=== PATIENT | female | born 1955 | race Caucasian/White ===

== ENCOUNTER 2022-12-23 07:53 | Outpatient (OUT) | payer MEDICARE, SELFPAY ==
[2022-12-23 08:41] LABS: Basophils Absolute Auto 0.1 10^3/uL (0.0-0.1); Basophils Percent Auto 0.9 % (0.2-2.0); Eosinophils Absolute Auto 0.4 10^3/uL (0.0-0.7); Eosinophils Percent Auto 4.4 % (0.9-7.0); Hematocrit 40.4 % (36.0-48.0); Hemoglobin 12.2 g/dL (12.0-16.0); Immature Granulocytes Abs Auto 0.04 10^3/uL (0.00-0.03); Immature Granulocytes Pct Auto 0.5 % (0.0-0.5); Lymphocytes Absolute Auto 2.9 10^3/uL (1.2-3.8); Lymphocytes Percent Auto 36.5 % (20.5-60.0); Mean Corpuscular HGB Conc 30.2 g/dL (29.9-35.2); Mean Corpuscular Hemoglobin 27.8 pg (26.7-34.0); Mean Platelet Volume 10.1 fL (9.5-13.5); Monocytes Absolute Auto 0.7 10^3/uL (0.3-0.8); Monocytes Percent Auto 8.6 % (1.7-12.0); Neutrophils Absolute Auto 3.9 10^3/uL (1.4-6.5); Neutrophils Percent Auto 49.1 % (43.0-75.0); Platelet Count 328 10^3/uL (150-450); Red Blood Count 4.39 10^6/uL (4.20-5.40)
[2022-12-23 08:57] LABS: Estimated Average Glucose 137 mg/dL; Glycohemoglobin A1C 6.4 % (4.5-6.2)
[2022-12-23 09:06] LABS: Alanine Aminotransferase 26 U/L (14-59); Albumin Level 3.7 g/dL (3.4-5.0); Alkaline Phosphatase 85 U/L (46-116); Anion Gap 14.8; Aspartate Amino Transferase 18 U/L (15-37); BUN Creatinine Ratio 15.4; Bilirubin Total 0.3 mg/dL (0.2-1.0); Calcium 9.5 mg/dL (8.5-10.1); Chloride 103 mmol/L (98-107); Chol HDL Ratio 4.4; Cholesterol 229 mg/dL (<=200); Estimated GFR (African America >60 (>=60); Estimated GFR (Non-African Ame >60 (>=60); Globulin 3.7 g/dL; Glucose 107 mg/dL (74-106); HDL Cholesterol 52 mg/dL (40-60); Potassium 3.8 mmol/L (3.5-5.1); Sodium 141 mmol/L (136-145); Thyroid Stimulating Hormone 4.131 uIU/mL (0.358-3.740); Total Protein 7.4 g/dL (6.4-8.2); Triglycerides 267 mg/dL (<=150); VLDL CHOLESTEROL 53.4 mg/dL
[2022-12-24 12:09] LABS: Insulin 8.2 uIU/mL (2.6-24.9)
== END 2022-12-23 07:54 | disposition home or self-care (01) ==
LOC: LAB 07:56
PROVIDERS: PCP Family Medicine; Visit Provider Family Medicine
DX: M54.9 Dorsalgia, unspecified (principal); E11.9 Type 2 diabetes mellitus without complications; E78.5 Hyperlipidemia, unspecified; K58.9 Irritable bowel syndrome, unspecified; R73.09 Other abnormal glucose; D64.9 Anemia, unspecified; E55.9 Vitamin D deficiency, unspecified
CPT/HCPCS: 36415; 80053; 80061; 82306; 83036; 83525; 83540; 84436; 84443; 84481; 85025

== ENCOUNTER 2023-02-09 09:44 | Outpatient (OUT) | payer MEDICARE, SELFPAY ==
--- NOTE | 2023-02-09 09:46 | MM_ITS ---
Patient Name: KIM SANTAMARIA MR#: [id number] : 1955 Exam Date: 02/09/2023 Ordering Doctor: DR MARCO WHITE . RADIOLOGY REPORT PROCEDURE: MM TOMOSYNTHESIS SCREENING BI COMPARISON: MG MAMM SCREEN 3D KARINE CAD, 01/30/2022. MG MAMM SCREEN KARINE W CAD, 02/16/2019. MG MAMM SCREEN KARINE W CAD, 11/24/2017. MG MAMM KARINE SCRN W CAD DIG, 06/15/2013. INDICATIONS: Screening Calculator Name NCI Breast Cancer Risk Assessment Tool 5 Year Breast Cancer Risk 1.20% Lifetime Breast Cancer Risk 4.20% Personal Breast Cancer No Personal Ovarian Cancer No Treatments None Family Cancers Aunt-maternal with breast cancer at age ~58. LOCATION: [facility] BREAST COMPOSITION: Heterogeneously dense,which may obscure small masses. FINDINGS: DIAGNOSTIC CATEGORY 2--BENIGN FINDING: RIGHT BREAST: No significant suspicious finding. Scattered benign-appearing calcifications are present. No significant change has occurred. LEFT BREAST: No significant suspicious finding. Scattered benign-appearing calcifications are present. No significant change has occurred. RECOMMENDATIONS: ROUTINE MAMMOGRAM AND CLINICAL EVALUATION IN 12 MONTHS. PLEASE NOTE: A NORMAL MAMMOGRAM DOES NOT EXCLUDE THE POSSIBILITY OF BREAST CANCER. A CLINICALLY SUSPICIOUS PALPABLE LUMP SHOULD BE BIOPSIED. Dictated by: Chirag Velázquez M.D. on 02/10/2023 at 15:23 Approved by: Chirag Velázquez M.D. on 02/10/2023 at 15:25
== END 2023-02-09 09:45 | disposition home or self-care (01) ==
LOC: MAMMO 09:44
PROVIDERS: PCP Family Medicine; Visit Provider Family Medicine
DX: Z12.31 Encounter for screening mammogram for malignant neoplasm of breast (principal); Z80.3 Family history of malignant neoplasm of breast
CPT/HCPCS: 77063; 77067

== ENCOUNTER 2023-10-07 09:12 | Outpatient (OUT) | payer MEDICARE, SELFPAY ==
[2023-10-07 09:39] LABS: Basophils Percent Auto 0.6 % (0.2-2.0); Eosinophils Absolute Auto 0.2 10^3/uL (0.0-0.7); Eosinophils Percent Auto 3.1 % (0.9-7.0); Hematocrit 37.8 % (36.0-48.0); Hemoglobin 12.1 g/dL (12.0-16.0); Immature Granulocytes Abs Auto 0.02 10^3/uL (0.00-0.03); Immature Granulocytes Pct Auto 0.3 % (0.0-0.5); Lymphocytes Absolute Auto 2.1 10^3/uL (1.2-3.8); Lymphocytes Percent Auto 31.9 % (20.5-60.0); Mean Corpuscular Hemoglobin 27.8 pg (26.7-34.0); Mean Corpuscular Volume 86.7 fL (81.0-99.0); Mean Platelet Volume 10.1 fL (9.5-13.5); Monocytes Absolute Auto 0.7 10^3/uL (0.3-0.8); Monocytes Percent Auto 10.5 % (1.7-12.0); Neutrophils Absolute Auto 3.5 10^3/uL (1.4-6.5); Neutrophils Percent Auto 53.6 % (43.0-75.0); Platelet Count 280 10^3/uL (150-450); Red Blood Count 4.36 10^6/uL (4.20-5.40); Red Cell Distribution Width 13.7 % (11.0-15.0); White Blood Count 6.5 10^3/uL (4.0-11.0)
[2023-10-07 10:44] LABS: Albumin Level 3.7 g/dL (3.4-5.0); Alkaline Phosphatase 87 U/L (46-116); Aspartate Amino Transferase 18 U/L (15-37); BUN Creatinine Ratio 11.7; Bilirubin Total 0.4 mg/dL (0.2-1.0); Calcium 9.4 mg/dL (8.5-10.1); Carbon Dioxide 26.6 mmol/L (21.0-32.0); Chloride 103 mmol/L (98-107); Estimated GFR (African America >60 (>=60); Estimated GFR (Non-African Ame >60 (>=60); Globulin 3.6 g/dL; Glucose 130 mg/dL (74-106); Potassium 3.6 mmol/L (3.5-5.1); Sodium 140 mmol/L (136-145); Thyroid Stimulating Hormone 1.139 uIU/mL (0.358-3.740); Total Protein 7.3 g/dL (6.4-8.2)
[2023-10-07 11:06] LABS: Alanine Aminotransferase 23 U/L (14-59)
[2023-10-07 11:11] LABS: Free T4 0.78 ng/dL (0.76-1.46)
== END 2023-10-07 09:13 | disposition home or self-care (01) ==
LOC: LAB 09:14
PROVIDERS: PCP Family Medicine; Visit Provider Family Medicine
DX: E03.9 Hypothyroidism, unspecified (principal); F41.9 Anxiety disorder, unspecified
CPT/HCPCS: 36415; 80053; 84439; 84443; 85025

== ENCOUNTER 2023-10-14 06:05 | Outpatient (OUT) | payer MEDICARE, SELFPAY ==
--- NOTE | 2023-10-14 | NM_ITS ---
Patient Name: KIM SANTAMARIA MR#: [id number] : 1955 Exam Date: 10/14/2023 Ordering Doctor: DR Jem Otero . RADIOLOGY REPORT PROCEDURE: NM RICHARD PERF SPECT REST STR COMPARISON: None. INDICATIONS: EXCESSIVE SWEATING TECHNIQUE: Exam Description: Stress/Rest one day protocol gated SPECT Rest Imagin.7 mCi Tc-99m Cardiolite IV on 10/14/2023 Stress Imaging 32.0 mCi Tc-99m Cardiolite IV on 10/14/2023 Exercise Protocol: Lui Heart Rate (bpm): Rest: 71 Max: 133 PMHR: 87 Blood Pressure: Rest: 134/72 Max: 168/76 Exercise Time: Minutes: 4 Seconds: 13 Stage Reached: Stage: 2 Mets 7.0 Symptoms: Rest and peak stress ECG findings were normal and the exercise portion of the study was normal per attending physician Dr. Goel . For more details please see separate cardiac stress test report. FINDINGS: QUALITY OF STUDY: Excellent. PERFUSION DEFECT: None. LOCATION: N/A SIZE: N/A. SEVERITY: N/A. TYPE: N/A. WALL MOTION: Normal. LV SIZE: Normal. 64 mL. TID / TCD: None; 0.8 LVEF: Normal. Calculated EF 70%. SUMMARY: Myocardial perfusion imaging study is NORMAL. CONCLUSION: 1. Normal nuclear medicine myocardial perfusion scan. Dictated by: Chirag Velázquez M.D. on 10/15/2023 at 14:36 Approved by: Chirag Velázquez M.D. on 10/15/2023 at 14:38
--- OUTSIDE RECORDS SUMMARY | 2023-10-14 06:09 | XMS_ITS | CCD ---
Author Organization [facility] Inform ion [facility] Care Team Providers Care Set Up Worker Name Role Phone QUINTIN WHATLEY Unavailable Unavailable Rehl, Brown Unavailable Unavailable Marco Otero Primary Care Physician BRANDEN, DR LARA Consulting Unavailable HOY, DR LARA Primary Care Unavailable HOY, DR LARA Attending Unavailable HOY, DR LARA Admitting Unavailable WEST, DR JOYCE Laurent Consulting Unavailable BRENDAY, DR LARA Consulting Unavailable BRENDAY, DR LARA Primary Care Unavailable HOY, DR LARA Attending Unavailable HOY, DR LARA Admitting Unavailable BROWN, JOYCE Consulting Unavailable HOY, DR LARA Consulting Unavailable BRENDAY, DR LARA Primary Care Unavailable HOY, DR LARA Attending Unavailable HOY, DR LARA Admitting Unavailable HOY, DR LARA Consulting Unavailable BRENDAY, DR LARA Primary Care Unavailable HOY, DR LARA Attending Unavailable HOY, DR LARA Admitting Unavailable WEST, DR JOYCE Laurent Consulting Unavailable BRANDEN, DR LARA Consulting Unavailable BRANDEN, DR LARA Primary Care Unavailable BRANDEN, DR LARA Attending Unavailable BRANDEN, DR LARA Admitting Unavailable WEST, DR JOYCE Laurent Consulting Unavailable HOY, DR LARA Consulting Unavailable BRENDAY, DR LARA Primary Care Unavailable HOY, DR LARA Attending Unavailable HOY, DR LARA Admitting Unavailable BROWNJOYCE Consulting Unavailable BRANDEN, DR LARA Consulting Unavailable BRANDEN, DR LARA Primary Care Unavailable BRANDEN, DR LARA Attending Unavailable HOY, DR LARA Admitting Unavailable ZIEBER, DR YOHANNES Ya Consulting Unavailable NILL, DR GAMING Consulting Unavailable BRENDAY, DR LARA Primary Care Unavailable NILL, DR GAMING Attending Unavailable NILL, DR GAMING Admitting Unavailable RODRIGUEZYUMIKO MAYFIELD Consulting Unavailable JESSIE HENRIQUEZ Consulting Unavailable NILL, DR GAMING Consulting Unavailable HOY, DR LARA Primary Care Unavailable NILL, DR GAMING Attending Unavailable NILL, DR GAMING Admitting Unavailable HOY, DR LARA Consulting Unavailable HOY, DR LARA Primary Care Unavailable HOY, DR LARA Attending Unavailable HOY, DR LARA Admitting Unavailable WEST, DR JOYCE Laurent Consulting Unavailable HOY, DR LARA Consulting Unavailable HOY, DR LARA Primary Care Unavailable HOY, DR LARA Attending Unavailable HOY, DR LARA Admitting Unavailable WEST, DR JOYCE Laurent Consulting Unavailable BRENDAY, DR LARA Primary Care Unavailable NILL, DR GAMING Attending Unavailable NILL, DR GAMING Admitting Unavailable NILL, DR GAMING Consulting Unavailable NILL, Amberly Ya Attending Unavailable NILL, Amberly Ya Attending Unavailable Hoy, Marco Referring Unavailable NILL, Amberly Ya Attending Unavailable Hoy, Marco Referring Unavailable NILL, Amberly R Attending Unavailable NILL, Amberly R Attending Unavailable NILL, Amberly Ya Attending Unavailable Allergies Allergy Classification Reported Allergen(s) Allergy Type Date of Onset Reaction(s) Facility (1 source) No Known Medication Allergies; Translations: [No Known Medication Allergies] Propensity to adverse reactions (disorder) [facility] Repository Medications Current Medications Medication Drug Class(es) Dates Sig (Normalized) Sig (Original) diclofenac sodium 75 mg delayed release oral tablet (2 sources) Nonsteroidal Anti-inflammatory Drug Start: 12-04-2021 take 1 tablet by mouth twice daily diclofenac sodium 75 mg Oral EC Tab 75 mg = 1 tab(s), Oral, BID, Refills(s) 0 Start Date: 12/04/21 Status: Ordered levothyroxine sodium 0.05 mg oral tablet (2 sources) l-Thyroxine Start: 11-29-2021 take 1 tablet by mouth once daily Synthroid 50 mcg Tab 50 mcg = 1 tab(s), Oral, Daily, Refills(s) 0 Start Date: 11/29/21 Status: Ordered metFORMIN hydrochloride 500 mg oral tablet (4 sources) Biguanide Start: 11-29-2021 take 2 tablets by mouth twice daily metformin 500 mg oral tablet 1,000 mg = 2 tab(s), Oral, BID, Refills(s) 0 Start Date: 11/29/21 Status: Ordered pantoprazole 40 mg delayed release oral tablet (6 sources) Proton Pump Inhibitor Start: 05-28-2022 take 1 tablet by mouth twice daily Protonix 40 mg Tab-DR 40 mg = 1 tab(s), Oral, BID, # 90 tab(s), Refills(s) 3, Pharmacy: [id number], 167.6, cm, 05/28/22 13:15:00 EST, Height/Length Dosing, 86.5, kg, 05/28/22 13:15:00 EST, Weight Dosing Start Date: 05/28/22 Status: Ordered Start: 11-29-2021 take 1 tablet by roosevelt th once daily Protonix 40 mg Tab-DR 40 mg = 1 tab(s), Oral, Daily, Refills(s) 0 Start Date: 11/29/21 Status: Ordered QUEtiapine 50 mg oral tablet (4 sources) Atypical Antipsychotic Start: 12-04-2021 take 1 tablet by mouth at bedtime quetiapine 50 mg oral tablet 50 mg = 1 tab(s), Oral, Bedtime, Refills(s) 0 Start Date: 12/04/21 Status: Ordered Start: 12-04-2021 quetiapine 50 mg oral tablet 25 mg = 0.5 tab(s), Oral, Bedtime, Refills(s) 0 Start Date: 12/04/21 Status: Ordered simvastatin 20 mg oral tablet (4 sources) HMG-CoA Reductase Inhibitor Start: 11-29-2021 take 1 tablet by mouth once daily at bedtime simvastatin 20 mg Tab 20 mg = 1 tab(s), Oral, Once a day (at bedtime), Refills(s) 0 Start Date: 11/29/21 Status: Ordered Problems Active Problems Problem Classification Problem Date Documented Da te Episodic/Chronic Abdominal hernia (5 sources) Diaphragmatic hernia without obstruction or gangrene; Translations: [Diaphragmatic hernia] Onset: 2 Episodic Abdominal pain (18 sources) Epigastric pain; Translations: [Epigastric pain] Onset: 2 Episodic Anxiety disorders (4 sources) Anxiety 11-29-2021 Chronic Biliary tract disease (6 sources) Disorder of biliary tract; Translations: [Other specified diseases of biliary tract] Onset: 2 Chronic Biliary tract disease (11 sources) Cholelithiasis without obstruction; Translations: [Calculus of gallbladder without cholecystitis without obstruction] Onset: 2 Episodic Diabetes mellitus without complication (5 sources) Diabetes mellitus; Translations: [Type 2 diabetes mellitus without complications] Onset: 2 11-29-2021 Chronic Diabetes mellitus without complication (1 source) Other abnormal glucose; Translations: [OTHER ABNORMAL GLUCOSE] Onset: 3 Episodic Digestive congenital anomalies (1 source) Other specified congenital malformations of intestine; Translations: [OTH SPEC CONGEN MALFORM INTESTINE] Onset: 2 Chronic Disorders of lipid metabolism (6 sources) Pure hypercholesterolemia; Translations: [Pure hypercholesterolemia, unspecified] Onset: 2 11-29-2021 Chronic Esophageal disorders (9 sources) Gastroesophageal reflux disease; Translations: [Gastro-esophageal reflux disease with esophagitis] Onset: 3 11-29-2021 Chronic Gastritis and duodenitis (2 sources) Bile-induced gastritis 02-10-2022 Episodic Nonmalignant breast conditions (4 sources) Fibrocystic disease of breast 11-29-2021 Chronic Nutritional deficiencies (1 source) Vitamin D deficiency, unspecified; Translations: [VITAMIN D DEFICIENCY UNSPECIFIED] Onset: 2 Chronic Other disorders of stomach and duodenum (1 source) Nonulcer dyspepsia; Translations: [Functional dyspepsia] Onset: 2 Episodic Other disorders of stomach and duodenum (4 sources) Indigestion 12-04-2021 Episodic Other gastrointestinal disorders (1 source) Irritable bowel syndrome without diarrhea; Translations: [IRRITABLE BOWEL SYND W/O DIARRHEA] Onset: 2 Chronic Other gastrointestinal disorders (2 sources) Irritable bowel syndrome 02-10-2022 Chronic Other gastrointestinal disorders (5 sources) Diarrhea; Translations: [Diarrhea, unspecified] Onset: 2 Episodic Other gastrointestinal disorders (1 source) Swollen abdomen; Translations: [Abdominal distension (gaseous)] Onset: 2 Episodic Other gastrointestinal disorders (1 source) Altered bowel function; Translations: [Change in bowel habit] Onset: 2 Episodic Other gastrointestinal disorders (4 sources) Abdominal bloating 12-04-2021 Episodic Other gastrointestinal disorders (4 sources) Alteration in bowel elimination 12-04-2021 Episodic Other injuries and conditions due to external causes (2 sources) Unspecified injury of head, initial encounter; Translations: [S09.90XA - Unspecified injury of head, initial encounter] Onset: 7 Other liver diseases (1 source) Fatty (change of) liver, not elsewhere classified; Translations: [FATTY CHANGE LIVER NEC] Onset: 2 Chronic Other nutritional; endocrine; and metabolic disorders (1 source) Body mass index 30+ - obesity 05-28-2022 Chronic Other nutritional; endocrine; and metabolic disorders (3 sources) Overweight in adulthood with body mass index of 25 or more but less than 30 12-04-2021 Episodic Residual codes; unclassified (5 sources) Early satiety; Translations: [Early satiety] Onset: 2 Episodic Residual codes; unclassified (4 sources) Insomnia 11-29-2021 Episodic Spondylosis; intervertebral disc disorders; other back problems (4 sources) Chronic low back pain 11-29-2021 Episodic Thyroid disorders (9 sources) Hypothyroidism; Translations: [Hypothyroidism, unspecified] Onset: 2 11-29-2021 Chronic Unclassified (1 source) GASTR-ESOPH RFLX DS ESPHGTS W/O BLD; Translations: [GASTR-ESOPH RFLX DS ESPHGTS W/O BLD] Onset: 2 Unclassified (1 source) CONTACT W/AND (SUSP) EXPOS COVID-19; Translations: [CONTACT W/AND (SUSP) EXPOS COVID-19] Onset: 2 Unclassified (3 sources) LOW BACK PAIN, UNSPECIFIED; Translations: [LOW BACK PAIN, UNSPECIFIED] Onset: 2 Past or Other Problems Problem Classification Problem Date Documented Da te Episodic/Chronic Deficiency and other anemia (1 source) Anemia, unspecified; Translations: [ANEMIA UNSPECIFIED] Onset: 01-26-2022 Episodic Other aftercare (1 source) Other fdc (current) drug therapy; Translations: [OTH LONGTERM CURRENT DRUG THERAPY] Onset: 01-06-2022 Episodic Other aftercare (1 source) 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; Translations: [HEMP FIBER TAKER OFF USE ORAL HYPOGLYCEMIC DX] Onset: 01-06-2022 Episodic Other and unspecified benign neoplasm (1 source) Polyp of stomach and duodenum; Translations: [POLYP OF STOMACH AND DUODENUM] Onset: 01-06-2022 Episodic Other gastrointestinal disorders (1 source) Change in bowel habit; Translations: [CHANGE IN BOWEL HABIT] Onset: 01-06-2022 Episodic Other gastrointestinal disorders (1 source) Abdominal distension (gaseous); Translations: [ABDOMINAL DISTENSION GASEOUS] Onset: 01-06-2022 Episodic Other screening for suspected conditions (not mental disorders or infectious disease) (4 sources) Encounter for screening mammogram for malignant neoplasm of breast; Translations: [ENC SCR MAMMO MALIG NEOPLASM BREAST] Onset: 01-30-2022 Episodic Residual codes; unclassified (1 source) Family history of malignant neoplasm of breast; Translations: [FAMILY HX MALIG NEOPLASM OF BREAST] Onset: 02-03-2022 Episodic Residual codes; unclassified (1 source) Early satiety; Translations: [EARLY SATIETY] Onset: 01-06-2022 Episodic Screening and history of mental health and substance abuse codes (1 source) Personal history of nicotine dependence; Translations: [PERSONAL HISTORY OF NICOTINE DEPEND] Onset: 01-06-2022 Episodic Unclassified (1 source) LOW BACK PAIN, UNSPECIFIED; Translations: [LOW BACK PAIN, UNSPECIFIED] Onset: 07-22-2021 Results Test Name Value Interpretation Reference Range Facility Ambulatory Visit Summaryon 0 06-25-2022 Ambulatory Visit Summary OSBALDO SANTAMARIAJOYCELYN Higgins :1955 Visit Date:06/25/2022 Ambulatory Visit Instructions Your Care Team Attending Physician - CASA ANAYA, Amberly Ya Primary Care Physician - Marco Otero MD This Is Your Medications List Contact prescribing physician if questions or concerns metformin (metformin 500 mg oral tablet) pantoprazole (Protonix 40 mg Tab-DR) pantoprazole (Protonix 40 mg Tab-DR) quetiapine (quetiapine 50 mg oral tablet) simvastatin (simvastatin 20 mg Tab) Procedures Performed Colonoscopy (01/01/2022), EGD - Esophagogastroduodenoscopy (01/01/2022), Abdominal hysterectomy (2005), Bilateral oophorectomy. Discharge Vitals Heart Rate (Peripheral) 72 Respiratory Rate 16 Blood Pressure 136/92 Height 167.6 cm Height 66 in Weight 83.4 kg Weight 183.48 lb BMI 29.69 Medications What How Much When Why Instructions Unchanged metformin (metformin 500 mg oral tablet) 2 Tablets By Mouth 2 times a day Contact prescribing physician if questions or concerns Unchanged pantoprazole (Protonix 40 mg Tab-DR) 1 Tablets By Mouth 2 times a day GERD with esophagitis Hiatal hernia with GERD Contact prescribing physician if questions or concerns Unchanged pantoprazole (Protonix 40 mg Tab-DR) 1 Tablets By Mouth Every day Contact prescribing physician if questions or concerns Unchanged quetiapine (quetiapine 50 mg oral tablet) 1 Tablets By Mouth At bedtime Contact prescribing physician if questions or concerns Unchanged simvastatin (simvastatin 20 mg Tab) 1 Tablets By Mouth Once a day (at bedtime) Contact prescribing physician if questions or concerns Allergies No Known Allergies No Known Medication Allergies Problems Ongoing - Any problem that you are currently receiving treatment for. Anxiety Bile reflux gastritis Bloating BMI 29.0-29.9,adult Change in bowel habits Cholelithiasis Chronic low back pain Diabetes Dilated cbd, acquired Early satiety Epigastric pain Fibrocystic breast Frequent loose stools GERD (gastroesophageal reflux disease) GERD with esophagitis Hiatal hernia with GERD Hypothyroidism IBS (irritable bowel syndrome) Indigestion Insomnia Pure hypercholesterolemia Right upper quadrant pain Normal [facility] General Surgery Office/Clini c Noteon 06-25-2022 General Surgery Office/Clinic Note Chief Complaint continued complaint of abdominal pain, bloating, morning nausea and night time vomiting HPI Staff Presents with continued complaint of right sided abdominal pain, nausea, vomiting and bloating. Last evaluation completed 05/28.Taking Protonix BID without change in symptoms. History of Present Illness patient here for persistent epigastric pain, bloating; nausea in am; no bowel changes, denies emesis; pain occurs after eating anything, better if she eats smaller meals; no regurgitation; no fevers, pain lasts about 45 minutes, no nighttime symptoms; taking Protonix bid, gets nausea in the am without eating; no food triggers; no h/o jaundice or GB EF. Review of Systems PHQ Score Initial Depression Screen Score: 0 ROS - Provider Constitutional: no fever, no sweats, no weight loss. Eyes: no glasses, no blurred vision, no visual loss. ENMT: no dentures, no hoarseness, no swallowing difficulties, no hearing loss, no ear infection(s), no nose bleeds. Cardiovascular: normal blood pressure, no chest pain, regular heartbeat, no heart murmur. Respiratory: no shortness of breath, no cough, no asthma, no wheezing. Gastrointestinal: no nausea, no vomiting, no diarrhea, no constipation, no blood in stool, no change in bowel habits, no abdominal pain, no hepatitis. Genitourinary: no kidney stones, no urine infection, no dysuria. Musculoskeletal: no pain, no weakness. Skin: no changing moles, no rash, no skin lumps. Neurologic: no seizures, no epilepsy, no headache. Psychiatric: no emotional or psychiatric problem. Heme/Lymph: no bleeding problems, no anemia, no blood clots, no transfusions. Allergy/Immunologic: no swollen lymph nodes/glands, no IV drug abuse. Other: Additional ROS info: Except as noted in the above Review of Systems and in the History of Present Illness, all other systems have been reviewed and are negative or noncontributory. Physical Exam Vitals & Measurements HR: 72(Peripheral) RR: 16 BP: 136/92 HT: 66 in HT: 167.6 cm WT: 83.4 kg WT: 183.48 lb BMI: 29.69 abd: obese, soft, nondistended, normal bs, mild epigastric tenderness to deep palpation. Assessment/Plan 1. Hiatal hernia with GERD, (K44.9: Diaphragmatic hernia without obstruction or gangrene)Diaphragmatic hernia without obstruction or gangrene symptoms most consistent with GERD; no biliary colic symptoms, not likely passing small stones; recommend decreasing Protonix to daily; frequent small meals, low fat diet; wt loss; monitor for food triggers or other symptoms; if worsening pain, recommend laboratory evaluation, lfts and lipase; may require cholecystectomy if pain persists, patient not interested in surgery at this time. call with problems/questions. Follow-up No qualifying data available Problem List/Past Medical History Ongoing Anxiety Bile reflux gastritis Bloating BMI 29.0-29.9,adult Change in bowel habits Cholelithiasis Chronic low back pain Diabetes Dilated cbd, acquired Early satiety Epigastric pain Fibrocystic breast Frequent loose stools GERD (gastroesophageal reflux disease) GERD with esophagitis Hiatal hernia with GERD Hypothyroidism IBS (irritable bowel syndrome) Indigestion Insomnia Pure hypercholesterolemia Right upper quadrant pain Historical No qualifying data Procedure/Surgical History Colonoscopy (01/01/2022), EGD - Esophagogastroduodenoscopy (01/01/2022), Abdominal hysterectomy (2005), Bilateral oophorectomy. Medications metformin 500 mg oral tablet, 1000 mg= 2 tab(s), Oral, BID Protonix 40 mg Tab-DR, 40 mg= 1 tab(s), Oral, BID, 3 refills Protonix 40 mg Tab-DR, 40 mg= 1 tab(s), Oral, Daily quetiapine 50 mg oral tablet, 50 mg= 1 tab(s), Oral, Bedtime simvastatin 20 mg Tab, 20 mg= 1 tab(s), Oral, Once a day (at bedtime) Allergies No Known Allergies No Known Medication Allergies Social History Alcohol - Denies Alcohol Use, 12/04/2021 Substance Abuse - Denies Substance Abuse, 12/04/2021 Tobacco Former smoker, quit more than 30 days ago Tobacco Use:. Never Smokeless Tobacco Use:. Cigarettes, .75 per day. Started age 13.0 Years. Stopped age 35 Years., 06/25/2022 Family History Asthma: Father. Cancer: Father. Diabetes mellitus type 2: Sister and Brother. Hypertension: Mother. Renal failure syndrome: Brother. Stroke: Mother. Immunizations Vaccine Date Status Comments influenza virus vaccine, inactivated - Not Given Patient Refuses SARS-CoV-2 (COVID-19) mRNA BNT-162b2 vax 04/08/2021 Recorded SARS-CoV-2 (COVID-19) mRNA BNT-162b2 vax 06/21/2020 Recorded SARS-CoV-2 (COVID-19) mRNA BNT-162b2 vax 05/24/2020 Recorded Normal [facility] Comment on above: Result Comment: Elec tronically Signed By: CASA ANAYA, Amberly Ya\.br\Date and Time Signed: 06/25/22 16:53 EDT Ambulatory Visit Summaryon 0 05-28-2022 Ambulatory Visit Summary KIM SANTAMARIA :1955 Visit Date:05/28/2022 Ambulatory Visit Instructions Your Care Team Attending Physician - CASA ANAYA, Amberly Ya Primary Care Physician - Marco Otero MD This Is Your Medications List Contact prescribing physician if questions or concerns metformin (metformin 500 mg oral tablet) pantoprazole (Protonix 40 mg Tab-DR) quetiapine (quetiapine 50 mg oral tablet) simvastatin (simvastatin 20 mg Tab) Procedures Performed Colonoscopy (01/01/2022), EGD - Esophagogastroduodenoscopy (01/01/2022), Abdominal hysterectomy (2006), Bilateral oophorectomy. Discharge Vitals Heart Rate (Peripheral) 74 Respiratory Rate 16 Blood Pressure 148/94 Height 167.6 cm Height 66 in Weight 86.5 kg Weight 190.3 lb BMI 30.79 Medications What How Much When Instructions Unchanged metformin (metformin 500 mg oral tablet) 2 Tablets By Mouth 2 times a day Contact prescribing physician if questions or concerns Unchanged pantoprazole (Protonix 40 mg Tab-DR) 1 Tablets By Mouth Every day Contact prescribing physician if questions or concerns Unchanged quetiapine (quetiapine 50 mg oral tablet) 1 Tablets By Mouth At bedtime Contact prescribing physician if questions or concerns Unchanged simvastatin (simvastatin 20 mg Tab) 1 Tablets By Mouth Once a day (at bedtime) Contact prescribing physician if questions or concerns Medications and Immunizations Administered Not Given influenza virus vaccine, inactivated, Patient Refuses Allergies No Known Allergies No Known Medication Allergies Problems Ongoing - Any problem that you are currently receiving treatment for. Anxiety Bile reflux gastritis Bloating BMI 30.0-30.9,adult Change in bowel habits Cholelithiasis Chronic low back pain Diabetes Dilated cbd, acquired Early satiety Epigastric pain Fibrocystic breast Frequent loose stools GERD (gastroesophageal reflux disease) Hiatal hernia with GERD Hypothyroidism IBS (irritable bowel syndrome) Indigestion Insomnia Pure hypercholesterolemia Right upper quadrant pain Normal [facility] Physician Referralon 023 Physician Referral [phone] [id number] Normal [facility] NM HEPATOBILIARY SCAN W EFon 05-05-2022 NM HEPATOBILIARY SCAN W EF Begin Addendum #1 Further review of the images demonstrates that the gallbladder ejection fraction was calculated following administration of PO ensure. Gallbladder ejection fraction at 60 minutes is 28%, this is abnormally low with normal being 35% or greater Original Report EXAMINATION: NM HEPATOBILIARY SCAN W EF HISTORY: Right upper quadrant pain COMPARISON: No relevant comparison available. TECHNIQUE: Radionuclide hepatobiliary imaging was performed after intravenous injection of 5.1 Tc-99m mebrofenin with sequential acquisitions every 1 minute for one hour. FINDINGS: LIVER: Normal, prompt and uniform radiotracer uptake and clearing. BILIARY DUCTS: Normal radioisotopic biliary excretion. GALLBLADDER: Normal with no evidence of cystic duct obstruction. INTESTINE: Normal with no evidence of common biliary ductal obstruction. EJECTION FRACTION: Not performed OTHER: Negative. IMPRESSION: Normal hepatobiliary scan Normal [facility] US SINGLE QUAD RT UPPERon US SINGLE QUAD RT UPPER EXAM: US SINGLE QUAD RT UPPER HISTORY: . Right upper quadrant pain . COMPARISON: 11/26/2021 TECHNIQUE: Grayscale and color imaging was performed FINDINGS: The pancreas appears normal. Scanning of the liver demonstrates mild increased echogenicity of liver consistent with fatty infiltration of liver. Portions of the liver were obscured due to overlying bowel gas. Color-flow is noted in the portal and hepatic veins. Scanning of the gallbladder demonstrates multiple small echogenic foci within the gallbladder with shadowing consistent with small gallstones. There is also a small amount of sludge within the gallbladder. Gallbladder wall is not thickened. Patient had no pain upon scanning over the gallbladder. Common bile duct measures 4.7 mm. Right kidney measures 9.7 x 5.2 x 4.7 cm. Color-flow is noted. No solid renal cortical masses or hydronephrosis is noted. No fluid is noted in the right upper quadrant. IMPRESSION: 1 portions of the liver were obscured due to overlying bowel gas. Visualized portions of liver demonstrate increased echogenicity consistent with fatty infiltration of liver. This is unchanged. 2. Cholelithiasis along with a small amount of sludge within the gallbladder. No gallbladder wall thickening. Patient had no pain upon scanning over the gallbladder. Findings are unchanged. 3. The remainder the right upper quadrant was unremarkable. Electronically authenticated by: JOCYE INGRAM Date: 2022-04-23 10:51 Normal [facility] H PYLORI ANTIBODY IGGon 03-31 H. PYLORI IGG ABS 0.21 Index Value Normal 0.00-0.79 [facility] Comment on above: Result Comment: Nega tive <0.80 Equivocal 0.80 - 0.89 Positive >0.89 Performed By: #### H PYLLC #### [facility] [address] [place] [address] Dr. Blanca Grimm AMYLASEon 04-18-2022 Amylase [Catalytic activity/Vol] 49 U/L Normal 25-115 [facility] Comment on above: Performed By: #### A MY, CMP, LIPA #### [facility] [address] [address] [address] Blanca Grimm CBC AUTO DIFFon 04-18-2022 BASO # 0.1 103/ul Normal 0.0-0.1 [facility] Comment on above: Performed By: #### A MY, CMP, LIPA #### [facility] [address] [address] [address] Blanca Grimm Basophils/100 WBC (Bld) 0.7 % Normal 0.2-2.0 [facility] Comment on above: Performed By: #### A MY, CMP, LIPA #### [facility] [address] [address] [address] Blanca Grimm EO # 0.3 103/ul Normal 0.0-0.7 [facility] Comment on above: Performed By: #### A MY, CMP, LIPA #### [facility] [address] [place] [address] Dr. Blanca Grimm Eosinophils/100 WBC (Bld) 3.5 % Normal 0.9-7.0 [facility] Comment on above: Performed By: #### A MY, CMP, LIPA #### [facility] [address] [place] [address] Dr. Blanca Grimm Erythrocyte distribution width (RBC) [Ratio] 13.6 % Normal 11.0-15.0 [facility] Comment on above: Performed By: #### A MY, CMP, LIPA #### [facility] [address] [place] [address] Dr. Blanca Grimm Hematocrit (Bld) [Volume fraction] 34.8 % Critically low 36.0-48.0 [facility] Comment on above: Performed By: #### A MY, CMP, LIPA #### [facility] [address] [place] [address] Dr. Blanca Grimm Hemoglobin (Bld) [Mass/Vol] 12.6 g/dL Normal 12.0-16.0 [facility] Comment on above: Performed By: #### A MY, CMP, LIPA #### [facility] [address] [place] [address] Dr. Blanca Grimm IG # 0.04 10e3/ul Critically high 0.00-0.03 [facility] Comment on above: Performed By: #### A MY, CMP, LIPA #### [facility] [address] [place] [address] Dr. Blanca Grimm IG % 0.5 % Normal 0.0-0.5 [facility] Comment on above: Performed By: #### A MY, CMP, LIPA #### [facility] [address] [place] [address] Dr. Blanca Grimm LYMPH # 2.6 103/ul Normal 1.2-3.8 [facility] Comment on above: Performed By: #### A MY, CMP, LIPA #### [facility] [address] [place] [address] Dr. Blanca Grimm Lymphocytes/100 WBC (Bld) 34.2 % Normal 20.5-60.0 [facility] Comment on above: Performed By: #### A MY, CMP, LIPA #### [facility] [address] [place] [address] Dr. Blanca Grimm MANUAL DIFF REQ NO Normal [facility] Comment on above: Performed By: #### A MY, CMP, LIPA #### [facility] [address] [place] [address] Dr. Blanca Grimm MCH (RBC) [Entitic mass] 28.1 pg Normal 26.7-34.0 [facility] Comment on above: Performed By: #### A MY, CMP, LIPA #### [facility] [address] [place] [address] Dr. Blanca Grimm MCHC (RBC) [Mass/Vol] 36.2 g/dL Critically high 29.9-35.2 [facility] Comment on above: Performed By: #### A MY, CMP, LIPA #### [facility] [address] [place] [address] Dr. Blanca Grimm MCV (RBC) [Entitic vol] 77.5 fL Critically low 81.0-99.0 [facility] Comment on above: Performed By: #### A MY, CMP, LIPA #### [facility] [address] [address] [address] Blanca Grimm MONO # 0.7 103/ul Normal 0.3-0.8 [facility] Comment on above: Performed By: #### A MY, CMP, LIPA #### [facility] [address] [address] [address] Blanca Grimm Monocytes/100 WBC (Bld) 9.1 % Normal 1.7-12.0 [facility] Comment on above: Performed By: #### A MY, CMP, LIPA #### [facility] [address] [address] [address] Blanca Grimm NEUT # 3.9 103/ul Normal 1.4-6.5 [facility] Comment on above: Performed By: #### A MY, CMP, LIPA #### [facility] [address] [place] [address] Dr. Blanca Grimm Neutrophils/100 WBC (Bld) 52.0 % Normal 43.0-75.0 [facility] Comment on above: Performed By: #### A MY, CMP, LIPA #### [facility] [address] [place] [address] Dr. Blanca Grimm Platelet mean volume (Bld) [Entitic vol] 9.3 fL Critically low 9.5-13.5 [facility] Comment on above: Performed By: #### A MY, CMP, LIPA #### [facility] [address] [place] [address] Dr. Blanca Grimm PLT 290 103/ul Normal 150-450 [facility] Comment on above: Performed By: #### A MY, CMP, LIPA #### [facility] [address] [place] [address] Dr. Blanca Grimm RBC 4.49 106/ul Normal 4.20-5.40 [facility] Comment on above: Performed By: #### A MY, CMP, LIPA #### [facility] [address] [place] [address] Dr. Blanca Grimm WBC 7.5 103/ul Normal 4.0-11.0 [facility] Comment on above: Performed By: #### A MY, CMP, LIPA #### [facility] [address] [address] [address] Blanca Grimm FREE THYROXINE INDEX T7on FTI 2.57 Normal 1.30-4.50 [facility] Comment on above: Performed By: #### A MY, CMP, LIPA #### [facility] [address] [address] [address] Blanca Grimm T3U 33.0 % Normal 30.0-39.0 [facility] Comment on above: Performed By: #### A MY, CMP, LIPA #### [facility] [address] [place] [address] Dr. Blanca Grimm T4 [Mass/Vol] 7.80 ug/dL Normal 4.80-13.90 [facility] Comment on above: Performed By: #### A MY, CMP, LIPA #### [facility] [address] [place] [address] Dr. Blanca Grimm GLYCOHEMOGLOBIN A1Con 2022 ADA RECOMMENDATION SEE BELOW Normal [facility] Comment on above: Result Comment: ADA RECOMMENDED LIMIT 4.0 - 6.0 ADA THERAPEUTIC TARGET < 7.0 ACTION SUGGESTED > 7.0 Performed By: #### A MY, CMP, LIPA #### [facility] [address] [place] [address] Dr. Blanca Grimm Glucose [Mass/Vol] 128 mg/dL Normal [facility] Comment on above: Performed By: #### A MY, CMP, LIPA #### [facility] [address] [place] [address] Dr. Blanca Grimm HbA1c (Bld) [Mass fraction] 6.1 % Normal 4.5-6.2 [facility] Comment on above: Performed By: #### A MY, CMP, LIPA #### [facility] [address] [place] [address] Dr. Blanca Grimm LIPASEon 04-18-2022 Lipase [Catalytic activity/Vol] 125.0 U/L Normal 73.0-393.0 [facility] Comment on above: Performed By: #### A MY, CMP, LIPA #### [facility] [address] [address] [address] Blanca Grimm PROF 14(COMP METB)on 023 Albumin [Mass/Vol] 4.0 g/dL Normal 3.4-5.0 [facility] Comment on above: Performed By: #### A MY, CMP, LIPA #### [facility] [address] [address] [address] Blanca Grimm Albumin/Globulin [Mass ratio] 1.1 {ratio} Normal [facility] Comment on above: Performed By: #### A MY, CMP, LIPA #### [facility] [address] [place] [address] Dr. Blanca Grimm ALP [Catalytic activity/Vol] 78 U/L Normal 46-116 [facility] Comment on above: Performed By: #### A MY, CMP, LIPA #### [facility] [address] [address] [address] Blanca Grimm ALT [Catalytic activity/Vol] 31 U/L Normal 14-59 [facility] Comment on above: Performed By: #### A MY, CMP, LIPA #### [facility] [address] [place] [address] Dr. Blanca Grimm Anion gap [Moles/Vol] 11.7 mmol/L Normal [facility] Comment on above: Performed By: #### A MY, CMP, LIPA #### [facility] [address] [address] [address] Blanca Grimm AST [Catalytic activity/Vol] 18 U/L Normal 15-37 [facility] Comment on above: Performed By: #### A MY, CMP, LIPA #### [facility] [address] [place] [address] Dr. Blanca Grimm Bilirubin [Mass/Vol] 0.3 mg/dL Normal 0.2-1.0 [facility] Comment on above: Performed By: #### A MY, CMP, LIPA #### [facility] [address] [place] [address] Dr. Blanca Grimm Calcium [Mass/Vol] 9.8 mg/dL Normal 8.5-10.1 [facility] Comment on above: Performed By: #### A MY, CMP, LIPA #### [facility] [address] [address] [address] Blanca Grimm Chloride [Moles/Vol] 103 mmol/L Normal 98-107 [facility] Comment on above: Performed By: #### A MY, CMP, LIPA #### [facility] [address] [address] [address] Blanca Grimm CO2 [Moles/Vol] 29.5 mmol/L Normal 21.0-32.0 [facility] Comment on above: Performed By: #### A MY, CMP, LIPA #### [facility] [address] [place] [address] Dr. Blanca Grimm Creatinine [Mass/Vol] 0.69 mg/dL Normal 0.55-1.02 [facility] Comment on above: Performed By: #### A MY, CMP, LIPA #### [facility] [address] [place] [address] Dr. Blanca Grimm EGFR-AF BERMUDIAN >60 Normal >=60 [facility] Comment on above: Performed By: #### A MY, CMP, LIPA #### [facility] [address] [place] [address] Dr. Blanca Grimm EGFR-NON AF BERMUDIAN >60 Normal >=60 [facility] Comment on above: Performed By: #### A MY, CMP, LIPA #### [facility] [address] [place] [address] Dr. Blanca Grimm Globulin (S) [Mass/Vol] 3.6 g/dL Normal [facility] Comment on above: Performed By: #### A MY, CMP, LIPA #### [facility] [address] [place] [address] Dr. Blanca Grimm Glucose [Mass/Vol] 95 mg/dL Normal 74-106 [facility] Comment on above: Performed By: #### A MY, CMP, LIPA #### [facility] [address] [address] [address] Blanca Grimm Potassium [Moles/Vol] 4.2 mmol/L Normal 3.5-5.1 [facility] Comment on above: Performed By: #### A MY, CMP, LIPA #### [facility] [address] [address] [address] Blanca Grimm Protein [Mass/Vol] 7.6 g/dL Normal 6.4-8.2 [facility] Comment on above: Performed By: #### A MY, CMP, LIPA #### [facility] [address] [address] [address] Blanca Grimm Sodium [Moles/Vol] 140 mmol/L Normal 136-145 [facility] Comment on above: Performed By: #### A MY, CMP, LIPA #### [facility] [address] [place] [address] Dr. Blanca Grimm Urea nitrogen [Mass/Vol] 10.0 mg/dL Normal 7.0-18.0 [facility] Comment on above: Performed By: #### A MY, CMP, LIPA #### [facility] [address] [place] [address] Dr. Blanca Grimm Urea nitrogen/Creatinin e [Mass ratio] 14.5 mg/mg Normal [facility] Comment on above: Performed By: #### A MY, CMP, LIPA #### [facility] [address] [place] [address] Dr. Blanca Grimm TSHon 04-18-2022 TSH 3.705 uIU/mL Normal 0.358-3.740 [facility] Comment on above: Performed By: #### A MY, CMP, LIPA #### [facility] [address] [place] [address] Dr. Blanca Grimm XR ABD FLAT UP_PA Michele 04-18 XR ABD FLAT UP_PA CH EXAMINATION: XR ABD FLAT UP_PA CH HISTORY: Right upper quadrant pain , nausea and vomiting after eating, epigastric pain COMPARISON: No relevant comparison available. FINDINGS: LUNGS: No infiltrate, pneumothorax, or pleural effusion. MEDIASTINUM: No abnormal widening. BOWEL GAS PATTERN: Non-obstructed. No abnormal dilation or suspicious fluid levels. FREE AIR: None. CALCIFICATIONS: None suspicious. Pelvic calcifications favor phleboliths. BONES: No fracture or visible bone lesion. OTHER: Negative. IMPRESSION: 1. No acute cardiopulmonary process. 2. Normal bowel gas pattern. No suspicious abdominal findings. Electronically authenticated by: YOHANNES QUINN Date: 2022-04-18 13:17 Normal [facility] General Surgery Office/Clini c Noteon 02-10-2022 General Surgery Office/Clinic Note Chief Complaint EGD and colonoscopy follow up HPI Staff 20 day post operative follow up post colonoscopy and EGD with gastric polypectomy. Continues to experience abdominal pain and bloating however symptoms are less frequent and less severe. Loose stools are now more formed. History of Present Illness s/p EGD and colonoscopy; EGD with hiatal hernia, bile reflux, fundic gland polyps, bx negative for H pylori, colonoscopy with redundant colon with spasm, consistent with IBS. some improvement with medications. Review of Systems ROS - Provider Constitutional: no fever, no sweats, no weight loss. Eyes: no glasses, no blurred vision, no visual loss. ENMT: no dentures, no hoarseness, no swallowing difficulties, no hearing loss, no ear infection(s), no nose bleeds. Cardiovascular: normal blood pressure, no chest pain, regular heartbeat, no heart murmur. Respiratory: no shortness of breath, no cough, no asthma, no wheezing. Gastrointestinal: no nausea, no vomiting, no diarrhea, no constipation, no blood in stool, no change in bowel habits, no abdominal pain, no hepatitis. Genitourinary: no kidney stones, no urine infection, no dysuria. Musculoskeletal: no pain, no weakness. Skin: no changing moles, no rash, no skin lumps. Neurologic: no seizures, no epilepsy, no headache. Psychiatric: no emotional or psychiatric problem. Heme/Lymph: no bleeding problems, no anemia, no blood clots, no transfusions. Allergy/Immunologic: no swollen lymph nodes/glands, no IV drug abuse. Other: Additional ROS info: Except as noted in the above Review of Systems and in the History of Present Illness, all other systems have been reviewed and are negative or noncontributory. Assessment/Plan 1. 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 2. Hiatal hernia with GERD, (K44.9: Diaphragmatic hernia without obstruction or gangrene)Diaphragmatic hernia without obstruction or gangrene see # 1 3. IBS (irritable bowel syndrome) (K58.9: Irritable bowel syndrome without diarrhea) high fiber diet with daily fiber supplement Follow-up No qualifying data available Problem List/Past Medical History Ongoing Anxiety Bile reflux gastritis Bloating BMI 28.0-28.9,adult Change in bowel habits Cholelithiasis Chronic low back pain Diabetes Dilated cbd, acquired Early satiety Epigastric pain Fibrocystic breast Frequent loose stools GERD (gastroesophageal reflux disease) Hiatal hernia with GERD Hypothyroidism IBS (irritable bowel syndrome) Indigestion Insomnia Pure hypercholesterolemia Right upper quadrant pain Historical No qualifying data Procedure/Surgical History Colonoscopy (01/01/2022), EGD - Esophagogastroduodenoscopy (01/01/2022), Abdominal hysterectomy (2005), Bilateral oophorectomy. Medications diclofenac sodium 75 mg Oral EC Tab, 75 mg= 1 tab(s), Oral, BID metformin 500 mg oral tablet, 1000 mg= 2 tab(s), Oral, BID Protonix 40 mg Tab-DR, 40 mg= 1 tab(s), Oral, Daily quetiapine 50 mg oral tablet, 25 mg= 0.5 tab(s), Oral, Bedtime simvastatin 20 mg Tab, 20 mg= 1 tab(s), Oral, Once a day (at bedtime) sucralfate tab Synthroid 50 mcg Tab, 50 mcg= 1 tab(s), Oral, Daily Allergies No Known Allergies No Known Medication Allergies Social History Alcohol - Denies Alcohol Use, 12/04/2021 Substance Abuse - Denies Substance Abuse, 12/04/2021 Tobacco Former smoker, quit more than 30 days ago Tobacco Use:. Never Smokeless Tobacco Use:. Cigarettes, .75 per day. Started age 13.0 Years. Stopped age 35 Years., 12/04/2021 Family History Asthma: Father. Cancer: Father. Diabetes mellitus type 2: Sister and Brother. Hypertension: Mother. Renal failure syndrome: Brother. Stroke: Mother. Normal [facility] Comment on above: Result Comment: Elec tronically Signed By: CASA ANAYA, Amberly Dent\Date and Time Signed: 02/10/22 16:26 EST MG MAMM SCREEN 3D KARINE CADon 01-30-2022 MG MAMM SCREEN 3D KARINE CAD Patient: KIM SANTAMARIA Exam Date: 01/30/2022 : 1955 Gender:F Ordering : DR MARCO OTERO . Admission #: [id number] Family : Order #: [id number] CLICK HERE TO VIEW EXAM RADIOLOGY REPORT PROCEDURE: MAMMOGRAM SCREENING 3D BILATERAL CAD COMPARISON: MG MAMM SCREEN KARINE W CAD, 02/16/2019. MG MAMM SCREEN KARINE W CAD, 11/24/2017. INDICATIONS: Screening mammography Calculator Name NCI Breast Cancer Risk Assessment Tool 5 Year Breast Cancer Risk 1.20% Lifetime Breast Cancer Risk 4.40% Personal Breast Cancer No Personal Ovarian Cancer No Treatments None Family Cancers Aunt-maternal with breast cancer at age 58. LOCATION: [facility] BREAST COMPOSITION: Heterogeneously dense,which may obscure small masses. FINDINGS: DIAGNOSTIC CATEGORY 1--NEGATIVE. NO CHANGE FROM COMPARISON ASSESSMENT. Scattered benign-appearing calcifications are present. Scattered benign-appearing lymph nodes are present. RIGHT BREAST: No significant suspicious finding. LEFT BREAST: No significant suspicious finding. RECOMMENDATIONS: ROUTINE MAMMOGRAM AND CLINICAL EVALUATION IN 12 MONTHS. PLEASE NOTE: A NORMAL MAMMOGRAM DOES NOT EXCLUDE THE POSSIBILITY OF BREAST CANCER. A CLINICALLY SUSPICIOUS PALPABLE LUMP SHOULD BE BIOPSIED. Dictated by: Joyce Pitt MD on 01/30/2022 at 13:42 Approved by: Joyce Pitt MD on 01/30/2022 at 13:43 Normal [facility] INSULINon 01-23-2022 Insulin 11.7 uIU/mL Normal 2.6-24.9 [facility] Comment on above: Performed By: #### A MY, CMP, LIPA #### [facility] [address] [address] [address] Blanca Grimm CBC AUTO DIFFon 01-22-2022 BASO # 0.1 103/ul Normal 0.0-0.1 [facility] Comment on above: Performed By: #### A MY, CMP, LIPA #### [facility] [address] [address] [address] Blanca Grimm Basophils/100 WBC (Bld) 0.8 % Normal 0.2-2.0 [facility] Comment on above: Performed By: #### A MY, CMP, LIPA #### [facility] [address] [place] [address] Dr. Blanca Grimm EO # 0.2 103/ul Normal 0.0-0.7 [facility] Comment on above: Performed By: #### A MY, CMP, LIPA #### [facility] [address] [place] [address] Dr. Blanca Grimm Eosinophils/100 WBC (Bld) 3.5 % Normal 0.9-7.0 [facility] Comment on above: Performed By: #### A MY, CMP, LIPA #### [facility] [address] [place] [address] Dr. Blanca Grimm Erythrocyte distribution width (RBC) [Ratio] 14.3 % Normal 11.0-15.0 [facility] Comment on above: Performed By: #### A MY, CMP, LIPA #### [facility] [address] [place] [address] Dr. Blanca Grimm Hematocrit (Bld) [Volume fraction] 39.7 % Normal 36.0-48.0 [facility] Comment on above: Performed By: #### A MY, CMP, LIPA #### [facility] [address] [place] [address] Dr. Blanca Grimm Hemoglobin (Bld) [Mass/Vol] 12.9 g/dL Normal 12.0-16.0 [facility] Comment on above: Performed By: #### A MY, CMP, LIPA #### [facility] [address] [place] [address] Dr. Blanca Grimm IG # 0.05 10e3/ul Critically high 0.00-0.03 [facility] Comment on above: Performed By: #### A MY, CMP, LIPA #### [facility] [address] [place] [address] Dr. Blanca Grimm IG % 0.8 % Critically high 0.0-0.5 [facility] Comment on above: Performed By: #### A MY, CMP, LIPA #### [facility] [address] [address] [address] Blanca Grimm LYMPH # 2.5 103/ul Normal 1.2-3.8 [facility] Comment on above: Performed By: #### A MY, CMP, LIPA #### [facility] [address] [place] [address] Dr. Blanca Grimm Lymphocytes/100 WBC (Bld) 38.1 % Normal 20.5-60.0 [facility] Comment on above: Performed By: #### A MY, CMP, LIPA #### [facility] [address] [place] [address] Dr. Blanca Grimm MANUAL DIFF REQ NO Normal [facility] Comment on above: Performed By: #### A MY, CMP, LIPA #### [facility] [address] [place] [address] Dr. Blanca Grimm MCH (RBC) [Entitic mass] 27.9 pg Normal 26.7-34.0 [facility] Comment on above: Performed By: #### A MY, CMP, LIPA #### [facility] [address] [place] [address] Dr. Blanca Grimm MCHC (RBC) [Mass/Vol] 32.5 g/dL Normal 29.9-35.2 [facility] Comment on above: Performed By: #### A MY, CMP, LIPA #### [facility] [address] [place] [address] Dr. Blanca Grimm MCV (RBC) [Entitic vol] 85.9 fL Normal 81.0-99.0 [facility] Comment on above: Performed By: #### A MY, CMP, LIPA #### [facility] [address] [place] [address] Dr. Blanca Grimm MONO # 0.5 103/ul Normal 0.3-0.8 [facility] Comment on above: Performed By: #### A MY, CMP, LIPA #### [facility] [address] [place] [address] Dr. Blanca Grimm Monocytes/100 WBC (Bld) 8.0 % Normal 1.7-12.0 [facility] Comment on above: Performed By: #### A MY, CMP, LIPA #### [facility] [address] [address] [address] Blanca Grimm NEUT # 3.2 103/ul Normal 1.4-6.5 [facility] Comment on above: Performed By: #### A MY, CMP, LIPA #### [facility] [address] [place] [address] Dr. Blanca Grimm Neutrophils/100 WBC (Bld) 48.8 % Normal 43.0-75.0 [facility] Comment on above: Performed By: #### A MY, CMP, LIPA #### [facility] [address] [place] [address] Dr. Blanca Grimm Platelet mean volume (Bld) [Entitic vol] 9.9 fL Normal 9.5-13.5 [facility] Comment on above: Performed By: #### A MY, CMP, LIPA #### [facility] [address] [place] [address] Dr. Blanca Grimm PLT 290 103/ul Normal 150-450 [facility] Comment on above: Performed By: #### A MY, CMP, LIPA #### [facility] [address] [place] [address] Dr. Blanca Grimm RBC 4.62 106/ul Normal 4.20-5.40 [facility] Comment on above: Performed By: #### A MY, CMP, LIPA #### [facility] [address] [place] [address] Dr. Blanca Grimm WBC 6.5 103/ul Normal 4.0-11.0 [facility] Comment on above: Performed By: #### A MY, CMP, LIPA #### [facility] [address] [place] [address] Dr. Blanca Grimm FREE THYROXINE INDEX T7on FTI 2.05 Normal 1.30-4.50 [facility] Comment on above: Performed By: #### L IPID, CMP, T7, TSH #### [facility] [address] [place] [address] Dr. Blanca Grimm T3U 33.0 % Normal 30.0-39.0 [facility] Comment on above: Performed By: #### L IPID, CMP, T7, TSH #### [facility] [address] [address] [address] Blanca Grimm T4 [Mass/Vol] 6.20 ug/dL Normal 4.80-13.90 [facility] Comment on above: Performed By: #### L IPID, CMP, T7, TSH #### [facility] [address] [address] [address] Blanca Grimm GLYCOHEMOGLOBIN A1Con 2021 ADA RECOMMENDATION SEE BELOW Normal [facility] Comment on above: Result Comment: ADA RECOMMENDED LIMIT 4.0 - 6.0 ADA THERAPEUTIC TARGET < 7.0 ACTION SUGGESTED > 7.0 Performed By: #### A MY, CMP, LIPA #### [facility] [address] [place] [address] Dr. Blanca Grimm Glucose [Mass/Vol] 143 mg/dL Normal [facility] Comment on above: Performed By: #### A MY, CMP, LIPA #### [facility] [address] [address] [address] Blanca Grimm HbA1c (Bld) [Mass fraction] 6.6 % Critically high 4.5-6.2 [facility] Comment on above: Performed By: #### A MY, CMP, LIPA #### [facility] [address] [place] [address] Dr. Blanca Grimm IRONon 01-22-2022 Iron [Mass/Vol] 64.0 ug/dL Normal 50.0-170.0 [facility] Comment on above: Performed By: #### A MY, CMP, LIPA #### [facility] [address] [place] [address] Dr. Blanca Grimm LIPID PROFILEon 01-22-2022 CHOL-HDL RATIO NORM SEE BELOW Normal [facility] Comment on above: Result Comment: 3.3 - 4.4 LOW RISK 4.4 - 7.1 AVERAGE RISK 7.1 - 11.0 MODERATE RISK >11.0 HIGH RISK Performed By: #### L IPID, CMP, T7, TSH #### [facility] [address] [address] [address] Blanca Grimm Cholesterol [Mass/Vol] 247 mg/dL Critically high <=200 [facility] Comment on above: Performed By: #### L IPID, CMP, T7, TSH #### [facility] [address] [address] [address] Blanca Grimm Cholesterol in HDL [Mass/Vol] 57 mg/dL Normal 40-60 [facility] Comment on above: Performed By: #### L IPID, CMP, T7, TSH #### [facility] [address] [address] [address] Blanca Grimm Cholesterol in LDL [Mass/Vol] 138.0 mg/dL Normal [facility] Comment on above: Performed By: #### L IPID, CMP, T7, TSH #### [facility] [address] [address] [address] Blanca Grimm Cholesterol.total/ Cholesterol in HDL [Mass ratio] 4.3 {ratio} Normal [facility] Comment on above: Performed By: #### L IPID, CMP, T7, TSH #### [facility] [address] [address] [address] Blanca Grimm HDL NORMAL > or = 60 mg/dl - LO W CARDIOVASCULAR RISK <40 mg/dl - HIGH CARDIOVASCULAR RISK Normal [facility] Comment on above: Performed By: #### L IPID, CMP, T7, TSH #### [facility] [address] [address] [address] Blanca Grimm LDL CALC NORMAL SEE BELOW Normal [facility] Comment on above: Result Comment: <100 mg/dl OPTIMAL 100 - 129 mg/dl NEAR OR ABOVE OPTIMAL 130 - 159 mg/dl BORDERLINE HIGH 160 - 189 mg/dl HIGH >190 mg/dl VERY HIGH Performed By: #### L IPID, CMP, T7, TSH #### [facility] [address] [address] [address] Blanca Grimm Triglyceride [Mass/Vol] 260 mg/dL Critically high <=150 [facility] Comment on above: Performed By: #### L IPID, CMP, T7, TSH #### [facility] [address] [address] [address] Blanca Grimm VLDL CALC 52.0 mg/dL Normal [facility] Comment on above: Performed By: #### L IPID, CMP, T7, TSH #### [facility] [address] [place] [address] Dr. Blanca Grimm PROF 14(COMP METB)on 022 Albumin [Mass/Vol] 4.0 g/dL Normal 3.4-5.0 [facility] Comment on above: Performed By: #### L IPID, CMP, T7, TSH #### [facility] [address] [place] [address] Dr. Blanca Grimm Albumin/Globulin [Mass ratio] 1.1 {ratio} Normal [facility] Comment on above: Performed By: #### L IPID, CMP, T7, TSH #### [facility] [address] [address] [address] Blanca Grimm ALP [Catalytic activity/Vol] 84 U/L Normal 46-116 [facility] Comment on above: Performed By: #### L IPID, CMP, T7, TSH #### [facility] [address] [place] [address] Dr. Blanca Grimm ALT [Catalytic activity/Vol] 36 U/L Normal 14-59 [facility] Comment on above: Performed By: #### L IPID, CMP, T7, TSH #### [facility] [address] [address] [address] Blanca Grimm Anion gap [Moles/Vol] 14.2 mmol/L Normal [facility] Comment on above: Performed By: #### L IPID, CMP, T7, TSH #### [facility] [address] [place] [address] Dr. Blanca Grimm AST [Catalytic activity/Vol] 22 U/L Normal 15-37 [facility] Comment on above: Performed By: #### L IPID, CMP, T7, TSH #### [facility] [address] [place] [address] Dr. Blanca Grimm Bilirubin [Mass/Vol] 0.3 mg/dL Normal 0.2-1.0 [facility] Comment on above: Performed By: #### L IPID, CMP, T7, TSH #### [facility] [address] [address] [address] Blanca Grimm Calcium [Mass/Vol] 9.4 mg/dL Normal 8.5-10.1 [facility] Comment on above: Performed By: #### L IPID, CMP, T7, TSH #### [facility] [address] [address] [address] Blanca Grimm Chloride [Moles/Vol] 103 mmol/L Normal 98-107 [facility] Comment on above: Performed By: #### L IPID, CMP, T7, TSH #### [facility] [address] [address] [address] Blanca Grimm CO2 [Moles/Vol] 26.0 mmol/L Normal 21.0-32.0 [facility] Comment on above: Performed By: #### L IPID, CMP, T7, TSH #### [facility] [address] [address] [address] Blanca Grimm Creatinine [Mass/Vol] 0.71 mg/dL Normal 0.55-1.02 [facility] Comment on above: Performed By: #### L IPID, CMP, T7, TSH #### [facility] [address] [address] [address] Blanca Grimm EGFR-AF BERMUDIAN >60 Normal >=60 [facility] Comment on above: Performed By: #### L IPID, CMP, T7, TSH #### [facility] [address] [address] [address] Blanca Grimm EGFR-NON AF BERMUDIAN >60 Normal >=60 [facility] Comment on above: Performed By: #### L IPID, CMP, T7, TSH #### [facility] [address] [address] [address] Blanca Grimm Globulin (S) [Mass/Vol] 3.8 g/dL Normal [facility] Comment on above: Performed By: #### L IPID, CMP, T7, TSH #### [facility] [address] [address] [address] Blanca Grimm Glucose [Mass/Vol] 112 mg/dL Critically high 74-106 [facility] Comment on above: Performed By: #### L IPID, CMP, T7, TSH #### [facility] [address] [address] [address] Blanca Grimm Potassium [Moles/Vol] 4.2 mmol/L Normal 3.5-5.1 [facility] Comment on above: Performed By: #### L IPID, CMP, T7, TSH #### [facility] [address] [place] [address] Dr. Blanca Grimm Protein [Mass/Vol] 7.8 g/dL Normal 6.4-8.2 [facility] Comment on above: Performed By: #### L IPID, CMP, T7, TSH #### [facility] [address] [place] [address] Dr. Blanca Grimm Sodium [Moles/Vol] 139 mmol/L Normal 136-145 [facility] Comment on above: Performed By: #### L IPID, CMP, T7, TSH #### [facility] [address] [place] [address] Dr. Blanca Grimm Urea nitrogen [Mass/Vol] 10.0 mg/dL Normal 7.0-18.0 [facility] Comment on above: Performed By: #### L IPID, CMP, T7, TSH #### [facility] [address] [place] [address] Dr. Blnaca Grimm Urea nitrogen/Creatinin e [Mass ratio] 14.1 mg/mg Normal [facility] Comment on above: Performed By: #### L IPID, CMP, T7, TSH #### [facility] [address] [place] [address] Dr. Blanca Grimm TSHon 01-22-2022 TSH 2.598 uIU/mL Normal 0.358-3.740 [facility] Comment on above: Performed By: #### L IPID, CMP, T7, TSH #### [facility] [address] [address] [address] Blanca Grimm VITAMIN D 25 OHon 01-22-2022 VIT D 25-OH 40.1 ng/mL Normal [facility] Comment on above: Performed By: #### A MY, CMP, LIPA #### [facility] [address] [id number] Blanca Grimm VIT D RANGES SEE BELOW Normal [facility] Comment on above: Result Comment: <20 ng/mL Vit D deficient 20 - <30 ng/mL Vit D insufficient 30 - 100 ng/mL Vit D sufficient >100 ng/mL Potential Toxicity Performed By: #### A MY, CMP, LIPA #### [facility] [address] [address] [address] Blanca Grimm Ambulatory Visit Summaryon 1 Ambulatory Visit Summary KIM SANTAMARIA :1955 Visit Date:01/21/2022 Ambulatory Visit Instructions Your Care Team Attending Physician - CASA ANAYA, Amberly Ya Primary Care Physician - Marco Otero MD This Is Your Medications List Contact prescribing physician if questions or concerns diclofenac (diclofenac sodium 75 mg Oral EC Tab) levothyroxine (Synthroid 50 mcg Tab) metformin (metformin 500 mg oral tablet) pantoprazole (Protonix 40 mg Tab-DR) quetiapine (quetiapine 50 mg oral tablet) simvastatin (simvastatin 20 mg Tab) Procedures Performed Colonoscopy (01/01/2022), EGD - Esophagogastroduodenoscopy (01/01/2022), Abdominal hysterectomy (2005), Bilateral oophorectomy. Medications What How Much When Instructions Unchanged diclofenac (diclofenac sodium 75 mg Oral EC Tab) 1 Tablets By Mouth 2 times a day Contact prescribing physician if questions or concerns Unchanged levothyroxine (Synthroid 50 mcg Tab) 1 Tablets By Mouth Every day Contact prescribing physician if questions or concerns Unchanged metformin (metformin 500 mg oral tablet) 2 Tablets By Mouth 2 times a day Contact prescribing physician if questions or concerns Unchanged pantoprazole (Protonix 40 mg Tab-DR) 1 Tablets By Mouth Every day Contact prescribing physician if questions or concerns Unchanged quetiapine (quetiapine 50 mg oral tablet) 0.5 Tablets By Mouth At bedtime Contact prescribing physician if questions or concerns Unchanged simvastatin (simvastatin 20 mg Tab) 1 Tablets By Mouth Once a day (at bedtime) Contact prescribing physician if questions or concerns Allergies No Known Allergies No Known Medication Allergies Problems Ongoing - Any problem that you are currently receiving treatment for. Anxiety Bloating BMI 28.0-28.9,adult Change in bowel habits Cholelithiasis Chronic low back pain Diabetes Dilated cbd, acquired Early satiety Epigastric pain Fibrocystic breast Frequent loose stools GERD (gastroesophageal reflux disease) Hypothyroidism Indigestion Insomnia Pure hypercholesterolemia Right upper quadrant pain Normal [facility] Outside Colonoscopyon 2021 Outside Colonoscopy [id number]#[id number]:127 Normal [facility] Pathology Noteon 01-03-2022 Pathology Note [id number]#1.00CD:127 Normal [facility] Reminderson 01-03-2022 Reminders - From: Graciela Zamudio LPN To: GSN - Clinical; Sent: 01/03/2022 08:02:44 EDT Show up: 12/03/2031 07:00:00 EDT Subject: colonoscopy recall Due Date/Time: 01/02/2032 07:00:00 EDT Reminder/Recall Patient is due for screening colonoscopy 01/02/2032. Normal [facility] POINT OF CARE GLUCOSEon Glucose [Mass/Vol] 112 mg/dL Critically high 74-106 [facility] Comment on above: Performed By: #### P OCGLUC #### [facility] [address] [address] [address] Blanca Grimm Lab Reportson 12-31-2021 Lab Reports [id number]#1.00CD:127 Normal [facility] Covid-19 PCR (CVDTBH)on SARS-CoV-2 (COVID-19) RNA ARVIND+probe Ql (Unsp spec) Not detected Normal NOT DETECTED [facility] Comment on above: Result Comment: This test is not yet approved or cleared by the [place] FDA. When there are no FDA-approved or cleared tests available, and other criteria are met, FDA can make tests available under an emergency access mechanism called an Emergency Use Authorization (EUA). The EUA for this test is supported by the [place] of Health and Human Service's (HHS's) declaration that circumstances exist to justify the emergency use of in vitro diagnostics for the detection and/or diagnosis of the virus that causes COVID-19. This EUA will remain in effect (meaning this test can be used) for the duration of the COVID-19 declaration justifying emergency of IVDs, unless it is terminated or revoked by FDA (after which the test may no longer be used). When diagnostic testing is negative, the possibility of a false negative should be considered in the context of a patient's recent exposures and the presence of clinical signs and symptoms consistent with SARS-CoV-2. Performed By: #### A MY, CMP, LIPA #### [facility] [address] [place] [address] Dr. Blanca Grimm Pre-Certification Formon Pre-Certification Form [id number]#[id number]:127 Normal [facility] RAD - MRI Reporton 2 RAD - MRI Report [id number]#1.00CD:127 Normal [facility] Pre-Certification Formon Pre-Certification Form [id number]#1.00CD:127 Normal [facility] MRI ABDOMEN WO CONon 022 MRI ABDOMEN WO CON EXAMINATION: MRI ABD OMEN WO CON HISTORY: Epigastric pain COMPARISON: No relevant comparison available. TECHNIQUE: MRCP was performed without contrast for evaluation of the common bile duct and pancreatic duct. FINDINGS: GALLBLADDER: No abnormal distention, wall thickening, mass, or free fluid. Multiple small dependent filling defects consistent with cholelithiasis. BILE DUCTS: No stricture, abnormal dilation, or filling defect. PANCREAS: No stricture, abnormal dilation, fluid collection, mass, or accessory duct. OTHER: Negative. IMPRESSION: Cholelithiasis with otherwise normal biliary tree Electronically authenticated by: JOYCE PITT Date: 2021-12-17 07:53 Normal [facility] Consent for Procedure/Surger yon 12-05-2021 Consent for Procedure/Surgery [id number]#1.00CD:127 Normal [facility] NM HEPATOBILIARY SCAN W EFon 12-05-2021 NM HEPATOBILIARY SCAN W EF EXAMINATION: NM HEPATOBILIARY SCAN W EF HISTORY: Right upper quadrant pain COMPARISON: No relevant comparison available. TECHNIQUE: Radionuclide hepatobiliary imaging was performed after intravenous injection of 5.0 mCi technetium 99m mebrofenin IV with sequential acquisitions every 1 minute for one hour. Hepatobiliary imaging with gallbladder ejection fraction analysis was then performed with sequential imaging every 1 minute for 60 minutes. FINDINGS: LIVER: Normal, prompt and uniform radiotracer uptake and clearing. BILIARY DUCTS: Normal radioisotopic biliary excretion. GALLBLADDER: Normal with no evidence of cystic duct obstruction. INTESTINE: Normal with no evidence of common biliary ductal obstruction. EJECTION FRACTION: 50 % within 60 minutes. (Normal EF > 38%). OTHER: Negative. IMPRESSION: Normal hepatobiliary scan and gallbladder ejection fraction Electronically authenticated by: JOYCE PITT Date: 2021-12-05 09:11 Normal [facility] RAD - Ultrasound Reporton RAD - Ultrasound Report [id number]#1.00CD:127 Normal [facility] Ambulatory Visit Summaryon 0 12-04-2021 Ambulatory Visit Summary KIM SANTAMARIA :1955 Visit Date:12/04/2021 Ambulatory Visit Instructions Your Diagnosis Epigastric pain Indigestion Bloating Frequent loose stools Dilated cbd, acquired Your Care Team Attending Physician - CASA ANAYA, Amberly Ya Primary Care Physician - Branden ANAYA, Marco Referring Physician - Marco Otero MD This Is Your Medications List Contact prescribing physician if questions or concerns diclofenac (diclofenac sodium 75 mg Oral EC Tab) levothyroxine (Synthroid 50 mcg Tab) metformin (metformin 500 mg oral tablet) pantoprazole (Protonix 40 mg Tab-DR) quetiapine (quetiapine 50 mg oral tablet) simvastatin (simvastatin 20 mg Tab) Procedures Performed Abdominal hysterectomy (2005), Bilateral oophorectomy. Discharge Vitals Heart Rate (Peripheral) 70 Respiratory Rate 16 Blood Pressure 128/90 Height 167.64 cm Height 167.6 cm Weight 81.4 kg Weight 81.4 kg BMI 28.96 What to do next You Need to Complete the Following MRI Cholangiogram Pancreatography (mrcp), 12/04/21, Routine, Order for Future Visit, Transport Mode: Ambulatory, Reason: Other (please specify), Reason: Cholelithiasis, No, No, Dilated cbd, acquired Normal [facility] US SINGLE QUAD RT UPPERon US SINGLE QUAD RT UPPER EXAM: US SINGLE QUAD RT UPPER HISTORY: . Right upper quadrant pain . COMPARISON: None. FINDINGS: The pancreas appears normal. Scanning of the liver demonstrates increased echogenicity of liver consistent with fatty infiltration of liver. Grossly no masses are noted. Color-flow is noted in the portal and hepatic veins. Common bile duct measures 8 mm. Scanning of the gallbladder demonstrates several small echogenic foci within the gallbladder with shadowing consistent with gallstones. No gallbladder wall thickening is noted. Patient had no pain upon scanning over the gallbladder. Right kidney measured 10.7 x 6 x 5 cm. No solid renal cortical masses or hydronephrosis was noted. No fluid was noted in the right upper quadrant. IMPRESSION: 1. Diffuse increased echogenicity of liver consistent with fatty infiltration of the liver. 2. Small echogenic foci within the gallbladder consistent with gallstones. No gallbladder wall thickening. Patient had no pain upon scanning over the gallbladder. 3. Common bile duct was dilated measuring 8 mm. 4. The remainder the right upper quadrant was unremarkable. Electronically authenticated by: JOYCE INGRAM Date: 2021-11-26 10:28 Normal [facility] AMMONIAon 11-13-2021 Ammonia (P) [Moles/Vol] 16 umol/L Normal 11-32 [facility] Comment on above: Performed By: #### A MM #### [facility] [address] [address] [address] Blanca Grimm AMYLASEon 11-13-2021 Amylase [Catalytic activity/Vol] 42 U/L Normal 25-115 [facility] Comment on above: Performed By: #### A MY, CMP, LIPA #### [facility] [address] [place] [address] Dr. Blanca Grimm CBC AUTO DIFFon 11-13-2021 BASO # 0.1 103/ul Normal 0.0-0.1 [facility] Comment on above: Performed By: #### A MY, CMP, LIPA #### [facility] [address] [place] [address] Dr. Blanca Grimm Basophils/100 WBC (Bld) 0.6 % Normal 0.2-2.0 [facility] Comment on above: Performed By: #### A MY, CMP, LIPA #### [facility] [address] [place] [address] Dr. Blanca Grimm EO # 0.2 103/ul Normal 0.0-0.7 [facility] Comment on above: Performed By: #### A MY, CMP, LIPA #### [facility] [address] [place] [address] Dr. Blanca Grimm Eosinophils/100 WBC (Bld) 2.3 % Normal 0.9-7.0 [facility] Comment on above: Performed By: #### A MY, CMP, LIPA #### [facility] [address] [place] [address] Dr. Blanca Grimm Erythrocyte distribution width (RBC) [Ratio] 13.9 % Normal 11.0-15.0 [facility] Comment on above: Performed By: #### A MY, CMP, LIPA #### [facility] [address] [place] [address] Dr. Blanca Grimm Hematocrit (Bld) [Volume fraction] 37.3 % Normal 36.0-48.0 [facility] Comment on above: Performed By: #### A MY, CMP, LIPA #### [facility] [address] [place] [address] Dr. Blanca Grimm Hemoglobin (Bld) [Mass/Vol] 12.1 g/dL Normal 12.0-16.0 [facility] Comment on above: Performed By: #### A MY, CMP, LIPA #### [facility] [address] [address] [address] Blanca Grimm IG # 0.03 10e3/ul Normal 0.00-0.03 [facility] Comment on above: Performed By: #### A MY, CMP, LIPA #### [facility] [address] [address] [address] Blanca Grimm IG % 0.4 % Normal 0.0-0.5 [facility] Comment on above: Performed By: #### A MY, CMP, LIPA #### [facility] [address] [place] [address] Dr. Blanca Grimm LYMPH # 2.5 103/ul Normal 1.2-3.8 [facility] Comment on above: Performed By: #### A MY, CMP, LIPA #### [facility] [address] [place] [address] Dr. Blanca Grimm Lymphocytes/100 WBC (Bld) 29.0 % Normal 20.5-60.0 [facility] Comment on above: Performed By: #### A MY, CMP, LIPA #### [facility] [address] [place] [address] Dr. Blanca Grimm MANUAL DIFF REQ NO Normal [facility] Comment on above: Performed By: #### A MY, CMP, LIPA #### [facility] [address] [place] [address] Dr. Blanca Grimm MCH (RBC) [Entitic mass] 28.1 pg Normal 26.7-34.0 [facility] Comment on above: Performed By: #### A MY, CMP, LIPA #### [facility] [address] [place] [address] Dr. Blanca Grimm MCHC (RBC) [Mass/Vol] 32.4 g/dL Normal 29.9-35.2 [facility] Comment on above: Performed By: #### A MY, CMP, LIPA #### [facility] [address] [place] [address] Dr. Blanca Grimm MCV (RBC) [Entitic vol] 86.7 fL Normal 81.0-99.0 [facility] Comment on above: Performed By: #### A MY, CMP, LIPA #### [facility] [address] [place] [address] Dr. Blanca Grimm MONO # 0.8 103/ul Normal 0.3-0.8 [facility] Comment on above: Performed By: #### A MY, CMP, LIPA #### [facility] [address] [place] [address] Dr. Blanca Grimm Monocytes/100 WBC (Bld) 9.5 % Normal 1.7-12.0 [facility] Comment on above: Performed By: #### A MY, CMP, LIPA #### [facility] [address] [place] [address] Dr. Blanca Grimm NEUT # 5.0 103/ul Normal 1.4-6.5 [facility] Comment on above: Performed By: #### A MY, CMP, LIPA #### [facility] [address] [place] [address] Dr. Blanca Grimm Neutrophils/100 WBC (Bld) 58.2 % Normal 43.0-75.0 [facility] Comment on above: Performed By: #### A MY, CMP, LIPA #### [facility] [address] [place] [address] Dr. Blanca Grimm Platelet mean volume (Bld) [Entitic vol] 9.8 fL Normal 9.5-13.5 [facility] Comment on above: Performed By: #### A MY, CMP, LIPA #### [facility] [address] [place] [address] Dr. Blanca Grimm PLT 273 103/ul Normal 150-450 [facility] Comment on above: Performed By: #### A MY, CMP, LIPA #### [facility] [address] [place] [address] Dr. Blanca Grimm RBC 4.30 106/ul Normal 4.20-5.40 [facility] Comment on above: Performed By: #### A MY, CMP, LIPA #### [facility] [address] [place] [address] Dr. Blanca Grimm WBC 8.5 103/ul Normal 4.0-11.0 [facility] Comment on above: Performed By: #### A MY, CMP, LIPA #### [facility] [address] [place] [address] Dr. Blanca Grimm LIPASEon 11-13-2021 Lipase [Catalytic activity/Vol] 108.0 U/L Normal 73.0-393.0 [facility] Comment on above: Performed By: #### A MY, CMP, LIPA #### [facility] [address] [address] [address] Blanca Grimm PROF 14(COMP METB)on 022 Albumin [Mass/Vol] 3.9 g/dL Normal 3.4-5.0 [facility] Comment on above: Performed By: #### A MY, CMP, LIPA #### [facility] [address] [place] [address] Dr. Blanca Grimm Albumin/Globulin [Mass ratio] 1.1 {ratio} Normal [facility] Comment on above: Performed By: #### A MY, CMP, LIPA #### [facility] [address] [place] [address] Dr. Blanca Grimm ALP [Catalytic activity/Vol] 94 U/L Normal 46-116 [facility] Comment on above: Performed By: #### A MY, CMP, LIPA #### [facility] [address] [place] [address] Dr. Blanca Grimm ALT [Catalytic activity/Vol] 28 U/L Normal 14-59 [facility] Comment on above: Performed By: #### A MY, CMP, LIPA #### [facility] [address] [place] [address] Dr. Blanca Grimm Anion gap [Moles/Vol] 14.8 mmol/L Normal [facility] Comment on above: Performed By: #### A MY, CMP, LIPA #### [facility] [address] [place] [address] Dr. Blanca Grimm AST [Catalytic activity/Vol] 22 U/L Normal 15-37 [facility] Comment on above: Performed By: #### A MY, CMP, LIPA #### [facility] [address] [address] [address] Blanca Grimm Bilirubin [Mass/Vol] 0.3 mg/dL Normal 0.2-1.0 [facility] Comment on above: Performed By: #### A MY, CMP, LIPA #### [facility] [address] [place] [address] Dr. Blanca Grimm Calcium [Mass/Vol] 9.3 mg/dL Normal 8.5-10.1 [facility] Comment on above: Performed By: #### A MY, CMP, LIPA #### [facility] [address] [place] [address] Dr. Blanca Grimm Chloride [Moles/Vol] 103 mmol/L Normal 98-107 [facility] Comment on above: Performed By: #### A MY, CMP, LIPA #### [facility] [address] [place] [address] Dr. Blanca Grimm CO2 [Moles/Vol] 24.4 mmol/L Normal 21.0-32.0 [facility] Comment on above: Performed By: #### A MY, CMP, LIPA #### [facility] [address] [place] [address] Dr. Blanca Grimm Creatinine [Mass/Vol] 0.94 mg/dL Normal 0.55-1.02 [facility] Comment on above: Performed By: #### A MY, CMP, LIPA #### [facility] [address] [place] [address] Dr. Blanca Grimm EGFR-AF BERMUDIAN >60 Normal >=60 [facility] Comment on above: Performed By: #### A MY, CMP, LIPA #### [facility] [address] [place] [address] Dr. Blanca Grimm EGFR-NON AF BERMUDIAN =60 Normal >=60 [facility] Comment on above: Performed By: #### A MY, CMP, LIPA #### [facility] [address] [place] [address] Dr. Blanca Grimm Globulin (S) [Mass/Vol] 3.7 g/dL Normal [facility] Comment on above: Performed By: #### A MY, CMP, LIPA #### [facility] [address] [address] [address] Blanca Grimm Glucose [Mass/Vol] 101 mg/dL Normal 74-106 [facility] Comment on above: Performed By: #### A MY CMP, LIPA #### [facility] [address] [address] [address] Blanca Grimm Potassium [Moles/Vol] 4.2 mmol/L Normal 3.5-5.1 [facility] Comment on above: Performed By: #### A MY, CMP, LIPA #### [facility] [address] [place] [address] Dr. Blanca Grimm Protein [Mass/Vol] 7.6 g/dL Normal 6.4-8.2 [facility] Comment on above: Performed By: #### A MY CMP, LIPA #### [facility] [address] [place] [address] Dr. Blanca Grimm Sodium [Moles/Vol] 138 mmol/L Normal 136-145 [facility] Comment on above: Performed By: #### A MY, CMP, LIPA #### [facility] [address] [place] [address] Dr. Blanca Grimm Urea nitrogen [Mass/Vol] 13.0 mg/dL Normal 7.0-18.0 [facility] Comment on above: Performed By: #### A MY, CMP, LIPA #### [facility] [address] [place] [address] Dr. Blanca Grimm Urea nitrogen/Creatinin e [Mass ratio] 13.8 mg/mg Normal [facility] Comment on above: Performed By: #### A MY, CMP, LIPA #### [facility] [address] [place] [address] Dr. Blanca Grimm XR LSPINE MIN 4 VIEWSon 06-29 XR LSPINE MIN 4 VIEWS EXAMINATION: XR LSPINE MIN 4 VIEWS HISTORY: Low back pain COMPARISON: No relevant comparison available. FINDINGS: BONES: Normal alignment with no acute fracture or spondylolisthesis. Minimal degenerative spondylosis. Mild facet osteoarthropathy DISC SPACES: Normal. No significant disc height narrowing, subluxation, or endplate abnormality. PARASPINOUS: Negative. No paraspinous abnormality is seen. OTHER: Extensive atherosclerosis IMPRESSION: Mild degenerative changes Electronically authenticated by: JOYCE PITT Date: 2021-07-22 18:17 Normal [facility] CT Cervical Spine WOon 11-22 CT Cervical Spine WO [facility] Name: KIM SANTAMARIA [address] [place] [address] Phys: [place] [address] : 1955 Age: 61 Acct: [id number] Loc: ER MRN/Unit No.: [id number] Status: REG ER Exam Date: 11/22/16 Accession Number: [id number] Exam: [id number] CT/CT Cervical Spine WO CT Cervical Spine WO EXAM: CT CERVICAL SPINE WITHOUT CONTRAST: CLINICAL STATEMENT: Fell 8 feet from a ladder with head and neck pain. COMPARISON: CT brain of the same date. TECHNIQUE: Axial CT cervical spine without IV contrast. Coronal and sagittal reformations were performed. Dose reduction techniques were achieved by using automated exposure control and/or adjustment of mA and/or kV according to patient size and/or use of iterative reconstruction technique. FINDINGS: 7 cervical segments are seen without fracture or subluxation. No prominent degenerative changes are seen. Disc spaces are preserved. There is mild left C3-C4 facet degenerative proliferative change noted. No associated neural foraminal encroachment is apparent. No central canal stenosis identified. Retropharyngeal soft tissue width appears satisfactory. Lung apices included are clear. Temporomandibular joints are seen and appear intact. IMPRESSION: No acute cervical fracture or subluxation. No advanced or significant degenerative changes. No prominent focal soft tissue asymmetry. CC: NONSTAFF/DOCTOR NOT IN SYSTEM; QUINTIN WHATLEY Technologist: ALLY MCCULLOUGH Dictated By: BAYLEE OSMAN Signed Date/Time: 11/22/16, 1252 Dictated Date/Time: 11/22/16 1252 Education Counselor: GARCIA WYATT Printed Date/Time: [ rep prt dt last], [ rep prt tm last] This report was electronically signed in an other vendor system Normal [facility] CT Head WOon 11-22-2016 CT Head WO [facility] Name: KIM SANTAMARIA [facility] Phys: [place] [address] : 1955 Age: 61 Acct: [id number] Loc: ER MRN/Unit No.: [id number] Status: REG ER Exam Date: 11/22/16 Accession Number: [id number] Exam: [id number] CT/CT Head WO CT Head WO EXAM: CT HEAD WITHOUT CONTRAST: CLINICAL STATEMENT: Fell off a ladder 8 feet, pain in back of head. COMPARISON: None. TECHNIQUE: Axial CT examination of the head without IV contrast. Coronal and sagittal reformations were performed. Dose reduction techniques were achieved by using automated exposure control and/or adjustment of mA and/or kV according to patient size and/or use of iterative reconstruction technique. FINDINGS: Ventricular system is symmetrical without dilatation. No acute intracranial hemorrhage, midline shift, mass effect, or acute parenchymal density change is seen. No advanced atrophic or degenerative changes are present. The calvarium appears intact. There is a left posterior high parietal scalp soft tissue swelling and hematoma noted. Soft tissue air is seen and this would suggest associated laceration. No radiopaque foreign body is seen. No associated intracranial abnormality is suggested. Portions of the sinuses included and mastoid air cells appear clear. IMPRESSION: Left high posterior scalp soft tissue swelling, hematoma, and soft tissue air suggesting laceration. No associated calvarial or intracranial defect is seen. CC: NONSTAFF/DOCTOR NOT IN SYSTEM; QUINTIN WHATLEY Technologist: ALLY MCCULLOUGH Dictated By: BAYLEE OSMAN Signed Date/Time: 11/22/16, 1252 Dictated Date/Time: 11/22/16 1245 Education Counselor: GARCIA WYATT Printed Date/Time: [ rep prt dt last], [ rep prt tm last] This report was electronically signed in an other vendor system Normal [facility] CT Thoracic Spine WOon 11-22 CT Thoracic Spine WO [facility] Name: KIM SANTAMARIA [address] [place] [address] Phys: [place] [address] : 1955 Age: 61 Acct: [id number] Loc: ER MRN/Unit No.: [id number] Status: DEP ER Exam Date: 11/22/16 Accession Number: [id number] Exam: CT/CT Thoracic Spine WO CT Thoracic Spine WO EXAM: CT THORACIC SPINE WITHOUT CONTRAST: CLINICAL STATEMENT: Fell 8 feet from a ladder. Head, neck, and back pain. COMPARISON: CT cervical spine of the same date. TECHNIQUE: ?Axial CT examination of the thoracic spine without IV contrast. Coronal and sagittal reformations were performed. ? Dose reduction techniques were achieved by using automated exposure control and/or adjustment of mA and/or kV according to patient size and/or use of iterative reconstruction technique. FINDINGS: Thoracic vertebral segments appear intact. No vertebral body compression fracture is seen. No central canal stenosis or narrowing is apparent. There is mild anterior mid level arthrosis noted. Advanced degenerative changes are not seen. Paraspinal musculature appears symmetrical and satisfactory. Portions of the lung ventura included are clear. Aortic vascular calcifications are noted. Punctate calcifications in the liver or gallbladder suggested in the right upper quadrant. Mild bronchotracheal calcifications are present. Aortic root calcification is noted. IMPRESSION: No acute dorsal spine fracture or subluxation. No advanced dorsal spine degenerative changes. Calcifications of the aorta and within the right upper quadrant are noted. Portions of the lung ventura included are clear. CC: NONSTAFF/DOCTOR NOT IN SYSTEM; QUINTIN WHATLEY Technologist: ALLY MCCULLOUGH Dictated By: BAYLEE OSMAN Signed Date/Time: 11/22/16, 1455 Dictated Date/Time: 11/22/16 1258 Education Counselor: GARCIA WYATT Printed Date/Time: [ rep prt dt last], [ rep prt tm last] This report was electronically signed in an other vendor system Normal [facility] Vital Signs Date Time Vital Sign Value Performing Clinician Maisha york 06-25-2022 13:32-0400 Blood Pressure Location Amberly JOSE [facility] 06-25-2022 13:32-0400 Diastolic blood pressure 92 mm[Hg] Amberly JOSE [facility] 06-25-2022 13:32-0400 Heart rate 72 /min Amberly NILL [facility] 06-25-2022 13:32-0400 Respiratory rate 16 /min Amberly NILL [facility] 06-25-2022 13:32-0400 Systolic blood pressure 136 mm[Hg] Amberly NILL [facility] 05-28-2022 13:09-0500 Blood Pressure Location Amberly NILL [facility] 05-28-2022 13:09-0500 Diastolic blood pressure 94 mm[Hg] Amberly NILL [facility] 05-28-2022 13:09-0500 Heart rate 74 /min Amberly NILL [facility] 05-28-2022 13:09-0500 Respiratory rate 16 /min Amberly NILL [facility] 05-28-2022 13:09-0500 Systolic blood pressure 148 mm[Hg] Amberly NILL [facility] 12-04-2021 14:16-0400 Blood Pressure Location Amberly NILL [facility] 12-04-2021 14:16-0400 Diastolic blood pressure 90 mm[Hg] Amberly NILL [facility] 12-04-2021 14:16-0400 Heart rate 70 /min Amberly NILL [facility] 12-04-2021 14:16-0400 Respiratory rate 16 /min Amberly NILL [facility] 12-04-2021 14:16-0400 Systolic blood pressure 128 mm[Hg] Amberly NILL [facility] Encounters Encounter Date Encounter Type Care Provider Facility Start: 06-25-2022 End: 06-26-2022 [facility] Start: 06-25-2022 End: 06-25-2022 Patient encounter procedure Amberly R [facility]AA [facility] [place] Start: 05-28-2022 End: 05-29-2022 [facility] Start: 05-28-2022 End: 05-28-2022 Patient encounter procedure Amberly JOSE [facility] Start: 05-02-2022 End: 05-03-[address] MARCO OTERO Facility:[facility] Start: 04-23-2022 End: 04-24-[address] MARCO OTERO Facility:[facility] Start: 04-18-2022 End: 04-19-[address] MARCO OTERO Facility:[facility] Start: 01-30-2022 End: 01-31-[address] MARCO OTERO Facility:[facility] Start: 01-22-2022 End: 01-23-[address] MARCO OTERO Facility:[facility] Start: 01-21-2022 End: 01-22-2022 [facility]ulatory [facility] Start: 01-21-2022 End: 01-21-2022 Patient encounter procedure Amberly JOSE [facility] [place] Start: 01-02-2022 Encounter for preprocedural laboratory examination DR AMBERLY JSOE [facility] Start: 01-01-2022 End: 01-02-[address] AMBERLY JOSE Facility:[facility] Start: 12-30-2021 End: 12-31-[address] AMBERLY JOSE Facility:[facility] Start: 12-30-2021 End: 12-31-2021 Encounter for preprocedural laboratory examination DR AMBERLY JOSE Facility:[facility] Start: 12-16-2021 End: 12-17-[address] JOYCE PITT Facility:[facility] Start: 12-05-2021 End: 12-06-[address] MARCO OTERO Facility:[facility] Start: 12-04-2021 End: 12-05-2021 ambulatory Amberly JOSE Facility:[facility] Start: 12-04-2021 End: 12-04-2021 Patient encounter procedure Amberly JOSE [facility] Start: 12-03-2021 ambulatory Amberly JOSE Facility :[facility] Start: 11-28-2021 ambulatory Amberly JOSE Facility:[facility] Start: 11-26-2021 End: 11-27-[address] MARCO OTERO Facility:[facility] Start: 11-13-2021 End: 11-14-[address] MARCO OTERO Facility:[facility] Start: 07-22-2021 End: 07-23-[address] MARCO OTERO Facility:[facility] Start: 11-22-2016 End: 11-22-2016 Emergency department patient visit QUINTIN WHATLEY Facility:[facility] Procedures Date Procedure Procedure Detail Performing Clinician Start: 01-01-2022 Colonoscopy Amberly JALLOH Start: 01-01-2022 Esophagogastroduodenoscopy Amberly JOSE Start: 03-30-2005 Abdominal hysterectomy Amberly JOSE Bilateral oophorectomy Julio JOSE Immunizations Immunization Date Immunization Notes Care Provider Fa cility 04-08-2021 SARS-CoV-2 (COVID-19 ) mRNA BNT-162b2 vax Amberly NILL [facility] 06-21-2020 SARS-CoV-2 (COVID-19 ) mRNA BNT-162s1 vax Amberly CUELLARL [facility] 05-24-2020 SARS-CoV-2 (COVID-19 ) mRNA BNT-466x5 vax Amberly CUELLARL [facility] NEGATED: Highlighted row has not occurred!05-28-2022 influenza virus vaccine, unspecified formulation Amberly JOSE [facility] Payers Date Payer Category Payer Unknown [id number] 1959 Unknown [id number] 1955 Unknown [id number] 2.16.84 0.1.236831.3.579.2.593 1955 Unknown [id number] 2.16.84 0.1.093137.3.579.2.593 1955 Unknown [id number] 2.16.84 0.1.227542.3.579.2.593 1955 Unknown [id number] 2.16.84 0.1.685916.3.579.2.593 1955 Unknown [id number] 2.16.84 0.1.307117.3.579.2.593 1955 Unknown [id number] 2.16.84 0.1.376531.3.579.2.593 1955 Unknown [id number] 2.16.84 0.1.552785.3.579.2.593 1955 Unknown [id number] 2.16.84 0.1.158681.3.579.2.593 1955 Unknown [id number] 2.16.84 0.1.051498.3.579.2.593 1955 Unknown [id number] 2.16.84 0.1.855106.3.579.2.593 1955 Unknown [id number] 2.16.84 0.1.926287.3.579.2.593 1955 Unknown [id number] 2.16.84 0.1.262807.3.579.2.593 1955 Unknown [id number] 2.16.8 40.1.291422.3.579.2.727 1955 Unknown [id number] 2.16.8 40.1.042967.3.579.2.727 1955 Unknown [id number] 2.16.8 40.1.970278.3.579.2.727 1955 Unknown [id number] 2.16.8 40.1.706002.3.579.2.727 1955 Unknown [id number] 2.16.8 40.1.506956.3.579.2.727 1955 Unknown [id number] 2.16.8 40.1.737646.3.579.2.727 1955 Unknown [id number] 2.16.8 40.1.176751.3.579.2.727 Unknown [id number] Social History Date Type Detail Facility Start: 12-04-2021 End: 06-25-2022 Tobacco smoking status Ex-smoker (finding) [facility] Tobacco smoking status Never [facility] Sex Assigned At Female [facility] Functional Status Date Assessment Result Facility 06-25-2022 Functional Status N/A [facility] 05-28-2022 Functional Status N/A [facility] 12-04-2021 Functional Status N/A [facility] Clinical Note 05-29-2022 Note Date & Type Note Facility 05-29-2022 Note Chief Complaint consultation for multiple GI complaints HPI Staff 67 year old female presents on consultation from Dr. Otero for abdominal pain, bloating, belching, indigestion, nausea, emesis, early satiety and diarrhea. States she's had reported symptoms for several months. She is eating smaller portions throughout the day which does minimize symptoms. She's been on Protonix for several months. Took Carafate for approximately one month which was not helpful so she discontinued this. EGD and colonoscopy completed 01/01/22 with bile reflux, hiatal hernia and IBS. RUQ US completed 04/23 with cholelithiasis and sludge. HIDA completed 05/02- normal. H.pylori completed 04/18- negative. History of Present Illness 67 yo female with h/o DMII, hyperlipidemia, hypothyroidism; hiatal hernia with GERD, referred for persistent upper abd complaints; primarily GERD symptoms, bloating and burping; some belching which improves symptoms; worse after eating anything; avoids carbonation and caffeine; upper abd pain described as ache, no radiation; occasional regurgitation, occasional nausea; stools looser depending on what she eats; EGD and colonoscopy 12/2021 with hiatal hernia and bile reflux; redundant colon; patient has known cholelithiasis, small, nonobstructing stones, no choledocholithiasis on MRCP; negative H pylori; no improvement with Carafate; has been on Protonix for some time, initially was helpful; no dysphagia, no blood in stools. patient has gained 10 lbs over the last 6 months; no tobacco use. Review of Systems PHQ Score Initial Depression Screen Score: 0 ROS - Provider Constitutional: no fever, no sweats, no weight loss. Eyes: no glasses, no blurred vision, no visual loss. ENMT: no dentures, no hoarseness, no swallowing difficulties, no hearing loss, no ear infection(s), no nose bleeds. Cardiovascular: normal blood pressure, no chest pain, regular heartbeat, no heart murmur. Respiratory: no shortness of breath, no cough, no asthma, no wheezing. Gastrointestinal: yes nausea, no vomiting, no diarrhea, no constipation, no blood in stool, no change in bowel habits, yes abdominal pain, no hepatitis. Genitourinary: no kidney stones, no urine infection, no dysuria. Musculoskeletal: no pain, no weakness. Skin: no changing moles, no rash, no skin lumps. Neurologic: no seizures, no epilepsy, no headache. Psychiatric: no emotional or psychiatric problem. Heme/Lymph: no bleeding problems, no anemia, no blood clots, no transfusions. Allergy/Immunologic: no swollen lymph nodes/glands, no IV drug abuse. Other: Additional ROS info: Except as noted in the above Review of Systems and in the History of Present Illness, all other systems have been reviewed and are negative or noncontributory. Physical Exam Vitals & Measurements HR: 74(Peripheral) RR: 16 BP: 148/94 HT: 66 in HT: 167.6 cm WT: 86.5 kg WT: 190.3 lb BMI: 30.79 HEENT: normal conjunctiva, sclera clear, no scleral icterus, EOM intact, PERRLA, oral mucosa moist without lesions. Neck: trachea midline, no mass, symmetric, no thyromegaly or nodules, no adenopathy Respiratory: lungs CTA, respirations non labored. Cardiovascular: regular rate and rhythm, no murmur, no pedal edema or varicosities. Gastrointestinal: obese, soft, non distended, no tenderness, no masses, no palpable hernias, diastasis recti no, no hepatosplenomegaly; normal bs Lymphatic: no cervical adenopathy, no supraclavicular adenopathy Musculoskeletal: normal gait, digits and nails without infection, nodes, cyanosis, clubbing. Skin: no rashes, no lesions, no ulcers, no subcutaneous nodules, induration. Psychiatric/Neuro: oriented to time, place, person, judgement normal, affect appropriate for age, insight intact, no focal deficits. Tests: labs reviewed, x-rays reviewed, review of old records completed, Assessment/Plan 1. GERD with esophagitis (K21.00: Gastro-esophageal reflux disease with esophagitis, without bleeding) recommend increase Protonix to bid; frequent small meals, no eating 3 hours prior to sleep; no evidence of biliary colic symptoms; if persistent symptoms, will reevaluate for possible cholecystectomy; call with problems/questions. Ordered: pantoprazole, 40 mg = 1 tab(s), Oral, BID, # 90 tab(s), Refills(s) 3, Pharmacy: [id number], 167.6, cm, 05/28/22 13:15:00 EST, Height/Length Dosing, 86.5, kg, 05/28/22 13:15:00 EST, Weight Dosing 2. Hiatal hernia with GERD, (K44.9: Diaphragmatic hernia without obstruction or gangrene)Diaphragmatic hernia without obstruction or gangrene see # 1 Ordered: pantoprazole, 40 mg = 1 tab(s), Oral, BID, # 90 tab(s), Refills(s) 3, Pharmacy: [id number], 167.6, cm, 05/28/22 13:15:00 EST, Height/Length Dosing, 86.5, kg, 05/28/22 13:15:00 EST, Weight Dosing 3. BMI 30.0-30.9,adult (Z68.30: Body mass index [BMI] 30.0-30.9, adult) recommend low fat diet and exercise Follow-up No qualifying data available Problem List/Past Medical History (more content not included)... [facility] Comment on above: Result Comment: Elec tronically Signed By: CASA ANAYA, Amberly Ya\.br\Date and Time Signed: 05/29/22 09:59 EST Clinical Note 01-01-2022 Note Date & Type Note Facility 01-01-2022 Note OPERATIVE NOTE OPERATION DATE: 01/01/2022 PREOPERATIVE DIAGNOSIS: Epigastric abdominal pain, early satiety, change in bowel habits with frequent loose stools and bloating. POSTOPERATIVE DIAGNOSIS: Sliding type hiatal hernia, gastric polyps, bile reflux, redundant colon with spasm. PROCEDURE: EGD with biopsy of gastric polyps and colonoscopy to cecum. SURGEON: Amberly Jose M.D. ANESTHESIA: Monitored anesthesia care. INDICATIONS AND CONSENT: Patient is a 66-year-old female with history of intermittent epigastric abdominal pain, intermittent loose stools, as well as bloating. Indications, risks, benefits, alternatives of proceeding with EGD and colonoscopy were explained extensively to the patient, including the risks of bleeding, aspiration, esophageal/gastric/duodenal or colonic perforation or anesthetic complications. All of her questions were answered. Informed consent was obtained. PROCEDURE: Patient brought to the operating room, placed in the left lateral decubitus position. Monitored anesthesia care was provided. A bite block was placed in the patient's mouth. Scope was inserted into the oropharynx. Under direct visualization, it was advanced into the esophagus, past the cricopharyngeus, down to the stomach. The stomach was insufflated with air. The pylorus was traversed down to the descending portion of the duodenum. There was no evidence of blood, mass or ulceration. There was no scarring within the pyloric channel. Scope was pulled back into the stomach and retroflexed. There was noted to be a small sliding type hiatal hernia as well as multiple gastric polyps. Biopsies of several of these were obtained with good hemostasis. The GE junction was noted at 47 cm. There was noted to be some mild distal esophagitis without ulceration. Remainder of the esophagus was unremarkable. There was noted to be bile reflux within the stomach as well. The scope was then withdrawn. The patient was then positioned for colonoscopy. Rectal exam was performed which showed no masses or blood. The scope was inserted into the anal canal. Under direct visualization was advanced. With the aid of abdominal compression and positional changes, it was advanced to the cecum where cecal markings were clearly identified. Upon withdrawal of the scope, mucosal surfaces were carefully examined. There were no mass lesions or polyps. No inflammatory changes or ulcerations. No significant diverticulosis. The scope was retroflexed in the anal canal. There was no significant hemorrhoidal disease. Scope was then withdrawn. Patient tolerated procedure well, was sent to recovery room in good condition. CC: Patient's family physician [facility] Clinical Note 12-04-2021 Note Date & Type Note Facility 12-04-2021 Note Chief Complaint consultation for cholelithiasis HPI Staff 66 year old female presents on consultation from Dr. Otero for cholelithiasis. Reports long standing history of indigestion and bloating. Denies heartburn or belching. Intermittent nausea, no vomiting. Denies abdominal or epigastric pain. Intermittent sternal pain. In addition, she has been experiencing loose to liquid stools after eating. Stool studies negative. Denies rectal pain or bleeding. Never had EGD or colonoscopy in the past. RUQ US completed 11/26 with cholelithiasis. History of Present Illness 66 yo female with h/o DMII, hypothyroidism, hypercholesterolemia, GERD, referred for cholelithiasis; patient reports several year h/o indigestion/bloating; upper abd pressure; belching; intermittent nausea, no emesis; occasional epigastric pain, burning/ache; at times worse with lying down; can be worse with eating, any type of food; no dysphagia, some early satiety; frequent loose stools after eating, no blood or mucous; no fevers, no h/o jaundice or pancreatitis; no wt loss; recent GB US with small stones, no wall thickening; cbd dilated at 8 cm; abdominal operations significant for MERARI with bso; no previous endoscopy; has been on Protonix for several years, no asa use, occasional use of Diclofenac; no SBE prophylaxis; no fmhx of GI malignancy or IBD; no tobacco use. Review of Systems PHQ Score Initial Depression Screen Score: 0 ROS - Provider Constitutional: no fever, no sweats, no weight loss. Eyes: no glasses, no blurred vision, no visual loss. ENMT: no dentures, no hoarseness, no swallowing difficulties, no hearing loss, no ear infection(s), no nose bleeds. Cardiovascular: normal blood pressure, no chest pain, regular heartbeat, no heart murmur. Respiratory: no shortness of breath, no cough, no asthma, no wheezing. Gastrointestinal: yes nausea, no vomiting, yes diarrhea, no constipation, no blood in stool, yes change in bowel habits, yes abdominal pain, no hepatitis. Genitourinary: no kidney stones, no urine infection, no dysuria. Musculoskeletal: no pain, no weakness. Skin: no changing moles, no rash, no skin lumps. Neurologic: no seizures, no epilepsy, no headache. Psychiatric: no emotional or psychiatric problem. Heme/Lymph: no bleeding problems, no anemia, no blood clots, no transfusions. Allergy/Immunologic: no swollen lymph nodes/glands, no IV drug abuse. Other: Additional ROS info: Except as noted in the above Review of Systems and in the History of Present Illness, all other systems have been reviewed and are negative or noncontributory. Physical Exam Vitals & Measurements HR: 70(Peripheral) RR: 16 BP: 128/90 HT: 167.64 cm HT: 167.6 cm WT: 81.4 kg WT: 81.4 kg BMI: 28.96 HEENT: normal conjunctiva, sclera clear, no scleral icterus, EOM intact, PERRLA, oral mucosa moist without lesions. Neck: trachea midline, no mass, symmetric, no thyromegaly or nodules, no adenopathy Respiratory: lungs CTA, respirations non labored. Cardiovascular: regular rate and rhythm, no murmur, no pedal edema or varicosities. Gastrointestinal: soft, non distended, no tenderness, no masses, no palpable hernias, diastasis recti no, no hepatosplenomegaly; normal bs Lymphatic: no cervical adenopathy, Musculoskeletal: normal gait, digits and nails without infection, nodes, cyanosis, clubbing. Skin: no rashes, no lesions, no ulcers, no subcutaneous nodules, induration. Psychiatric/Neuro: oriented to time, place, person, judgement normal, affect appropriate for age, insight intact, no focal deficits. Tests: labs reviewed, x-rays reviewed, review of old records completed, Discussed surgical options, risks, and possible complications with patient. Assessment/Plan 1. Epigastric pain (R10.13: Epigastric pain) plan EGD and colonoscopy under anesthesia for further evaluation; informed consent obtained; symptoms not consistent with biliary colic, no evidence of cholecystitis; possible choledocholithiasis, will obtain MRCP; call sooner if problems/questions. Ordered: MRI Cholangiogram Pancreatography (mrcp) 2. Early satiety (R68.81: Early satiety) see # 1 3. Change in bowel habits (R19.4: Change in bowel habit) see # 1 4. Indigestion (K30: Functional dyspepsia) see # 1 5. Bloating (R14.0: Abdominal distension (gaseous)) see # 1 6. Frequent loose stools (R19.7: Diarrhea, unspecified) see # 1 7. Dilated cbd, acquired (K83.8: Other specified diseases of biliary tract) see # 1 Ordered: MRI Cholangiogram Pancreatography (m[facility]p) 8. Cholelithiasis (K80.20: Calculus of gallbladder without cholecystitis without obstruction) see # 1 Follow-up No qualifying data available Problem List/Past Medical History Ongoing Anxiety Bloating BMI 28.0-28.9,adult Change in bowel habits Cholelithiasis Chronic low back pain Diabetes Dilated cbd, acquired Early satiety Epigastric pain Fibrocystic breast Frequent loose stools GERD (gastroesop (more content not included)... [facility] Comment on above: Result Comment: Elec tronically Signed By: CASA ANAYA, Amberly Dent\Date and Time Signed: 12/04/21 21:16 EDT Evaluation + Plan note 12-04-2021 Radiology Note Date & Type Note Facility 12-04-2021 Evaluation + Plan note Future Scheduled TestsMRI Cholangiogram Pancreatography ([facility]) 12/04/21 [facility] course Narrative Note Date & Type Note Facility Hospital course Narrative No data available for this section [facility] Discharge instructions Note Date & Type Note Facility Hospital Discharge instructions No data available for this section [facility] Progress note Note Date & Type Note Facility Progress note No data available for this section [facility] Summary Purpose Family History No Family History Records FoundNo Family History Records FoundNo Family History Records Found Advance Directives No Advanced Directives Records FoundNo Advanced Directives Records FoundNo Advanced Directives Records Found Additional Source Comments INFORMATION SOURCE (unrecogn ized section and content) DATE CREATED [facility] DATE CREATED AUTHOR AUTHOR'S ORGANIZ ATION 05/05/2022 [facility] DATE CREATED AUTHOR AUTHOR'S ORGANIZ ATION 06/30/2022 [facility] Care Team (unrecognized sect ion and content) Personnel Name: Marco Otero MD Address: [address] [place] [address] Personnel Name: Marco Otero MD Address: Address: [address] [place] [address] Personnel Name: Marco Otero MD Address: Address: [address] [place] [address] Personnel Name: Marco Otero MD Address: Address: [address] [place] [address] FOR RECORDS PERTAINING TO PATIENTS WHO ARE OR HAVE BEEN ENROLLED IN A CHEMICAL DEPENDENCY/SUBSTANCEABUSE PROGRAM, SOME INFORMATION MAY BE OMITTED. This clinical summary was aggregated from multiple sources. Caution should be exercised in using it in the provision of clinical care. This summary normalizes information from multiple sources, and as a consequence, information in this document may materially change the coding, format and clinical context of patient data. In addition, data may be omitted in some cases. CLINICAL DECISIONS SHOULD BE BASED ON THE PRIMARY CLINICAL RECORDS. [facility]. provides no warranty or guarantee of the accuracy or completeness of information in this document.
--- NOTE | 2023-10-14 12:56 | P.STRESS_ITS ---
Stress Test Stress Test Requesting physician: Jem Otero Procedure: Exercise Cardiolite stress test General Information: Reason for Stress Test: Syncope Cardiac History and Risk Factors: None listed Resting 12 - Lead Electrocardiogram: Rate & rhythm: Normal sinus at a rate of 72. Am[place]on: Normal T-waves: Normal orientation ST-segments: Normal QTc: Prolonged @ 486msec Stress Test: Protocol: Lui protocol was followed, with injection of Cardiolite once target heart rate was achieved. Exercise capacity: Fair exercise capacity. Total exercise time of 4 minutes 13 seconds reached Lui stage 2 at 2.5MPH, 12% grade, & 7 METs. Blood pressure: Initial: 134/72, Maximum: 168/76 Rate & rhythm: Patient remained in sinus rhythm during the exercise and recovery portions of the study.? The maximum heart rate was 133, which was 87% of the maximum predicted heart rate 152. PVCs were noted. ST-segments & T-waves: No significant changes when compared to the baseline EKG. Patient response/symptoms: No reproducible symptoms to chief complaint. Interpretation: Normal exercise stress test without electrocardiographical evidence of ischemia. Asymptomatic of chief complaint. Cardiolite imaging interpretation will be reported separately. Clinical correlation required.?
--- NOTE | 2023-10-14 14:40 | PC.NURSE ---
Nursing Note Cardiac Stress Test Reviewed: Medication, allergies and patient history reviewed. Stress Test: [ x] Patient tolerated stress test well. [ ] Patient unable to tolerate walking on treadmill. Switched to Lexiscan stress test. [x ] No chest pain noted per patient [ ] Chest pain that resolved prior to leaving stress lab. [ ] No dyspnea noted. [x ] Dyspnea that resolved prior to leaving stress lab. [x ] Patient left stress lab asymptomatic and hemodynamically stable. [ ] Patient taken to the Emergency Room due to non-resolving symptoms following stress test. [ x] Patient achieved target heart rate. [ ] Patient unable to achieve target heart rate. [ ] Aminophylline administered as reversal agent to Lexiscan (Regadenoson). [ ] Nitro administered. Nursing Comments:
== END 2023-10-14 06:06 | disposition home or self-care (01) ==
LOC: NM 06:06
PROVIDERS: PCP Family Medicine; Visit Provider Family Medicine
DX: R07.89 Other chest pain (principal); R61 Generalized hyperhidrosis
CPT/HCPCS: 78452; 93017; A9500

== ENCOUNTER 2023-12-15 08:52 | Outpatient (OUT) | payer MEDICARE, SELFPAY ==
--- OUTSIDE RECORDS SUMMARY | 2023-12-15 09:10 | XMS_ITS | CCD ---
Author Organization [facility] Inform ion [facility] Care Team Providers Care Pattern Stamper Name Role Phone QUINTIN WHATLEY Unavailable Unavailable Rehl, Brown Unavailable Unavailable Marco Otero Primary Care Physician [phone] BRANDEN, DR LARA Consulting Unavailable HOY, DR [...] Medication Allergies] Propensity to adverse reactions (disorder) [facility] Repository Medications Current Medications Medication Drug [...] BID, # 90 tab(s), Refills(s) 3, Pharmacy: [id number], 167.6, cm, 05/28/22 13:15:00 EST, [...] 01-26-2022 Episodic Other aftercare (1 source) Other long term care phlebotomist (current) drug therapy; Translations: [OTH IS PROJECT MANAGER CURRENT DRUG THERAPY] Onset: 01-06-2022 Episodic Other aftercare (1 source) group home (current) use of oral hypoglycemic drugs; Translations: [IS PROJECT MANAGER USE ORAL HYPOGLYCEMIC DX] Onset: 01-06-2022 Episodic [...] Pure hypercholesterolemia Right upper quadrant pain Normal [facility] General Surgery Office/Clini c Noteon 06-25-2022 [...] mRNA BNT-162b2 vax 05/24/2020 Recorded Normal [facility] Comment on above: Result Comment: Elec [...] Pure hypercholesterolemia Right upper quadrant pain Normal [facility] Physician Referralon 023 Physician Referral [id number] Normal [facility] NM HEPATOBILIARY SCAN W EFon 05-05-2022 [...] Negative. IMPRESSION: Normal hepatobiliary scan Normal [facility] US SINGLE QUAD RT UPPERon US [...] unremarkable. Electronically authenticated by: JOYCE INGRAM Date: 2022-04-23 10:51 Normal [facility] H PYLORI ANTIBODY IGGon 03-31 H. PYLORI IGG ABS 0.21 Index Value Normal 0.00-0.79 [facility] Comment on above: Result Comment: Nega tive <0.80 Equivocal 0.80 - 0.89 Positive >0.89 Performed By: #### H PYLLC #### [facility] [address] [place] [address] Dr. Blanca Grimm AMYLASEon 04-18-2022 Amylase [Catalytic activity/Vol] 49 U/L Normal 25-115 [facility] Comment on above: Performed By: #### A MY, CMP, LIPA #### [facility] [address] [address] [address] Blanca Grimm CBC AUTO DIFFon 04-18-2022 BASO # 0.1 103/ul Normal 0.0-0.1 [facility] Comment on above: Performed By: #### A MY, CMP, LIPA #### [facility] [address] [address] [address] Blanca Grimm Basophils/100 WBC (Bld) 0.7 % Normal 0.2-2.0 [facility] Comment on above: Performed By: #### A MY, CMP, LIPA #### [facility] [address] [address] [address] Blanca Grimm EO # 0.3 103/ul Normal 0.0-0.7 [facility] Comment on above: Performed By: #### A MY, CMP, LIPA #### [facility] [address] [place] [address] Dr. Blanca Grimm Eosinophils/100 WBC (Bld) 3.5 % Normal 0.9-7.0 [facility] Comment on above: Performed By: #### A MY, CMP, LIPA #### [facility] [address] [place] [address] Dr. Blanca Grimm Erythrocyte distribution width (RBC) [Ratio] 13.6 % Normal 11.0-15.0 [facility] Comment on above: Performed By: #### A MY, CMP, LIPA #### [facility] [address] [place] [address] Dr. Blanca Grimm Hematocrit (Bld) [Volume fraction] 34.8 % Critically low 36.0-48.0 [facility] Comment on above: Performed By: #### A MY, CMP, LIPA #### [facility] [address] [place] [address] Dr. Blanca Grimm Hemoglobin (Bld) [Mass/Vol] 12.6 g/dL Normal 12.0-16.0 [facility] Comment on above: Performed By: #### A MY, CMP, LIPA #### [facility] [address] [place] [address] Dr. Blanca Grimm IG # 0.04 10e3/ul Critically high 0.00-0.03 [facility] Comment on above: Performed By: #### A MY, CMP, LIPA #### [facility] [address] [place] [address] Dr. Blanca Grimm IG % 0.5 % Normal 0.0-0.5 [facility] Comment on above: Performed By: #### A MY, CMP, LIPA #### [facility] [address] [place] [address] Dr. Blanca Grimm LYMPH # 2.6 103/ul Normal 1.2-3.8 [facility] Comment on above: Performed By: #### A MY, CMP, LIPA #### [facility] [address] [place] [address] Dr. Blanca Grimm Lymphocytes/100 WBC (Bld) 34.2 % Normal 20.5-60.0 [facility] Comment on above: Performed By: #### A MY, CMP, LIPA #### [facility] [address] [place] [address] Dr. Blanca Grimm MANUAL DIFF REQ NO Normal [facility] Comment on above: Performed By: #### A MY, CMP, LIPA #### [facility] [address] [place] [address] Dr. Blanca Grimm MCH (RBC) [Entitic mass] 28.1 pg Normal 26.7-34.0 [facility] Comment on above: Performed By: #### A MY, CMP, LIPA #### [facility] [address] [place] [address] Dr. Blanca Grimm MCHC (RBC) [Mass/Vol] 36.2 g/dL Critically high 29.9-35.2 [facility] Comment on above: Performed By: #### A MY, CMP, LIPA #### [facility] [address] [place] [address] Dr. Blanca Grimm MCV (RBC) [Entitic vol] 77.5 fL Critically low 81.0-99.0 [facility] Comment on above: Performed By: #### A MY, CMP, LIPA #### [facility] [address] [address] [address] Blanca Grimm MONO # 0.7 103/ul Normal 0.3-0.8 [facility] Comment on above: Performed By: #### A MY, CMP, LIPA #### [facility] [address] [address] [address] Blanca Grimm Monocytes/100 WBC (Bld) 9.1 % Normal 1.7-12.0 [facility] Comment on above: Performed By: #### A MY, CMP, LIPA #### [facility] [address] [address] [address] Blanca Grimm NEUT # 3.9 103/ul Normal 1.4-6.5 [facility] Comment on above: Performed By: #### A MY, CMP, LIPA #### [facility] [address] [place] [address] Dr. Blanca Grimm Neutrophils/100 WBC (Bld) 52.0 % Normal 43.0-75.0 [facility] Comment on above: Performed By: #### A MY, CMP, LIPA #### [facility] [address] [place] [address] Dr. Blanca Grimm Platelet mean volume (Bld) [Entitic vol] 9.3 fL Critically low 9.5-13.5 [facility] Comment on above: Performed By: #### A MY, CMP, LIPA #### [facility] [address] [place] [address] Dr. Blanca Grimm PLT 290 103/ul Normal 150-450 [facility] Comment on above: Performed By: #### A MY, CMP, LIPA #### [facility] [address] [place] [address] Dr. Blanca Grimm RBC 4.49 106/ul Normal 4.20-5.40 [facility] Comment on above: Performed By: #### A MY, CMP, LIPA #### [facility] [address] [place] [address] Dr. Blanca Grimm WBC 7.5 103/ul Normal 4.0-11.0 [facility] Comment on above: Performed By: #### A MY, CMP, LIPA #### [facility] [address] [address] [address] Blanca Grimm FREE THYROXINE INDEX T7on FTI 2.57 Normal 1.30-4.50 [facility] Comment on above: Performed By: #### A MY, CMP, LIPA #### [facility] [address] [address] [address] Blanca Grimm T3U 33.0 % Normal 30.0-39.0 [facility] Comment on above: Performed By: #### A MY, CMP, LIPA #### [facility] [address] [place] [address] Dr. Blanca Grimm T4 [Mass/Vol] 7.80 ug/dL Normal 4.80-13.90 [facility] Comment on above: Performed By: #### A MY, CMP, LIPA #### [facility] [address] [place] [address] Dr. Blanca Grimm GLYCOHEMOGLOBIN A1Con 2022 ADA RECOMMENDATION SEE BELOW Normal [facility] Comment on above: Result Comment: ADA RECOMMENDED LIMIT 4.0 - 6.0 ADA THERAPEUTIC TARGET < 7.0 ACTION SUGGESTED > 7.0 Performed By: #### A MY, CMP, LIPA #### [facility] [address] [place] [address] Dr. Blanca Grimm Glucose [Mass/Vol] 128 mg/dL Normal [facility] Comment on above: Performed By: #### A MY, CMP, LIPA #### [facility] [address] [place] [address] Dr. Blanca Grimm HbA1c (Bld) [Mass fraction] 6.1 % Normal 4.5-6.2 [facility] Comment on above: Performed By: #### A MY, CMP, LIPA #### [facility] [address] [place] [address] Dr. Blanca Grimm LIPASEon 04-18-2022 Lipase [Catalytic activity/Vol] 125.0 U/L Normal 73.0-393.0 [facility] Comment on above: Performed By: #### A MY, CMP, LIPA #### [facility] [address] [address] [address] Blanca Grimm PROF 14(COMP METB)on 023 Albumin [Mass/Vol] 4.0 g/dL Normal 3.4-5.0 [facility] Comment on above: Performed By: #### A MY, CMP, LIPA #### [facility] [address] [address] [address] Blanca Grimm Albumin/Globulin [Mass ratio] 1.1 {ratio} Normal [facility] Comment on above: Performed By: #### A MY, CMP, LIPA #### [facility] [address] [place] [address] Dr. Blanca Grimm ALP [Catalytic activity/Vol] 78 U/L Normal 46-116 [facility] Comment on above: Performed By: #### A MY, CMP, LIPA #### [facility] [address] [address] [address] Blanca Grimm ALT [Catalytic activity/Vol] 31 U/L Normal 14-59 [facility] Comment on above: Performed By: #### A MY, CMP, LIPA #### [facility] [address] [place] [address] Dr. Blanca Grimm Anion gap [Moles/Vol] 11.7 mmol/L Normal [facility] Comment on above: Performed By: #### A MY, CMP, LIPA #### [facility] [address] [address] [address] Blanca Grimm AST [Catalytic activity/Vol] 18 U/L Normal 15-37 [facility] Comment on above: Performed By: #### A MY, CMP, LIPA #### [facility] [address] [place] [address] Dr. Blanca Grimm Bilirubin [Mass/Vol] 0.3 mg/dL Normal 0.2-1.0 [facility] Comment on above: Performed By: #### A MY, CMP, LIPA #### [facility] [address] [place] [address] Dr. Blanca Grimm Calcium [Mass/Vol] 9.8 mg/dL Normal 8.5-10.1 [facility] Comment on above: Performed By: #### A MY, CMP, LIPA #### [facility] [address] [address] [address] Blanca Grimm Chloride [Moles/Vol] 103 mmol/L Normal 98-107 [facility] Comment on above: Performed By: #### A MY, CMP, LIPA #### [facility] [address] [address] [address] Blanca Grimm CO2 [Moles/Vol] 29.5 mmol/L Normal 21.0-32.0 [facility] Comment on above: Performed By: #### A MY, CMP, LIPA #### [facility] [address] [place] [address] Dr. Blanca Grimm Creatinine [Mass/Vol] 0.69 mg/dL Normal 0.55-1.02 [facility] Comment on above: Performed By: #### A MY, CMP, LIPA #### [facility] [address] [place] [address] Dr. Blanca Grimm EGFR-AF MICRONESIAN >60 Normal >=60 [facility] Comment on above: Performed By: #### A MY, CMP, LIPA #### [facility] [address] [place] [address] Dr. Blanca Grimm EGFR-NON AF MICRONESIAN >60 Normal >=60 [facility] Comment on above: Performed By: #### A MY, CMP, LIPA #### [facility] [address] [place] [address] Dr. Blanca Grimm Globulin (S) [Mass/Vol] 3.6 g/dL Normal [facility] Comment on above: Performed By: #### A MY, CMP, LIPA #### [facility] [address] [place] [address] Dr. Blanca Grimm Glucose [Mass/Vol] 95 mg/dL Normal 74-106 [facility] Comment on above: Performed By: #### A MY, CMP, LIPA #### [facility] [address] [address] [address] Blanca Grimm Potassium [Moles/Vol] 4.2 mmol/L Normal 3.5-5.1 [facility] Comment on above: Performed By: #### A MY, CMP, LIPA #### [facility] [address] [address] [address] Blanca Grimm Protein [Mass/Vol] 7.6 g/dL Normal 6.4-8.2 [facility] Comment on above: Performed By: #### A MY, CMP, LIPA #### [facility] [address] [address] [address] Blanca Grimm Sodium [Moles/Vol] 140 mmol/L Normal 136-145 [facility] Comment on above: Performed By: #### A MY, CMP, LIPA #### [facility] [address] [place] [address] Dr. Blanca Grimm Urea nitrogen [Mass/Vol] 10.0 mg/dL Normal 7.0-18.0 [facility] Comment on above: Performed By: #### A MY, CMP, LIPA #### [facility] [address] [place] [address] Dr. Blanca Grimm Urea nitrogen/Creatinin e [Mass ratio] 14.5 mg/mg Normal [facility] Comment on above: Performed By: #### A MY, CMP, LIPA #### [facility] [address] [place] [address] Dr. Blanca Grimm TSHon 04-18-2022 TSH 3.705 uIU/mL Normal 0.358-3.740 [facility] Comment on above: Performed By: #### A MY, CMP, LIPA #### [facility] [address] [place] [address] Dr. Blanca Grimm XR ABD FLAT UP_PA [...] YOHANNES QUINN Date: 2022-04-18 13:17 Normal [facility] General Surgery Office/Clini c Noteon 02-10-2022 General [...] Renal failure syndrome: Brother. Stroke: Mother. Normal [facility] Comment on above: Result Comment: Elec tronically Signed By: CASA ANAYA, Amberly Dent\Date and Time Signed: 02/10/22 16:26 EST MG MAMM SCREEN 3D KARINE CADon 01-30-2022 MG MAMM SCREEN 3D KARINE CAD Patient: KIM SANTAMARIA Exam Date: 01/30/2022 : 1955 Gender:F Ordering : DR MARCO OTERO . Admission #: [id number] Family : Order #: [id number] CLICK HERE TO VIEW EXAM RADIOLOGY REPORT [...] breast cancer at age 58. LOCATION: [facility] BREAST COMPOSITION: Heterogeneously dense,which may obscure small [...] MD on 01/30/2022 at 13:43 Normal [facility] INSULINon 01-23-2022 Insulin 11.7 uIU/mL Normal 2.6-24.9 [facility] Comment on above: Performed By: #### A MY, CMP, LIPA #### [facility] [address] [address] [address] Blanca Grimm CBC AUTO DIFFon 01-22-2022 BASO # 0.1 103/ul Normal 0.0-0.1 [facility] Comment on above: Performed By: #### A MY, CMP, LIPA #### [facility] [address] [address] [address] Blanca Grimm Basophils/100 WBC (Bld) 0.8 % Normal 0.2-2.0 [facility] Comment on above: Performed By: #### A MY, CMP, LIPA #### [facility] [address] [place] [address] Dr. Blanca Grimm EO # 0.2 103/ul Normal 0.0-0.7 [facility] Comment on above: Performed By: #### A MY, CMP, LIPA #### [facility] [address] [place] [address] Dr. Blanca Grimm Eosinophils/100 WBC (Bld) 3.5 % Normal 0.9-7.0 [facility] Comment on above: Performed By: #### A MY, CMP, LIPA #### [facility] [address] [place] [address] Dr. Blanca Grimm Erythrocyte distribution width (RBC) [Ratio] 14.3 % Normal 11.0-15.0 [facility] Comment on above: Performed By: #### A MY, CMP, LIPA #### [facility] [address] [place] [address] Dr. Blanca Grimm Hematocrit (Bld) [Volume fraction] 39.7 % Normal 36.0-48.0 [facility] Comment on above: Performed By: #### A MY, CMP, LIPA #### [facility] [address] [place] [address] Dr. Blanca Grimm Hemoglobin (Bld) [Mass/Vol] 12.9 g/dL Normal 12.0-16.0 [facility] Comment on above: Performed By: #### A MY, CMP, LIPA #### [facility] [address] [place] [address] Dr. Blanca Grimm IG # 0.05 10e3/ul Critically high 0.00-0.03 [facility] Comment on above: Performed By: #### A MY, CMP, LIPA #### [facility] [address] [place] [address] Dr. Blanca Grimm IG % 0.8 % Critically high 0.0-0.5 [facility] Comment on above: Performed By: #### A MY, CMP, LIPA #### [facility] [address] [address] [address] Blanca Grimm LYMPH # 2.5 103/ul Normal 1.2-3.8 [facility] Comment on above: Performed By: #### A MY, CMP, LIPA #### [facility] [address] [place] [address] Dr. Blanca Grimm Lymphocytes/100 WBC (Bld) 38.1 % Normal 20.5-60.0 [facility] Comment on above: Performed By: #### A MY, CMP, LIPA #### [facility] [address] [place] [address] Dr. Blanca Grimm MANUAL DIFF REQ NO Normal [facility] Comment on above: Performed By: #### A MY, CMP, LIPA #### [facility] [address] [place] [address] Dr. Blanca Grimm MCH (RBC) [Entitic mass] 27.9 pg Normal 26.7-34.0 [facility] Comment on above: Performed By: #### A MY, CMP, LIPA #### [facility] [address] [place] [address] Dr. Blanca Grimm MCHC (RBC) [Mass/Vol] 32.5 g/dL Normal 29.9-35.2 [facility] Comment on above: Performed By: #### A MY, CMP, LIPA #### [facility] [address] [place] [address] Dr. Blanca Grimm MCV (RBC) [Entitic vol] 85.9 fL Normal 81.0-99.0 [facility] Comment on above: Performed By: #### A MY, CMP, LIPA #### [facility] [address] [place] [address] Dr. Blanca Grimm MONO # 0.5 103/ul Normal 0.3-0.8 [facility] Comment on above: Performed By: #### A MY, CMP, LIPA #### [facility] [address] [place] [address] Dr. Blanca Grimm Monocytes/100 WBC (Bld) 8.0 % Normal 1.7-12.0 [facility] Comment on above: Performed By: #### A MY, CMP, LIPA #### [facility] [address] [address] [address] Blanca Grimm NEUT # 3.2 103/ul Normal 1.4-6.5 [facility] Comment on above: Performed By: #### A MY, CMP, LIPA #### [facility] [address] [place] [address] Dr. Blanca Grimm Neutrophils/100 WBC (Bld) 48.8 % Normal 43.0-75.0 [facility] Comment on above: Performed By: #### A MY, CMP, LIPA #### [facility] [address] [place] [address] Dr. Blanca Grimm Platelet mean volume (Bld) [Entitic vol] 9.9 fL Normal 9.5-13.5 [facility] Comment on above: Performed By: #### A MY, CMP, LIPA #### [facility] [address] [place] [address] Dr. Blanca Grimm PLT 290 103/ul Normal 150-450 [facility] Comment on above: Performed By: #### A MY, CMP, LIPA #### [facility] [address] [place] [address] Dr. Blanca Grimm RBC 4.62 106/ul Normal 4.20-5.40 [facility] Comment on above: Performed By: #### A MY, CMP, LIPA #### [facility] [address] [place] [address] Dr. Blanca Grimm WBC 6.5 103/ul Normal 4.0-11.0 [facility] Comment on above: Performed By: #### A MY, CMP, LIPA #### [facility] [address] [place] [address] Dr. Blanca Grimm FREE THYROXINE INDEX T7on FTI 2.05 Normal 1.30-4.50 [facility] Comment on above: Performed By: #### L IPID, CMP, T7, TSH #### [facility] [address] [place] [address] Dr. Blanca Grimm T3U 33.0 % Normal 30.0-39.0 [facility] Comment on above: Performed By: #### L IPID, CMP, T7, TSH #### [facility] [address] [address] [address] Blanca Grimm T4 [Mass/Vol] 6.20 ug/dL Normal 4.80-13.90 [facility] Comment on above: Performed By: #### L IPID, CMP, T7, TSH #### [facility] [address] [address] [address] Blanca Grimm GLYCOHEMOGLOBIN A1Con 2021 ADA RECOMMENDATION SEE BELOW Normal [facility] Comment on above: Result Comment: ADA RECOMMENDED LIMIT 4.0 - 6.0 ADA THERAPEUTIC TARGET < 7.0 ACTION SUGGESTED > 7.0 Performed By: #### A MY, CMP, LIPA #### [facility] [address] [place] [address] Dr. Blanca Grimm Glucose [Mass/Vol] 143 mg/dL Normal [facility] Comment on above: Performed By: #### A MY, CMP, LIPA #### [facility] [address] [address] [address] Blanca Grimm HbA1c (Bld) [Mass fraction] 6.6 % Critically high 4.5-6.2 [facility] Comment on above: Performed By: #### A MY, CMP, LIPA #### [facility] [address] [place] [address] Dr. Blanca Grimm IRONon 01-22-2022 Iron [Mass/Vol] 64.0 ug/dL Normal 50.0-170.0 [facility] Comment on above: Performed By: #### A MY, CMP, LIPA #### [facility] [address] [place] [address] Dr. Blanca Grimm LIPID PROFILEon 01-22-2022 CHOL-HDL RATIO NORM SEE BELOW Normal [facility] Comment on above: Result Comment: 3.3 - 4.4 LOW RISK 4.4 - 7.1 AVERAGE RISK 7.1 - 11.0 MODERATE RISK >11.0 HIGH RISK Performed By: #### L IPID, CMP, T7, TSH #### [facility] [address] [address] [address] Blanca Grimm Cholesterol [Mass/Vol] 247 mg/dL Critically high <=200 [facility] Comment on above: Performed By: #### L IPID, CMP, T7, TSH #### [facility] [address] [address] [address] Blanca Grimm Cholesterol in HDL [Mass/Vol] 57 mg/dL Normal 40-60 [facility] Comment on above: Performed By: #### L IPID, CMP, T7, TSH #### [facility] [address] [address] [address] Blanca Grimm Cholesterol in LDL [Mass/Vol] 138.0 mg/dL Normal [facility] Comment on above: Performed By: #### L IPID, CMP, T7, TSH #### [facility] [address] [address] [address] Blanca Grimm Cholesterol.total/ Cholesterol in HDL [Mass ratio] 4.3 {ratio} Normal [facility] Comment on above: Performed By: #### L IPID, CMP, T7, TSH #### [facility] [address] [address] [address] Blanca Grimm HDL NORMAL > or = 60 mg/dl - LO W CARDIOVASCULAR RISK <40 mg/dl - HIGH CARDIOVASCULAR RISK Normal [facility] Comment on above: Performed By: #### L IPID, CMP, T7, TSH #### [facility] [address] [address] [address] Blanca Grimm LDL CALC NORMAL SEE BELOW Normal [facility] Comment on above: Result Comment: <100 mg/dl OPTIMAL 100 - 129 mg/dl NEAR OR ABOVE OPTIMAL 130 - 159 mg/dl BORDERLINE HIGH 160 - 189 mg/dl HIGH >190 mg/dl VERY HIGH Performed By: #### L IPID, CMP, T7, TSH #### [facility] [address] [address] [address] Blanca Grimm Triglyceride [Mass/Vol] 260 mg/dL Critically high <=150 [facility] Comment on above: Performed By: #### L IPID, CMP, T7, TSH #### [facility] [address] [address] [address] Blanca Grimm VLDL CALC 52.0 mg/dL Normal [facility] Comment on above: Performed By: #### L IPID, CMP, T7, TSH #### [facility] [address] [place] [address] Dr. Blanca Grimm PROF 14(COMP METB)on 022 Albumin [Mass/Vol] 4.0 g/dL Normal 3.4-5.0 [facility] Comment on above: Performed By: #### L IPID, CMP, T7, TSH #### [facility] [address] [place] [address] Dr. Blanca Grimm Albumin/Globulin [Mass ratio] 1.1 {ratio} Normal [facility] Comment on above: Performed By: #### L IPID, CMP, T7, TSH #### [facility] [address] [address] [address] Blanca Grimm ALP [Catalytic activity/Vol] 84 U/L Normal 46-116 [facility] Comment on above: Performed By: #### L IPID, CMP, T7, TSH #### [facility] [address] [place] [address] Dr. Blanca Grimm ALT [Catalytic activity/Vol] 36 U/L Normal 14-59 [facility] Comment on above: Performed By: #### L IPID, CMP, T7, TSH #### [facility] [address] [address] [address] Blanca Grimm Anion gap [Moles/Vol] 14.2 mmol/L Normal [facility] Comment on above: Performed By: #### L IPID, CMP, T7, TSH #### [facility] [address] [place] [address] Dr. Blanca Grimm AST [Catalytic activity/Vol] 22 U/L Normal 15-37 [facility] Comment on above: Performed By: #### L IPID, CMP, T7, TSH #### [facility] [address] [place] [address] Dr. Blanca Grimm Bilirubin [Mass/Vol] 0.3 mg/dL Normal 0.2-1.0 [facility] Comment on above: Performed By: #### L IPID, CMP, T7, TSH #### [facility] [address] [address] [address] Blanca Grimm Calcium [Mass/Vol] 9.4 mg/dL Normal 8.5-10.1 [facility] Comment on above: Performed By: #### L IPID, CMP, T7, TSH #### [facility] [address] [address] [address] Blanca Grimm Chloride [Moles/Vol] 103 mmol/L Normal 98-107 [facility] Comment on above: Performed By: #### L IPID, CMP, T7, TSH #### [facility] [address] [address] [address] Blanca Grimm CO2 [Moles/Vol] 26.0 mmol/L Normal 21.0-32.0 [facility] Comment on above: Performed By: #### L IPID, CMP, T7, TSH #### [facility] [address] [address] [address] Blanca Grimm Creatinine [Mass/Vol] 0.71 mg/dL Normal 0.55-1.02 [facility] Comment on above: Performed By: #### L IPID, CMP, T7, TSH #### [facility] [address] [address] [address] Blanca Grimm EGFR-AF MICRONESIAN >60 Normal >=60 [facility] Comment on above: Performed By: #### L IPID, CMP, T7, TSH #### [facility] [address] [address] [address] Blanca Grimm EGFR-NON AF MICRONESIAN >60 Normal >=60 [facility] Comment on above: Performed By: #### L IPID, CMP, T7, TSH #### [facility] [address] [address] [address] Blanca Grimm Globulin (S) [Mass/Vol] 3.8 g/dL Normal [facility] Comment on above: Performed By: #### L IPID, CMP, T7, TSH #### [facility] [address] [address] [address] Blanca Grimm Glucose [Mass/Vol] 112 mg/dL Critically high 74-106 [facility] Comment on above: Performed By: #### L IPID, CMP, T7, TSH #### [facility] [address] [address] [address] Blanca Grimm Potassium [Moles/Vol] 4.2 mmol/L Normal 3.5-5.1 [facility] Comment on above: Performed By: #### L IPID, CMP, T7, TSH #### [facility] [address] [place] [address] Dr. Blanca Grimm Protein [Mass/Vol] 7.8 g/dL Normal 6.4-8.2 [facility] Comment on above: Performed By: #### L IPID, CMP, T7, TSH #### [facility] [address] [place] [address] Dr. Blanca Grimm Sodium [Moles/Vol] 139 mmol/L Normal 136-145 [facility] Comment on above: Performed By: #### L IPID, CMP, T7, TSH #### [facility] [address] [place] [address] Dr. Blanca Grimm Urea nitrogen [Mass/Vol] 10.0 mg/dL Normal 7.0-18.0 [facility] Comment on above: Performed By: #### L IPID, CMP, T7, TSH #### [facility] [address] [place] [address] Dr. Blanca Grimm Urea nitrogen/Creatinin e [Mass ratio] 14.1 mg/mg Normal [facility] Comment on above: Performed By: #### L IPID, CMP, T7, TSH #### [facility] [address] [place] [address] Dr. Blanca Grimm TSHon 01-22-2022 TSH 2.598 uIU/mL Normal 0.358-3.740 [facility] Comment on above: Performed By: #### L IPID, CMP, T7, TSH #### [facility] [address] [address] [address] Blanca Grimm VITAMIN D 25 OHon 01-22-2022 VIT D 25-OH 40.1 ng/mL Normal [facility] Comment on above: Performed By: #### A MY, CMP, LIPA #### [facility] [id number] Blanca Grimm VIT D RANGES SEE BELOW Normal [facility] Comment on above: Result Comment: <20 ng/mL Vit D deficient 20 - <30 ng/mL Vit D insufficient 30 - 100 ng/mL Vit D sufficient >100 ng/mL Potential Toxicity Performed By: #### A MY, CMP, LIPA #### [facility] [address] [address] [address] Blanca Grimm Ambulatory Visit Summaryon 1 [...] Pure hypercholesterolemia Right upper quadrant pain Normal [facility] Outside Colonoscopyon 2021 Outside Colonoscopy [id number]#1.00CD:127 Normal [facility] Pathology Noteon 01-03-2022 Pathology Note [id number]#1.00CD:127 Normal [facility] Reminderson 01-03-2022 Reminders - From: Graciela Zamudio LPN To: [facility] - Clinical; Sent: 01/03/2022 08:02:44 EDT Show up: 12/03/2031 07:00:00 EDT Subject: colonoscopy recall Due Date/Time: 01/02/2032 07:00:00 EDT Reminder/Recall Patient is due for screening colonoscopy 01/02/2032. Normal [facility] POINT OF CARE GLUCOSEon Glucose [Mass/Vol] 112 mg/dL Critically high 74-106 [facility] Comment on above: Performed By: #### P OCGLUC #### [facility] [address] [address] [address] Blanca Grimm Lab Reportson 12-31-2021 Lab Reports [id number]#[id number]:127 Normal [facility] Covid-19 PCR (CVDTBH)on SARS-CoV-2 (COVID-19) RNA ARVIND+probe Ql (Unsp spec) Not detected Normal NOT DETECTED [facility] Comment on above: Result Comment: This test is not yet approved or cleared by the [place] FDA. When there are no FDA-approved or cleared tests available, and other criteria are met, FDA can make tests available under an emergency access mechanism called an Emergency Use Authorization (EUA). The EUA for this test is supported by the [employer] of Health and Human Service's (HHS's) declaration [...] By: #### A MY, CMP, LIPA #### [facility] [address] [place] [address] Dr. Blanca Grimm Pre-Certification Formon Pre-Certification Form [id number]#1.00CD:127 Normal [facility] RAD - MRI Reporton 2 RAD - MRI Report [id number]#1.00CD:127 Normal [facility] Pre-Certification Formon Pre-Certification Form [id number]#1.00CD:127 Normal [facility] MRI ABDOMEN WO CONon 022 MRI [...] by: JOYCE PITT Date: 2021-12-17 07:53 Normal [facility] Consent for Procedure/Surger yon 12-05-2021 Consent for Procedure/Surgery [id number]#1.00CD:127 Normal [facility] NM HEPATOBILIARY SCAN W EFon 12-05-2021 [...] by: JOYCE PITT Date: 2021-12-05 09:11 Normal [facility] RAD - Ultrasound Reporton RAD - Ultrasound Report [id number]#1.00CD:127 Normal [facility] Ambulatory Visit Summaryon 0 12-04-2021 Ambulatory [...] Cholelithiasis, No, No, Dilated cbd, acquired Normal [facility] US SINGLE QUAD RT UPPERon US [...] JOYCE INGRAM Date: 2021-11-26 10:28 Normal [facility] AMMONIAon 11-13-2021 Ammonia (P) [Moles/Vol] 16 umol/L Normal 11-32 [facility] Comment on above: Performed By: #### A MM #### [facility] [address] [address] [address] Blanca Grimm AMYLASEon 11-13-2021 Amylase [Catalytic activity/Vol] 42 U/L Normal 25-115 [facility] Comment on above: Performed By: #### A MY, CMP, LIPA #### [facility] [address] [place] [address] Dr. Blanca Grimm CBC AUTO DIFFon 11-13-2021 BASO # 0.1 103/ul Normal 0.0-0.1 [facility] Comment on above: Performed By: #### A MY, CMP, LIPA #### [facility] [address] [place] [address] Dr. Blanca Grimm Basophils/100 WBC (Bld) 0.6 % Normal 0.2-2.0 [facility] Comment on above: Performed By: #### A MY, CMP, LIPA #### [facility] [address] [place] [address] Dr. Blanca Grimm EO # 0.2 103/ul Normal 0.0-0.7 [facility] Comment on above: Performed By: #### A MY, CMP, LIPA #### [facility] [address] [place] [address] Dr. Blanca Grimm Eosinophils/100 WBC (Bld) 2.3 % Normal 0.9-7.0 [facility] Comment on above: Performed By: #### A MY, CMP, LIPA #### [facility] [address] [place] [address] Dr. Blanca Grimm Erythrocyte distribution width (RBC) [Ratio] 13.9 % Normal 11.0-15.0 [facility] Comment on above: Performed By: #### A MY, CMP, LIPA #### [facility] [address] [place] [address] Dr. Blanca Grimm Hematocrit (Bld) [Volume fraction] 37.3 % Normal 36.0-48.0 [facility] Comment on above: Performed By: #### A MY, CMP, LIPA #### [facility] [address] [place] [address] Dr. Blanca Grimm Hemoglobin (Bld) [Mass/Vol] 12.1 g/dL Normal 12.0-16.0 [facility] Comment on above: Performed By: #### A MY, CMP, LIPA #### [facility] [address] [address] [address] Blanca Grimm IG # 0.03 10e3/ul Normal 0.00-0.03 [facility] Comment on above: Performed By: #### A MY, CMP, LIPA #### [facility] [address] [address] [address] Blanca Grimm IG % 0.4 % Normal 0.0-0.5 [facility] Comment on above: Performed By: #### A MY, CMP, LIPA #### [facility] [address] [place] [address] Dr. Blanca Grimm LYMPH # 2.5 103/ul Normal 1.2-3.8 [facility] Comment on above: Performed By: #### A MY, CMP, LIPA #### [facility] [address] [place] [address] Dr. Blanca Grimm Lymphocytes/100 WBC (Bld) 29.0 % Normal 20.5-60.0 [facility] Comment on above: Performed By: #### A MY, CMP, LIPA #### [facility] [address] [place] [address] Dr. Blanca Grimm MANUAL DIFF REQ NO Normal [facility] Comment on above: Performed By: #### A MY, CMP, LIPA #### [facility] [address] [place] [address] Dr. Blanca Grimm MCH (RBC) [Entitic mass] 28.1 pg Normal 26.7-34.0 [facility] Comment on above: Performed By: #### A MY, CMP, LIPA #### [facility] [address] [place] [address] Dr. Blanca Grimm MCHC (RBC) [Mass/Vol] 32.4 g/dL Normal 29.9-35.2 [facility] Comment on above: Performed By: #### A MY, CMP, LIPA #### [facility] [address] [place] [address] Dr. Blanca Grimm MCV (RBC) [Entitic vol] 86.7 fL Normal 81.0-99.0 [facility] Comment on above: Performed By: #### A MY, CMP, LIPA #### [facility] [address] [place] [address] Dr. Blanca Grimm MONO # 0.8 103/ul Normal 0.3-0.8 [facility] Comment on above: Performed By: #### A MY, CMP, LIPA #### [facility] [address] [place] [address] Dr. Blanca Grimm Monocytes/100 WBC (Bld) 9.5 % Normal 1.7-12.0 [facility] Comment on above: Performed By: #### A MY, CMP, LIPA #### [facility] [address] [place] [address] Dr. Blanca Grimm NEUT # 5.0 103/ul Normal 1.4-6.5 [facility] Comment on above: Performed By: #### A MY, CMP, LIPA #### [facility] [address] [place] [address] Dr. Blanca Grimm Neutrophils/100 WBC (Bld) 58.2 % Normal 43.0-75.0 [facility] Comment on above: Performed By: #### A MY, CMP, LIPA #### [facility] [address] [place] [address] Dr. Blanca Grimm Platelet mean volume (Bld) [Entitic vol] 9.8 fL Normal 9.5-13.5 [facility] Comment on above: Performed By: #### A MY, CMP, LIPA #### [facility] [address] [place] [address] Dr. Blanca Grimm PLT 273 103/ul Normal 150-450 [facility] Comment on above: Performed By: #### A MY, CMP, LIPA #### [facility] [address] [place] [address] Dr. Blanca Grimm RBC 4.30 106/ul Normal 4.20-5.40 [facility] Comment on above: Performed By: #### A MY, CMP, LIPA #### [facility] [address] [place] [address] Dr. Blanca Grimm WBC 8.5 103/ul Normal 4.0-11.0 [facility] Comment on above: Performed By: #### A MY, CMP, LIPA #### [facility] [address] [place] [address] Dr. Blanca Grimm LIPASEon 11-13-2021 Lipase [Catalytic activity/Vol] 108.0 U/L Normal 73.0-393.0 [facility] Comment on above: Performed By: #### A MY, CMP, LIPA #### [facility] [address] [address] [address] Blanca Grimm PROF 14(COMP METB)on 022 Albumin [Mass/Vol] 3.9 g/dL Normal 3.4-5.0 [facility] Comment on above: Performed By: #### A MY, CMP, LIPA #### [facility] [address] [place] [address] Dr. Blanca Grimm Albumin/Globulin [Mass ratio] 1.1 {ratio} Normal [facility] Comment on above: Performed By: #### A MY, CMP, LIPA #### [facility] [address] [place] [address] Dr. Blanca Grimm ALP [Catalytic activity/Vol] 94 U/L Normal 46-116 [facility] Comment on above: Performed By: #### A MY, CMP, LIPA #### [facility] [address] [place] [address] Dr. Blanca Grimm ALT [Catalytic activity/Vol] 28 U/L Normal 14-59 [facility] Comment on above: Performed By: #### A MY, CMP, LIPA #### [facility] [address] [place] [address] Dr. Blanca Grimm Anion gap [Moles/Vol] 14.8 mmol/L Normal [facility] Comment on above: Performed By: #### A MY, CMP, LIPA #### [facility] [address] [place] [address] Dr. Blanca Grimm AST [Catalytic activity/Vol] 22 U/L Normal 15-37 [facility] Comment on above: Performed By: #### A MY, CMP, LIPA #### [facility] [address] [address] [address] Blanca Grimm Bilirubin [Mass/Vol] 0.3 mg/dL Normal 0.2-1.0 [facility] Comment on above: Performed By: #### A MY, CMP, LIPA #### [facility] [address] [place] [address] Dr. Blanca Grimm Calcium [Mass/Vol] 9.3 mg/dL Normal 8.5-10.1 [facility] Comment on above: Performed By: #### A MY, CMP, LIPA #### [facility] [address] [place] [address] Dr. Blanca Grimm Chloride [Moles/Vol] 103 mmol/L Normal 98-107 [facility] Comment on above: Performed By: #### A MY, CMP, LIPA #### [facility] [address] [place] [address] Dr. Blanca Grimm CO2 [Moles/Vol] 24.4 mmol/L Normal 21.0-32.0 [facility] Comment on above: Performed By: #### A MY, CMP, LIPA #### [facility] [address] [place] [address] Dr. Blanca Grimm Creatinine [Mass/Vol] 0.94 mg/dL Normal 0.55-1.02 [facility] Comment on above: Performed By: #### A MY, CMP, LIPA #### [facility] [address] [place] [address] Dr. Blanca Grimm EGFR-AF MICRONESIAN >60 Normal >=60 [facility] Comment on above: Performed By: #### A MY, CMP, LIPA #### [facility] [address] [place] [address] Dr. Blanca Grimm EGFR-NON AF MICRONESIAN =60 Normal >=60 [facility] Comment on above: Performed By: #### A MY, CMP, LIPA #### [facility] [address] [place] [address] Dr. Blanca Grimm Globulin (S) [Mass/Vol] 3.7 g/dL Normal [facility] Comment on above: Performed By: #### A MY, CMP, LIPA #### [facility] [address] [address] [address] Blanca Grimm Glucose [Mass/Vol] 101 mg/dL Normal 74-106 [facility] Comment on above: Performed By: #### A MY CMP, LIPA #### [facility] [address] [address] [address] Blanca Grimm Potassium [Moles/Vol] 4.2 mmol/L Normal 3.5-5.1 [facility] Comment on above: Performed By: #### A MY, CMP, LIPA #### [facility] [address] [place] [address] Dr. Blanca Grimm Protein [Mass/Vol] 7.6 g/dL Normal 6.4-8.2 [facility] Comment on above: Performed By: #### A MY CMP, LIPA #### [facility] [address] [place] [address] Dr. Blanca Grimm Sodium [Moles/Vol] 138 mmol/L Normal 136-145 [facility] Comment on above: Performed By: #### A MY, CMP, LIPA #### [facility] [address] [place] [address] Dr. Blanca Grimm Urea nitrogen [Mass/Vol] 13.0 mg/dL Normal 7.0-18.0 [facility] Comment on above: Performed By: #### A MY, CMP, LIPA #### [facility] [address] [place] [address] Dr. Blanca Grimm Urea nitrogen/Creatinin e [Mass ratio] 13.8 mg/mg Normal [facility] Comment on above: Performed By: #### A MY, CMP, LIPA #### [facility] [address] [place] [address] Dr. Blanca Grimm XR LSPINE MIN 4 [...] JOYCE PITT Date: 2021-07-22 18:17 Normal [facility] CT Cervical Spine WOon 11-22 CT Cervical Spine WO [facility] Name: KIM SANTAMARIA [address] [place] [address] Phys: [place] [address] : 1955 Age: 61 Acct: [id number] Loc: ER MRN/Unit No.: [id number] Status: REG ER Exam Date: 11/22/16 Accession Number: [id number] Exam: [id number] CT/CT Cervical Spine WO CT Cervical Spine [...] Date/Time: 11/22/16, 1252 Dictated Date/Time: 11/22/16 1252 Geospatial Intelligence Analyst: GARCIA WYATT Printed Date/Time: [ rep prt dt last], [ rep prt tm last] This report was electronically signed in an other vendor system Normal [facility] CT Head WOon 11-22-2016 CT Head WO [facility] EM [facility] Name: KIM SANTAMARIA [facility] Phys: [place] [address] : 1955 Age: 61 Acct: [id number] Loc: ER MRN/Unit No.: [id number] Status: REG ER Exam Date: 11/22/16 Accession Number: [id number] Exam: [id number] CT/CT Head WO CT Head WO EXAM: [...] Date/Time: 11/22/16, 1252 Dictated Date/Time: 11/22/16 1245 Geospatial Intelligence Analyst: GARCIA WYATT Printed Date/Time: [ rep prt dt last], [ rep prt tm last] This report was electronically signed in an other vendor system Normal [facility] CT Thoracic Spine WOon 11-22 CT Thoracic Spine WO [facility] Name: KIM SANTAMARIA [address] [place] [address] Phys: [place] [address] : 1955 Age: 61 Acct: [id number] Loc: ER MRN/Unit No.: [id number] Status: DEP ER Exam Date: 11/22/16 Accession Number: [id number] Exam: CT/CT Thoracic Spine WO CT Thoracic [...] NOT IN SYSTEM; QUINTIN WHATLEY Technologist: ALLY MCCLULOUGH Dictated By: BAYLEE OSMAN Signed Date/Time: 11/22/16, 1455 Dictated Date/Time: 11/22/16 1258 Geospatial Intelligence Analyst: GARCIA WYATT Printed Date/Time: [ rep prt dt last], [ rep prt tm last] This report was electronically signed in an other vendor system Normal [facility] Vital Signs Date Time Vital Sign Value Performing Clinician Maisha york 06-25-2022 13:32-0400 Blood Pressure Location Amberly JOSE [facility] 06-25-2022 13:32-0400 Diastolic blood pressure 92 mm[Hg] Amber[facility] JOSE [facility] 06-25-2022 13:32-0400 Heart rate 72 /min Amberly NILL [facility] 06-25-2022 13:32-0400 Respiratory rate 16 /min Amberly NILL [facility] 06-25-2022 13:32-0400 Systolic blood pressure 136 mm[Hg] Amberly NILL [facility] 05-28-2022 13:09-0500 Blood Pressure Location Amberly NILL [facility] 05-28-2022 13:09-0500 Diastolic blood pressure 94 mm[Hg] Amberly NILL [facility] 05-28-2022 13:09-0500 Heart rate 74 /min Amberly NILL [facility] 05-28-2022 13:09-0500 Respiratory rate 16 /min Amberly NILL [facility] 05-28-2022 13:09-0500 Systolic blood pressure 148 mm[Hg] Amberly NILL [facility] 12-04-2021 14:16-0400 Blood Pressure Location Amberly NILL [facility] 12-04-2021 14:16-0400 Diastolic blood pressure 90 mm[Hg] Amberly NILL [facility] 12-04-2021 14:16-0400 Heart rate 70 /min Amberly NILL [facility] 12-04-2021 14:16-0400 Respiratory rate 16 /min Amberly NILL [facility] 12-04-2021 14:16-0400 Systolic blood pressure 128 mm[Hg] Amberly NILL [facility] Encounters Encounter Date Encounter Type Care Provider Facility Start: 06-25-2022 End: 06-26-2022 [facility] Start: 06-25-2022 End: 06-25-2022 Patient encounter procedure Amberly R CASA [facility] Start: 05-28-2022 End: 05-29-2022 [facility] Start: 05-28-2022 End: 05-28-2022 Patient encounter procedure Amberly JOSE [facility] Start: 05-02-2022 End: 05-03-[address] MARCO OTERO Facility:[facility] Start: 04-23-2022 End: 04-24-[address] MARCO OTERO Facility:[facility] Start: 04-18-2022 End: 04-19-[address] MARCO OTERO Facility:[facility] Start: 01-30-2022 End: 01-31-[address] MARCO OTERO Facility:[facility] Start: 01-22-2022 End: 01-23-[address] MARCO OTERO Facility:[facility] Start: 01-21-2022 End: 01-22-2022 [facility]ulatory [facility] Start: 01-21-2022 End: 01-21-2022 Patient encounter procedure Amberly JOSE [facility] Start: 01-02-2022 Encounter for preprocedural laboratory examination DR AMBERLY JOSE [facility] Start: 01-01-2022 End: 01-02-[address] [...] 11-22-2016 Emergency department patient visit QUINTIN WHATLEY Facility:[facility] Procedures Date Procedure Procedure Detail Performing Clinician Start: 01-01-2022 Colonoscopy Amberly JALLOH Start: 01-01-2022 Esophagogastroduodenoscopy Amberly JOSE Start: 03-30-2005 Abdominal hysterectomy Amberly JOSE Bilateral oophorectomy Julio JOSE Immunizations Immunization Date Immunization Notes Care Provider Fa cility 04-08-2021 SARS-CoV-2 (COVID-19 ) mRNA BNT-162b2 vax Amberly NILL [facility] 06-21-2020 SARS-CoV-2 (COVID-19 ) mRNA BNT-162b8 vax Amberly CUELLARL [facility] 05-24-2020 SARS-CoV-2 (COVID-19 ) mRNA BNT-614a3 vax Amberly CUELLARL [facility] NEGATED: Highlighted row has not occurred!05-28-2022 influenza virus vaccine, unspecified formulation Amberly JOSE [facility] Payers Date Payer Category Payer Unknown [id number] 1959 Unknown [id number] 1955 Unknown [id number] 2.16.84 0.1.789993.3.579.2.593 1955 Unknown [id number] 2.16.84 0.1.783345.3.579.2.593 1955 Unknown [id number] 2.16.84 0.1.098858.3.579.2.593 1955 Unknown [id number] 2.16.84 0.1.232468.3.579.2.593 1955 Unknown [id number] 2.16.84 0.1.507843.3.579.2.593 1955 Unknown [id number] 2.16.84 0.1.441878.3.579.2.593 1955 Unknown [id number] 2.16.84 0.1.638367.3.579.2.593 1955 Unknown [id number] 2.16.84 0.1.621013.3.579.2.593 1955 Unknown [id number] 2.16.84 0.1.447158.3.579.2.593 1955 Unknown [id number] 2.16.84 0.1.077645.3.579.2.593 1955 Unknown [id number] 2.16.84 0.1.128742.3.579.2.593 1955 Unknown [id number] 2.16.84 0.1.829287.3.579.2.593 1955 Unknown [id number] 2.16.8 40.1.858501.3.579.2.727 1955 Unknown [id number] 2.16.8 40.1.531616.3.579.2.727 1955 Unknown [id number] 2.16.8 40.1.930579.3.579.2.727 1955 Unknown [id number] 2.16.8 40.1.657193.3.579.2.727 1955 Unknown [id number] 2.16.8 40.1.929805.3.579.2.727 1955 Unknown [id number] 2.16.8 40.1.699100.3.579.2.727 1955 Unknown [id number] 2.16.8 40.1.536224.3.579.2.727 Unknown [id number] Social History Date Type Detail Facility Start: 12-04-2021 End: 06-25-2022 Tobacco smoking status Ex-smoker (finding) [facility] Tobacco smoking status Never [facility] Sex Assigned At Female [facility] Functional Status Date Assessment Result Facility 06-25-2022 Functional Status N/A [facility] 05-28-2022 Functional Status N/A [facility] [facility] 12-04-2021 Functional Status N/A [facility] Clinical Note 05-29-2022 Note Date & Type [...] BID, # 90 tab(s), Refills(s) 3, Pharmacy: [id number], 167.6, cm, 05/28/22 13:15:00 EST, Height/Length Dosing, 86.5, kg, 05/28/22 13:15:00 EST, Weight Dosing 2. Hiatal hernia with GERD, (K44.9: Diaphragmatic hernia without obstruction or gangrene)Diaphragmatic hernia without obstruction or gangrene see # 1 Ordered: pantoprazole, 40 mg = 1 tab(s), Oral, BID, # 90 tab(s), Refills(s) 3, Pharmacy: [id number], 167.6, cm, 05/28/22 13:15:00 EST, Height/Length Dosing, 86.5, kg, 05/28/22 13:15:00 EST, Weight Dosing 3. BMI 30.0-30.9,adult (Z68.30: Body mass index [BMI] 30.0-30.9, adult) recommend low fat diet and exercise Follow-up No qualifying data available Problem List/Past Medical History (more content not included)... [facility] Comment on above: Result Comment: Elec [...] good condition. CC: Patient's family physician [facility] Clinical Note 12-04-2021 Note Date & Type [...] stools GERD (gastroesop (more content not included)... [facility] Comment on above: Result Comment: Elec tronically Signed By: CASA ANAYA, Amberly Dent\Date and Time Signed: 12/04/21 21:16 EDT Evaluation + Plan note 12-04-2021 Radiology Note Date & Type Note Facility 12-04-2021 Evaluation + Plan note Future Scheduled TestsMRI Cholangiogram Pancreatography ([facility]) 12/04/21 [facility] course Narrative Note Date & Type Note Facility Hospital course Narrative No data available for this section [facility] Discharge instructions Note Date & Type Note Facility Hospital Discharge instructions No data available for this section General [facility] Progress note Note Date & Type Note Facility Progress note No data available for this section [facility] Summary Purpose Family History No Family History Records FoundNo Family History Records FoundNo Family History Records Found Advance Directives No Advanced Directives Records FoundNo Advanced Directives Records FoundNo Advanced Directives Records Found Additional Source Comments INFORMATION SOURCE (unrecogn ized section and content) DATE CREATED [facility] DATE CREATED AUTHOR AUTHOR'S ORGANIZ ATION 05/05/2022 [facility] DATE CREATED AUTHOR AUTHOR'S ORGANIZ ATION 06/30/2022 [facility] Care Team (unrecognized sect ion and content) Personnel Name: Marco Otero MD Address: [address] [place] [address] Personnel Name: Marco Otero MD Address: Address: [address] [place] [address] Personnel Name: Marco Otero MD Address: Address: [address] [place] [address] Personnel Name: Marco Otero MD Address: Address: [address] [place] [address] FOR RECORDS PERTAINING TO PATIENTS WHO ARE [...] BE BASED ON THE PRIMARY CLINICAL RECORDS. [facility]. provides no warranty or guarantee of the accuracy or completeness of information in this document.
[2023-12-15 09:33] LABS: Basophils Absolute Auto 0.1 10^3/uL (0.0-0.1); Basophils Percent Auto 0.7 % (0.2-2.0); Eosinophils Absolute Auto 0.3 10^3/uL (0.0-0.7); Hemoglobin 12.6 g/dL (12.0-16.0); Immature Granulocytes Abs Auto 0.04 10^3/uL (0.00-0.03); Immature Granulocytes Pct Auto 0.6 % (0.0-0.5); Lymphocytes Absolute Auto 2.6 10^3/uL (1.2-3.8); Lymphocytes Percent Auto 38.2 % (20.5-60.0); Mean Corpuscular HGB Conc 32.3 g/dL (29.9-35.2); Mean Corpuscular Hemoglobin 27.8 pg (26.7-34.0); Mean Corpuscular Volume 86.1 fL (81.0-99.0); Mean Platelet Volume 10.1 fL (9.5-13.5); Monocytes Absolute Auto 0.6 10^3/uL (0.3-0.8); Monocytes Percent Auto 8.3 % (1.7-12.0); Neutrophils Absolute Auto 3.2 10^3/uL (1.4-6.5); Neutrophils Percent Auto 48.2 % (43.0-75.0); Platelet Count 310 10^3/uL (150-450); Red Blood Count 4.53 10^6/uL (4.20-5.40); White Blood Count 6.7 10^3/uL (4.0-11.0)
[2023-12-15 09:57] LABS: Estimated Average Glucose 134 mg/dL; Glycohemoglobin A1C 6.3 % (4.5-6.2)
[2023-12-15 10:14] LABS: Alanine Aminotransferase 25 U/L (14-59); Albumin Level 3.6 g/dL (3.4-5.0); Alkaline Phosphatase 88 U/L (46-116); Anion Gap 9.7; Aspartate Amino Transferase 17 U/L (15-37); Bilirubin Total 0.4 mg/dL (0.2-1.0); Calcium 9.4 mg/dL (8.5-10.1); Chloride 103 mmol/L (98-107); Chol HDL Ratio 4.3; Cholesterol 249 mg/dL (<=200); Estimated GFR (African America >60 (>=60); Estimated GFR (Non-African Ame >60 (>=60); Free T3 2.74 pg/mL (2.18-3.98); Globulin 3.7 g/dL; Glucose 110 mg/dL (74-106); HDL Cholesterol 58 mg/dL (40-60); Potassium 3.7 mmol/L (3.5-5.1); Sodium 140 mmol/L (136-145); Thyroid Stimulating Hormone 1.341 uIU/mL (0.358-3.740); Total Protein 7.3 g/dL (6.4-8.2); Triglycerides 325 mg/dL (<=150)
== END 2023-12-15 08:53 | disposition home or self-care (01) ==
LOC: LAB 08:53
PROVIDERS: PCP Family Medicine; Visit Provider Family Medicine
DX: E03.9 Hypothyroidism, unspecified (principal); G47.00 Insomnia, unspecified; K21.9 Gastro-esophageal reflux disease without esophagitis; E11.9 Type 2 diabetes mellitus without complications; E78.5 Hyperlipidemia, unspecified; D64.9 Anemia, unspecified; Z12.12 Encounter for screening for malignant neoplasm of rectum
CPT/HCPCS: 36415; 80053; 80061; 83036; 83540; 84436; 84443; 84481; 85025

== ENCOUNTER 2023-12-16 10:48 | Outpatient (REF) | payer MEDICARE, SELFPAY ==
--- OUTSIDE RECORDS SUMMARY | 2023-12-16 11:00 | XMS_ITS | CCD ---
Author Organization [facility] Inform ion [facility] Care Team Providers Care Broadcast Director Operations Name Role Phone QUINTIN WHATLEY Unavailable Unavailable Rehl, Brown Unavailable Unavailable Marco Otero Primary Care Physician BRANDEN, DR LARA Consulting Unavailable HOY, DR LARA Primary Care Unavailable HOY, DR LARA Attending Unavailable HOY, DR LARA Admitting Unavailable WEST, DR JOYCE Laurent Consulting Unavailable BRENDAY, DR LARA Consulting Unavailable BRANDEN, DR LARA Primary Care Unavailable HOY, DR [...] Consulting Unavailable NILL, DR GAMING Consulting Unavailable BRANDEN, DR LARA Primary Care Unavailable NILL, DR [...] Medication Allergies] Propensity to adverse reactions (disorder) [facility] Repository Medications Current Medications Medication Drug [...] BID, # 90 tab(s), Refills(s) 3, Pharmacy: [id number], 167.6, cm, 05/28/22 13:15:00 EST, [...] 01-26-2022 Episodic Other aftercare (1 source) 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; Translations: [OTH 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 ENGINEER CURRENT DRUG THERAPY] Onset: 01-06-2022 Episodic Other aftercare (1 source) prison (current) use of oral hypoglycemic drugs; Translations: [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 ENGINEER USE ORAL HYPOGLYCEMIC DX] Onset: 01-06-2022 Episodic [...] Pure hypercholesterolemia Right upper quadrant pain Normal [facility] General Surgery Office/Clini c Noteon 06-25-2022 [...] Pure hypercholesterolemia Right upper quadrant pain Normal [facility] Physician Referralon 023 Physician Referral [phone] [id number] Normal [facility] NM HEPATOBILIARY SCAN W EFon 05-05-2022 [...] Negative. IMPRESSION: Normal hepatobiliary scan Normal [facility] US SINGLE QUAD RT UPPERon US [...] by: JOYCE INGRAM Date: 2022-04-23 10:51 Normal [facility] H PYLORI ANTIBODY IGGon 03-31 H. PYLORI IGG ABS 0.21 Index Value Normal 0.00-0.79 [facility] Comment on above: Result Comment: Nega tive <0.80 Equivocal 0.80 - 0.89 Positive >0.89 Performed By: #### H PYLLC #### [facility] [address] [place] [address] Dr. Blanca Grimm AMYLASEon 04-18-2022 Amylase [Catalytic activity/Vol] 49 U/L Normal 25-115 [facility] Comment on above: Performed By: #### A MY, CMP, LIPA #### [facility] [address] [address] [address] Blanca Grimm CBC AUTO DIFFon 04-18-2022 BASO # 0.1 103/ul Normal 0.0-0.1 [facility] Comment on above: Performed By: #### A MY, CMP, LIPA #### [facility] [address] [address] [address] Blanca Grimm Basophils/100 WBC (Bld) 0.7 % Normal 0.2-2.0 [facility] Comment on above: Performed By: #### A MY, CMP, LIPA #### [facility] [address] [address] [address] Blanca Grimm EO # 0.3 103/ul Normal 0.0-0.7 [facility] Comment on above: Performed By: #### A MY, CMP, LIPA #### [facility] [address] [place] [address] Dr. Blanca Grimm Eosinophils/100 WBC (Bld) 3.5 % Normal 0.9-7.0 [facility] Comment on above: Performed By: #### A MY, CMP, LIPA #### [facility] [address] [place] [address] Dr. Blanca Grimm Erythrocyte distribution width (RBC) [Ratio] 13.6 % Normal 11.0-15.0 [facility] Comment on above: Performed By: #### A MY, CMP, LIPA #### [facility] [address] [place] [address] Dr. Blanca Grimm Hematocrit (Bld) [Volume fraction] 34.8 % Critically low 36.0-48.0 [facility] Comment on above: Performed By: #### A MY, CMP, LIPA #### [facility] [address] [place] [address] Dr. Blanca Grimm Hemoglobin (Bld) [Mass/Vol] 12.6 g/dL Normal 12.0-16.0 [facility] Comment on above: Performed By: #### A MY, CMP, LIPA #### [facility] [address] [place] [address] Dr. Blanca Grimm IG # 0.04 10e3/ul Critically high 0.00-0.03 [facility] Comment on above: Performed By: #### A MY, CMP, LIPA #### [facility] [address] [place] [address] Dr. Blanca Grimm IG % 0.5 % Normal 0.0-0.5 [facility] Comment on above: Performed By: #### A MY, CMP, LIPA #### [facility] [address] [place] [address] Dr. Blanca Grimm LYMPH # 2.6 103/ul Normal 1.2-3.8 [facility] Comment on above: Performed By: #### A MY, CMP, LIPA #### [facility] [address] [place] [address] Dr. Blanca Grimm Lymphocytes/100 WBC (Bld) 34.2 % Normal 20.5-60.0 [facility] Comment on above: Performed By: #### A MY, CMP, LIPA #### [facility] [address] [place] [address] Dr. Blanca Grimm MANUAL DIFF REQ NO Normal [facility] Comment on above: Performed By: #### A MY, CMP, LIPA #### [facility] [address] [place] [address] Dr. Blanca Grimm MCH (RBC) [Entitic mass] 28.1 pg Normal 26.7-34.0 [facility] Comment on above: Performed By: #### A MY, CMP, LIPA #### [facility] [address] [place] [address] Dr. Blanca Grimm MCHC (RBC) [Mass/Vol] 36.2 g/dL Critically high 29.9-35.2 [facility] Comment on above: Performed By: #### A MY, CMP, LIPA #### [facility] [address] [place] [address] Dr. Blanca Grimm MCV (RBC) [Entitic vol] 77.5 fL Critically low 81.0-99.0 [facility] Comment on above: Performed By: #### A MY, CMP, LIPA #### [facility] [address] [address] [address] Blanca Grimm MONO # 0.7 103/ul Normal 0.3-0.8 [facility] Comment on above: Performed By: #### A MY, CMP, LIPA #### [facility] [address] [address] [address] Blanca Grimm Monocytes/100 WBC (Bld) 9.1 % Normal 1.7-12.0 [facility] Comment on above: Performed By: #### A MY, CMP, LIPA #### [facility] [address] [address] [address] Blanca Grimm NEUT # 3.9 103/ul Normal 1.4-6.5 [facility] Comment on above: Performed By: #### A MY, CMP, LIPA #### [facility] [address] [place] [address] Dr. Blanca Grimm Neutrophils/100 WBC (Bld) 52.0 % Normal 43.0-75.0 [facility] Comment on above: Performed By: #### A MY, CMP, LIPA #### [facility] [address] [place] [address] Dr. Blanca Grimm Platelet mean volume (Bld) [Entitic vol] 9.3 fL Critically low 9.5-13.5 [facility] Comment on above: Performed By: #### A MY, CMP, LIPA #### [facility] [address] [place] [address] Dr. Blanca Grimm PLT 290 103/ul Normal 150-450 [facility] Comment on above: Performed By: #### A MY, CMP, LIPA #### [facility] [address] [place] [address] Dr. Blanca Grimm RBC 4.49 106/ul Normal 4.20-5.40 [facility] Comment on above: Performed By: #### A MY, CMP, LIPA #### [facility] [address] [place] [address] Dr. Blanca Grimm WBC 7.5 103/ul Normal 4.0-11.0 [facility] Comment on above: Performed By: #### A MY, CMP, LIPA #### [facility] [address] [address] [address] Blanca Grimm FREE THYROXINE INDEX T7on FTI 2.57 Normal 1.30-4.50 [facility] Comment on above: Performed By: #### A MY, CMP, LIPA #### [facility] [address] [address] [address] Blanca Grimm T3U 33.0 % Normal 30.0-39.0 [facility] Comment on above: Performed By: #### A MY, CMP, LIPA #### [facility] [address] [place] [address] Dr. Blanca Grimm T4 [Mass/Vol] 7.80 ug/dL Normal 4.80-13.90 [facility] Comment on above: Performed By: #### A MY, CMP, LIPA #### [facility] [address] [place] [address] Dr. Blanca Grimm GLYCOHEMOGLOBIN A1Con 2022 ADA RECOMMENDATION SEE BELOW Normal [facility] Comment on above: Result Comment: ADA RECOMMENDED LIMIT 4.0 - 6.0 ADA THERAPEUTIC TARGET < 7.0 ACTION SUGGESTED > 7.0 Performed By: #### A MY, CMP, LIPA #### [facility] [address] [place] [address] Dr. Blanca Grimm Glucose [Mass/Vol] 128 mg/dL Normal [facility] Comment on above: Performed By: #### A MY, CMP, LIPA #### [facility] [address] [place] [address] Dr. Blanca Grimm HbA1c (Bld) [Mass fraction] 6.1 % Normal 4.5-6.2 [facility] Comment on above: Performed By: #### A MY, CMP, LIPA #### [facility] [address] [place] [address] Dr. Blanca Grimm LIPASEon 04-18-2022 Lipase [Catalytic activity/Vol] 125.0 U/L Normal 73.0-393.0 [facility] Comment on above: Performed By: #### A MY, CMP, LIPA #### [facility] [address] [address] [address] Blanca Grimm PROF 14(COMP METB)on 023 Albumin [Mass/Vol] 4.0 g/dL Normal 3.4-5.0 [facility] Comment on above: Performed By: #### A MY, CMP, LIPA #### [facility] [address] [address] [address] Blanca Grimm Albumin/Globulin [Mass ratio] 1.1 {ratio} Normal [facility] Comment on above: Performed By: #### A MY, CMP, LIPA #### [facility] [address] [place] [address] Dr. Blanca Grimm ALP [Catalytic activity/Vol] 78 U/L Normal 46-116 [facility] Comment on above: Performed By: #### A MY, CMP, LIPA #### [facility] [address] [address] [address] Blanca Grimm ALT [Catalytic activity/Vol] 31 U/L Normal 14-59 [facility] Comment on above: Performed By: #### A MY, CMP, LIPA #### [facility] [address] [place] [address] Dr. Blanca Grimm Anion gap [Moles/Vol] 11.7 mmol/L Normal [facility] Comment on above: Performed By: #### A MY, CMP, LIPA #### [facility] [address] [address] [address] Blanca Grimm AST [Catalytic activity/Vol] 18 U/L Normal 15-37 [facility] Comment on above: Performed By: #### A MY, CMP, LIPA #### [facility] [address] [place] [address] Dr. Blanca Grimm Bilirubin [Mass/Vol] 0.3 mg/dL Normal 0.2-1.0 [facility] Comment on above: Performed By: #### A MY, CMP, LIPA #### [facility] [address] [place] [address] Dr. Blanca Grimm Calcium [Mass/Vol] 9.8 mg/dL Normal 8.5-10.1 [facility] Comment on above: Performed By: #### A MY, CMP, LIPA #### [facility] [address] [address] [address] Blanca Grimm Chloride [Moles/Vol] 103 mmol/L Normal 98-107 [facility] Comment on above: Performed By: #### A MY, CMP, LIPA #### [facility] [address] [address] [address] Blanca Grimm CO2 [Moles/Vol] 29.5 mmol/L Normal 21.0-32.0 [facility] Comment on above: Performed By: #### A MY, CMP, LIPA #### [facility] [address] [place] [address] Dr. Blanca Grimm Creatinine [Mass/Vol] 0.69 mg/dL Normal 0.55-1.02 [facility] Comment on above: Performed By: #### A MY, CMP, LIPA #### [facility] [address] [place] [address] Dr. Blanca Grimm EGFR-AF ANDORRAN >60 Normal >=60 [facility] Comment on above: Performed By: #### A MY, CMP, LIPA #### [facility] [address] [place] [address] Dr. Blanca Grimm EGFR-NON AF ANDORRAN >60 Normal >=60 [facility] Comment on above: Performed By: #### A MY, CMP, LIPA #### [facility] [address] [place] [address] Dr. Blanca Grimm Globulin (S) [Mass/Vol] 3.6 g/dL Normal [facility] Comment on above: Performed By: #### A MY, CMP, LIPA #### [facility] [address] [place] [address] Dr. Blanca Grimm Glucose [Mass/Vol] 95 mg/dL Normal 74-106 [facility] Comment on above: Performed By: #### A MY, CMP, LIPA #### [facility] [address] [address] [address] Blanca Grimm Potassium [Moles/Vol] 4.2 mmol/L Normal 3.5-5.1 [facility] Comment on above: Performed By: #### A MY, CMP, LIPA #### [facility] [address] [address] [address] Blanca Grimm Protein [Mass/Vol] 7.6 g/dL Normal 6.4-8.2 [facility] Comment on above: Performed By: #### A MY, CMP, LIPA #### [facility] [address] [address] [address] Blanca Grimm Sodium [Moles/Vol] 140 mmol/L Normal 136-145 [facility] Comment on above: Performed By: #### A MY, CMP, LIPA #### [facility] [address] [place] [address] Dr. Blanca Grimm Urea nitrogen [Mass/Vol] 10.0 mg/dL Normal 7.0-18.0 [facility] Comment on above: Performed By: #### A MY, CMP, LIPA #### [facility] [address] [place] [address] Dr. Blanca Grimm Urea nitrogen/Creatinin e [Mass ratio] 14.5 mg/mg Normal [facility] Comment on above: Performed By: #### A MY, CMP, LIPA #### [facility] [address] [place] [address] Dr. Blanca Grimm TSHon 04-18-2022 TSH 3.705 uIU/mL Normal 0.358-3.740 [facility] Comment on above: Performed By: #### A MY, CMP, LIPA #### [facility] [address] [place] [address] Dr. Blanca Grimm XR ABD FLAT UP_PA [...] YOHANNES QUINN Date: 2022-04-18 13:17 Normal [facility] General Surgery Office/Clini c Noteon 02-10-2022 [...] Renal failure syndrome: Brother. Stroke: Mother. Normal [facility] Comment on above: Result Comment: Elec tronically Signed By: CASA ANAYA, Amberly Dent\Date and Time Signed: 02/10/22 16:26 EST MG MAMM SCREEN 3D KARINE CADon 01-30-2022 MG MAMM SCREEN 3D KARINE CAD Patient: KIM SANTAMARIA Exam Date: 01/30/2022 : 1955 Gender:F Ordering : DR MARCO OTERO . Admission #: [id number] Family : Order #: [id number] CLICK HERE TO VIEW EXAM RADIOLOGY REPORT [...] breast cancer at age 58. LOCATION: [facility] BREAST COMPOSITION: Heterogeneously dense,which may obscure [...] MD on 01/30/2022 at 13:43 Normal [facility] INSULINon 01-23-2022 Insulin 11.7 uIU/mL Normal 2.6-24.9 [facility] Comment on above: Performed By: #### A MY, CMP, LIPA #### [facility] [address] [address] [address] Blanca Grimm CBC AUTO DIFFon 01-22-2022 BASO # 0.1 103/ul Normal 0.0-0.1 [facility] Comment on above: Performed By: #### A MY, CMP, LIPA #### [facility] [address] [address] [address] Blanca Grimm Basophils/100 WBC (Bld) 0.8 % Normal 0.2-2.0 [facility] Comment on above: Performed By: #### A MY, CMP, LIPA #### [facility] [address] [place] [address] Dr. Blanca Grimm EO # 0.2 103/ul Normal 0.0-0.7 [facility] Comment on above: Performed By: #### A MY, CMP, LIPA #### [facility] [address] [place] [address] Dr. Blanca Grimm Eosinophils/100 WBC (Bld) 3.5 % Normal 0.9-7.0 [facility] Comment on above: Performed By: #### A MY, CMP, LIPA #### [facility] [address] [place] [address] Dr. Blanca Grimm Erythrocyte distribution width (RBC) [Ratio] 14.3 % Normal 11.0-15.0 [facility] Comment on above: Performed By: #### A MY, CMP, LIPA #### [facility] [address] [place] [address] Dr. Blanca Grimm Hematocrit (Bld) [Volume fraction] 39.7 % Normal 36.0-48.0 [facility] Comment on above: Performed By: #### A MY, CMP, LIPA #### [facility] [address] [place] [address] Dr. Blanca Grimm Hemoglobin (Bld) [Mass/Vol] 12.9 g/dL Normal 12.0-16.0 [facility] Comment on above: Performed By: #### A MY, CMP, LIPA #### [facility] [address] [place] [address] Dr. Blanca Grimm IG # 0.05 10e3/ul Critically high 0.00-0.03 [facility] Comment on above: Performed By: #### A MY, CMP, LIPA #### [facility] [address] [place] [address] Dr. Blanca Grimm IG % 0.8 % Critically high 0.0-0.5 [facility] Comment on above: Performed By: #### A MY, CMP, LIPA #### [facility] [address] [address] [address] Blanca Grimm LYMPH # 2.5 103/ul Normal 1.2-3.8 [facility] Comment on above: Performed By: #### A MY, CMP, LIPA #### [facility] [address] [place] [address] Dr. Blanca Grimm Lymphocytes/100 WBC (Bld) 38.1 % Normal 20.5-60.0 [facility] Comment on above: Performed By: #### A MY, CMP, LIPA #### [facility] [address] [place] [address] Dr. Blanca Grimm MANUAL DIFF REQ NO Normal [facility] Comment on above: Performed By: #### A MY, CMP, LIPA #### [facility] [address] [place] [address] Dr. Blanca Grimm MCH (RBC) [Entitic mass] 27.9 pg Normal 26.7-34.0 [facility] Comment on above: Performed By: #### A MY, CMP, LIPA #### [facility] [address] [place] [address] Dr. Blanca Grimm MCHC (RBC) [Mass/Vol] 32.5 g/dL Normal 29.9-35.2 [facility] Comment on above: Performed By: #### A MY, CMP, LIPA #### [facility] [address] [place] [address] Dr. Blanca Grimm MCV (RBC) [Entitic vol] 85.9 fL Normal 81.0-99.0 [facility] Comment on above: Performed By: #### A MY, CMP, LIPA #### [facility] [address] [place] [address] Dr. Blanca Grimm MONO # 0.5 103/ul Normal 0.3-0.8 [facility] Comment on above: Performed By: #### A MY, CMP, LIPA #### [facility] [address] [place] [address] Dr. Blanca Grimm Monocytes/100 WBC (Bld) 8.0 % Normal 1.7-12.0 [facility] Comment on above: Performed By: #### A MY, CMP, LIPA #### [facility] [address] [address] [address] Blanca Grimm NEUT # 3.2 103/ul Normal 1.4-6.5 [facility] Comment on above: Performed By: #### A MY, CMP, LIPA #### [facility] [address] [place] [address] Dr. Blanca Girmm Neutrophils/100 WBC (Bld) 48.8 % Normal 43.0-75.0 [facility] Comment on above: Performed By: #### A MY, CMP, LIPA #### [facility] [address] [place] [address] Dr. Blanca Grimm Platelet mean volume (Bld) [Entitic vol] 9.9 fL Normal 9.5-13.5 [facility] Comment on above: Performed By: #### A MY, CMP, LIPA #### [facility] [address] [place] [address] Dr. Blanca Grimm PLT 290 103/ul Normal 150-450 [facility] Comment on above: Performed By: #### A MY, CMP, LIPA #### [facility] [address] [place] [address] Dr. Blanca Grimm RBC 4.62 106/ul Normal 4.20-5.40 [facility] Comment on above: Performed By: #### A MY, CMP, LIPA #### [facility] [address] [place] [address] Dr. Blanca Grimm WBC 6.5 103/ul Normal 4.0-11.0 [facility] Comment on above: Performed By: #### A MY, CMP, LIPA #### [facility] [address] [place] [address] Dr. Blanca Grimm FREE THYROXINE INDEX T7on FTI 2.05 Normal 1.30-4.50 [facility] Comment on above: Performed By: #### L IPID, CMP, T7, TSH #### [facility] [address] [place] [address] Dr. Blanca Grimm T3U 33.0 % Normal 30.0-39.0 [facility] Comment on above: Performed By: #### L IPID, CMP, T7, TSH #### [facility] [address] [address] [address] Blanca Grimm T4 [Mass/Vol] 6.20 ug/dL Normal 4.80-13.90 [facility] Comment on above: Performed By: #### L IPID, CMP, T7, TSH #### [facility] [address] [address] [address] Blanca Grimm GLYCOHEMOGLOBIN A1Con 2021 ADA RECOMMENDATION SEE BELOW Normal [facility] Comment on above: Result Comment: ADA RECOMMENDED LIMIT 4.0 - 6.0 ADA THERAPEUTIC TARGET < 7.0 ACTION SUGGESTED > 7.0 Performed By: #### A MY, CMP, LIPA #### [facility] [address] [place] [address] Dr. Blanca Grimm Glucose [Mass/Vol] 143 mg/dL Normal [facility] Comment on above: Performed By: #### A MY, CMP, LIPA #### [facility] [address] [address] [address] Blanca Grimm HbA1c (Bld) [Mass fraction] 6.6 % Critically high 4.5-6.2 [facility] Comment on above: Performed By: #### A MY, CMP, LIPA #### [facility] [address] [place] [address] Dr. Blanca Grimm IRONon 01-22-2022 Iron [Mass/Vol] 64.0 ug/dL Normal 50.0-170.0 [facility] Comment on above: Performed By: #### A MY, CMP, LIPA #### [facility] [address] [place] [address] Dr. Blanca Grimm LIPID PROFILEon 01-22-2022 CHOL-HDL RATIO NORM SEE BELOW Normal [facility] Comment on above: Result Comment: 3.3 - 4.4 LOW RISK 4.4 - 7.1 AVERAGE RISK 7.1 - 11.0 MODERATE RISK >11.0 HIGH RISK Performed By: #### L IPID, CMP, T7, TSH #### [facility] [address] [address] [address] Blanca Grimm Cholesterol [Mass/Vol] 247 mg/dL Critically high <=200 [facility] Comment on above: Performed By: #### L IPID, CMP, T7, TSH #### [facility] [address] [address] [address] Blanca Grimm Cholesterol in HDL [Mass/Vol] 57 mg/dL Normal 40-60 [facility] Comment on above: Performed By: #### L IPID, CMP, T7, TSH #### [facility] [address] [address] [address] Blanca Grimm Cholesterol in LDL [Mass/Vol] 138.0 mg/dL Normal [facility] Comment on above: Performed By: #### L IPID, CMP, T7, TSH #### [facility] [address] [address] [address] Blanca Grimm Cholesterol.total/ Cholesterol in HDL [Mass ratio] 4.3 {ratio} Normal [facility] Comment on above: Performed By: #### L IPID, CMP, T7, TSH #### [facility] [address] [address] [address] Blanca Grimm HDL NORMAL > or = 60 mg/dl - LO W CARDIOVASCULAR RISK <40 mg/dl - HIGH CARDIOVASCULAR RISK Normal [facility] Comment on above: Performed By: #### L IPID, CMP, T7, TSH #### [facility] [address] [address] [address] Blanca Grimm LDL CALC NORMAL SEE BELOW Normal [facility] Comment on above: Result Comment: <100 mg/dl OPTIMAL 100 - 129 mg/dl NEAR OR ABOVE OPTIMAL 130 - 159 mg/dl BORDERLINE HIGH 160 - 189 mg/dl HIGH >190 mg/dl VERY HIGH Performed By: #### L IPID, CMP, T7, TSH #### [facility] [address] [address] [address] Blanca Grimm Triglyceride [Mass/Vol] 260 mg/dL Critically high <=150 [facility] Comment on above: Performed By: #### L IPID, CMP, T7, TSH #### [facility] [address] [address] [address] Blanca Grimm VLDL CALC 52.0 mg/dL Normal [facility] Comment on above: Performed By: #### L IPID, CMP, T7, TSH #### [facility] [address] [place] [address] Dr. Blanca Grimm PROF 14(COMP METB)on 022 Albumin [Mass/Vol] 4.0 g/dL Normal 3.4-5.0 [facility] Comment on above: Performed By: #### L IPID, CMP, T7, TSH #### [facility] [address] [place] [address] Dr. Blanca Grimm Albumin/Globulin [Mass ratio] 1.1 {ratio} Normal [facility] Comment on above: Performed By: #### L IPID, CMP, T7, TSH #### [facility] [address] [address] [address] Blanca Grimm ALP [Catalytic activity/Vol] 84 U/L Normal 46-116 [facility] Comment on above: Performed By: #### L IPID, CMP, T7, TSH #### [facility] [address] [place] [address] Dr. Blanca Grimm ALT [Catalytic activity/Vol] 36 U/L Normal 14-59 [facility] Comment on above: Performed By: #### L IPID, CMP, T7, TSH #### [facility] [address] [address] [address] Blanca Grimm Anion gap [Moles/Vol] 14.2 mmol/L Normal [facility] Comment on above: Performed By: #### L IPID, CMP, T7, TSH #### [facility] [address] [place] [address] Dr. Blanca Grimm AST [Catalytic activity/Vol] 22 U/L Normal 15-37 [facility] Comment on above: Performed By: #### L IPID, CMP, T7, TSH #### [facility] [address] [place] [address] Dr. Blanca Grimm Bilirubin [Mass/Vol] 0.3 mg/dL Normal 0.2-1.0 [facility] Comment on above: Performed By: #### L IPID, CMP, T7, TSH #### [facility] [address] [address] [address] Blanca Grimm Calcium [Mass/Vol] 9.4 mg/dL Normal 8.5-10.1 [facility] Comment on above: Performed By: #### L IPID, CMP, T7, TSH #### [facility] [address] [address] [address] Blanca Grimm Chloride [Moles/Vol] 103 mmol/L Normal 98-107 [facility] Comment on above: Performed By: #### L IPID, CMP, T7, TSH #### [facility] [address] [address] [address] Blanca Grimm CO2 [Moles/Vol] 26.0 mmol/L Normal 21.0-32.0 [facility] Comment on above: Performed By: #### L IPID, CMP, T7, TSH #### [facility] [address] [address] [address] Blanca Grimm Creatinine [Mass/Vol] 0.71 mg/dL Normal 0.55-1.02 [facility] Comment on above: Performed By: #### L IPID, CMP, T7, TSH #### [facility] [address] [address] [address] Blanca Grimm EGFR-AF ANDORRAN >60 Normal >=60 [facility] Comment on above: Performed By: #### L IPID, CMP, T7, TSH #### [facility] [address] [address] [address] Blanca Grimm EGFR-NON AF ANDORRAN >60 Normal >=60 [facility] Comment on above: Performed By: #### L IPID, CMP, T7, TSH #### [facility] [address] [address] [address] Blanca Grimm Globulin (S) [Mass/Vol] 3.8 g/dL Normal [facility] Comment on above: Performed By: #### L IPID, CMP, T7, TSH #### [facility] [address] [address] [address] Blanca Grimm Glucose [Mass/Vol] 112 mg/dL Critically high 74-106 [facility] Comment on above: Performed By: #### L IPID, CMP, T7, TSH #### [facility] [address] [address] [address] Blanca Grimm Potassium [Moles/Vol] 4.2 mmol/L Normal 3.5-5.1 [facility] Comment on above: Performed By: #### L IPID, CMP, T7, TSH #### [facility] [address] [place] [address] Dr. Blanca Grimm Protein [Mass/Vol] 7.8 g/dL Normal 6.4-8.2 [facility] Comment on above: Performed By: #### L IPID, CMP, T7, TSH #### [facility] [address] [place] [address] Dr. Blanca Grimm Sodium [Moles/Vol] 139 mmol/L Normal 136-145 [facility] Comment on above: Performed By: #### L IPID, CMP, T7, TSH #### [facility] [address] [place] [address] Dr. Blanca Grimm Urea nitrogen [Mass/Vol] 10.0 mg/dL Normal 7.0-18.0 [facility] Comment on above: Performed By: #### L IPID, CMP, T7, TSH #### [facility] [address] [place] [address] Dr. Blanca Grimm Urea nitrogen/Creatinin e [Mass ratio] 14.1 mg/mg Normal [facility] Comment on above: Performed By: #### L IPID, CMP, T7, TSH #### [facility] [address] [place] [address] Dr. Blanca Grimm TSHon 01-22-2022 TSH 2.598 uIU/mL Normal 0.358-3.740 [facility] Comment on above: Performed By: #### L IPID, CMP, T7, TSH #### [facility] [address] [address] [address] Blanca Grimm VITAMIN D 25 OHon 01-22-2022 VIT D 25-OH 40.1 ng/mL Normal [facility] Comment on above: Performed By: #### A MY, CMP, LIPA #### [facility] [id number] Blanca Grimm VIT D RANGES SEE BELOW Normal [facility] Comment on above: Result Comment: <20 ng/mL Vit D deficient 20 - <30 ng/mL Vit D insufficient 30 - 100 ng/mL Vit D sufficient >100 ng/mL Potential Toxicity Performed By: #### A MY, CMP, LIPA #### [facility] [address] [address] [address] Blanca Grimm Ambulatory Visit Summaryon 1 [...] Pure hypercholesterolemia Right upper quadrant pain Normal [facility] Outside Colonoscopyon 2021 Outside Colonoscopy [id number]#1.00CD:127 Normal [facility] Pathology Noteon 01-03-2022 Pathology Note [id number]#1.00CD:127 Normal [facility] Reminderson 01-03-2022 Reminders - From: Graciela Zamudio LPN To: GSN - Clinical; Sent: 01/03/2022 08:02:44 EDT Show up: 12/03/2031 07:00:00 EDT Subject: colonoscopy recall Due Date/Time: 01/02/2032 07:00:00 EDT Reminder/Recall Patient is due for screening colonoscopy 01/02/2032. Normal [facility] POINT OF CARE GLUCOSEon Glucose [Mass/Vol] 112 mg/dL Critically high 74-106 [facility] Comment on above: Performed By: #### P OCGLUC #### [facility] [address] [address] [address] Blanca Grimm Lab Reportson 12-31-2021 Lab Reports [id number]#1.00CD:127 Normal [facility] Covid-19 PCR (CVDTBH)on SARS-CoV-2 (COVID-19) RNA ARVIND+probe Ql (Unsp spec) Not detected Normal NOT DETECTED [facility] Comment on above: Result Comment: This test is not yet approved or cleared by the [place] FDA. When there are no FDA-approved or cleared tests available, and other criteria are met, FDA can make tests available under an emergency access mechanism called an Emergency Use Authorization (EUA). The EUA for this test is supported by the [place] of Health and Human Service's (HHS's) declaration [...] By: #### A MY, CMP, LIPA #### [facility] [address] [place] [address] Dr. Blanca Grimm Pre-Certification Formon Pre-Certification Form [id number]#1.00CD:127 Normal [facility] RAD - MRI Reporton 2 RAD - MRI Report [id number]#1.00CD:127 Normal [facility] Pre-Certification Formon Pre-Certification Form [id number]#1.00CD:127 Normal [facility] MRI ABDOMEN WO CONon 022 MRI [...] by: JOYCE PITT Date: 2021-12-17 07:53 Normal [facility] Consent for Procedure/Surger yon 12-05-2021 Consent for Procedure/Surgery [id number]#1.00CD:127 Normal [facility] NM HEPATOBILIARY SCAN W EFon 12-05-2021 [...] by: JOYCE PITT Date: 2021-12-05 09:11 Normal [facility] RAD - Ultrasound Reporton RAD - Ultrasound Report [id number]#1.00CD:127 Normal [facility] Ambulatory Visit Summaryon 0 12-04-2021 Ambulatory [...] Cholelithiasis, No, No, Dilated cbd, acquired Normal [facility] US SINGLE QUAD RT UPPERon US [...] JOYCE INGRAM Date: 2021-11-26 10:28 Normal [facility] AMMONIAon 11-13-2021 Ammonia (P) [Moles/Vol] 16 umol/L Normal 11-32 [facility] Comment on above: Performed By: #### A MM #### [facility] [address] [address] [address] Blanca Grimm AMYLASEon 11-13-2021 Amylase [Catalytic activity/Vol] 42 U/L Normal 25-115 [facility] Comment on above: Performed By: #### A MY, CMP, LIPA #### [facility] [address] [place] [address] Dr. Blanca Grimm CBC AUTO DIFFon 11-13-2021 BASO # 0.1 103/ul Normal 0.0-0.1 [facility] Comment on above: Performed By: #### A MY, CMP, LIPA #### [facility] [address] [place] [address] Dr. Blanca Grimm Basophils/100 WBC (Bld) 0.6 % Normal 0.2-2.0 [facility] Comment on above: Performed By: #### A MY, CMP, LIPA #### [facility] [address] [place] [address] Dr. Blanca Grimm EO # 0.2 103/ul Normal 0.0-0.7 [facility] Comment on above: Performed By: #### A MY, CMP, LIPA #### [facility] [address] [place] [address] Dr. Blanca Grimm Eosinophils/100 WBC (Bld) 2.3 % Normal 0.9-7.0 [facility] Comment on above: Performed By: #### A MY, CMP, LIPA #### [facility] [address] [place] [address] Dr. Blanca Grimm Erythrocyte distribution width (RBC) [Ratio] 13.9 % Normal 11.0-15.0 [facility] Comment on above: Performed By: #### A MY, CMP, LIPA #### [facility] [address] [place] [address] Dr. Blanca Grimm Hematocrit (Bld) [Volume fraction] 37.3 % Normal 36.0-48.0 [facility] Comment on above: Performed By: #### A MY, CMP, LIPA #### [facility] [address] [place] [address] Dr. Blanca Grimm Hemoglobin (Bld) [Mass/Vol] 12.1 g/dL Normal 12.0-16.0 [facility] Comment on above: Performed By: #### A MY, CMP, LIPA #### [facility] [address] [address] [address] Blanca Grimm IG # 0.03 10e3/ul Normal 0.00-0.03 [facility] Comment on above: Performed By: #### A MY, CMP, LIPA #### [facility] [address] [address] [address] Blanca Grimm IG % 0.4 % Normal 0.0-0.5 [facility] Comment on above: Performed By: #### A MY, CMP, LIPA #### [facility] [address] [place] [address] Dr. Blanca Grimm LYMPH # 2.5 103/ul Normal 1.2-3.8 [facility] Comment on above: Performed By: #### A MY, CMP, LIPA #### [facility] [address] [place] [address] Dr. Blanca Grimm Lymphocytes/100 WBC (Bld) 29.0 % Normal 20.5-60.0 [facility] Comment on above: Performed By: #### A MY, CMP, LIPA #### [facility] [address] [place] [address] Dr. Blanca Grimm MANUAL DIFF REQ NO Normal [facility] Comment on above: Performed By: #### A MY, CMP, LIPA #### [facility] [address] [place] [address] Dr. Blanca Grimm MCH (RBC) [Entitic mass] 28.1 pg Normal 26.7-34.0 [facility] Comment on above: Performed By: #### A MY, CMP, LIPA #### [facility] [address] [place] [address] Dr. Blanca Grimm MCHC (RBC) [Mass/Vol] 32.4 g/dL Normal 29.9-35.2 [facility] Comment on above: Performed By: #### A MY, CMP, LIPA #### [facility] [address] [place] [address] Dr. Blanca Grimm MCV (RBC) [Entitic vol] 86.7 fL Normal 81.0-99.0 [facility] Comment on above: Performed By: #### A MY, CMP, LIPA #### [facility] [address] [place] [address] Dr. Blanca Grimm MONO # 0.8 103/ul Normal 0.3-0.8 [facility] Comment on above: Performed By: #### A MY, CMP, LIPA #### [facility] [address] [place] [address] Dr. Blanca Grimm Monocytes/100 WBC (Bld) 9.5 % Normal 1.7-12.0 [facility] Comment on above: Performed By: #### A MY, CMP, LIPA #### [facility] [address] [place] [address] Dr. Blanca Grimm NEUT # 5.0 103/ul Normal 1.4-6.5 [facility] Comment on above: Performed By: #### A MY, CMP, LIPA #### [facility] [address] [place] [address] Dr. Blanca Grimm Neutrophils/100 WBC (Bld) 58.2 % Normal 43.0-75.0 [facility] Comment on above: Performed By: #### A MY, CMP, LIPA #### [facility] [address] [place] [address] Dr. Blanca Grimm Platelet mean volume (Bld) [Entitic vol] 9.8 fL Normal 9.5-13.5 [facility] Comment on above: Performed By: #### A MY, CMP, LIPA #### [facility] [address] [place] [address] Dr. Blanca Grimm PLT 273 103/ul Normal 150-450 [facility] Comment on above: Performed By: #### A MY, CMP, LIPA #### [facility] [address] [place] [address] Dr. Blanca Grimm RBC 4.30 106/ul Normal 4.20-5.40 [facility] Comment on above: Performed By: #### A MY, CMP, LIPA #### [facility] [address] [place] [address] Dr. Blanca Grimm WBC 8.5 103/ul Normal 4.0-11.0 [facility] Comment on above: Performed By: #### A MY, CMP, LIPA #### [facility] [address] [place] [address] Dr. Blanca Grimm LIPASEon 11-13-2021 Lipase [Catalytic activity/Vol] 108.0 U/L Normal 73.0-393.0 [facility] Comment on above: Performed By: #### A MY, CMP, LIPA #### [facility] [address] [address] [address] Blanca Grimm PROF 14(COMP METB)on 022 Albumin [Mass/Vol] 3.9 g/dL Normal 3.4-5.0 [facility] Comment on above: Performed By: #### A MY, CMP, LIPA #### [facility] [address] [place] [address] Dr. Blanca Grimm Albumin/Globulin [Mass ratio] 1.1 {ratio} Normal [facility] Comment on above: Performed By: #### A MY, CMP, LIPA #### [facility] [address] [place] [address] Dr. Blanca Grimm ALP [Catalytic activity/Vol] 94 U/L Normal 46-116 [facility] Comment on above: Performed By: #### A MY, CMP, LIPA #### [facility] [address] [place] [address] Dr. Blanca Grimm ALT [Catalytic activity/Vol] 28 U/L Normal 14-59 [facility] Comment on above: Performed By: #### A MY, CMP, LIPA #### [facility] [address] [place] [address] Dr. Blanca Grimm Anion gap [Moles/Vol] 14.8 mmol/L Normal [facility] Comment on above: Performed By: #### A MY, CMP, LIPA #### [facility] [address] [place] [address] Dr. Blanca Grimm AST [Catalytic activity/Vol] 22 U/L Normal 15-37 [facility] Comment on above: Performed By: #### A MY, CMP, LIPA #### [facility] [address] [address] [address] Blanca Grimm Bilirubin [Mass/Vol] 0.3 mg/dL Normal 0.2-1.0 [facility] Comment on above: Performed By: #### A MY, CMP, LIPA #### [facility] [address] [place] [address] Dr. Blanca Grimm Calcium [Mass/Vol] 9.3 mg/dL Normal 8.5-10.1 [facility] Comment on above: Performed By: #### A MY, CMP, LIPA #### [facility] [address] [place] [address] Dr. Blanca Grimm Chloride [Moles/Vol] 103 mmol/L Normal 98-107 [facility] Comment on above: Performed By: #### A MY, CMP, LIPA #### [facility] [address] [place] [address] Dr. Blanca Grimm CO2 [Moles/Vol] 24.4 mmol/L Normal 21.0-32.0 [facility] Comment on above: Performed By: #### A MY, CMP, LIPA #### [facility] [address] [place] [address] Dr. Blanca Grimm Creatinine [Mass/Vol] 0.94 mg/dL Normal 0.55-1.02 [facility] Comment on above: Performed By: #### A MY, CMP, LIPA #### [facility] [address] [place] [address] Dr. Blanca Grimm EGFR-AF ANDORRAN >60 Normal >=60 [facility] Comment on above: Performed By: #### A MY, CMP, LIPA #### [facility] [address] [place] [address] Dr. Blanca Grimm EGFR-NON AF ANDORRAN =60 Normal >=60 [facility] Comment on above: Performed By: #### A MY, CMP, LIPA #### [facility] [address] [place] [address] Dr. Blanca Grimm Globulin (S) [Mass/Vol] 3.7 g/dL Normal [facility] Comment on above: Performed By: #### A MY, CMP, LIPA #### [facility] [address] [address] [address] Blanca Grimm Glucose [Mass/Vol] 101 mg/dL Normal 74-106 [facility] Comment on above: Performed By: #### A MY CMP, LIPA #### [facility] [address] [address] [address] Blanca Grimm Potassium [Moles/Vol] 4.2 mmol/L Normal 3.5-5.1 [facility] Comment on above: Performed By: #### A MY, CMP, LIPA #### [facility] [address] [place] [address] Dr. Blanca Grimm Protein [Mass/Vol] 7.6 g/dL Normal 6.4-8.2 [facility] Comment on above: Performed By: #### A MY CMP, LIPA #### [facility] [address] [place] [address] Dr. Blanca Grimm Sodium [Moles/Vol] 138 mmol/L Normal 136-145 [facility] Comment on above: Performed By: #### A MY, CMP, LIPA #### [facility] [address] [place] [address] Dr. Blanca Grimm Urea nitrogen [Mass/Vol] 13.0 mg/dL Normal 7.0-18.0 [facility] Comment on above: Performed By: #### A MY, CMP, LIPA #### [facility] [address] [place] [address] Dr. Blanca Grimm Urea nitrogen/Creatinin e [Mass ratio] 13.8 mg/mg Normal [facility] Comment on above: Performed By: #### A MY, CMP, LIPA #### [facility] [address] [place] [address] Dr. Blanca Grimm XR LSPINE MIN 4 [...] JOYCE PITT Date: 2021-07-22 18:17 Normal [facility] CT Cervical Spine WOon 11-22 CT Cervical Spine WO [facility] Name: KIM SANTAMARIA [address] [place] [address] Phys: [place] [address] : 1955 Age: 61 Acct: [id number] Loc: ER MRN/Unit No.: [id number] Status: REG ER Exam Date: 11/22/16 Accession Number: [id number] Exam: [id number] CT/CT Cervical Spine WO CT Cervical Spine [...] Date/Time: 11/22/16, 1252 Dictated Date/Time: 11/22/16 1252 International Organizer: GARCIA WYATT Printed Date/Time: [ rep prt dt last], [ rep prt tm last] This report was electronically signed in an other vendor system Normal [facility] CT Head WOon 11-22-2016 CT Head WO [facility] EM [facility] Name: KIM SANTAMARIA [facility] Phys: [place] [address] : 1955 Age: 61 Acct: [id number] Loc: ER MRN/Unit No.: [id number] Status: REG ER Exam Date: 11/22/16 Accession Number: [id number] Exam: [id number] CT/CT Head WO CT Head WO EXAM: [...] Date/Time: 11/22/16, 1252 Dictated Date/Time: 11/22/16 1245 International Organizer: GARCIA WYATT Printed Date/Time: [ rep prt dt last], [ rep prt tm last] This report was electronically signed in an other vendor system Normal [facility] CT Thoracic Spine WOon 11-22 CT Thoracic Spine WO [facility] Name: KIM SANTAMARIA [address] [place] [address] Phys: [place] [address] : 1955 Age: 61 Acct: [id number] Loc: ER MRN/Unit No.: [id number] Status: DEP ER Exam Date: 11/22/16 Accession Number: [id number] Exam: CT/CT Thoracic Spine WO CT Thoracic [...] Date/Time: 11/22/16, 1455 Dictated Date/Time: 11/22/16 1258 International Organizer: GARCIA WYATT Printed Date/Time: [ rep prt dt last], [ rep prt tm last] This report was electronically signed in an other vendor system Normal [facility] Vital Signs Date Time Vital Sign Value Performing Clinician Maisha york 06-25-2022 13:32-0400 Blood Pressure Location mAberly JOSE [facility] [place] 06-25-2022 13:32-0400 Diastolic blood pressure 92 mm[Hg] Amberly JOSE [facility] [place] 06-25-2022 13:32-0400 Heart rate 72 /min Amberly NILL [facility] [place] 06-25-2022 13:32-0400 Respiratory rate 16 /min Amberly NILL [facility] [place] 06-25-2022 13:32-0400 Systolic blood pressure 136 mm[Hg] Amberly NILL [facility] [place] 05-28-2022 13:09-0500 Blood Pressure Location Amberly NILL [facility] [place] 05-28-2022 13:09-0500 Diastolic blood pressure 94 mm[Hg] Amberly NILL [facility] [place] 05-28-2022 13:09-0500 Heart rate 74 /min Amberly NILL [facility] [place] 05-28-2022 13:09-0500 Respiratory rate 16 /min Amberly NILL [facility] [place] 05-28-2022 13:09-0500 Systolic blood pressure 148 mm[Hg] Amberly NILL [facility] [place] 12-04-2021 14:16-0400 Blood Pressure Location Amberly NILL [facility] [place] 12-04-2021 14:16-0400 Diastolic blood pressure 90 mm[Hg] Amberly NILL [facility] [place] 12-04-2021 14:16-0400 Heart rate 70 /min Amberly NILL [facility] [place] 12-04-2021 14:16-0400 Respiratory rate 16 /min Amberly NILL [facility] [place] 12-04-2021 14:16-0400 Systolic blood pressure 128 mm[Hg] Amberly NILL [facility] [place] Encounters Encounter Date Encounter Type Care Provider Facility Start: 06-25-2022 End: 06-26-2022 [facility] Start: 06-25-2022 End: 06-25-2022 Patient encounter procedure Amberly R CASA [facility] [place] Start: 05-28-2022 End: 05-29-2022 [facility] Start: 05-28-2022 End: 05-28-2022 Patient encounter procedure Amberly JOSE [facility] [place] Start: 05-02-2022 End: 05-03-[address] MARCO OTERO Facility:[facility] Start: 04-23-2022 End: 04-24-[address] MARCO OTERO Facility:[facility] Start: 04-18-2022 End: 04-19-[address] MARCO OTERO Facility:[facility] Start: 01-30-2022 End: 01-31-[address] MARCO OTERO Facility:[facility] Start: 01-22-2022 End: 01-23-[address] MARCO OTERO Facility:[facility] Start: 01-21-2022 End: 01-22-2022 [facility]ulatory [facility] Start: 01-21-2022 End: 01-21-2022 Patient encounter procedure Amberly JOSE [facility] [place] Start: 01-02-2022 Encounter for preprocedural laboratory examination DR AMBERLY JOSE [facility] Start: 01-01-2022 End: 01-02-[address] AMBERLY [...] 11-22-2016 Emergency department patient visit QUINTIN WHATLEY Facility:[facility] Procedures Date Procedure Procedure Detail Performing Clinician Start: 01-01-2022 Colonoscopy Amberly JALLOH Start: 01-01-2022 Esophagogastroduodenoscopy Amberly JOSE Start: 03-30-2005 Abdominal hysterectomy Amberly JOSE Bilateral oophorectomy Julio JOSE Immunizations Immunization Date Immunization Notes Care Provider Fa cility 04-08-2021 SARS-CoV-2 (COVID-19 ) mRNA BNT-162b2 vax Amberly NILL [facility] [place] 06-21-2020 SARS-CoV-2 (COVID-19 ) mRNA BNT-162u5 vax Amberly CUELLARL [facility] [place] 05-24-2020 SARS-CoV-2 (COVID-19 ) mRNA BNT-736j9 vax Amberly CUELLARL [facility] NEGATED: Highlighted row has not occurred!05-28-2022 influenza virus vaccine, unspecified formulation Amberly JOSE [facility] [place] Payers Date Payer Category Payer Unknown [id number] 1959 Unknown [id number] 1955 Unknown [id number] 2.16.84 0.1.988910.3.579.2.593 1955 Unknown [id number] 2.16.84 0.1.700168.3.579.2.593 1955 Unknown [id number] 2.16.84 0.1.884027.3.579.2.593 1955 Unknown [id number] 2.16.84 0.1.668362.3.579.2.593 1955 Unknown [id number] 2.16.84 0.1.583740.3.579.2.593 1955 Unknown [id number] 2.16.84 0.1.557639.3.579.2.593 1955 Unknown [id number] 2.16.84 0.1.224596.3.579.2.593 1955 Unknown [id number] 2.16.84 0.1.342072.3.579.2.593 1955 Unknown [id number] 2.16.84 0.1.494384.3.579.2.593 1955 Unknown [id number] 2.16.84 0.1.522984.3.579.2.593 1955 Unknown [id number] 2.16.84 0.1.030860.3.579.2.593 1955 Unknown [id number] 2.16.84 0.1.071239.3.579.2.593 1955 Unknown [id number] 2.16.8 40.1.967163.3.579.2.727 1955 Unknown [id number] 2.16.8 40.1.688997.3.579.2.727 1955 Unknown [id number] 2.16.8 40.1.689222.3.579.2.727 1955 Unknown [id number] 2.16.8 40.1.080283.3.579.2.727 1955 Unknown [id number] 2.16.8 40.1.249451.3.579.2.727 1955 Unknown [id number] 2.16.8 40.1.592067.3.579.2.727 1955 Unknown [id number] 2.16.8 40.1.811950.3.579.2.727 Unknown [id number] Social History Date Type Detail Facility Start: 12-04-2021 End: 06-25-2022 Tobacco smoking status Ex-smoker (finding) [facility] [place] Tobacco smoking status Never [facility] [place] Sex Assigned At Female [facility] [place] Functional Status Date Assessment Result Facility 06-25-2022 Functional Status N/A [facility] 05-28-2022 Functional Status N/A [facility] 12-04-2021 Functional Status N/A [facility] [place] Clinical Note 05-29-2022 Note Date & Type [...] BID, # 90 tab(s), Refills(s) 3, Pharmacy: [id number], 167.6, cm, 05/28/22 13:15:00 EST, Height/Length Dosing, 86.5, kg, 05/28/22 13:15:00 EST, Weight Dosing 2. Hiatal hernia with GERD, (K44.9: Diaphragmatic hernia without obstruction or gangrene)Diaphragmatic hernia without obstruction or gangrene see # 1 Ordered: pantoprazole, 40 mg = 1 tab(s), Oral, BID, # 90 tab(s), Refills(s) 3, Pharmacy: [id number], 167.6, cm, 05/28/22 13:15:00 EST, Height/Length Dosing, 86.5, kg, 05/28/22 13:15:00 EST, Weight Dosing 3. BMI 30.0-30.9,adult (Z68.30: Body mass index [BMI] 30.0-30.9, adult) recommend low fat diet and exercise Follow-up No qualifying data available Problem List/Past Medical History (more content not included)... [facility] Comment on above: Result Comment: Elec [...] good condition. CC: Patient's family physician [facility] Clinical Note 12-04-2021 Note Date & [...] stools GERD (gastroesop (more content not included)... [facility] Comment on above: Result Comment: Elec tronically Signed By: CASA ANAYA, Amberly Dent\Date and Time Signed: 12/04/21 21:16 EDT Evaluation + Plan note 12-04-2021 Radiology Note Date & Type Note Facility 12-04-2021 Evaluation + Plan note Future Scheduled TestsMRI Cholangiogram Pancreatography ([facility]p) 12/04/21 [facility] [place] [facility] course Narrative Note Date & Type Note Facility Hospital course Narrative No data available for this section [facility] [place] [facility] Discharge instructions Note Date & Type Note Facility Hospital Discharge instructions No data available for this section [facility] Progress note Note Date & Type Note Facility Progress note No data available for this section [facility] [place] Summary Purpose Family History No Family History Records FoundNo Family History Records FoundNo Family History Records Found Advance Directives No Advanced Directives Records FoundNo Advanced Directives Records FoundNo Advanced Directives Records Found Additional Source Comments INFORMATION SOURCE (unrecogn ized section and content) DATE CREATED AUTHOR [facility]/22/2017 [facility] DATE CREATED AUTHOR AUTHOR'S ORGANIZ ATION 05/05/2022 [facility] DATE CREATED AUTHOR AUTHOR'S ORGANIZ ATION 06/30/2022 [facility] Care Team (unrecognized sect ion and content) Personnel Name: Marco Otero MD Address: [address] [place] [address] Personnel Name: Marco Otero MD Address: Address: [address] [place] [address] Personnel Name: Marco Otero MD Address: Address: [address] [place] [address] Personnel Name: Marco Otero MD Address: Address: [address] [place] [address] FOR RECORDS PERTAINING TO PATIENTS WHO ARE [...] BE BASED ON THE PRIMARY CLINICAL RECORDS. [facility]. provides no warranty or guarantee of the accuracy or completeness of information in this document.
[2023-12-16 11:42] LABS: Internal Control Within Normal Limits; Occult Blood Positive
== END 2023-12-16 10:49 | disposition home or self-care (01) ==
LOC: LAB 10:48
PROVIDERS: PCP Family Medicine; Visit Provider Family Medicine
DX: Z12.12 Encounter for screening for malignant neoplasm of rectum (principal)
CPT/HCPCS: G0328

== ENCOUNTER 2024-02-22 09:55 | Outpatient (OUT) | payer MEDICARE, SELFPAY ==
--- NOTE | 2024-02-22 09:58 | MM_ITS ---
Patient Name: KIM SANTAMARIA MR#: [id number] : 1955 Exam Date: 02/22/2024 Ordering Doctor: DR Jem Otero . RADIOLOGY REPORT PROCEDURE: MM TOMOSYNTHESIS SCREENING BI COMPARISON: MM TOMOSYNTHESIS SCREENING BI, 02/09/2023. MG MAMM SCREEN 3D KARINE CAD, 01/30/2022. MG MAMM SCREEN KARINE W CAD, 02/16/2019. MG MAMM KARINE SCRN W CAD DIG, 06/15/2013. INDICATIONS: Screening Calculator Name NCI Breast Cancer Risk Assessment Tool 5 Year Breast Cancer Risk 1.20% Lifetime Breast Cancer Risk 4.00% Personal Breast Cancer No Personal Ovarian Cancer No Treatments None Family Cancers Aunt-maternal with breast cancer at age ~58. LOCATION: [facility] BREAST COMPOSITION: The breasts are heterogeneously dense,which may obscure small masses. FINDINGS: DIAGNOSTIC CATEGORY 2--BENIGN FINDING: RIGHT BREAST: No significant suspicious finding. Scattered benign-appearing calcifications are present. No significant change has occurred. LEFT BREAST: No significant suspicious finding. Scattered benign-appearing calcifications are present. No significant change has occurred. RECOMMENDATIONS: ROUTINE MAMMOGRAM AND CLINICAL EVALUATION IN 12 MONTHS. PLEASE NOTE: A NORMAL MAMMOGRAM DOES NOT EXCLUDE THE POSSIBILITY OF BREAST CANCER. A CLINICALLY SUSPICIOUS PALPABLE LUMP SHOULD BE BIOPSIED. Dictated by: Chirag Velázquez M.D. on 02/23/2024 at 14:09 Approved by: Chirag Velázquez M.D. on 02/23/2024 at 14:12
--- OUTSIDE RECORDS SUMMARY | 2024-02-22 10:09 | XMS_ITS | CCD ---
Author Organization [facility] Inform ion [facility] Care Team Providers Care Field Recruiter Name Role Phone QUINTIN WHATLEY Unavailable Unavailable Rehl, Brown Unavailable Unavailable Marco Otero Primary Care Physician [phone] BRANDEN, DR LARA Consulting Unavailable HOY, DR [...] Attending Unavailable NILL, DR GAMING Admitting Unavailable RODRIGUEZYUMKIO MAYFIELD Consulting Unavailable JESSIE HENRIQUEZ Consulting Unavailable [...] Medication Allergies] Propensity to adverse reactions (disorder) [facility] Repository Medications Current Medications Medication Drug [...] BID, # 90 tab(s), Refills(s) 3, Pharmacy: [facility] #72, 167.6, cm, 05/28/22 13:15:00 EST, [...] 01-26-2022 Episodic Other aftercare (1 source) Other custodial (current) drug therapy; Translations: [OTH CLERK ENTRY LEVEL CURRENT DRUG THERAPY] Onset: 01-06-2022 Episodic Other aftercare (1 source) group home (current) use of oral hypoglycemic drugs; Translations: [HALFWAY USE ORAL HYPOGLYCEMIC DX] Onset: 01-06-2022 Episodic [...] Pure hypercholesterolemia Right upper quadrant pain Normal [facility] General Surgery Office/Clini c Noteon 06-25-2022 [...] mRNA BNT-162b2 vax 05/24/2020 Recorded Normal [facility] Comment on above: Result Comment: Elec [...] Pure hypercholesterolemia Right upper quadrant pain Normal [facility] Physician Referralon 023 Physician Referral [id number] Normal [facility] NM HEPATOBILIARY SCAN W EFon 05-05-2022 [...] Negative. IMPRESSION: Normal hepatobiliary scan Normal [facility] US SINGLE QUAD RT UPPERon US SINGLE [...] by: JOYCE INGRAM Date: 2022-04-23 10:51 Normal [facility] H PYLORI ANTIBODY IGGon 03-31 H. PYLORI IGG ABS 0.21 Index Value Normal 0.00-0.79 [facility] Comment on above: Result Comment: Nega tive <0.80 Equivocal 0.80 - 0.89 Positive >0.89 Performed By: #### H PYLLC #### [facility] [address] [place] [address] Dr. Blanca Grimm AMYLASEon 04-18-2022 Amylase [Catalytic activity/Vol] 49 U/L Normal 25-115 [facility] Comment on above: Performed By: #### A MY, CMP, LIPA #### [facility] [address] [address] [address] Blanca Grimm CBC AUTO DIFFon 04-18-2022 BASO # 0.1 103/ul Normal 0.0-0.1 [facility] Comment on above: Performed By: #### A MY, CMP, LIPA #### [facility] [address] [address] [address] Blanca Grimm Basophils/100 WBC (Bld) 0.7 % Normal 0.2-2.0 [facility] Comment on above: Performed By: #### A MY, CMP, LIPA #### [facility] [address] [address] [address] Blanca Grimm EO # 0.3 103/ul Normal 0.0-0.7 [facility] Comment on above: Performed By: #### A MY, CMP, LIPA #### [facility] [address] [place] [address] Dr. Blanca Grimm Eosinophils/100 WBC (Bld) 3.5 % Normal 0.9-7.0 [facility] Comment on above: Performed By: #### A MY, CMP, LIPA #### [facility] [address] [place] [address] Dr. Blanca Grimm Erythrocyte distribution width (RBC) [Ratio] 13.6 % Normal 11.0-15.0 [facility] Comment on above: Performed By: #### A MY, CMP, LIPA #### [facility] [address] [place] [address] Dr. Blanca Grimm Hematocrit (Bld) [Volume fraction] 34.8 % Critically low 36.0-48.0 [facility] Comment on above: Performed By: #### A MY, CMP, LIPA #### [facility] [address] [place] [address] Dr. Blanca Grimm Hemoglobin (Bld) [Mass/Vol] 12.6 g/dL Normal 12.0-16.0 [facility] Comment on above: Performed By: #### A MY, CMP, LIPA #### [facility] [address] [place] [address] Dr. Blanca Grimm IG # 0.04 10e3/ul Critically high 0.00-0.03 [facility] Comment on above: Performed By: #### A MY, CMP, LIPA #### [facility] [address] [place] [address] Dr. Blanca Grimm IG % 0.5 % Normal 0.0-0.5 [facility] Comment on above: Performed By: #### A MY, CMP, LIPA #### [facility] [address] [place] [address] Dr. Blanca Grimm LYMPH # 2.6 103/ul Normal 1.2-3.8 [facility] Comment on above: Performed By: #### A MY, CMP, LIPA #### [facility] [address] [place] [address] Dr. Blanca Grimm Lymphocytes/100 WBC (Bld) 34.2 % Normal 20.5-60.0 [facility] Comment on above: Performed By: #### A MY, CMP, LIPA #### [facility] [address] [place] [address] Dr. Blanca Grimm MANUAL DIFF REQ NO Normal [facility] Comment on above: Performed By: #### A MY, CMP, LIPA #### [facility] [address] [place] [address] Dr. Blanca Grimm MCH (RBC) [Entitic mass] 28.1 pg Normal 26.7-34.0 [facility] Comment on above: Performed By: #### A MY, CMP, LIPA #### [facility] [address] [place] [address] Dr. Blanca Grimm MCHC (RBC) [Mass/Vol] 36.2 g/dL Critically high 29.9-35.2 [facility] Comment on above: Performed By: #### A MY, CMP, LIPA #### [facility] [address] [place] [address] Dr. Blanca Grimm MCV (RBC) [Entitic vol] 77.5 fL Critically low 81.0-99.0 [facility] Comment on above: Performed By: #### A MY, CMP, LIPA #### [facility] [address] [address] [address] Blanca Grimm MONO # 0.7 103/ul Normal 0.3-0.8 [facility] Comment on above: Performed By: #### A MY, CMP, LIPA #### [facility] [address] [address] [address] Blanca Grimm Monocytes/100 WBC (Bld) 9.1 % Normal 1.7-12.0 [facility] Comment on above: Performed By: #### A MY, CMP, LIPA #### [facility] [address] [address] [address] Blanca Grimm NEUT # 3.9 103/ul Normal 1.4-6.5 [facility] Comment on above: Performed By: #### A MY, CMP, LIPA #### [facility] [address] [place] [address] Dr. Blanca Grimm Neutrophils/100 WBC (Bld) 52.0 % Normal 43.0-75.0 [facility] Comment on above: Performed By: #### A MY, CMP, LIPA #### [facility] [address] [place] [address] Dr. Blanca Grimm Platelet mean volume (Bld) [Entitic vol] 9.3 fL Critically low 9.5-13.5 [facility] Comment on above: Performed By: #### A MY, CMP, LIPA #### [facility] [address] [place] [address] Dr. Blanca Grimm PLT 290 103/ul Normal 150-450 [facility] Comment on above: Performed By: #### A MY, CMP, LIPA #### [facility] [address] [place] [address] Dr. Blanca Grimm RBC 4.49 106/ul Normal 4.20-5.40 [facility] Comment on above: Performed By: #### A MY, CMP, LIPA #### [facility] [address] [place] [address] Dr. Blanca Girmm WBC 7.5 103/ul Normal 4.0-11.0 [facility] Comment on above: Performed By: #### A MY, CMP, LIPA #### [facility] [address] [address] [address] Blanca Grimm FREE THYROXINE INDEX T7on FTI 2.57 Normal 1.30-4.50 [facility] Comment on above: Performed By: #### A MY, CMP, LIPA #### [facility] [address] [address] [address] Blanca Grimm T3U 33.0 % Normal 30.0-39.0 [facility] Comment on above: Performed By: #### A MY, CMP, LIPA #### [facility] [address] [place] [address] Dr. Blanca Grimm T4 [Mass/Vol] 7.80 ug/dL Normal 4.80-13.90 [facility] Comment on above: Performed By: #### A MY, CMP, LIPA #### [facility] [address] [place] [address] Dr. Blanca Grimm GLYCOHEMOGLOBIN A1Con 2022 ADA RECOMMENDATION SEE BELOW Normal [facility] Comment on above: Result Comment: ADA RECOMMENDED LIMIT 4.0 - 6.0 ADA THERAPEUTIC TARGET < 7.0 ACTION SUGGESTED > 7.0 Performed By: #### A MY, CMP, LIPA #### [facility] [address] [place] [address] Dr. Blanca Grimm Glucose [Mass/Vol] 128 mg/dL Normal [facility] Comment on above: Performed By: #### A MY, CMP, LIPA #### [facility] [address] [place] [address] Dr. Blanca Grimm HbA1c (Bld) [Mass fraction] 6.1 % Normal 4.5-6.2 [facility] Comment on above: Performed By: #### A MY, CMP, LIPA #### [facility] [address] [place] [address] Dr. Blanca Grimm LIPASEon 04-18-2022 Lipase [Catalytic activity/Vol] 125.0 U/L Normal 73.0-393.0 [facility] Comment on above: Performed By: #### A MY, CMP, LIPA #### [facility] [address] [address] [address] Blanca Grimm PROF 14(COMP METB)on 023 Albumin [Mass/Vol] 4.0 g/dL Normal 3.4-5.0 [facility] Comment on above: Performed By: #### A MY, CMP, LIPA #### [facility] [address] [address] [address] Blanca Grimm Albumin/Globulin [Mass ratio] 1.1 {ratio} Normal [facility] Comment on above: Performed By: #### A MY, CMP, LIPA #### [facility] [address] [place] [address] Dr. Blanca Grimm ALP [Catalytic activity/Vol] 78 U/L Normal 46-116 [facility] Comment on above: Performed By: #### A MY, CMP, LIPA #### [facility] [address] [address] [address] Blanca Grimm ALT [Catalytic activity/Vol] 31 U/L Normal 14-59 [facility] Comment on above: Performed By: #### A MY, CMP, LIPA #### [facility] [address] [place] [address] Dr. Blanca Grimm Anion gap [Moles/Vol] 11.7 mmol/L Normal [facility] Comment on above: Performed By: #### A MY, CMP, LIPA #### [facility] [address] [address] [address] Blanca Grimm AST [Catalytic activity/Vol] 18 U/L Normal 15-37 [facility] Comment on above: Performed By: #### A MY, CMP, LIPA #### [facility] [address] [place] [address] Dr. Blanca Grimm Bilirubin [Mass/Vol] 0.3 mg/dL Normal 0.2-1.0 [facility] Comment on above: Performed By: #### A MY, CMP, LIPA #### [facility] [address] [place] [address] Dr. Blanca Grimm Calcium [Mass/Vol] 9.8 mg/dL Normal 8.5-10.1 [facility] Comment on above: Performed By: #### A MY, CMP, LIPA #### [facility] [address] [address] [address] Blanca Grimm Chloride [Moles/Vol] 103 mmol/L Normal 98-107 [facility] Comment on above: Performed By: #### A MY, CMP, LIPA #### [facility] [address] [address] [address] Blanca Grimm CO2 [Moles/Vol] 29.5 mmol/L Normal 21.0-32.0 [facility] Comment on above: Performed By: #### A MY, CMP, LIPA #### [facility] [address] [place] [address] Dr. Blanca Grimm Creatinine [Mass/Vol] 0.69 mg/dL Normal 0.55-1.02 [facility] Comment on above: Performed By: #### A MY, CMP, LIPA #### [facility] [address] [place] [address] Dr. Blanca Grimm EGFR-AF GUAMANIAN >60 Normal >=60 [facility] Comment on above: Performed By: #### A MY, CMP, LIPA #### [facility] [address] [place] [address] Dr. Blanca Grimm EGFR-NON AF GUAMANIAN >60 Normal >=60 [facility] Comment on above: Performed By: #### A MY, CMP, LIPA #### [facility] [address] [place] [address] Dr. Blanca Grimm Globulin (S) [Mass/Vol] 3.6 g/dL Normal [facility] Comment on above: Performed By: #### A MY, CMP, LIPA #### [facility] [address] [place] [address] Dr. Blanca Grimm Glucose [Mass/Vol] 95 mg/dL Normal 74-106 [facility] Comment on above: Performed By: #### A MY, CMP, LIPA #### [facility] [address] [address] [address] Blanca Grimm Potassium [Moles/Vol] 4.2 mmol/L Normal 3.5-5.1 [facility] Comment on above: Performed By: #### A MY, CMP, LIPA #### [facility] [address] [address] [address] Blanca Grimm Protein [Mass/Vol] 7.6 g/dL Normal 6.4-8.2 [facility] Comment on above: Performed By: #### A MY, CMP, LIPA #### [facility] [address] [address] [address] Blanca Grimm Sodium [Moles/Vol] 140 mmol/L Normal 136-145 [facility] Comment on above: Performed By: #### A MY, CMP, LIPA #### [facility] [address] [place] [address] Dr. Blanca Grimm Urea nitrogen [Mass/Vol] 10.0 mg/dL Normal 7.0-18.0 [facility] Comment on above: Performed By: #### A MY, CMP, LIPA #### [facility] [address] [place] [address] Dr. Blanca Grimm Urea nitrogen/Creatinin e [Mass ratio] 14.5 mg/mg Normal [facility] Comment on above: Performed By: #### A MY, CMP, LIPA #### [facility] [address] [place] [address] Dr. Blanca Grimm TSHon 04-18-2022 TSH 3.705 uIU/mL Normal 0.358-3.740 [facility] Comment on above: Performed By: #### A MY, CMP, LIPA #### [facility] [address] [place] [address] Dr. Blanca Grimm XR ABD FLAT UP_PA [...] YOHANNES QUINN Date: 2022-04-18 13:17 Normal [facility] General Surgery Office/Clini c Noteon 02-10-2022 General [...] Renal failure syndrome: Brother. Stroke: Mother. Normal [facility] Comment on above: Result Comment: Elec tronically Signed By: CASA ANAYA, Amberly Dent\Date and Time Signed: 02/10/22 16:26 EST MG MAMM SCREEN 3D KARINE CADon 01-30-2022 MG MAMM SCREEN 3D KARINE CAD Patient: KIM SANTAMARIA Exam Date: 01/30/2022 : 1955 Gender:F Ordering : DR MARCO OTERO . Admission #: [id number] Family : Order #: [id number] CLICK HERE TO VIEW EXAM RADIOLOGY REPORT [...] breast cancer at age 58. LOCATION: [facility] BREAST COMPOSITION: Heterogeneously dense,which may obscure small [...] MD on 01/30/2022 at 13:43 Normal [facility] INSULINon 01-23-2022 Insulin 11.7 uIU/mL Normal 2.6-24.9 [facility] Comment on above: Performed By: #### A MY, CMP, LIPA #### [facility] [address] [address] [address] Blanca Grimm CBC AUTO DIFFon 01-22-2022 BASO # 0.1 103/ul Normal 0.0-0.1 [facility] Comment on above: Performed By: #### A MY, CMP, LIPA #### [facility] [address] [address] [address] Blanca Grimm Basophils/100 WBC (Bld) 0.8 % Normal 0.2-2.0 [facility] Comment on above: Performed By: #### A MY, CMP, LIPA #### [facility] [address] [place] [address] Dr. Blanca Grimm EO # 0.2 103/ul Normal 0.0-0.7 [facility] Comment on above: Performed By: #### A MY, CMP, LIPA #### [facility] [address] [place] [address] Dr. Blanca Grimm Eosinophils/100 WBC (Bld) 3.5 % Normal 0.9-7.0 [facility] Comment on above: Performed By: #### A MY, CMP, LIPA #### [facility] [address] [place] [address] Dr. Blanca Grimm Erythrocyte distribution width (RBC) [Ratio] 14.3 % Normal 11.0-15.0 [facility] Comment on above: Performed By: #### A MY, CMP, LIPA #### [facility] [address] [place] [address] Dr. Blanca Grimm Hematocrit (Bld) [Volume fraction] 39.7 % Normal 36.0-48.0 [facility] Comment on above: Performed By: #### A MY, CMP, LIPA #### [facility] [address] [place] [address] Dr. Blanca Grimm Hemoglobin (Bld) [Mass/Vol] 12.9 g/dL Normal 12.0-16.0 [facility] Comment on above: Performed By: #### A MY, CMP, LIPA #### [facility] [address] [place] [address] Dr. Blanca Grimm IG # 0.05 10e3/ul Critically high 0.00-0.03 [facility] Comment on above: Performed By: #### A MY, CMP, LIPA #### [facility] [address] [place] [address] Dr. lBanca Grimm IG % 0.8 % Critically high 0.0-0.5 [facility] Comment on above: Performed By: #### A MY, CMP, LIPA #### [facility] [address] [address] [address] Blanca Grimm LYMPH # 2.5 103/ul Normal 1.2-3.8 [facility] Comment on above: Performed By: #### A MY, CMP, LIPA #### [facility] [address] [place] [address] Dr. Blanca Grimm Lymphocytes/100 WBC (Bld) 38.1 % Normal 20.5-60.0 [facility] Comment on above: Performed By: #### A MY, CMP, LIPA #### [facility] [address] [place] [address] Dr. Blanca Grimm MANUAL DIFF REQ NO Normal [facility] Comment on above: Performed By: #### A MY, CMP, LIPA #### [facility] [address] [place] [address] Dr. Blanca Grimm MCH (RBC) [Entitic mass] 27.9 pg Normal 26.7-34.0 [facility] Comment on above: Performed By: #### A MY, CMP, LIPA #### [facility] [address] [place] [address] Dr. Blanca Grimm MCHC (RBC) [Mass/Vol] 32.5 g/dL Normal 29.9-35.2 [facility] Comment on above: Performed By: #### A MY, CMP, LIPA #### [facility] [address] [place] [address] Dr. Blanca Grimm MCV (RBC) [Entitic vol] 85.9 fL Normal 81.0-99.0 [facility] Comment on above: Performed By: #### A MY, CMP, LIPA #### [facility] [address] [place] [address] Dr. Blanca Grimm MONO # 0.5 103/ul Normal 0.3-0.8 [facility] Comment on above: Performed By: #### A MY, CMP, LIPA #### [facility] [address] [place] [address] Dr. Blanca Grimm Monocytes/100 WBC (Bld) 8.0 % Normal 1.7-12.0 [facility] Comment on above: Performed By: #### A MY, CMP, LIPA #### [facility] [address] [address] [address] Blanca Grimm NEUT # 3.2 103/ul Normal 1.4-6.5 [facility] Comment on above: Performed By: #### A MY, CMP, LIPA #### [facility] [address] [place] [address] Dr. Blanca Grimm Neutrophils/100 WBC (Bld) 48.8 % Normal 43.0-75.0 [facility] Comment on above: Performed By: #### A MY, CMP, LIPA #### [facility] [address] [place] [address] Dr. Blanca Grimm Platelet mean volume (Bld) [Entitic vol] 9.9 fL Normal 9.5-13.5 [facility] Comment on above: Performed By: #### A MY, CMP, LIPA #### [facility] [address] [place] [address] Dr. Blanca Grimm PLT 290 103/ul Normal 150-450 [facility] Comment on above: Performed By: #### A MY, CMP, LIPA #### [facility] [address] [place] [address] Dr. Blanca Grimm RBC 4.62 106/ul Normal 4.20-5.40 [facility] Comment on above: Performed By: #### A MY, CMP, LIPA #### [facility] [address] [place] [address] Dr. Blanca Grimm WBC 6.5 103/ul Normal 4.0-11.0 [facility] Comment on above: Performed By: #### A MY, CMP, LIPA #### [facility] [address] [place] [address] Dr. Blanca Grimm FREE THYROXINE INDEX T7on FTI 2.05 Normal 1.30-4.50 [facility] Comment on above: Performed By: #### L IPID, CMP, T7, TSH #### [facility] [address] [place] [address] Dr. Blanca Grimm T3U 33.0 % Normal 30.0-39.0 [facility] Comment on above: Performed By: #### L IPID, CMP, T7, TSH #### [facility] [address] [address] [address] Blanca Grimm T4 [Mass/Vol] 6.20 ug/dL Normal 4.80-13.90 [facility] Comment on above: Performed By: #### L IPID, CMP, T7, TSH #### [facility] [address] [address] [address] Blanca Grimm GLYCOHEMOGLOBIN A1Con 2021 ADA RECOMMENDATION SEE BELOW Normal [facility] Comment on above: Result Comment: ADA RECOMMENDED LIMIT 4.0 - 6.0 ADA THERAPEUTIC TARGET < 7.0 ACTION SUGGESTED > 7.0 Performed By: #### A MY, CMP, LIPA #### [facility] [address] [place] [address] Dr. Blanca Grimm Glucose [Mass/Vol] 143 mg/dL Normal [facility] Comment on above: Performed By: #### A MY, CMP, LIPA #### [facility] [address] [address] [address] Blanca Grimm HbA1c (Bld) [Mass fraction] 6.6 % Critically high 4.5-6.2 [facility] Comment on above: Performed By: #### A MY, CMP, LIPA #### [facility] [address] [place] [address] Dr. Blnaca Grimm IRONon 01-22-2022 Iron [Mass/Vol] 64.0 ug/dL Normal 50.0-170.0 [facility] Comment on above: Performed By: #### A MY, CMP, LIPA #### [facility] [address] [place] [address] Dr. Blanca Grimm LIPID PROFILEon 01-22-2022 CHOL-HDL RATIO NORM SEE BELOW Normal [facility] Comment on above: Result Comment: 3.3 - 4.4 LOW RISK 4.4 - 7.1 AVERAGE RISK 7.1 - 11.0 MODERATE RISK >11.0 HIGH RISK Performed By: #### L IPID, CMP, T7, TSH #### [facility] [address] [address] [address] Blanca Grimm Cholesterol [Mass/Vol] 247 mg/dL Critically high <=200 [facility] Comment on above: Performed By: #### L IPID, CMP, T7, TSH #### [facility] [address] [address] [address] Blanca Grimm Cholesterol in HDL [Mass/Vol] 57 mg/dL Normal 40-60 [facility] Comment on above: Performed By: #### L IPID, CMP, T7, TSH #### [facility] [address] [address] [address] Blanca Grimm Cholesterol in LDL [Mass/Vol] 138.0 mg/dL Normal [facility] Comment on above: Performed By: #### L IPID, CMP, T7, TSH #### [facility] [address] [address] [address] Blanca Grimm Cholesterol.total/ Cholesterol in HDL [Mass ratio] 4.3 {ratio} Normal [facility] Comment on above: Performed By: #### L IPID, CMP, T7, TSH #### [facility] [address] [address] [address] Blanca Grimm HDL NORMAL > or = 60 mg/dl - LO W CARDIOVASCULAR RISK <40 mg/dl - HIGH CARDIOVASCULAR RISK Normal [facility] Comment on above: Performed By: #### L IPID, CMP, T7, TSH #### [facility] [address] [address] [address] Blanca Grimm LDL CALC NORMAL SEE BELOW Normal [facility] Comment on above: Result Comment: <100 mg/dl OPTIMAL 100 - 129 mg/dl NEAR OR ABOVE OPTIMAL 130 - 159 mg/dl BORDERLINE HIGH 160 - 189 mg/dl HIGH >190 mg/dl VERY HIGH Performed By: #### L IPID, CMP, T7, TSH #### [facility] [address] [address] [address] Blanca Grimm Triglyceride [Mass/Vol] 260 mg/dL Critically high <=150 [facility] Comment on above: Performed By: #### L IPID, CMP, T7, TSH #### [facility] [address] [address] [address] Blanca Grimm VLDL CALC 52.0 mg/dL Normal [facility] Comment on above: Performed By: #### L IPID, CMP, T7, TSH #### [facility] [address] [place] [address] Dr. Blanca Grimm PROF 14(COMP METB)on 022 Albumin [Mass/Vol] 4.0 g/dL Normal 3.4-5.0 [facility] Comment on above: Performed By: #### L IPID, CMP, T7, TSH #### [facility] [address] [place] [address] Dr. Blanca Grimm Albumin/Globulin [Mass ratio] 1.1 {ratio} Normal [facility] Comment on above: Performed By: #### L IPID, CMP, T7, TSH #### [facility] [address] [address] [address] Blanca Grimm ALP [Catalytic activity/Vol] 84 U/L Normal 46-116 [facility] Comment on above: Performed By: #### L IPID, CMP, T7, TSH #### [facility] [address] [place] [address] Dr. Blanca Grimm ALT [Catalytic activity/Vol] 36 U/L Normal 14-59 [facility] Comment on above: Performed By: #### L IPID, CMP, T7, TSH #### [facility] [address] [address] [address] Blanca Grimm Anion gap [Moles/Vol] 14.2 mmol/L Normal [facility] Comment on above: Performed By: #### L IPID, CMP, T7, TSH #### [facility] [address] [place] [address] Dr. Blanca Grimm AST [Catalytic activity/Vol] 22 U/L Normal 15-37 [facility] Comment on above: Performed By: #### L IPID, CMP, T7, TSH #### [facility] [address] [place] [address] Dr. Blanca Grimm Bilirubin [Mass/Vol] 0.3 mg/dL Normal 0.2-1.0 [facility] Comment on above: Performed By: #### L IPID, CMP, T7, TSH #### [facility] [address] [address] [address] Blanca Grimm Calcium [Mass/Vol] 9.4 mg/dL Normal 8.5-10.1 [facility] Comment on above: Performed By: #### L IPID, CMP, T7, TSH #### [facility] [address] [address] [address] Blanca Grimm Chloride [Moles/Vol] 103 mmol/L Normal 98-107 [facility] Comment on above: Performed By: #### L IPID, CMP, T7, TSH #### [facility] [address] [address] [address] Blanca Grimm CO2 [Moles/Vol] 26.0 mmol/L Normal 21.0-32.0 [facility] Comment on above: Performed By: #### L IPID, CMP, T7, TSH #### [facility] [address] [address] [address] Blanca Grimm Creatinine [Mass/Vol] 0.71 mg/dL Normal 0.55-1.02 [facility] Comment on above: Performed By: #### L IPID, CMP, T7, TSH #### [facility] [address] [address] [address] Blanca Grimm EGFR-AF GUAMANIAN >60 Normal >=60 [facility] Comment on above: Performed By: #### L IPID, CMP, T7, TSH #### [facility] [address] [address] [address] Blanca Grimm EGFR-NON AF GUAMANIAN >60 Normal >=60 [facility] Comment on above: Performed By: #### L IPID, CMP, T7, TSH #### [facility] [address] [address] [address] Blanca Grimm Globulin (S) [Mass/Vol] 3.8 g/dL Normal [facility] Comment on above: Performed By: #### L IPID, CMP, T7, TSH #### [facility] [address] [address] [address] Blanca Grimm Glucose [Mass/Vol] 112 mg/dL Critically high 74-106 [facility] Comment on above: Performed By: #### L IPID, CMP, T7, TSH #### [facility] [address] [address] [address] Blanca Grimm Potassium [Moles/Vol] 4.2 mmol/L Normal 3.5-5.1 [facility] Comment on above: Performed By: #### L IPID, CMP, T7, TSH #### [facility] [address] [place] [address] Dr. Blanca Grimm Protein [Mass/Vol] 7.8 g/dL Normal 6.4-8.2 [facility] Comment on above: Performed By: #### L IPID, CMP, T7, TSH #### [facility] [address] [place] [address] Dr. Blanca Grimm Sodium [Moles/Vol] 139 mmol/L Normal 136-145 [facility] Comment on above: Performed By: #### L IPID, CMP, T7, TSH #### [facility] [address] [place] [address] Dr. Blanca Grimm Urea nitrogen [Mass/Vol] 10.0 mg/dL Normal 7.0-18.0 [facility] Comment on above: Performed By: #### L IPID, CMP, T7, TSH #### [facility] [address] [place] [address] Dr. Blanca Grimm Urea nitrogen/Creatinin e [Mass ratio] 14.1 mg/mg Normal [facility] Comment on above: Performed By: #### L IPID, CMP, T7, TSH #### [facility] [address] [place] [address] Dr. Blanca Grimm TSHon 01-22-2022 TSH 2.598 uIU/mL Normal 0.358-3.740 [facility] Comment on above: Performed By: #### L IPID, CMP, T7, TSH #### [facility] [address] [address] [address] Blanca Grimm VITAMIN D 25 OHon 01-22-2022 VIT D 25-OH 40.1 ng/mL Normal [facility] Comment on above: Performed By: #### A MY, CMP, LIPA #### [facility] [id number] Blanca Grimm VIT D RANGES SEE BELOW Normal [facility] Comment on above: Result Comment: <20 ng/mL Vit D deficient 20 - <30 ng/mL Vit D insufficient 30 - 100 ng/mL Vit D sufficient >100 ng/mL Potential Toxicity Performed By: #### A MY, CMP, LIPA #### [facility] [address] [address] [address] Blanca Grimm Ambulatory Visit Summaryon 1 [...] Pure hypercholesterolemia Right upper quadrant pain Normal [facility] Outside Colonoscopyon 2021 Outside Colonoscopy [id number]#[id number]:127 Normal [facility] Pathology Noteon 01-03-2022 Pathology Note [id number]#[id number]:127 Normal [facility] Reminderson 01-03-2022 Reminders - From: Graciela Zamudio LPN To: GSN - Clinical; Sent: 01/03/2022 08:02:44 EDT Show up: 12/03/2031 07:00:00 EDT Subject: colonoscopy recall Due Date/Time: 01/02/2032 07:00:00 EDT Reminder/Recall Patient is due for screening colonoscopy 01/02/2032. Normal [facility] POINT OF CARE GLUCOSEon Glucose [Mass/Vol] 112 mg/dL Critically high 74-106 [facility] Comment on above: Performed By: #### P OCGLUC #### [facility] [address] [address] [address] Blanca Grimm Lab Reportson 12-31-2021 Lab Reports [id number]#[id number]:127 Normal [facility] Covid-19 PCR (CVDTBH)on SARS-CoV-2 (COVID-19) RNA ARVIND+probe Ql (Unsp spec) Not detected Normal NOT DETECTED [facility] Comment on above: Result Comment: This test is not yet approved or cleared by the [place] FDA. When there are no FDA-approved or cleared tests available, and other criteria are met, FDA can make tests available under an emergency access mechanism called an Emergency Use Authorization (EUA). The EUA for this test is supported by the Account Development Executive of Health and Human Service's (HHS's) declaration [...] By: #### A MY, CMP, LIPA #### [facility] [address] [place] [address] Dr. Blanca Grimm Pre-Certification Formon Pre-Certification Form [id number]#1.00CD:127 Normal [facility] RAD - MRI Reporton 2 RAD - MRI Report [id number]#[id number]:127 Normal [facility] Pre-Certification Formon Pre-Certification Form [id number]#1.00CD:127 Normal [facility] MRI ABDOMEN WO CONon 022 MRI [...] by: JOYCE PITT Date: 2021-12-17 07:53 Normal [facility] Consent for Procedure/Surger yon 12-05-2021 Consent for Procedure/Surgery [id number]#1.00CD:127 Normal [facility] NM HEPATOBILIARY SCAN W EFon 12-05-2021 [...] by: JOYCE PITT Date: 2021-12-05 09:11 Normal [facility] RAD - Ultrasound Reporton RAD - Ultrasound Report [id number]#[id number]:127 Normal [facility] Ambulatory Visit Summaryon 0 12-04-2021 Ambulatory [...] Cholelithiasis, No, No, Dilated cbd, acquired Normal [facility] US SINGLE QUAD RT UPPERon US [...] JOYCE INGRAM Date: 2021-11-26 10:28 Normal [facility] AMMONIAon 11-13-2021 Ammonia (P) [Moles/Vol] 16 umol/L Normal 11-32 [facility] Comment on above: Performed By: #### A MM #### [facility] [address] [address] [address] Blanca Grimm AMYLASEon 11-13-2021 Amylase [Catalytic activity/Vol] 42 U/L Normal 25-115 [facility] Comment on above: Performed By: #### A MY, CMP, LIPA #### [facility] [address] [place] [address] Dr. Blanca Grimm CBC AUTO DIFFon 11-13-2021 BASO # 0.1 103/ul Normal 0.0-0.1 [facility] Comment on above: Performed By: #### A MY, CMP, LIPA #### [facility] [address] [place] [address] Dr. Blanca Grimm Basophils/100 WBC (Bld) 0.6 % Normal 0.2-2.0 [facility] Comment on above: Performed By: #### A MY, CMP, LIPA #### [facility] [address] [place] [address] Dr. Blanca Grimm EO # 0.2 103/ul Normal 0.0-0.7 [facility] Comment on above: Performed By: #### A MY, CMP, LIPA #### [facility] [address] [place] [address] Dr. Blanca Grimm Eosinophils/100 WBC (Bld) 2.3 % Normal 0.9-7.0 [facility] Comment on above: Performed By: #### A MY, CMP, LIPA #### [facility] [address] [place] [address] Dr. Blanca Grimm Erythrocyte distribution width (RBC) [Ratio] 13.9 % Normal 11.0-15.0 [facility] Comment on above: Performed By: #### A MY, CMP, LIPA #### [facility] [address] [place] [address] Dr. Blanca Grimm Hematocrit (Bld) [Volume fraction] 37.3 % Normal 36.0-48.0 [facility] Comment on above: Performed By: #### A MY, CMP, LIPA #### [facility] [address] [place] [address] Dr. Blanca Grimm Hemoglobin (Bld) [Mass/Vol] 12.1 g/dL Normal 12.0-16.0 [facility] Comment on above: Performed By: #### A MY, CMP, LIPA #### [facility] [address] [address] [address] Blanca Grimm IG # 0.03 10e3/ul Normal 0.00-0.03 [facility] Comment on above: Performed By: #### A MY, CMP, LIPA #### [facility] [address] [address] [address] Blanca Grimm IG % 0.4 % Normal 0.0-0.5 [facility] Comment on above: Performed By: #### A MY, CMP, LIPA #### [facility] [address] [place] [address] Dr. Blanca Grimm LYMPH # 2.5 103/ul Normal 1.2-3.8 [facility] Comment on above: Performed By: #### A MY, CMP, LIPA #### [facility] [address] [place] [address] Dr. Blanca Grimm Lymphocytes/100 WBC (Bld) 29.0 % Normal 20.5-60.0 [facility] Comment on above: Performed By: #### A MY, CMP, LIPA #### [facility] [address] [place] [address] Dr. Blanca Grimm MANUAL DIFF REQ NO Normal [facility] Comment on above: Performed By: #### A MY, CMP, LIPA #### [facility] [address] [place] [address] Dr. Blanca Grimm MCH (RBC) [Entitic mass] 28.1 pg Normal 26.7-34.0 [facility] Comment on above: Performed By: #### A MY, CMP, LIPA #### [facility] [address] [place] [address] Dr. Blanca Grimm MCHC (RBC) [Mass/Vol] 32.4 g/dL Normal 29.9-35.2 [facility] Comment on above: Performed By: #### A MY, CMP, LIPA #### [facility] [address] [place] [address] Dr. Blanca Grimm MCV (RBC) [Entitic vol] 86.7 fL Normal 81.0-99.0 [facility] Comment on above: Performed By: #### A MY, CMP, LIPA #### [facility] [address] [place] [address] Dr. Blanca Grimm MONO # 0.8 103/ul Normal 0.3-0.8 [facility] Comment on above: Performed By: #### A MY, CMP, LIPA #### [facility] [address] [place] [address] Dr. Blanca Grimm Monocytes/100 WBC (Bld) 9.5 % Normal 1.7-12.0 [facility] Comment on above: Performed By: #### A MY, CMP, LIPA #### [facility] [address] [place] [address] Dr. Blanca Grimm NEUT # 5.0 103/ul Normal 1.4-6.5 [facility] Comment on above: Performed By: #### A MY, CMP, LIPA #### [facility] [address] [place] [address] Dr. Blanca Grimm Neutrophils/100 WBC (Bld) 58.2 % Normal 43.0-75.0 [facility] Comment on above: Performed By: #### A MY, CMP, LIPA #### [facility] [address] [place] [address] Dr. Blanca Grimm Platelet mean volume (Bld) [Entitic vol] 9.8 fL Normal 9.5-13.5 [facility] Comment on above: Performed By: #### A MY, CMP, LIPA #### [facility] [address] [place] [address] Dr. Blanca Grimm PLT 273 103/ul Normal 150-450 [facility] Comment on above: Performed By: #### A MY, CMP, LIPA #### [facility] [address] [place] [address] Dr. Blanca Grimm RBC 4.30 106/ul Normal 4.20-5.40 [facility] Comment on above: Performed By: #### A MY, CMP, LIPA #### [facility] [address] [place] [address] Dr. Blanca Grimm WBC 8.5 103/ul Normal 4.0-11.0 [facility] Comment on above: Performed By: #### A MY, CMP, LIPA #### [facility] [address] [place] [address] Dr. Blanca Grimm LIPASEon 11-13-2021 Lipase [Catalytic activity/Vol] 108.0 U/L Normal 73.0-393.0 [facility] Comment on above: Performed By: #### A MY, CMP, LIPA #### [facility] [address] [address] [address] Blanca Grimm PROF 14(COMP METB)on 022 Albumin [Mass/Vol] 3.9 g/dL Normal 3.4-5.0 [facility] Comment on above: Performed By: #### A MY, CMP, LIPA #### [facility] [address] [place] [address] Dr. Blanca Grimm Albumin/Globulin [Mass ratio] 1.1 {ratio} Normal [facility] Comment on above: Performed By: #### A MY, CMP, LIPA #### [facility] [address] [place] [address] Dr. Blanca Grimm ALP [Catalytic activity/Vol] 94 U/L Normal 46-116 [facility] Comment on above: Performed By: #### A MY, CMP, LIPA #### [facility] [address] [place] [address] Dr. Blanca Grimm ALT [Catalytic activity/Vol] 28 U/L Normal 14-59 [facility] Comment on above: Performed By: #### A MY, CMP, LIPA #### [facility] [address] [place] [address] Dr. Blanca Grimm Anion gap [Moles/Vol] 14.8 mmol/L Normal [facility] Comment on above: Performed By: #### A MY, CMP, LIPA #### [facility] [address] [place] [address] Dr. Blanca Grimm AST [Catalytic activity/Vol] 22 U/L Normal 15-37 [facility] Comment on above: Performed By: #### A MY, CMP, LIPA #### [facility] [address] [address] [address] Blanca Grimm Bilirubin [Mass/Vol] 0.3 mg/dL Normal 0.2-1.0 [facility] Comment on above: Performed By: #### A MY, CMP, LIPA #### [facility] [address] [place] [address] Dr. Blanca Grimm Calcium [Mass/Vol] 9.3 mg/dL Normal 8.5-10.1 [facility] Comment on above: Performed By: #### A MY, CMP, LIPA #### [facility] [address] [place] [address] Dr. Blanca Grimm Chloride [Moles/Vol] 103 mmol/L Normal 98-107 [facility] Comment on above: Performed By: #### A MY, CMP, LIPA #### [facility] [address] [place] [address] Dr. Blanca Grimm CO2 [Moles/Vol] 24.4 mmol/L Normal 21.0-32.0 [facility] Comment on above: Performed By: #### A MY, CMP, LIPA #### [facility] [address] [place] [address] Dr. Blanca Grimm Creatinine [Mass/Vol] 0.94 mg/dL Normal 0.55-1.02 [facility] Comment on above: Performed By: #### A MY, CMP, LIPA #### [facility] [address] [place] [address] Dr. Blanca Grimm EGFR-AF GUAMANIAN >60 Normal >=60 [facility] Comment on above: Performed By: #### A MY, CMP, LIPA #### [facility] [address] [place] [address] Dr. Blanca Grimm EGFR-NON AF GUAMANIAN =60 Normal >=60 [facility] Comment on above: Performed By: #### A MY, CMP, LIPA #### [facility] [address] [place] [address] Dr. Blanca Grimm Globulin (S) [Mass/Vol] 3.7 g/dL Normal [facility] Comment on above: Performed By: #### A MY, CMP, LIPA #### [facility] [address] [address] [address] Blanca Grimm Glucose [Mass/Vol] 101 mg/dL Normal 74-106 [facility] Comment on above: Performed By: #### A MY CMP, LIPA #### [facility] [address] [address] [address] Blanca Grimm Potassium [Moles/Vol] 4.2 mmol/L Normal 3.5-5.1 [facility] Comment on above: Performed By: #### A MY, CMP, LIPA #### [facility] [address] [place] [address] Dr. Blanca Grimm Protein [Mass/Vol] 7.6 g/dL Normal 6.4-8.2 [facility] Comment on above: Performed By: #### A MY CMP, LIPA #### [facility] [address] [place] [address] Dr. Blanca Grimm Sodium [Moles/Vol] 138 mmol/L Normal 136-145 [facility] Comment on above: Performed By: #### A MY, CMP, LIPA #### [facility] [address] [place] [address] Dr. Blanca Grimm Urea nitrogen [Mass/Vol] 13.0 mg/dL Normal 7.0-18.0 [facility] Comment on above: Performed By: #### A MY, CMP, LIPA #### [facility] [address] [place] [address] Dr. Blanca Grimm Urea nitrogen/Creatinin e [Mass ratio] 13.8 mg/mg Normal [facility] Comment on above: Performed By: #### A MY, CMP, LIPA #### [facility] [address] [place] [address] Dr. Blanca Grimm XR LSPINE MIN 4 [...] JOYCE PITT Date: 2021-07-22 18:17 Normal [facility] CT Cervical Spine WOon 11-22 CT Cervical Spine WO [facility] Name: KIM SANTAMARIA [address] [place] [address] Phys: [place] [address] : 1955 Age: 61 Acct: [id number] Loc: ER MRN/Unit No.: [id number] Status: REG ER Exam Date: 11/22/16 Accession Number: [id number] Exam: [id number] CT/CT Cervical Spine WO CT Cervical Spine [...] Date/Time: 11/22/16, 1252 Dictated Date/Time: 11/22/16 1252 Software Engineering Associate Manager: GARCIA WYATT Printed Date/Time: [ rep prt dt last], [ rep prt tm last] This report was electronically signed in an other vendor system Normal [facility] CT Head WOon 11-22-2016 CT Head WO [facility] EM [facility] Name: KIM SANTAMARIA [facility] Phys: [place] [address] : 1955 Age: 61 Acct: [id number] Loc: ER MRN/Unit No.: [id number] Status: REG ER Exam Date: 11/22/16 Accession Number: [id number] Exam: [id number] CT/CT Head WO CT Head WO EXAM: [...] Date/Time: 11/22/16, 1252 Dictated Date/Time: 11/22/16 1245 Software Engineering Associate Manager: GARCIA WYATT Printed Date/Time: [ rep prt dt last], [ rep prt tm last] This report was electronically signed in an other vendor system Normal [facility] CT Thoracic Spine WOon 11-22 CT Thoracic Spine WO [facility] Name: KIM SANTAMARIA [address] [place] [address] Phys: [place] [address] : 1955 Age: 61 Acct: [id number] Loc: ER MRN/Unit No.: [id number] Status: DEP ER Exam Date: 11/22/16 Accession Number: [id number] Exam: CT/CT Thoracic Spine WO CT Thoracic [...] Date/Time: 11/22/16, 1455 Dictated Date/Time: 11/22/16 1258 Software Engineering Associate Manager: GARCIA WYATT Printed Date/Time: [ rep prt dt last], [ rep prt tm last] This report was electronically signed in an other vendor system Normal [facility] Vital Signs Date Time Vital Sign Value Performing Clinician Maisha york 06-25-2022 13:32-0400 Blood Pressure Location Amberly JOSE [facility] 06-25-2022 13:32-0400 Diastolic blood pressure 92 mm[Hg] Amberly JOSE [facility] 06-25-2022 13:32-0400 Heart rate 72 /min Amberly NILL [facility] 06-25-2022 13:32-0400 Respiratory rate 16 /min Amberly NILL [facility] 06-25-2022 13:32-0400 Systolic blood pressure 136 mm[Hg] Amberly NILL [facility] 05-28-2022 13:09-0500 Blood Pressure Location Amberly NILL [facility] 05-28-2022 13:09-0500 Diastolic blood pressure 94 mm[Hg] Amberly NILL [facility] 05-28-2022 13:09-0500 Heart rate 74 /min Amberly NILL [facility] 05-28-2022 13:09-0500 Respiratory rate 16 /min Amberly NILL [facility] 05-28-2022 13:09-0500 Systolic blood pressure 148 mm[Hg] Amberly NILL [facility] 12-04-2021 14:16-0400 Blood Pressure Location Amberly NILL [facility] 12-04-2021 14:16-0400 Diastolic blood pressure 90 mm[Hg] Amberly NILL [facility] 12-04-2021 14:16-0400 Heart rate 70 /min Amberly NILL [facility] 12-04-2021 14:16-0400 Respiratory rate 16 /min Amberly NILL [facility] 12-04-2021 14:16-0400 Systolic blood pressure 128 mm[Hg] Amberly NILL [facility] Story Encounters Encounter Date Encounter Type Care Provider Facility Start: 06-25-2022 End: 06-26-2022 [facility] Start: 06-25-2022 End: 06-25-2022 Patient encounter procedure Amberly R CASA General Surgery N[facility] Story Start: 05-28-2022 End: 05-29-2022 [facility]: 05-28-2022 End: 05-28-2022 Patient encounter procedure [...] Start: 01-21-2022 End: 01-22-2022 [facility] Start: 01-21-2022 End: 01-21-2022 Patient encounter procedure Amberly JOSE General Surgery Nill/Said Story Start: 01-02-2022 Encounter for preprocedural laboratory examination DR AMBERLY JOSE [facility] Start: 01-01-2022 End: 01-02-[address] AMBERLY [...] 11-22-2016 Emergency department patient visit QUINTIN WHATLEY Facility:[facility] Procedures Date Procedure Procedure Detail Performing Clinician Start: 01-01-2022 Colonoscopy Amberly JALLOH Start: 01-01-2022 Esophagogastroduodenoscopy Amberly JOSE Start: 03-30-2005 Abdominal hysterectomy Amberly JOSE Bilateral oophorectomy Julio JOSE Immunizations Immunization Date Immunization Notes Care Provider Fa cility 04-08-2021 SARS-CoV-2 (COVID-19 ) mRNA BNT-162b2 vax Amberly NILL General Surgery Story 06-21-2020 SARS-CoV-2 (COVID-19 ) mRNA BNT-162q3 vax Amberly CUELLARL General Surgery Story 05-24-2020 SARS-CoV-2 (COVID-19 ) mRNA BNT-639z2 vax Amberly CUELLARL General Surgery Story NEGATED: Highlighted row has not occurred!05-28-2022 influenza virus vaccine, unspecified formulation Amberly JOSE General Surgery Story Payers Date Payer Category Payer Unknown [id number] 1959 Unknown [id number] 1955 Unknown [id number] 2.16.84 0.1.696900.3.579.2.593 1955 Unknown [id number] 2.16.84 0.1.835097.3.579.2.593 1955 Unknown [id number] 2.16.84 0.1.848426.3.579.2.593 1955 Unknown [id number] 2.16.84 0.1.527405.3.579.2.593 1955 Unknown [id number] 2.16.84 0.1.456251.3.579.2.593 1955 Unknown [id number] 2.16.84 0.1.023506.3.579.2.593 1955 Unknown [id number] 2.16.84 0.1.083179.3.579.2.593 1955 Unknown [id number] 2.16.84 0.1.403797.3.579.2.593 1955 Unknown [id number] 2.16.84 0.1.309340.3.579.2.593 1955 Unknown [id number] 2.16.84 0.1.613882.3.579.2.593 1955 Unknown [id number] 2.16.84 0.1.016655.3.579.2.593 1955 Unknown [id number] 2.16.84 0.1.391946.3.579.2.593 1955 Unknown [id number] 2.16.8 40.1.103708.3.579.2.727 1955 Unknown [id number] 2.16.8 40.1.793616.3.579.2.727 1955 Unknown [id number] 2.16.8 40.1.234646.3.579.2.727 1955 Unknown [id number] 2.16.8 40.1.929062.3.579.2.727 1955 Unknown [id number] 2.16.8 40.1.069221.3.579.2.727 1955 Unknown [id number] 2.16.8 40.1.068772.3.579.2.727 1955 Unknown [id number] 2.16.8 40.1.394342.3.579.2.727 Unknown [id number] Social History Date Type Detail Facility Start: 12-04-2021 End: 06-25-2022 Tobacco smoking status Ex-smoker (finding) General Surgery Story Tobacco smoking status Never Gener al Surgery Story Sex Assigned At Female Genera l Surgery Story Functional Status Date Assessment Result Facility 06-25-2022 Functional Status N/A [facility] 05-28-2022 Functional Status N/A [facility] 12-04-2021 Functional Status N/A [facility] Story Clinical Note 05-29-2022 Note Date & Type [...] BID, # 90 tab(s), Refills(s) 3, Pharmacy: [id number], 167.6, cm, 05/28/22 13:15:00 EST, Height/Length Dosing, 86.5, kg, 05/28/22 13:15:00 EST, Weight Dosing 2. Hiatal hernia with GERD, (K44.9: Diaphragmatic hernia without obstruction or gangrene)Diaphragmatic hernia without obstruction or gangrene see # 1 Ordered: pantoprazole, 40 mg = 1 tab(s), Oral, BID, # 90 tab(s), Refills(s) 3, Pharmacy: [id number], 167.6, cm, 05/28/22 13:15:00 EST, Height/Length Dosing, 86.5, kg, 05/28/22 13:15:00 EST, Weight Dosing 3. BMI 30.0-30.9,adult (Z68.30: Body mass index [BMI] 30.0-30.9, adult) recommend low fat diet and exercise Follow-up No qualifying data available Problem List/Past Medical History (more content not included)... [facility] Comment on above: Result Comment: Elec [...] good condition. CC: Patient's family physician [facility] Clinical Note 12-04-2021 Note Date & Type [...] stools GERD (gastroesop (more content not included)... [facility] Comment on above: Result Comment: Elec tronically Signed By: CASA ANAYA, Amberly Dent\Date and Time Signed: 12/04/21 21:16 EDT Evaluation + Plan note 12-04-2021 Radiology Note Date & Type Note Facility 12-04-2021 Evaluation + Plan note Future Scheduled TestsMRI Cholangiogram Pancreatography ([facility]) 12/04/21 General Surgery Story Hospital course Narrative Note Date & Type Note Facility Hospital course Narrative No data available for this section General Surgery Story Hospital Discharge instructions Note Date & Type Note Facility Hospital Discharge instructions No data available for this section General Surgery [facility] Progress note Note Date & Type Note Facility Progress note No data available for this section General Surgery Story Summary Purpose Family History No Family History Records FoundNo Family History Records FoundNo Family History Records Found Advance Directives No Advanced Directives Records FoundNo Advanced Directives Records FoundNo Advanced Directives Records Found Additional Source Comments INFORMATION SOURCE (unrecogn ized section and content) DATE CREATED [facility] DATE CREATED AUTHOR AUTHOR'S ORGANIZ ATION 05/05/2022 [facility] DATE CREATED AUTHOR AUTHOR'S ORGANIZ ATION 06/30/2022 [facility] Care Team (unrecognized sect ion and content) Personnel Name: Marco Otero MD Address: [address] [place] [address] Personnel Name: Marco Otero MD Address: Address: [address] [place] [address] Personnel Name: Marco Otero MD Address: Address: [address] [place] [address] Personnel Name: Marco Otero MD Address: Address: [address] [place] [address] FOR RECORDS PERTAINING TO PATIENTS WHO ARE [...] BE BASED ON THE PRIMARY CLINICAL RECORDS. [facility] [employer] [facility] provides no warranty or guarantee of the accuracy or completeness of information in this document.
== END 2024-02-22 09:56 | disposition home or self-care (01) ==
LOC: MAMMO 09:55
PROVIDERS: PCP Family Medicine; Visit Provider Family Medicine
DX: Z12.31 Encounter for screening mammogram for malignant neoplasm of breast (principal); Z80.3 Family history of malignant neoplasm of breast
CPT/HCPCS: 77063; 77067

== ENCOUNTER 2024-04-13 11:51 | Emergency (ER) | payer MEDICARE, SELFPAY ==
[2024-04-13 12:01] VITALS: BP 185/84; PULSE 78; TEMP 37; O2SAT 99; BMI 28.2
--- OUTSIDE RECORDS SUMMARY | 2024-04-13 12:14 | XMS_ITS | CCD ---
Author Organization [facility] Inform ion [facility] Care Team Providers Care [employer] Thread Winder Name Role Phone QUINTIN WHATLEY Unavailable Unavailable Rehl, Brown Unavailable Unavailable Marco Otero Primary Care Physician [phone] BRANDEN, DR LARA Consulting Unavailable HOY, DR [...] NILL, DR GAMING Attending Unavailable NILL, DR GMAING Admitting Unavailable RODRIGUEZYUMIKO MAYFIELD Consulting Unavailable JESSIE [...] Medication Allergies] Propensity to adverse reactions (disorder) [facility] Repository Medications Current Medications Medication Drug [...] BID, # 90 tab(s), Refills(s) 3, Pharmacy: [facility], 167.6, cm, 05/28/22 13:15:00 EST, [...] 01-26-2022 Episodic Other aftercare (1 source) 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; Translations: [OTH [facility]CI CURRENT DRUG THERAPY] Onset: 01-06-2022 Episodic Other aftercare (1 source) 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; Translations: [FCI USE ORAL HYPOGLYCEMIC DX] Onset: 01-06-2022 Episodic [...] Pure hypercholesterolemia Right upper quadrant pain Normal [facility] General Surgery Office/Clini c Noteon 06-25-2022 [...] mRNA BNT-162b2 vax 05/24/2020 Recorded Normal [facility] Comment on above: Result Comment: Elec tronically [...] Pure hypercholesterolemia Right upper quadrant pain Normal [facility] Physician Referralon 023 Physician Referral [id number] Normal [facility] NM HEPATOBILIARY SCAN W EFon 05-05-2022 [...] Negative. IMPRESSION: Normal hepatobiliary scan Normal [facility] US SINGLE QUAD RT UPPERon [...] by: JOYCE INGRAM Date: 2022-04-23 10:51 Normal [facility] H PYLORI ANTIBODY IGGon 03-31 H. PYLORI IGG ABS 0.21 Index Value Normal 0.00-0.79 [facility] Comment on above: Result Comment: Nega tive <0.80 Equivocal 0.80 - 0.89 Positive >0.89 Performed By: #### H PYLLC #### [facility] [address] [place] [address] Dr. Blanca Grimm AMYLASEon 04-18-2022 Amylase [Catalytic activity/Vol] 49 U/L Normal 25-115 [facility] Comment on above: Performed By: #### A MY, CMP, LIPA #### [facility] [address] [address] [address] Blanca Grimm CBC AUTO DIFFon 04-18-2022 BASO # 0.1 103/ul Normal 0.0-0.1 [facility] Comment on above: Performed By: #### A MY, CMP, LIPA #### [facility] [address] [address] [address] Blanca Grimm Basophils/100 WBC (Bld) 0.7 % Normal 0.2-2.0 [facility] Comment on above: Performed By: #### A MY, CMP, LIPA #### [facility] [address] [address] [address] Blanca Grimm EO # 0.3 103/ul Normal 0.0-0.7 [facility] Comment on above: Performed By: #### A MY, CMP, LIPA #### [facility] [address] [place] [address] Dr. Blanca Grimm Eosinophils/100 WBC (Bld) 3.5 % Normal 0.9-7.0 [facility] Comment on above: Performed By: #### A MY, CMP, LIPA #### [facility] [address] [place] [address] Dr. Blanca Grimm Erythrocyte distribution width (RBC) [Ratio] 13.6 % Normal 11.0-15.0 [facility] Comment on above: Performed By: #### A MY, CMP, LIPA #### [facility] [address] [place] [address] Dr. Blanca Grimm Hematocrit (Bld) [Volume fraction] 34.8 % Critically low 36.0-48.0 [facility] Comment on above: Performed By: #### A MY, CMP, LIPA #### [facility] [address] [place] [address] Dr. Blanca Grimm Hemoglobin (Bld) [Mass/Vol] 12.6 g/dL Normal 12.0-16.0 [facility] Comment on above: Performed By: #### A MY, CMP, LIPA #### [facility] [address] [place] [address] Dr. Blanca Grimm IG # 0.04 10e3/ul Critically high 0.00-0.03 [facility] Comment on above: Performed By: #### A MY, CMP, LIPA #### [facility] [address] [place] [address] Dr. Blanca Grimm IG % 0.5 % Normal 0.0-0.5 [facility] Comment on above: Performed By: #### A MY, CMP, LIPA #### [facility] [address] [place] [address] Dr. Blanca Grimm LYMPH # 2.6 103/ul Normal 1.2-3.8 [facility] Comment on above: Performed By: #### A MY, CMP, LIPA #### [facility] [address] [place] [address] Dr. Blanca Grimm Lymphocytes/100 WBC (Bld) 34.2 % Normal 20.5-60.0 [facility] Comment on above: Performed By: #### A MY, CMP, LIPA #### [facility] [address] [place] [address] Dr. Blanca Grimm MANUAL DIFF REQ NO Normal [facility] Comment on above: Performed By: #### A MY, CMP, LIPA #### [facility] [address] [place] [address] Dr. Blanca Grimm MCH (RBC) [Entitic mass] 28.1 pg Normal 26.7-34.0 [facility] Comment on above: Performed By: #### A MY, CMP, LIPA #### [facility] [address] [place] [address] Dr. Blanca Grimm MCHC (RBC) [Mass/Vol] 36.2 g/dL Critically high 29.9-35.2 [facility] Comment on above: Performed By: #### A MY, CMP, LIPA #### [facility] [address] [place] [address] Dr. Blanca Grimm MCV (RBC) [Entitic vol] 77.5 fL Critically low 81.0-99.0 [facility] Comment on above: Performed By: #### A MY, CMP, LIPA #### [facility] [address] [address] [address] Blanca Grimm MONO # 0.7 103/ul Normal 0.3-0.8 [facility] Comment on above: Performed By: #### A MY, CMP, LIPA #### [facility] [address] [address] [address] Blanca Grimm Monocytes/100 WBC (Bld) 9.1 % Normal 1.7-12.0 [facility] Comment on above: Performed By: #### A MY, CMP, LIPA #### [facility] [address] [address] [address] Blanca Grimm NEUT # 3.9 103/ul Normal 1.4-6.5 [facility] Comment on above: Performed By: #### A MY, CMP, LIPA #### [facility] [address] [place] [address] Dr. Blanca Grimm Neutrophils/100 WBC (Bld) 52.0 % Normal 43.0-75.0 [facility] Comment on above: Performed By: #### A MY, CMP, LIPA #### [facility] [address] [place] [address] Dr. Blanca Grimm Platelet mean volume (Bld) [Entitic vol] 9.3 fL Critically low 9.5-13.5 [facility] Comment on above: Performed By: #### A MY, CMP, LIPA #### [facility] [address] [place] [address] Dr. Blanca Grimm PLT 290 103/ul Normal 150-450 [facility] Comment on above: Performed By: #### A MY, CMP, LIPA #### [facility] [address] [place] [address] Dr. Blanca Grimm RBC 4.49 106/ul Normal 4.20-5.40 [facility] Comment on above: Performed By: #### A MY, CMP, LIPA #### [facility] [address] [place] [address] Dr. Blanca Grimm WBC 7.5 103/ul Normal 4.0-11.0 [facility] Comment on above: Performed By: #### A MY, CMP, LIPA #### [facility] [address] [address] [address] Blanca Grimm FREE THYROXINE INDEX T7on FTI 2.57 Normal 1.30-4.50 [facility] Comment on above: Performed By: #### A MY, CMP, LIPA #### [facility] [address] [address] [address] Blanca Grimm T3U 33.0 % Normal 30.0-39.0 [facility] Comment on above: Performed By: #### A MY, CMP, LIPA #### [facility] [address] [place] [address] Dr. Blanca Grimm T4 [Mass/Vol] 7.80 ug/dL Normal 4.80-13.90 [facility] Comment on above: Performed By: #### A MY, CMP, LIPA #### [facility] [address] [place] [address] Dr. Blanca Grimm GLYCOHEMOGLOBIN A1Con 2022 ADA RECOMMENDATION SEE BELOW Normal [facility] Comment on above: Result Comment: ADA RECOMMENDED LIMIT 4.0 - 6.0 ADA THERAPEUTIC TARGET < 7.0 ACTION SUGGESTED > 7.0 Performed By: #### A MY, CMP, LIPA #### [facility] [address] [place] [address] Dr. Blanca Grimm Glucose [Mass/Vol] 128 mg/dL Normal [facility] Comment on above: Performed By: #### A MY, CMP, LIPA #### [facility] [address] [place] [address] Dr. Blanca Grimm HbA1c (Bld) [Mass fraction] 6.1 % Normal 4.5-6.2 [facility] Comment on above: Performed By: #### A MY, CMP, LIPA #### [facility] [address] [place] [address] Dr. Blanca Grimm LIPASEon 04-18-2022 Lipase [Catalytic activity/Vol] 125.0 U/L Normal 73.0-393.0 [facility] Comment on above: Performed By: #### A MY, CMP, LIPA #### [facility] [address] [address] [address] Blanca Grimm PROF 14(COMP METB)on 023 Albumin [Mass/Vol] 4.0 g/dL Normal 3.4-5.0 [facility] Comment on above: Performed By: #### A MY, CMP, LIPA #### [facility] [address] [address] [address] Blanca Grimm Albumin/Globulin [Mass ratio] 1.1 {ratio} Normal [facility] Comment on above: Performed By: #### A MY, CMP, LIPA #### [facility] [address] [place] [address] Dr. Blanca Grimm ALP [Catalytic activity/Vol] 78 U/L Normal 46-116 [facility] Comment on above: Performed By: #### A MY, CMP, LIPA #### [facility] [address] [address] [address] Blanca Grimm ALT [Catalytic activity/Vol] 31 U/L Normal 14-59 [facility] Comment on above: Performed By: #### A MY, CMP, LIPA #### [facility] [address] [place] [address] Dr. Blanca Grimm Anion gap [Moles/Vol] 11.7 mmol/L Normal [facility] Comment on above: Performed By: #### A MY, CMP, LIPA #### [facility] [address] [address] [address] Blanca Grimm AST [Catalytic activity/Vol] 18 U/L Normal 15-37 [facility] Comment on above: Performed By: #### A MY, CMP, LIPA #### [facility] [address] [place] [address] Dr. Blanca Grimm Bilirubin [Mass/Vol] 0.3 mg/dL Normal 0.2-1.0 [facility] Comment on above: Performed By: #### A MY, CMP, LIPA #### [facility] [address] [place] [address] Dr. Blanca Grimm Calcium [Mass/Vol] 9.8 mg/dL Normal 8.5-10.1 [facility] Comment on above: Performed By: #### A MY, CMP, LIPA #### [facility] [address] [address] [address] Blanca Grimm Chloride [Moles/Vol] 103 mmol/L Normal 98-107 [facility] Comment on above: Performed By: #### A MY, CMP, LIPA #### [facility] [address] [address] [address] Blanca Grimm CO2 [Moles/Vol] 29.5 mmol/L Normal 21.0-32.0 [facility] Comment on above: Performed By: #### A MY, CMP, LIPA #### [facility] [address] [place] [address] Dr. Blanca Grimm Creatinine [Mass/Vol] 0.69 mg/dL Normal 0.55-1.02 [facility] Comment on above: Performed By: #### A MY, CMP, LIPA #### [facility] [address] [place] [address] Dr. Blanca Grimm EGFR-AF TAIWANESE >60 Normal >=60 [facility] Comment on above: Performed By: #### A MY, CMP, LIPA #### [facility] [address] [place] [address] Dr. Blanca Grimm EGFR-NON AF TAIWANESE >60 Normal >=60 [facility] Comment on above: Performed By: #### A MY, CMP, LIPA #### [facility] [address] [place] [address] Dr. Blanca Grimm Globulin (S) [Mass/Vol] 3.6 g/dL Normal [facility] Comment on above: Performed By: #### A MY, CMP, LIPA #### [facility] [address] [place] [address] Dr. Blanca Grimm Glucose [Mass/Vol] 95 mg/dL Normal 74-106 [facility] Comment on above: Performed By: #### A MY, CMP, LIPA #### [facility] [address] [address] [address] Blanca Grimm Potassium [Moles/Vol] 4.2 mmol/L Normal 3.5-5.1 [facility] Comment on above: Performed By: #### A MY, CMP, LIPA #### [facility] [address] [address] [address] Blanca Grimm Protein [Mass/Vol] 7.6 g/dL Normal 6.4-8.2 [facility] Comment on above: Performed By: #### A MY, CMP, LIPA #### [facility] [address] [address] [address] Blanca Grimm Sodium [Moles/Vol] 140 mmol/L Normal 136-145 [facility] Comment on above: Performed By: #### A MY, CMP, LIPA #### [facility] [address] [place] [address] Dr. Blanca Grimm Urea nitrogen [Mass/Vol] 10.0 mg/dL Normal 7.0-18.0 [facility] Comment on above: Performed By: #### A MY, CMP, LIPA #### [facility] [address] [place] [address] Dr. Blanca Grimm Urea nitrogen/Creatinin e [Mass ratio] 14.5 mg/mg Normal [facility] Comment on above: Performed By: #### A MY, CMP, LIPA #### [facility] [address] [place] [address] Dr. Blanca Grimm TSHon 04-18-2022 TSH 3.705 uIU/mL Normal 0.358-3.740 [facility] Comment on above: Performed By: #### A MY, CMP, LIPA #### [facility] [address] [place] [address] Dr. Blanca Grimm XR ABD FLAT UP_PA [...] YOHANNES QUINN Date: 2022-04-18 13:17 Normal [facility] General Surgery Office/Clini c Noteon [...] Renal failure syndrome: Brother. Stroke: Mother. Normal [facility] Comment on above: Result Comment: Elec tronically Signed By: CASA ANAYA, Amberly Dent\Date and Time Signed: 02/10/22 16:26 EST MG MAMM SCREEN 3D KARINE CADon 01-30-2022 MG MAMM SCREEN 3D KARINE CAD Patient: KIM SANTAMARIA Exam Date: 01/30/2022 : 1955 Gender:F Ordering : DR MARCO OTERO . Admission #: [id number] Family : Order #: [id number] CLICK HERE TO VIEW EXAM RADIOLOGY REPORT [...] breast cancer at age 58. LOCATION: [facility] BREAST COMPOSITION: Heterogeneously dense,which may [...] MD on 01/30/2022 at 13:43 Normal [facility] INSULINon 01-23-2022 Insulin 11.7 uIU/mL Normal 2.6-24.9 [facility] Comment on above: Performed By: #### A MY, CMP, LIPA #### [facility] [address] [address] [address] Blanca Grimm CBC AUTO DIFFon 01-22-2022 BASO # 0.1 103/ul Normal 0.0-0.1 [facility] Comment on above: Performed By: #### A MY, CMP, LIPA #### [facility] [address] [address] [address] Blanca Grimm Basophils/100 WBC (Bld) 0.8 % Normal 0.2-2.0 [facility] Comment on above: Performed By: #### A MY, CMP, LIPA #### [facility] [address] [place] [address] Dr. Blanca Grimm EO # 0.2 103/ul Normal 0.0-0.7 [facility] Comment on above: Performed By: #### A MY, CMP, LIPA #### [facility] [address] [place] [address] Dr. Blanca Grimm Eosinophils/100 WBC (Bld) 3.5 % Normal 0.9-7.0 [facility] Comment on above: Performed By: #### A MY, CMP, LIPA #### [facility] [address] [place] [address] Dr. Blanca Grimm Erythrocyte distribution width (RBC) [Ratio] 14.3 % Normal 11.0-15.0 [facility] Comment on above: Performed By: #### A MY, CMP, LIPA #### [facility] [address] [place] [address] Dr. Blanca Grimm Hematocrit (Bld) [Volume fraction] 39.7 % Normal 36.0-48.0 [facility] Comment on above: Performed By: #### A MY, CMP, LIPA #### [facility] [address] [place] [address] Dr. Blanca Grimm Hemoglobin (Bld) [Mass/Vol] 12.9 g/dL Normal 12.0-16.0 [facility] Comment on above: Performed By: #### A MY, CMP, LIPA #### [facility] [address] [place] [address] Dr. Blanca Grimm IG # 0.05 10e3/ul Critically high 0.00-0.03 [facility] Comment on above: Performed By: #### A MY, CMP, LIPA #### [facility] [address] [place] [address] Dr. Blanca Grimm IG % 0.8 % Critically high 0.0-0.5 [facility] Comment on above: Performed By: #### A MY, CMP, LIPA #### [facility] [address] [address] [address] Blanca Grimm LYMPH # 2.5 103/ul Normal 1.2-3.8 [facility] Comment on above: Performed By: #### A MY, CMP, LIPA #### [facility] [address] [place] [address] Dr. Blanca Grimm Lymphocytes/100 WBC (Bld) 38.1 % Normal 20.5-60.0 [facility] Comment on above: Performed By: #### A MY, CMP, LIPA #### [facility] [address] [place] [address] Dr. Blanca Grimm MANUAL DIFF REQ NO Normal [facility] Comment on above: Performed By: #### A MY, CMP, LIPA #### [facility] [address] [place] [address] Dr. Blanca Grimm MCH (RBC) [Entitic mass] 27.9 pg Normal 26.7-34.0 [facility] Comment on above: Performed By: #### A MY, CMP, LIPA #### [facility] [address] [place] [address] Dr. Blanca Grimm MCHC (RBC) [Mass/Vol] 32.5 g/dL Normal 29.9-35.2 [facility] Comment on above: Performed By: #### A MY, CMP, LIPA #### [facility] [address] [place] [address] Dr. Blanca Grimm MCV (RBC) [Entitic vol] 85.9 fL Normal 81.0-99.0 [facility] Comment on above: Performed By: #### A MY, CMP, LIPA #### [facility] [address] [place] [address] Dr. Blanca Grimm MONO # 0.5 103/ul Normal 0.3-0.8 [facility] Comment on above: Performed By: #### A MY, CMP, LIPA #### [facility] [address] [place] [address] Dr. Blanca Grimm Monocytes/100 WBC (Bld) 8.0 % Normal 1.7-12.0 [facility] Comment on above: Performed By: #### A MY, CMP, LIPA #### [facility] [address] [address] [address] Blanca Grimm NEUT # 3.2 103/ul Normal 1.4-6.5 [facility] Comment on above: Performed By: #### A MY, CMP, LIPA #### [facility] [address] [place] [address] Dr. lBanca Grimm Neutrophils/100 WBC (Bld) 48.8 % Normal 43.0-75.0 [facility] Comment on above: Performed By: #### A MY, CMP, LIPA #### [facility] [address] [place] [address] Dr. Blanca Grimm Platelet mean volume (Bld) [Entitic vol] 9.9 fL Normal 9.5-13.5 [facility] Comment on above: Performed By: #### A MY, CMP, LIPA #### [facility] [address] [place] [address] Dr. Blanca Grimm PLT 290 103/ul Normal 150-450 [facility] Comment on above: Performed By: #### A MY, CMP, LIPA #### [facility] [address] [place] [address] Dr. Blanca Grimm RBC 4.62 106/ul Normal 4.20-5.40 [facility] Comment on above: Performed By: #### A MY, CMP, LIPA #### [facility] [address] [place] [address] Dr. Blanca Grimm WBC 6.5 103/ul Normal 4.0-11.0 [facility] Comment on above: Performed By: #### A MY, CMP, LIPA #### [facility] [address] [place] [address] Dr. Blanca Grimm FREE THYROXINE INDEX T7on FTI 2.05 Normal 1.30-4.50 [facility] Comment on above: Performed By: #### L IPID, CMP, T7, TSH #### [facility] [address] [place] [address] Dr. Blanca Grimm T3U 33.0 % Normal 30.0-39.0 [facility] Comment on above: Performed By: #### L IPID, CMP, T7, TSH #### [facility] [address] [address] [address] Blanca Grimm T4 [Mass/Vol] 6.20 ug/dL Normal 4.80-13.90 [facility] Comment on above: Performed By: #### L IPID, CMP, T7, TSH #### [facility] [address] [address] [address] Blanca Grimm GLYCOHEMOGLOBIN A1Con 2021 ADA RECOMMENDATION SEE BELOW Normal [facility] Comment on above: Result Comment: ADA RECOMMENDED LIMIT 4.0 - 6.0 ADA THERAPEUTIC TARGET < 7.0 ACTION SUGGESTED > 7.0 Performed By: #### A MY, CMP, LIPA #### [facility] [address] [place] [address] Dr. Blanca Grimm Glucose [Mass/Vol] 143 mg/dL Normal [facility] Comment on above: Performed By: #### A MY, CMP, LIPA #### [facility] [address] [address] [address] Blanca Grimm HbA1c (Bld) [Mass fraction] 6.6 % Critically high 4.5-6.2 [facility] Comment on above: Performed By: #### A MY, CMP, LIPA #### [facility] [address] [place] [address] Dr. Blanca Grimm IRONon 01-22-2022 Iron [Mass/Vol] 64.0 ug/dL Normal 50.0-170.0 [facility] Comment on above: Performed By: #### A MY, CMP, LIPA #### [facility] [address] [place] [address] Dr. Blanca Grimm LIPID PROFILEon 01-22-2022 CHOL-HDL RATIO NORM SEE BELOW Normal [facility] Comment on above: Result Comment: 3.3 - 4.4 LOW RISK 4.4 - 7.1 AVERAGE RISK 7.1 - 11.0 MODERATE RISK >11.0 HIGH RISK Performed By: #### L IPID, CMP, T7, TSH #### [facility] [address] [address] [address] Blanca Grimm Cholesterol [Mass/Vol] 247 mg/dL Critically high <=200 [facility] Comment on above: Performed By: #### L IPID, CMP, T7, TSH #### [facility] [address] [address] [address] Blanca Grimm Cholesterol in HDL [Mass/Vol] 57 mg/dL Normal 40-60 [facility] Comment on above: Performed By: #### L IPID, CMP, T7, TSH #### [facility] [address] [place] [address] Dr. Blanca Grimm Cholesterol in LDL [Mass/Vol] 138.0 mg/dL Normal [facility] Comment on above: Performed By: #### L IPID, CMP, T7, TSH #### [facility] [address] [address] [address] Blanca Grimm Cholesterol.total/ Cholesterol in HDL [Mass ratio] 4.3 {ratio} Normal [facility] Comment on above: Performed By: #### L IPID, CMP, T7, TSH #### [facility] [address] [address] [address] Blanca Grimm HDL NORMAL > or = 60 mg/dl - LO W CARDIOVASCULAR RISK <40 mg/dl - HIGH CARDIOVASCULAR RISK Normal [facility] Comment on above: Performed By: #### L IPID, CMP, T7, TSH #### [facility] [address] [address] [address] Blanca Grimm LDL CALC NORMAL SEE BELOW Normal [facility] Comment on above: Result Comment: <100 mg/dl OPTIMAL 100 - 129 mg/dl NEAR OR ABOVE OPTIMAL 130 - 159 mg/dl BORDERLINE HIGH 160 - 189 mg/dl HIGH >190 mg/dl VERY HIGH Performed By: #### L IPID, CMP, T7, TSH #### [facility] [address] [address] [address] Blanca Grimm Triglyceride [Mass/Vol] 260 mg/dL Critically high <=150 [facility] Comment on above: Performed By: #### L IPID, CMP, T7, TSH #### [facility] [address] [address] [address] Blanca Grimm VLDL CALC 52.0 mg/dL Normal [facility] Comment on above: Performed By: #### L IPID, CMP, T7, TSH #### [facility] [address] [place] [address] Dr. Blanca Grimm PROF 14(COMP METB)on 022 Albumin [Mass/Vol] 4.0 g/dL Normal 3.4-5.0 [facility] Comment on above: Performed By: #### L IPID, CMP, T7, TSH #### [facility] [address] [place] [address] Dr. Blanca Grimm Albumin/Globulin [Mass ratio] 1.1 {ratio} Normal [facility] Comment on above: Performed By: #### L IPID, CMP, T7, TSH #### [facility] [address] [address] [address] Blanca Grimm ALP [Catalytic activity/Vol] 84 U/L Normal 46-116 [facility] Comment on above: Performed By: #### L IPID, CMP, T7, TSH #### [facility] [address] [place] [address] Dr. Blanca Grimm ALT [Catalytic activity/Vol] 36 U/L Normal 14-59 [facility] Comment on above: Performed By: #### L IPID, CMP, T7, TSH #### [facility] [address] [address] [address] Blanca Grimm Anion gap [Moles/Vol] 14.2 mmol/L Normal [facility] Comment on above: Performed By: #### L IPID, CMP, T7, TSH #### [facility] [address] [place] [address] Dr. Blanca Grimm AST [Catalytic activity/Vol] 22 U/L Normal 15-37 [facility] Comment on above: Performed By: #### L IPID, CMP, T7, TSH #### [facility] [address] [place] [address] Dr. Blanca Grimm Bilirubin [Mass/Vol] 0.3 mg/dL Normal 0.2-1.0 [facility] Comment on above: Performed By: #### L IPID, CMP, T7, TSH #### [facility] [address] [address] [address] Blanca Grimm Calcium [Mass/Vol] 9.4 mg/dL Normal 8.5-10.1 [facility] Comment on above: Performed By: #### L IPID, CMP, T7, TSH #### [facility] [address] [address] [address] Blanca Grimm Chloride [Moles/Vol] 103 mmol/L Normal 98-107 [facility] Comment on above: Performed By: #### L IPID, CMP, T7, TSH #### [facility] [address] [address] [address] Blanca Grimm CO2 [Moles/Vol] 26.0 mmol/L Normal 21.0-32.0 [facility] Comment on above: Performed By: #### L IPID, CMP, T7, TSH #### [facility] [address] [address] [address] Blanca Grimm Creatinine [Mass/Vol] 0.71 mg/dL Normal 0.55-1.02 [facility] Comment on above: Performed By: #### L IPID, CMP, T7, TSH #### [facility] [address] [address] [address] Blanca Grimm EGFR-AF TAIWANESE >60 Normal >=60 [facility] Comment on above: Performed By: #### L IPID, CMP, T7, TSH #### [facility] [address] [address] [address] Blanca Grimm EGFR-NON AF TAIWANESE >60 Normal >=60 [facility] Comment on above: Performed By: #### L IPID, CMP, T7, TSH #### [facility] [address] [address] [address] Blanca Grimm Globulin (S) [Mass/Vol] 3.8 g/dL Normal [facility] Comment on above: Performed By: #### L IPID, CMP, T7, TSH #### [facility] [address] [address] [address] Blanca Grimm Glucose [Mass/Vol] 112 mg/dL Critically high 74-106 [facility] Comment on above: Performed By: #### L IPID, CMP, T7, TSH #### [facility] [address] [address] [address] Blanca Grimm Potassium [Moles/Vol] 4.2 mmol/L Normal 3.5-5.1 [facility] Comment on above: Performed By: #### L IPID, CMP, T7, TSH #### [facility] [address] [place] [address] Dr. Blanca Grimm Protein [Mass/Vol] 7.8 g/dL Normal 6.4-8.2 [facility] Comment on above: Performed By: #### L IPID, CMP, T7, TSH #### [facility] [address] [place] [address] Dr. Blanca Grimm Sodium [Moles/Vol] 139 mmol/L Normal 136-145 [facility] Comment on above: Performed By: #### L IPID, CMP, T7, TSH #### [facility] [address] [place] [address] Dr. Blanca Grimm Urea nitrogen [Mass/Vol] 10.0 mg/dL Normal 7.0-18.0 [facility] Comment on above: Performed By: #### L IPID, CMP, T7, TSH #### [facility] [address] [place] [address] Dr. Blanca Grimm Urea nitrogen/Creatinin e [Mass ratio] 14.1 mg/mg Normal [facility] Comment on above: Performed By: #### L IPID, CMP, T7, TSH #### [facility] [address] [place] [address] Dr. Blanca Grimm TSHon 01-22-2022 TSH 2.598 uIU/mL Normal 0.358-3.740 [facility] Comment on above: Performed By: #### L IPID, CMP, T7, TSH #### [facility] [address] [address] [address] Blanca Grimm VITAMIN D 25 OHon 01-22-2022 VIT D 25-OH 40.1 ng/mL Normal [facility] Comment on above: Performed By: #### A MY, CMP, LIPA #### [facility] [id number] Blanca Grimm VIT D RANGES SEE BELOW Normal [facility] Comment on above: Result Comment: <20 ng/mL Vit D deficient 20 - <30 ng/mL Vit D insufficient 30 - 100 ng/mL Vit D sufficient >100 ng/mL Potential Toxicity Performed By: #### A MY, CMP, LIPA #### [facility] [address] [address] [address] Blanca Grimm Ambulatory Visit Summaryon 1 [...] Pure hypercholesterolemia Right upper quadrant pain Normal [facility] Outside Colonoscopyon 2021 Outside Colonoscopy [id number]#1.00CD:127 Normal [facility] Pathology Noteon 01-03-2022 Pathology Note [id number]#1.00CD:127 Normal [facility] Reminderson 01-03-2022 Reminders - From: Graciela Zamudio LPN To: GSN - Clinical; Sent: 01/03/2022 08:02:44 EDT Show up: 12/03/2031 07:00:00 EDT Subject: colonoscopy recall Due Date/Time: 01/02/2032 07:00:00 EDT Reminder/Recall Patient is due for screening colonoscopy 01/02/2032. Normal [facility] POINT OF CARE GLUCOSEon Glucose [Mass/Vol] 112 mg/dL Critically high 74-106 [facility] Comment on above: Performed By: #### P OCGLUC #### [facility] [address] [address] [address] Blanca Grimm Lab Reportson 12-31-2021 Lab Reports [id number]#1.00CD:127 Normal [facility] Covid-19 PCR (CVDTBH)on SARS-CoV-2 (COVID-19) RNA ARVIND+probe Ql (Unsp spec) Not detected Normal NOT DETECTED [facility] Comment on above: Result Comment: This test is not yet approved or cleared by the [place] FDA. When there are no FDA-approved or cleared tests available, and other criteria are met, FDA can make tests available under an emergency access mechanism called an Emergency Use Authorization (EUA). The EUA for this test is supported by the Product Support Specialist of Health and Human Service's (HHS's) declaration [...] By: #### A MY, CMP, LIPA #### [facility] [address] [place] [address] Dr. Blanca Grimm Pre-Certification Formon Pre-Certification Form [id number]#1.00CD:127 Normal [facility] RAD - MRI Reporton 2 RAD - MRI Report [id number]#1.00CD:127 Normal [facility] Pre-Certification Formon Pre-Certification Form [id number]#1.00CD:127 Normal [facility] MRI ABDOMEN WO CONon 022 MRI [...] by: JOYCE PITT Date: 2021-12-17 07:53 Normal [facility] Consent for Procedure/Surger yon 12-05-2021 Consent for Procedure/Surgery [id number]#1.00CD:127 Normal [facility] NM HEPATOBILIARY SCAN W EFon 12-05-2021 [...] by: JOYCE PITT Date: 2021-12-05 09:11 Normal [facility] RAD - Ultrasound Reporton RAD - Ultrasound Report [id number]#1.00CD:127 Normal [facility] Ambulatory Visit Summaryon 0 12-04-2021 Ambulatory [...] Cholelithiasis, No, No, Dilated cbd, acquired Normal [facility] US SINGLE QUAD RT UPPERon US [...] JOYCE INGRAM Date: 2021-11-26 10:28 Normal [facility] AMMONIAon 11-13-2021 Ammonia (P) [Moles/Vol] 16 umol/L Normal 11-32 [facility] Comment on above: Performed By: #### A MM #### [facility] [address] [address] [address] Blanca Grimm AMYLASEon 11-13-2021 Amylase [Catalytic activity/Vol] 42 U/L Normal 25-115 [facility] Comment on above: Performed By: #### A MY, CMP, LIPA #### [facility] [address] [place] [address] Dr. Blanca Grimm CBC AUTO DIFFon 11-13-2021 BASO # 0.1 103/ul Normal 0.0-0.1 [facility] Comment on above: Performed By: #### A MY, CMP, LIPA #### [facility] [address] [place] [address] Dr. Blanca Grimm Basophils/100 WBC (Bld) 0.6 % Normal 0.2-2.0 [facility] Comment on above: Performed By: #### A MY, CMP, LIPA #### [facility] [address] [place] [address] Dr. Blanca Grimm EO # 0.2 103/ul Normal 0.0-0.7 [facility] Comment on above: Performed By: #### A MY, CMP, LIPA #### [facility] [address] [place] [address] Dr. Blanca Grimm Eosinophils/100 WBC (Bld) 2.3 % Normal 0.9-7.0 [facility] Comment on above: Performed By: #### A MY, CMP, LIPA #### [facility] [address] [place] [address] Dr. Blanca Grimm Erythrocyte distribution width (RBC) [Ratio] 13.9 % Normal 11.0-15.0 [facility] Comment on above: Performed By: #### A MY, CMP, LIPA #### [facility] [address] [place] [address] Dr. Blanca Grimm Hematocrit (Bld) [Volume fraction] 37.3 % Normal 36.0-48.0 [facility] Comment on above: Performed By: #### A MY, CMP, LIPA #### [facility] [address] [place] [address] Dr. Blanca Grimm Hemoglobin (Bld) [Mass/Vol] 12.1 g/dL Normal 12.0-16.0 [facility] Comment on above: Performed By: #### A MY, CMP, LIPA #### [facility] [address] [address] [address] Blanca Grimm IG # 0.03 10e3/ul Normal 0.00-0.03 [facility] Comment on above: Performed By: #### A MY, CMP, LIPA #### [facility] [address] [address] [address] Blanca Grimm IG % 0.4 % Normal 0.0-0.5 [facility] Comment on above: Performed By: #### A MY, CMP, LIPA #### [facility] [address] [place] [address] Dr. Blanca Grimm LYMPH # 2.5 103/ul Normal 1.2-3.8 [facility] Comment on above: Performed By: #### A MY, CMP, LIPA #### [facility] [address] [place] [address] Dr. Blanca Grimm Lymphocytes/100 WBC (Bld) 29.0 % Normal 20.5-60.0 [facility] Comment on above: Performed By: #### A MY, CMP, LIPA #### [facility] [address] [place] [address] Dr. Blanca Grimm MANUAL DIFF REQ NO Normal [facility] Comment on above: Performed By: #### A MY, CMP, LIPA #### [facility] [address] [place] [address] Dr. Blanca Grimm MCH (RBC) [Entitic mass] 28.1 pg Normal 26.7-34.0 [facility] Comment on above: Performed By: #### A MY, CMP, LIPA #### [facility] [address] [place] [address] Dr. Blanca Grimm MCHC (RBC) [Mass/Vol] 32.4 g/dL Normal 29.9-35.2 [facility] Comment on above: Performed By: #### A MY, CMP, LIPA #### [facility] [address] [place] [address] Dr. Blanca Grimm MCV (RBC) [Entitic vol] 86.7 fL Normal 81.0-99.0 [facility] Comment on above: Performed By: #### A MY, CMP, LIPA #### [facility] [address] [place] [address] Dr. Blanca Grimm MONO # 0.8 103/ul Normal 0.3-0.8 [facility] Comment on above: Performed By: #### A MY, CMP, LIPA #### [facility] [address] [place] [address] Dr. Blanca Grimm Monocytes/100 WBC (Bld) 9.5 % Normal 1.7-12.0 [facility] Comment on above: Performed By: #### A MY, CMP, LIPA #### [facility] [address] [place] [address] Dr. Blanca Grimm NEUT # 5.0 103/ul Normal 1.4-6.5 [facility] Comment on above: Performed By: #### A MY, CMP, LIPA #### [facility] [address] [place] [address] Dr. Blanca Grimm Neutrophils/100 WBC (Bld) 58.2 % Normal 43.0-75.0 [facility] Comment on above: Performed By: #### A MY, CMP, LIPA #### [facility] [address] [place] [address] Dr. Blanca Grimm Platelet mean volume (Bld) [Entitic vol] 9.8 fL Normal 9.5-13.5 [facility] Comment on above: Performed By: #### A MY, CMP, LIPA #### [facility] [address] [place] [address] Dr. Blanca Grimm PLT 273 103/ul Normal 150-450 [facility] Comment on above: Performed By: #### A MY, CMP, LIPA #### [facility] [address] [place] [address] Dr. Blanca Grimm RBC 4.30 106/ul Normal 4.20-5.40 [facility] Comment on above: Performed By: #### A MY, CMP, LIPA #### [facility] [address] [place] [address] Dr. Blanca Grimm WBC 8.5 103/ul Normal 4.0-11.0 [facility] Comment on above: Performed By: #### A MY, CMP, LIPA #### [facility] [address] [place] [address] Dr. Blanca Grimm LIPASEon 11-13-2021 Lipase [Catalytic activity/Vol] 108.0 U/L Normal 73.0-393.0 [facility] Comment on above: Performed By: #### A MY, CMP, LIPA #### [facility] [address] [address] [address] Blanca Grimm PROF 14(COMP METB)on 022 Albumin [Mass/Vol] 3.9 g/dL Normal 3.4-5.0 [facility] Comment on above: Performed By: #### A MY, CMP, LIPA #### [facility] [address] [place] [address] Dr. Blanca Grimm Albumin/Globulin [Mass ratio] 1.1 {ratio} Normal [facility] Comment on above: Performed By: #### A MY, CMP, LIPA #### [facility] [address] [place] [address] Dr. Blanca Grimm ALP [Catalytic activity/Vol] 94 U/L Normal 46-116 [facility] Comment on above: Performed By: #### A MY, CMP, LIPA #### [facility] [address] [place] [address] Dr. Blanca Grimm ALT [Catalytic activity/Vol] 28 U/L Normal 14-59 [facility] Comment on above: Performed By: #### A MY, CMP, LIPA #### [facility] [address] [place] [address] Dr. Blanca Grimm Anion gap [Moles/Vol] 14.8 mmol/L Normal [facility] Comment on above: Performed By: #### A MY, CMP, LIPA #### [facility] [address] [place] [address] Dr. Blanca Grimm AST [Catalytic activity/Vol] 22 U/L Normal 15-37 [facility] Comment on above: Performed By: #### A MY, CMP, LIPA #### [facility] [address] [address] [address] Blanca Grimm Bilirubin [Mass/Vol] 0.3 mg/dL Normal 0.2-1.0 [facility] Comment on above: Performed By: #### A MY, CMP, LIPA #### [facility] [address] [place] [address] Dr. Blanca Grimm Calcium [Mass/Vol] 9.3 mg/dL Normal 8.5-10.1 [facility] Comment on above: Performed By: #### A MY, CMP, LIPA #### [facility] [address] [place] [address] Dr. Blanca Grimm Chloride [Moles/Vol] 103 mmol/L Normal 98-107 [facility] Comment on above: Performed By: #### A MY, CMP, LIPA #### [facility] [address] [place] [address] Dr. Blanca Grimm CO2 [Moles/Vol] 24.4 mmol/L Normal 21.0-32.0 [facility] Comment on above: Performed By: #### A MY, CMP, LIPA #### [facility] [address] [place] [address] Dr. Blanca Grimm Creatinine [Mass/Vol] 0.94 mg/dL Normal 0.55-1.02 [facility] Comment on above: Performed By: #### A MY, CMP, LIPA #### [facility] [address] [place] [address] Dr. Blanca Grimm EGFR-AF TAIWANESE >60 Normal >=60 [facility] Comment on above: Performed By: #### A MY, CMP, LIPA #### [facility] [address] [place] [address] Dr. Blanca Grimm EGFR-NON AF TAIWANESE =60 Normal >=60 [facility] Comment on above: Performed By: #### A MY, CMP, LIPA #### [facility] [address] [place] [address] Dr. Blanca Grimm Globulin (S) [Mass/Vol] 3.7 g/dL Normal [facility] Comment on above: Performed By: #### A MY, CMP, LIPA #### [facility] [address] [address] [address] Blanca Grimm Glucose [Mass/Vol] 101 mg/dL Normal 74-106 [facility] Comment on above: Performed By: #### A MY CMP, LIPA #### [facility] [address] [address] [address] Blanca Grimm Potassium [Moles/Vol] 4.2 mmol/L Normal 3.5-5.1 [facility] Comment on above: Performed By: #### A MY, CMP, LIPA #### [facility] [address] [place] [address] Dr. Blanca Grimm Protein [Mass/Vol] 7.6 g/dL Normal 6.4-8.2 [facility] Comment on above: Performed By: #### A MY CMP, LIPA #### [facility] [address] [place] [address] Dr. Blanca Grimm Sodium [Moles/Vol] 138 mmol/L Normal 136-145 [facility] Comment on above: Performed By: #### A MY, CMP, LIPA #### [facility] [address] [place] [address] Dr. Blanca Grimm Urea nitrogen [Mass/Vol] 13.0 mg/dL Normal 7.0-18.0 [facility] Comment on above: Performed By: #### A MY, CMP, LIPA #### [facility] [address] [place] [address] Dr. Blanca Grimm Urea nitrogen/Creatinin e [Mass ratio] 13.8 mg/mg Normal [facility] Comment on above: Performed By: #### A MY, CMP, LIPA #### [facility] [address] [place] [address] Dr. Blanca Grimm XR LSPINE MIN 4 [...] JOYCE PITT Date: 2021-07-22 18:17 Normal [facility] CT Cervical Spine WOon 11-22 CT Cervical Spine WO [facility] Name: KIM SANTAMARIA [address] [place] [address] Phys: [place] [address] : 1955 Age: 61 Acct: [id number] Loc: ER MRN/Unit No.: [id number] Status: REG ER Exam Date: 11/22/16 Accession Number: [id number] Exam: [id number] CT/CT Cervical Spine WO CT Cervical Spine [...] Date/Time: 11/22/16, 1252 Dictated Date/Time: 11/22/16 1252 Inspector Final [employer]or Line: GARCIA WYATT Printed Date/Time: [ rep prt dt last], [ rep prt tm last] This report was electronically signed in an other vendor system Normal [facility] CT Head WOon 11-22-2016 CT Head WO [facility] EM [facility] Name: KIM SANTAMARIA [facility] Phys: [place] [address] : 1955 Age: 61 Acct: [id number] Loc: ER MRN/Unit No.: [id number] Status: REG ER Exam Date: 11/22/16 Accession Number: [id number] Exam: [id number] CT/CT Head WO CT Head WO EXAM: [...] Date/Time: 11/22/16, 1252 Dictated Date/Time: 11/22/16 1245 Inspector Final [employer]or Line: GARCIA WYATT Printed Date/Time: [ rep prt dt last], [ rep prt tm last] This report was electronically signed in an other vendor system Normal [facility] CT Thoracic Spine WOon 11-22 CT Thoracic Spine WO [facility] Name: KIM SANTAMARIA [address] [place] [address] Phys: [place] [address] : 1955 Age: 61 Acct: [id number] Loc: ER MRN/Unit No.: [id number] Status: DEP ER Exam Date: 11/22/16 Accession Number: [id number] Exam: CT/CT Thoracic Spine WO CT Thoracic [...] Date/Time: 11/22/16, 1455 Dictated Date/Time: 11/22/16 1258 Inspector Final [employer]or Line: GARCIA WYATT Printed Date/Time: [ rep prt dt last], [ rep prt tm last] This report was electronically signed in an other vendor system Normal [facility] Vital Signs Date Time Vital Sign Value Performing Clinician Maisha york 06-25-2022 13:32-0400 Blood Pressure Location Amberly JOSE [facility] [place] 06-25-2022 13:32-0400 Diastolic blood pressure 92 mm[Hg] Amberly JOSE [facility] [place] 06-25-2022 13:32-0400 Heart rate 72 /min Amberly NILL [facility] [place] 06-25-2022 13:32-0400 Respiratory rate 16 /min Amberly NILL [facility] [place] 06-25-2022 13:32-0400 Systolic blood pressure 136 mm[Hg] Amberly NILL [facility] [place] 05-28-2022 13:09-0500 Blood Pressure Location Amberly NILL [facility] [place] 05-28-2022 13:09-0500 Diastolic blood pressure 94 mm[Hg] Amberly NILL [facility] [place] 05-28-2022 13:09-0500 Heart rate 74 /min Amberly NILL [facility] [place] 05-28-2022 13:09-0500 Respiratory rate 16 /min Amberly NILL [facility] [place] 05-28-2022 13:09-0500 Systolic blood pressure 148 mm[Hg] Amberly NILL [facility] [place] 12-04-2021 14:16-0400 Blood Pressure Location Amberly NILL [facility] [place] 12-04-2021 14:16-0400 Diastolic blood pressure 90 mm[Hg] Amberly NILL [facility] [place] 12-04-2021 14:16-0400 Heart rate 70 /min Amberly NILL [facility] [place] 12-04-2021 14:16-0400 Respiratory rate 16 /min Amberly NILL [facility] [place] 12-04-2021 14:16-0400 Systolic blood pressure 128 mm[Hg] Amberly NILL [facility] [place] Encounters Encounter Date Encounter Type Care Provider Facility Start: 06-25-2022 End: 06-26-2022 ambulatory [facility] Start: 06-25-2022 End: 06-25-2022 Patient encounter procedure Amberly R CASA [facility] [place] Start: 05-28-2022 End: 05-29-2022 ambulatory [facility] Start: 05-28-2022 End: 05-28-2022 Patient encounter procedure Amberly JOSE [facility] [place] Start: 05-02-2022 End: 05-03-[address] MARCO OTERO Facility:[facility] Start: 04-23-2022 End: 04-24-[address] MARCO OTERO Facility:[facility] Start: 04-18-2022 End: 04-19-[address] MARCO OTERO Facility:[facility] Start: 01-30-2022 End: 01-31-[address] MARCO OTERO Facility:[facility] Start: 01-22-2022 End: 01-23-[address] MARCO OTERO Facility:[facility] Start: 01-21-2022 End: 01-22-2022 ambulatory Amberly JOSE [facility] Start: 01-21-2022 End: 01-21-2022 Patient encounter procedure Amberly JOSE [facility] [place] Start: 01-02-2022 Encounter for preprocedural laboratory examination DR AMBERLY JOSE [facility] Start: 01-01-2022 End: 01-02-[address] AMBERLY [...] encounter procedure Amberly JOSE [facility] [place] Start: 12-03-2021 ambulatory Amberly JOSE Facility :[facility] Start: 11-28-2021 ambulatory Amberly JOSE [facility] Start: 11-26-2021 End: 11-27-[address] MARCO OTEOR Facility:[facility] Start: 11-13-2021 End: 11-14-[address] MARCO OTERO Facility:[facility] Start: 07-22-2021 End: 07-23-[address] MARCO OTERO Facility:[facility] Start: 11-22-2016 End: 11-22-2016 Emergency department patient visit QUINTIN WHATLEY Facility:[facility] Procedures Date Procedure Procedure Detail Performing Clinician Start: 01-01-2022 Colonoscopy Amberly JALLOH Start: 01-01-2022 Esophagogastroduodenoscopy Amberly JOSE Start: 03-30-2005 Abdominal hysterectomy Amberly JOSE Bilateral oophorectomy Julio JOSE Immunizations Immunization Date Immunization Notes Care Provider Fa cility 04-08-2021 SARS-CoV-2 (COVID-19 ) mRNA BNT-162b2 vax Amberly NILL [facility] [place] 06-21-2020 SARS-CoV-2 (COVID-19 ) mRNA BNT-162o3 vax Amberly CUELLARL [facility] [place] 05-24-2020 SARS-CoV-2 (COVID-19 ) mRNA BNT-784e4 vax Amberly CUELLARL [facility] NEGATED: Highlighted row has not occurred!05-28-2022 influenza virus vaccine, unspecified formulation Amberly JOSE [facility] [place] Payers Date Payer Category Payer Unknown [id number] 1959 Unknown [id number] 1955 Unknown [id number] 2.16.84 0.1.515922.3.579.2.593 1955 Unknown [id number] 2.16.84 0.1.235238.3.579.2.593 1955 Unknown [id number] 2.16.84 0.1.821840.3.579.2.593 1955 Unknown [id number] 2.16.84 0.1.228438.3.579.2.593 1955 Unknown [id number] 2.16.84 0.1.230179.3.579.2.593 1955 Unknown [id number] 2.16.84 0.1.285758.3.579.2.593 1955 Unknown [id number] 2.16.84 0.1.154791.3.579.2.593 1955 Unknown [id number] 2.16.84 0.1.966396.3.579.2.593 1955 Unknown [id number] 2.16.84 0.1.295145.3.579.2.593 1955 Unknown [id number] 2.16.84 0.1.516972.3.579.2.593 1955 Unknown [id number] 2.16.84 0.1.387103.3.579.2.593 1955 Unknown [id number] 2.16.84 0.1.485934.3.579.2.593 1955 Unknown [id number] 2.16.8 40.1.939151.3.579.2.727 1955 Unknown [id number] 2.16.8 40.1.504811.3.579.2.727 1955 Unknown [id number] 2.16.8 40.1.234257.3.579.2.727 1955 Unknown [id number] 2.16.8 40.1.180739.3.579.2.727 1955 Unknown [id number] 2.16.8 40.1.287363.3.579.2.727 1955 Unknown [id number] 2.16.8 40.1.628424.3.579.2.727 1955 Unknown [id number] 2.16.8 40.1.591896.3.579.2.727 Unknown [id number] Social History Date Type Detail Facility Start: 12-04-2021 End: 06-25-2022 Tobacco smoking status Ex-smoker (finding) [facility] [place] Tobacco smoking status Never [facility] [place] Sex Assigned At Female [facility] [place] Functional Status Date Assessment Result Facility 06-25-2022 Functional Status N/A [facility] 05-28-2022 Functional Status N/A [facility] 12-04-2021 Functional Status N/A [facility] [place] Clinical Note 05-29-2022 Note Date & Type [...] BID, # 90 tab(s), Refills(s) 3, Pharmacy: [facility], 167.6, cm, 05/28/22 13:15:00 EST, Height/Length Dosing, 86.5, kg, 05/28/22 13:15:00 EST, Weight Dosing 2. Hiatal hernia with GERD, (K44.9: Diaphragmatic hernia without obstruction or gangrene)Diaphragmatic hernia without obstruction or gangrene see # 1 Ordered: pantoprazole, 40 mg = 1 tab(s), Oral, BID, # 90 tab(s), Refills(s) 3, Pharmacy: [id number], 167.6, cm, 05/28/22 13:15:00 EST, Height/Length Dosing, 86.5, kg, 05/28/22 13:15:00 EST, Weight Dosing 3. BMI 30.0-30.9,adult (Z68.30: Body mass index [BMI] 30.0-30.9, adult) recommend low fat diet and exercise Follow-up No qualifying data available Problem List/Past Medical History (more content not included)... [facility] Comment on above: Result Comment: Elec [...] good condition. CC: Patient's family physician [facility] Clinical Note 12-04-2021 Note Date [...] stools GERD (gastroesop (more content not included)... [facility] Comment on above: Result Comment: Elec tronically Signed By: CASA ANAYA, Amberly Dent\Date and Time Signed: 12/04/21 21:16 EDT Evaluation + Plan note 12-04-2021 Radiology Note Date & Type Note Facility 12-04-2021 Evaluation + Plan note Future Scheduled TestsMRI Cholangiogram Pancreatography (mrcp) 12/04/21 [facility] [place] Hospital course Narrative Note Date & Type Note Facility Hospital course Narrative No data available for this section [facility] [place] [facility] Discharge instructions Note Date & Type Note Facility Hospital Discharge instructions No data available for this section [facility] Progress note Note Date & Type Note Facility Progress note No data available for this section [facility] [place] Summary Purpose Family History No Family History Records FoundNo Family History Records FoundNo Family History Records Found Advance Directives No Advanced Directives Records FoundNo Advanced Directives Records FoundNo Advanced Directives Records Found Additional Source Comments INFORMATION SOURCE (unrecogn ized section and content) DATE CREATED AUTHOR [facility] DATE CREATED AUTHOR AUTHOR'S ORGANIZ ATION 05/05/2022 [facility] DATE CREATED AUTHOR AUTHOR'S ORGANIZ ATION 06/30/2022 [facility] Care Team (unrecognized sect ion and content) Personnel Name: Marco Otero MD Address: [address] [place] [address] Personnel Name: Marco Otero MD Address: Address: [address] [place] [address] Personnel Name: Marco Otero MD Address: Address: [address] [place] [address] Personnel Name: Marco Otero MD Address: Address: [address] [place] [address] FOR RECORDS PERTAINING TO PATIENTS WHO ARE [...] BE BASED ON THE PRIMARY CLINICAL RECORDS. [facility] [employer] [facility]. provides no warranty or guarantee of the accuracy or completeness of information in this document.
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
[2024-04-13] MEDS: ACETAMINOPHEN 325 MG TABLET 650 MG PO (12:59)
--- NOTE | 2024-04-13 15:00 | ECG_ITS ---
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
== END 2024-04-13 14:05 | disposition home or self-care (01) ==
PROVIDERS: Emergency Provider Emergency Medicine; PCP Family Medicine
DX: Z04.1 Encounter for examination and observation following transport accident (principal); R07.89 Other chest pain
CPT/HCPCS: 71046; 93005; 99284

== ENCOUNTER 2024-05-04 08:21 | Outpatient (OUT) | payer MEDICARE, SELFPAY ==
--- OUTSIDE RECORDS SUMMARY | 2024-05-04 08:44 | XMS_ITS | CCD ---
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; Translations: [OTH DETENTION CURRENT DRUG THERAPY] Onset: 01-06-2022 Episodic Other aftercare (1 source) 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; Translations: [DETENTION USE ORAL HYPOGLYCEMIC DX] Onset: 01-06-2022 Episodic [...] Pure hypercholesterolemia Right upper quadrant pain Normal [facility] General Surgery Office/Clini c Noteon 06-25-2022 [...] mRNA BNT-162b2 vax 05/24/2020 Recorded Normal [facility] Comment on above: Result Comment: Elec tronically [...] Pure hypercholesterolemia Right upper quadrant pain Normal [facility] Physician Referralon 023 Physician Referral [id number] Normal [facility] NM HEPATOBILIARY SCAN W EFon 05-05-2022 [...] Negative. IMPRESSION: Normal hepatobiliary scan Normal [facility] US SINGLE QUAD RT UPPERon US [...] by: JOYCE INGRAM Date: 2022-04-23 10:51 Normal [facility] H PYLORI ANTIBODY IGGon 03-31 H. PYLORI IGG ABS 0.21 Index Value Normal 0.00-0.79 [facility] Comment on above: Result Comment: Nega tive <0.80 Equivocal 0.80 - 0.89 Positive >0.89 Performed By: #### H PYLLC #### [facility] [address] [place] [address] Dr. Blanca Grimm AMYLASEon 04-18-2022 Amylase [Catalytic activity/Vol] 49 U/L Normal 25-115 [facility] Comment on above: Performed By: #### A MY, CMP, LIPA #### [facility] [address] [address] [address] Blanca Grimm CBC AUTO DIFFon 04-18-2022 BASO # 0.1 103/ul Normal 0.0-0.1 [facility] Comment on above: Performed By: #### A MY, CMP, LIPA #### [facility] [address] [address] [address] Blanca Grimm Basophils/100 WBC (Bld) 0.7 % Normal 0.2-2.0 [facility] Comment on above: Performed By: #### A MY, CMP, LIPA #### [facility] [address] [address] [address] Blanca Grimm EO # 0.3 103/ul Normal 0.0-0.7 [facility] Comment on above: Performed By: #### A MY, CMP, LIPA #### [facility] [address] [place] [address] Dr. Blanca Grimm Eosinophils/100 WBC (Bld) 3.5 % Normal 0.9-7.0 [facility] Comment on above: Performed By: #### A MY, CMP, LIPA #### [facility] [address] [place] [address] Dr. Blanca Grimm Erythrocyte distribution width (RBC) [Ratio] 13.6 % Normal 11.0-15.0 [facility] Comment on above: Performed By: #### A MY, CMP, LIPA #### [facility] [address] [place] [address] Dr. Blanca Grimm Hematocrit (Bld) [Volume fraction] 34.8 % Critically low 36.0-48.0 [facility] Comment on above: Performed By: #### A MY, CMP, LIPA #### [facility] [address] [place] [address] Dr. Blanca Grimm Hemoglobin (Bld) [Mass/Vol] 12.6 g/dL Normal 12.0-16.0 [facility] Comment on above: Performed By: #### A MY, CMP, LIPA #### [facility] [address] [place] [address] Dr. Blanca Grimm IG # 0.04 10e3/ul Critically high 0.00-0.03 [facility] Comment on above: Performed By: #### A MY, CMP, LIPA #### [facility] [address] [place] [address] Dr. Blanca Grimm IG % 0.5 % Normal 0.0-0.5 [facility] Comment on above: Performed By: #### A MY, CMP, LIPA #### [facility] [address] [place] [address] Dr. Blanca Grimm LYMPH # 2.6 103/ul Normal 1.2-3.8 [facility] Comment on above: Performed By: #### A MY, CMP, LIPA #### [facility] [address] [place] [address] Dr. Blanca Grimm Lymphocytes/100 WBC (Bld) 34.2 % Normal 20.5-60.0 [facility] Comment on above: Performed By: #### A MY, CMP, LIPA #### [facility] [address] [place] [address] Dr. Blanca Grimm MANUAL DIFF REQ NO Normal [facility] Comment on above: Performed By: #### A MY, CMP, LIPA #### [facility] [address] [place] [address] Dr. Blanca Grimm MCH (RBC) [Entitic mass] 28.1 pg Normal 26.7-34.0 [facility] Comment on above: Performed By: #### A MY, CMP, LIPA #### [facility] [address] [place] [address] Dr. Blanca Grimm MCHC (RBC) [Mass/Vol] 36.2 g/dL Critically high 29.9-35.2 [facility] Comment on above: Performed By: #### A MY, CMP, LIPA #### [facility] [address] [place] [address] Dr. Blanca Grimm MCV (RBC) [Entitic vol] 77.5 fL Critically low 81.0-99.0 [facility] Comment on above: Performed By: #### A MY, CMP, LIPA #### [facility] [address] [address] [address] Blanca Grimm MONO # 0.7 103/ul Normal 0.3-0.8 [facility] Comment on above: Performed By: #### A MY, CMP, LIPA #### [facility] [address] [address] [address] Blanca Grimm Monocytes/100 WBC (Bld) 9.1 % Normal 1.7-12.0 [facility] Comment on above: Performed By: #### A MY, CMP, LIPA #### [facility] [address] [address] [address] Blanca Grimm NEUT # 3.9 103/ul Normal 1.4-6.5 [facility] Comment on above: Performed By: #### A MY, CMP, LIPA #### [facility] [address] [place] [address] Dr. Blanca Grimm Neutrophils/100 WBC (Bld) 52.0 % Normal 43.0-75.0 [facility] Comment on above: Performed By: #### A MY, CMP, LIPA #### [facility] [address] [place] [address] Dr. Blanca Grimm Platelet mean volume (Bld) [Entitic vol] 9.3 fL Critically low 9.5-13.5 [facility] Comment on above: Performed By: #### A MY, CMP, LIPA #### [facility] [address] [place] [address] Dr. Blanca Grimm PLT 290 103/ul Normal 150-450 [facility] Comment on above: Performed By: #### A MY, CMP, LIPA #### [facility] [address] [place] [address] Dr. Blanca Grimm RBC 4.49 106/ul Normal 4.20-5.40 [facility] Comment on above: Performed By: #### A MY, CMP, LIPA #### [facility] [address] [place] [address] Dr. Blanca Grimm WBC 7.5 103/ul Normal 4.0-11.0 [facility] Comment on above: Performed By: #### A MY, CMP, LIPA #### [facility] [address] [address] [address] Blanca Grimm FREE THYROXINE INDEX T7on FTI 2.57 Normal 1.30-4.50 [facility] Comment on above: Performed By: #### A MY, CMP, LIPA #### [facility] [address] [address] [address] Blanca Grimm T3U 33.0 % Normal 30.0-39.0 [facility] Comment on above: Performed By: #### A MY, CMP, LIPA #### [facility] [address] [place] [address] Dr. Blanca Grimm T4 [Mass/Vol] 7.80 ug/dL Normal 4.80-13.90 [facility] Comment on above: Performed By: #### A MY, CMP, LIPA #### [facility] [address] [place] [address] Dr. Blanca Grimm GLYCOHEMOGLOBIN A1Con 2022 ADA RECOMMENDATION SEE BELOW Normal [facility] Comment on above: Result Comment: ADA RECOMMENDED LIMIT 4.0 - 6.0 ADA THERAPEUTIC TARGET < 7.0 ACTION SUGGESTED > 7.0 Performed By: #### A MY, CMP, LIPA #### [facility] [address] [place] [address] Dr. Blanca Grimm Glucose [Mass/Vol] 128 mg/dL Normal [facility] Comment on above: Performed By: #### A MY, CMP, LIPA #### [facility] [address] [place] [address] Dr. Blanca Grimm HbA1c (Bld) [Mass fraction] 6.1 % Normal 4.5-6.2 [facility] Comment on above: Performed By: #### A MY, CMP, LIPA #### [facility] [address] [place] [address] Dr. Blanca Grimm LIPASEon 04-18-2022 Lipase [Catalytic activity/Vol] 125.0 U/L Normal 73.0-393.0 [facility] Comment on above: Performed By: #### A MY, CMP, LIPA #### [facility] [address] [address] [address] Blanca Grimm PROF 14(COMP METB)on 023 Albumin [Mass/Vol] 4.0 g/dL Normal 3.4-5.0 [facility] Comment on above: Performed By: #### A MY, CMP, LIPA #### [facility] [address] [address] [address] Blanca Grimm Albumin/Globulin [Mass ratio] 1.1 {ratio} Normal [facility] Comment on above: Performed By: #### A MY, CMP, LIPA #### [facility] [address] [place] [address] Dr. Blanca Grimm ALP [Catalytic activity/Vol] 78 U/L Normal 46-116 [facility] Comment on above: Performed By: #### A MY, CMP, LIPA #### [facility] [address] [address] [address] Blanca Grimm ALT [Catalytic activity/Vol] 31 U/L Normal 14-59 [facility] Comment on above: Performed By: #### A MY, CMP, LIPA #### [facility] [address] [place] [address] Dr. Blanca Grimm Anion gap [Moles/Vol] 11.7 mmol/L Normal [facility] Comment on above: Performed By: #### A MY, CMP, LIPA #### [facility] [address] [address] [address] Blanca Grimm AST [Catalytic activity/Vol] 18 U/L Normal 15-37 [facility] Comment on above: Performed By: #### A MY, CMP, LIPA #### [facility] [address] [place] [address] Dr. Blanca Grimm Bilirubin [Mass/Vol] 0.3 mg/dL Normal 0.2-1.0 [facility] Comment on above: Performed By: #### A MY, CMP, LIPA #### [facility] [address] [place] [address] Dr. Blanca Grimm Calcium [Mass/Vol] 9.8 mg/dL Normal 8.5-10.1 [facility] Comment on above: Performed By: #### A MY, CMP, LIPA #### [facility] [address] [address] [address] Blanca Grimm Chloride [Moles/Vol] 103 mmol/L Normal 98-107 [facility] Comment on above: Performed By: #### A MY, CMP, LIPA #### [facility] [address] [address] [address] Blanca Grimm CO2 [Moles/Vol] 29.5 mmol/L Normal 21.0-32.0 [facility] Comment on above: Performed By: #### A MY, CMP, LIPA #### [facility] [address] [place] [address] Dr. Blanca Grimm Creatinine [Mass/Vol] 0.69 mg/dL Normal 0.55-1.02 [facility] Comment on above: Performed By: #### A MY, CMP, LIPA #### [facility] [address] [place] [address] Dr. Blanca Grimm EGFR-AF MALTESE >60 Normal >=60 [facility] Comment on above: Performed By: #### A MY, CMP, LIPA #### [facility] [address] [place] [address] Dr. Blanca Grimm EGFR-NON AF MALTESE >60 Normal >=60 [facility] Comment on above: Performed By: #### A MY, CMP, LIPA #### [facility] [address] [place] [address] Dr. Blanca Grimm Globulin (S) [Mass/Vol] 3.6 g/dL Normal [facility] Comment on above: Performed By: #### A MY, CMP, LIPA #### [facility] [address] [place] [address] Dr. Blanca Grimm Glucose [Mass/Vol] 95 mg/dL Normal 74-106 [facility] Comment on above: Performed By: #### A MY, CMP, LIPA #### [facility] [address] [address] [address] Blanca Grimm Potassium [Moles/Vol] 4.2 mmol/L Normal 3.5-5.1 [facility] Comment on above: Performed By: #### A MY, CMP, LIPA #### [facility] [address] [address] [address] Blanca Grimm Protein [Mass/Vol] 7.6 g/dL Normal 6.4-8.2 [facility] Comment on above: Performed By: #### A MY, CMP, LIPA #### [facility] [address] [address] [address] Blanca Grimm Sodium [Moles/Vol] 140 mmol/L Normal 136-145 [facility] Comment on above: Performed By: #### A MY, CMP, LIPA #### [facility] [address] [place] [address] Dr. Blanca Grimm Urea nitrogen [Mass/Vol] 10.0 mg/dL Normal 7.0-18.0 [facility] Comment on above: Performed By: #### A MY, CMP, LIPA #### [facility] [address] [place] [address] Dr. Blanca Grimm Urea nitrogen/Creatinin e [Mass ratio] 14.5 mg/mg Normal [facility] Comment on above: Performed By: #### A MY, CMP, LIPA #### [facility] [address] [place] [address] Dr. Blanca Grimm TSHon 04-18-2022 TSH 3.705 uIU/mL Normal 0.358-3.740 [facility] Comment on above: Performed By: #### A MY, CMP, LIPA #### [facility] [address] [place] [address] Dr. Blanca Grimm XR ABD FLAT UP_PA [...] YOHANNES QUINN Date: 2022-04-18 13:17 Normal [facility] General Surgery Office/Clini c Noteon 02-10-2022 [...] Renal failure syndrome: Brother. Stroke: Mother. Normal [facility] Comment on above: Result Comment: Elec tronically Signed By: CASA ANAYA, Amberly Dent\Date and Time Signed: 02/10/22 16:26 EST MG MAMM SCREEN 3D KARINE CADon 01-30-2022 MG MAMM SCREEN 3D KARINE CAD Patient: KIM SANTAMARIA Exam Date: 01/30/2022 : 1955 Gender:F Ordering : DR MARCO OTERO . Admission #: [id number] Family : Order #: [id number] CLICK HERE TO VIEW EXAM RADIOLOGY REPORT [...] breast cancer at age 58. LOCATION: [facility] BREAST COMPOSITION: Heterogeneously dense,which may obscure [...] MD on 01/30/2022 at 13:43 Normal [facility] INSULINon 01-23-2022 Insulin 11.7 uIU/mL Normal 2.6-24.9 [facility] Comment on above: Performed By: #### A MY, CMP, LIPA #### [facility] [address] [address] [address] Blanca Grimm CBC AUTO DIFFon 01-22-2022 BASO # 0.1 103/ul Normal 0.0-0.1 [facility] Comment on above: Performed By: #### A MY, CMP, LIPA #### [facility] [address] [address] [address] Blanca Grimm Basophils/100 WBC (Bld) 0.8 % Normal 0.2-2.0 [facility] Comment on above: Performed By: #### A MY, CMP, LIPA #### [facility] [address] [place] [address] Dr. Blanca Grimm EO # 0.2 103/ul Normal 0.0-0.7 [facility] Comment on above: Performed By: #### A MY, CMP, LIPA #### [facility] [address] [place] [address] Dr. Blanca Grimm Eosinophils/100 WBC (Bld) 3.5 % Normal 0.9-7.0 [facility] Comment on above: Performed By: #### A MY, CMP, LIPA #### [facility] [address] [place] [address] Dr. Blanca Grimm Erythrocyte distribution width (RBC) [Ratio] 14.3 % Normal 11.0-15.0 [facility] Comment on above: Performed By: #### A MY, CMP, LIPA #### [facility] [address] [place] [address] Dr. Blanca Grimm Hematocrit (Bld) [Volume fraction] 39.7 % Normal 36.0-48.0 [facility] Comment on above: Performed By: #### A MY, CMP, LIPA #### [facility] [address] [place] [address] Dr. Blanca Grimm Hemoglobin (Bld) [Mass/Vol] 12.9 g/dL Normal 12.0-16.0 [facility] Comment on above: Performed By: #### A MY, CMP, LIPA #### [facility] [address] [place] [address] Dr. Blanca Grimm IG # 0.05 10e3/ul Critically high 0.00-0.03 [facility] Comment on above: Performed By: #### A MY, CMP, LIPA #### [facility] [address] [place] [address] Dr. Blanca Grimm IG % 0.8 % Critically high 0.0-0.5 [facility] Comment on above: Performed By: #### A MY, CMP, LIPA #### [facility] [address] [address] [address] Blanca Grimm LYMPH # 2.5 103/ul Normal 1.2-3.8 [facility] Comment on above: Performed By: #### A MY, CMP, LIPA #### [facility] [address] [place] [address] Dr. Blanca Grimm Lymphocytes/100 WBC (Bld) 38.1 % Normal 20.5-60.0 [facility] Comment on above: Performed By: #### A MY, CMP, LIPA #### [facility] [address] [place] [address] Dr. Blanca Grimm MANUAL DIFF REQ NO Normal [facility] Comment on above: Performed By: #### A MY, CMP, LIPA #### [facility] [address] [place] [address] Dr. Blanca Grimm MCH (RBC) [Entitic mass] 27.9 pg Normal 26.7-34.0 [facility] Comment on above: Performed By: #### A MY, CMP, LIPA #### [facility] [address] [place] [address] Dr. Blanca Grimm MCHC (RBC) [Mass/Vol] 32.5 g/dL Normal 29.9-35.2 [facility] Comment on above: Performed By: #### A MY, CMP, LIPA #### [facility] [address] [place] [address] Dr. Blanca Grimm MCV (RBC) [Entitic vol] 85.9 fL Normal 81.0-99.0 [facility] Comment on above: Performed By: #### A MY, CMP, LIPA #### [facility] [address] [place] [address] Dr. Blanca Grimm MONO # 0.5 103/ul Normal 0.3-0.8 [facility] Comment on above: Performed By: #### A MY, CMP, LIPA #### [facility] [address] [place] [address] Dr. Blanca Grimm Monocytes/100 WBC (Bld) 8.0 % Normal 1.7-12.0 [facility] Comment on above: Performed By: #### A MY, CMP, LIPA #### [facility] [address] [address] [address] Blanca Grimm NEUT # 3.2 103/ul Normal 1.4-6.5 [facility] Comment on above: Performed By: #### A MY, CMP, LIPA #### [facility] [address] [place] [address] Dr. Blanca Grimm Neutrophils/100 WBC (Bld) 48.8 % Normal 43.0-75.0 [facility] Comment on above: Performed By: #### A MY, CMP, LIPA #### [facility] [address] [place] [address] Dr. Blanca Grimm Platelet mean volume (Bld) [Entitic vol] 9.9 fL Normal 9.5-13.5 [facility] Comment on above: Performed By: #### A MY, CMP, LIPA #### [facility] [address] [place] [address] Dr. Blanca Grimm PLT 290 103/ul Normal 150-450 [facility] Comment on above: Performed By: #### A MY, CMP, LIPA #### [facility] [address] [place] [address] Dr. Blanca Grimm RBC 4.62 106/ul Normal 4.20-5.40 [facility] Comment on above: Performed By: #### A MY, CMP, LIPA #### [facility] [address] [place] [address] Dr. Blanca Grimm WBC 6.5 103/ul Normal 4.0-11.0 [facility] Comment on above: Performed By: #### A MY, CMP, LIPA #### [facility] [address] [place] [address] Dr. Blanca Grimm FREE THYROXINE INDEX T7on FTI 2.05 Normal 1.30-4.50 [facility] Comment on above: Performed By: #### L IPID, CMP, T7, TSH #### [facility] [address] [place] [address] Dr. Blanca Grimm T3U 33.0 % Normal 30.0-39.0 [facility] Comment on above: Performed By: #### L IPID, CMP, T7, TSH #### [facility] [address] [address] [address] Blanca Grimm T4 [Mass/Vol] 6.20 ug/dL Normal 4.80-13.90 [facility] Comment on above: Performed By: #### L IPID, CMP, T7, TSH #### [facility] [address] [address] [address] Blanca Grimm GLYCOHEMOGLOBIN A1Con 2021 ADA RECOMMENDATION SEE BELOW Normal [facility] Comment on above: Result Comment: ADA RECOMMENDED LIMIT 4.0 - 6.0 ADA THERAPEUTIC TARGET < 7.0 ACTION SUGGESTED > 7.0 Performed By: #### A MY, CMP, LIPA #### [facility] [address] [place] [address] Dr. Blanca Grimm Glucose [Mass/Vol] 143 mg/dL Normal [facility] Comment on above: Performed By: #### A MY, CMP, LIPA #### [facility] [address] [address] [address] Blanca Grimm HbA1c (Bld) [Mass fraction] 6.6 % Critically high 4.5-6.2 [facility] Comment on above: Performed By: #### A MY, CMP, LIPA #### [facility] [address] [place] [address] Dr. Blanca Grimm IRONon 01-22-2022 Iron [Mass/Vol] 64.0 ug/dL Normal 50.0-170.0 [facility] Comment on above: Performed By: #### A MY, CMP, LIPA #### [facility] [address] [place] [address] Dr. Blanca Grimm LIPID PROFILEon 01-22-2022 CHOL-HDL RATIO NORM SEE BELOW Normal [facility] Comment on above: Result Comment: 3.3 - 4.4 LOW RISK 4.4 - 7.1 AVERAGE RISK 7.1 - 11.0 MODERATE RISK >11.0 HIGH RISK Performed By: #### L IPID, CMP, T7, TSH #### [facility] [address] [address] [address] Blanca Grimm Cholesterol [Mass/Vol] 247 mg/dL Critically high <=200 [facility] Comment on above: Performed By: #### L IPID, CMP, T7, TSH #### [facility] [address] [address] [address] Blanca Grimm Cholesterol in HDL [Mass/Vol] 57 mg/dL Normal 40-60 [facility] Comment on above: Performed By: #### L IPID, CMP, T7, TSH #### [facility] [address] [address] [address] Blanca Grimm Cholesterol in LDL [Mass/Vol] 138.0 mg/dL Normal [facility] Comment on above: Performed By: #### L IPID, CMP, T7, TSH #### [facility] [address] [address] [address] Blanca Grimm Cholesterol.total/ Cholesterol in HDL [Mass ratio] 4.3 {ratio} Normal [facility] Comment on above: Performed By: #### L IPID, CMP, T7, TSH #### [facility] [address] [address] [address] Blanca Grimm HDL NORMAL > or = 60 mg/dl - LO W CARDIOVASCULAR RISK <40 mg/dl - HIGH CARDIOVASCULAR RISK Normal [facility] Comment on above: Performed By: #### L IPID, CMP, T7, TSH #### [facility] [address] [address] [address] Blanca Grimm LDL CALC NORMAL SEE BELOW Normal [facility] Comment on above: Result Comment: <100 mg/dl OPTIMAL 100 - 129 mg/dl NEAR OR ABOVE OPTIMAL 130 - 159 mg/dl BORDERLINE HIGH 160 - 189 mg/dl HIGH >190 mg/dl VERY HIGH Performed By: #### L IPID, CMP, T7, TSH #### [facility] [address] [address] [address] Blanca Grimm Triglyceride [Mass/Vol] 260 mg/dL Critically high <=150 [facility] Comment on above: Performed By: #### L IPID, CMP, T7, TSH #### [facility] [address] [address] [address] Blanca Grimm VLDL CALC 52.0 mg/dL Normal [facility] Comment on above: Performed By: #### L IPID, CMP, T7, TSH #### [facility] [address] [place] [address] Dr. Blanca Grimm PROF 14(COMP METB)on 022 Albumin [Mass/Vol] 4.0 g/dL Normal 3.4-5.0 [facility] Comment on above: Performed By: #### L IPID, CMP, T7, TSH #### [facility] [address] [place] [address] Dr. Blanca Grimm Albumin/Globulin [Mass ratio] 1.1 {ratio} Normal [facility] Comment on above: Performed By: #### L IPID, CMP, T7, TSH #### [facility] [address] [address] [address] Blanca Grimm ALP [Catalytic activity/Vol] 84 U/L Normal 46-116 [facility] Comment on above: Performed By: #### L IPID, CMP, T7, TSH #### [facility] [address] [place] [address] Dr. Blanca Grimm ALT [Catalytic activity/Vol] 36 U/L Normal 14-59 [facility] Comment on above: Performed By: #### L IPID, CMP, T7, TSH #### [facility] [address] [address] [address] Blanca Grimm Anion gap [Moles/Vol] 14.2 mmol/L Normal [facility] Comment on above: Performed By: #### L IPID, CMP, T7, TSH #### [facility] [address] [place] [address] Dr. Blanca Grimm AST [Catalytic activity/Vol] 22 U/L Normal 15-37 [facility] Comment on above: Performed By: #### L IPID, CMP, T7, TSH #### [facility] [address] [place] [address] Dr. Blanca Grimm Bilirubin [Mass/Vol] 0.3 mg/dL Normal 0.2-1.0 [facility] Comment on above: Performed By: #### L IPID, CMP, T7, TSH #### [facility] [address] [address] [address] Blanca Grimm Calcium [Mass/Vol] 9.4 mg/dL Normal 8.5-10.1 [facility] Comment on above: Performed By: #### L IPID, CMP, T7, TSH #### [facility] [address] [address] [address] Blanca Grimm Chloride [Moles/Vol] 103 mmol/L Normal 98-107 [facility] Comment on above: Performed By: #### L IPID, CMP, T7, TSH #### [facility] [address] [address] [address] Blanca Grimm CO2 [Moles/Vol] 26.0 mmol/L Normal 21.0-32.0 [facility] Comment on above: Performed By: #### L IPID, CMP, T7, TSH #### [facility] [address] [address] [address] Blanca Grimm Creatinine [Mass/Vol] 0.71 mg/dL Normal 0.55-1.02 [facility] Comment on above: Performed By: #### L IPID, CMP, T7, TSH #### [facility] [address] [address] [address] Blanca Grimm EGFR-AF MALTESE >60 Normal >=60 [facility] Comment on above: Performed By: #### L IPID, CMP, T7, TSH #### [facility] [address] [address] [address] Blanca Grimm EGFR-NON AF MALTESE >60 Normal >=60 [facility] Comment on above: Performed By: #### L IPID, CMP, T7, TSH #### [facility] [address] [address] [address] Blanca Grimm Globulin (S) [Mass/Vol] 3.8 g/dL Normal [facility] Comment on above: Performed By: #### L IPID, CMP, T7, TSH #### [facility] [address] [address] [address] Blanca Grimm Glucose [Mass/Vol] 112 mg/dL Critically high 74-106 [facility] Comment on above: Performed By: #### L IPID, CMP, T7, TSH #### [facility] [address] [address] [address] Blanca Grimm Potassium [Moles/Vol] 4.2 mmol/L Normal 3.5-5.1 [facility] Comment on above: Performed By: #### L IPID, CMP, T7, TSH #### [facility] [address] [place] [address] Dr. Blanca Grimm Protein [Mass/Vol] 7.8 g/dL Normal 6.4-8.2 [facility] Comment on above: Performed By: #### L IPID, CMP, T7, TSH #### [facility] [address] [place] [address] Dr. Blanca Grimm Sodium [Moles/Vol] 139 mmol/L Normal 136-145 [facility] Comment on above: Performed By: #### L IPID, CMP, T7, TSH #### [facility] [address] [place] [address] Dr. Blanca Grimm Urea nitrogen [Mass/Vol] 10.0 mg/dL Normal 7.0-18.0 [facility] Comment on above: Performed By: #### L IPID, CMP, T7, TSH #### [facility] [address] [place] [address] Dr. Blanca Grimm Urea nitrogen/Creatinin e [Mass ratio] 14.1 mg/mg Normal [facility] Comment on above: Performed By: #### L IPID, CMP, T7, TSH #### [facility] [address] [place] [address] Dr. Blanca Grimm TSHon 01-22-2022 TSH 2.598 uIU/mL Normal 0.358-3.740 [facility] Comment on above: Performed By: #### L IPID, CMP, T7, TSH #### [facility] [address] [address] [address] Blanca Grimm VITAMIN D 25 OHon 01-22-2022 VIT D 25-OH 40.1 ng/mL Normal [facility] Comment on above: Performed By: #### A MY, CMP, LIPA #### [facility] [id number] Blanca Grimm VIT D RANGES SEE BELOW Normal [facility] Comment on above: Result Comment: <20 ng/mL Vit D deficient 20 - <30 ng/mL Vit D insufficient 30 - 100 ng/mL Vit D sufficient >100 ng/mL Potential Toxicity Performed By: #### A MY, CMP, LIPA #### [facility] [address] [address] [address] Blanca Grimm Ambulatory Visit Summaryon 1 [...] Pure hypercholesterolemia Right upper quadrant pain Normal [facility] Outside Colonoscopyon 2021 Outside Colonoscopy [id number]#1.00CD:127 Normal [facility] Pathology Noteon 01-03-2022 Pathology Note [id number]#1.00CD:127 Normal [facility] Reminderson 01-03-2022 Reminders - From: Graciela Zamudio LPN To: GSN - Clinical; Sent: 01/03/2022 08:02:44 EDT Show up: 12/03/2031 07:00:00 EDT Subject: colonoscopy recall Due Date/Time: 01/02/2032 07:00:00 EDT Reminder/Recall Patient is due for screening colonoscopy 01/02/2032. Normal [facility] POINT OF CARE GLUCOSEon Glucose [Mass/Vol] 112 mg/dL Critically high 74-106 [facility] Comment on above: Performed By: #### P OCGLUC #### [facility] [address] [address] [address] Blanca Grimm Lab Reportson 12-31-2021 Lab Reports [id number]#1.00CD:127 Normal [facility] Covid-19 PCR (CVDTBH)on SARS-CoV-2 (COVID-19) RNA ARVIND+probe Ql (Unsp spec) Not detected Normal NOT DETECTED [facility] Comment on above: Result Comment: This test is not yet approved or cleared by the [place] FDA. When there are no FDA-approved or cleared tests available, and other criteria are met, FDA can make tests available under an emergency access mechanism called an Emergency Use Authorization (EUA). The EUA for this test is supported by the [employer]isher Pol[employer] of Health and Human Service's (HHS's) declaration [...] By: #### A MY, CMP, LIPA #### [facility] [address] [place] [address] Dr. Blanca Grimm Pre-Certification Formon Pre-Certification Form [id number]#1.00CD:127 Normal [facility] RAD - MRI Reporton 2 RAD - MRI Report [id number]#1.00CD:127 Normal [facility] Pre-Certification Formon Pre-Certification Form [id number]#1.00CD:127 Normal [facility] MRI ABDOMEN WO CONon 022 MRI [...] by: JOYCE PITT Date: 2021-12-17 07:53 Normal [facility] Consent for Procedure/Surger yon 12-05-2021 Consent for Procedure/Surgery [id number]#1.00CD:127 Normal [facility] NM HEPATOBILIARY SCAN W EFon 12-05-2021 [...] by: JOYCE PITT Date: 2021-12-05 09:11 Normal [facility] RAD - Ultrasound Reporton RAD - Ultrasound Report [id number]#1.00CD:127 Normal [facility] Ambulatory Visit Summaryon 0 12-04-2021 Ambulatory [...] Cholelithiasis, No, No, Dilated cbd, acquired Normal [facility] US SINGLE QUAD RT UPPERon US [...] JOYCE INGRAM Date: 2021-11-26 10:28 Normal [facility] AMMONIAon 11-13-2021 Ammonia (P) [Moles/Vol] 16 umol/L Normal 11-32 [facility] Comment on above: Performed By: #### A MM #### [facility] [address] [address] [address] Blanca Grimm AMYLASEon 11-13-2021 Amylase [Catalytic activity/Vol] 42 U/L Normal 25-115 [facility] Comment on above: Performed By: #### A MY, CMP, LIPA #### [facility] [address] [place] [address] Dr. Blanca Grimm CBC AUTO DIFFon 11-13-2021 BASO # 0.1 103/ul Normal 0.0-0.1 [facility] Comment on above: Performed By: #### A MY, CMP, LIPA #### [facility] [address] [place] [address] Dr. Blanca Grimm Basophils/100 WBC (Bld) 0.6 % Normal 0.2-2.0 [facility] Comment on above: Performed By: #### A MY, CMP, LIPA #### [facility] [address] [place] [address] Dr. Blanca Grimm EO # 0.2 103/ul Normal 0.0-0.7 [facility] Comment on above: Performed By: #### A MY, CMP, LIPA #### [facility] [address] [place] [address] Dr. Blanca Grimm Eosinophils/100 WBC (Bld) 2.3 % Normal 0.9-7.0 [facility] Comment on above: Performed By: #### A MY, CMP, LIPA #### [facility] [address] [place] [address] Dr. Blanca Grimm Erythrocyte distribution width (RBC) [Ratio] 13.9 % Normal 11.0-15.0 [facility] Comment on above: Performed By: #### A MY, CMP, LIPA #### [facility] [address] [place] [address] Dr. Blanca Grimm Hematocrit (Bld) [Volume fraction] 37.3 % Normal 36.0-48.0 [facility] Comment on above: Performed By: #### A MY, CMP, LIPA #### [facility] [address] [place] [address] Dr. Blanca Grimm Hemoglobin (Bld) [Mass/Vol] 12.1 g/dL Normal 12.0-16.0 [facility] Comment on above: Performed By: #### A MY, CMP, LIPA #### [facility] [address] [address] [address] Blanca Grimm IG # 0.03 10e3/ul Normal 0.00-0.03 [facility] Comment on above: Performed By: #### A MY, CMP, LIPA #### [facility] [address] [address] [address] Blanca Grimm IG % 0.4 % Normal 0.0-0.5 [facility] Comment on above: Performed By: #### A MY, CMP, LIPA #### [facility] [address] [place] [address] Dr. Blanca Grimm LYMPH # 2.5 103/ul Normal 1.2-3.8 [facility] Comment on above: Performed By: #### A MY, CMP, LIPA #### [facility] [address] [place] [address] Dr. Blanca Grimm Lymphocytes/100 WBC (Bld) 29.0 % Normal 20.5-60.0 [facility] Comment on above: Performed By: #### A MY, CMP, LIPA #### [facility] [address] [place] [address] Dr. Blanca Grimm MANUAL DIFF REQ NO Normal [facility] Comment on above: Performed By: #### A MY, CMP, LIPA #### [facility] [address] [place] [address] Dr. Blanca Grimm MCH (RBC) [Entitic mass] 28.1 pg Normal 26.7-34.0 [facility] Comment on above: Performed By: #### A MY, CMP, LIPA #### [facility] [address] [place] [address] Dr. Blanca Grimm MCHC (RBC) [Mass/Vol] 32.4 g/dL Normal 29.9-35.2 [facility] Comment on above: Performed By: #### A MY, CMP, LIPA #### [facility] [address] [place] [address] Dr. Blanca Grimm MCV (RBC) [Entitic vol] 86.7 fL Normal 81.0-99.0 [facility] Comment on above: Performed By: #### A MY, CMP, LIPA #### [facility] [address] [place] [address] Dr. Blanca Grimm MONO # 0.8 103/ul Normal 0.3-0.8 [facility] Comment on above: Performed By: #### A MY, CMP, LIPA #### [facility] [address] [place] [address] Dr. Blanca Grimm Monocytes/100 WBC (Bld) 9.5 % Normal 1.7-12.0 [facility] Comment on above: Performed By: #### A MY, CMP, LIPA #### [facility] [address] [place] [address] Dr. Blanca Grimm NEUT # 5.0 103/ul Normal 1.4-6.5 [facility] Comment on above: Performed By: #### A MY, CMP, LIPA #### [facility] [address] [place] [address] Dr. Blanca Grimm Neutrophils/100 WBC (Bld) 58.2 % Normal 43.0-75.0 [facility] Comment on above: Performed By: #### A MY, CMP, LIPA #### [facility] [address] [place] [address] Dr. Blanca Grimm Platelet mean volume (Bld) [Entitic vol] 9.8 fL Normal 9.5-13.5 [facility] Comment on above: Performed By: #### A MY, CMP, LIPA #### [facility] [address] [place] [address] Dr. Blanca Grimm PLT 273 103/ul Normal 150-450 [facility] Comment on above: Performed By: #### A MY, CMP, LIPA #### [facility] [address] [place] [address] Dr. Blanca Grimm RBC 4.30 106/ul Normal 4.20-5.40 [facility] Comment on above: Performed By: #### A MY, CMP, LIPA #### [facility] [address] [place] [address] Dr. Blanca Grimm WBC 8.5 103/ul Normal 4.0-11.0 [facility] Comment on above: Performed By: #### A MY, CMP, LIPA #### [facility] [address] [place] [address] Dr. Blanca Grimm LIPASEon 11-13-2021 Lipase [Catalytic activity/Vol] 108.0 U/L Normal 73.0-393.0 [facility] Comment on above: Performed By: #### A MY, CMP, LIPA #### [facility] [address] [address] [address] Blanca Grimm PROF 14(COMP METB)on 022 Albumin [Mass/Vol] 3.9 g/dL Normal 3.4-5.0 [facility] Comment on above: Performed By: #### A MY, CMP, LIPA #### [facility] [address] [place] [address] Dr. Blanca Grimm Albumin/Globulin [Mass ratio] 1.1 {ratio} Normal [facility] Comment on above: Performed By: #### A MY, CMP, LIPA #### [facility] [address] [place] [address] Dr. Blanca Grimm ALP [Catalytic activity/Vol] 94 U/L Normal 46-116 [facility] Comment on above: Performed By: #### A MY, CMP, LIPA #### [facility] [address] [place] [address] Dr. Blanca Grimm ALT [Catalytic activity/Vol] 28 U/L Normal 14-59 [facility] Comment on above: Performed By: #### A MY, CMP, LIPA #### [facility] [address] [place] [address] Dr. Blanca Grimm Anion gap [Moles/Vol] 14.8 mmol/L Normal [facility] Comment on above: Performed By: #### A MY, CMP, LIPA #### [facility] [address] [place] [address] Dr. Blanca Grimm AST [Catalytic activity/Vol] 22 U/L Normal 15-37 [facility] Comment on above: Performed By: #### A MY, CMP, LIPA #### [facility] [address] [address] [address] Blanca Grimm Bilirubin [Mass/Vol] 0.3 mg/dL Normal 0.2-1.0 [facility] Comment on above: Performed By: #### A MY, CMP, LIPA #### [facility] [address] [place] [address] Dr. Blanca Grimm Calcium [Mass/Vol] 9.3 mg/dL Normal 8.5-10.1 [facility] Comment on above: Performed By: #### A MY, CMP, LIPA #### [facility] [address] [place] [address] Dr. Blanca Grimm Chloride [Moles/Vol] 103 mmol/L Normal 98-107 [facility] Comment on above: Performed By: #### A MY, CMP, LIPA #### [facility] [address] [place] [address] Dr. Blanca Grimm CO2 [Moles/Vol] 24.4 mmol/L Normal 21.0-32.0 [facility] Comment on above: Performed By: #### A MY, CMP, LIPA #### [facility] [address] [place] [address] Dr. Blanca Grimm Creatinine [Mass/Vol] 0.94 mg/dL Normal 0.55-1.02 [facility] Comment on above: Performed By: #### A MY, CMP, LIPA #### [facility] [address] [place] [address] Dr. Blanca Grimm EGFR-AF MALTESE >60 Normal >=60 [facility] Comment on above: Performed By: #### A MY, CMP, LIPA #### [facility] [address] [place] [address] Dr. Blanca Grimm EGFR-NON AF MALTESE =60 Normal >=60 [facility] Comment on above: Performed By: #### A MY, CMP, LIPA #### [facility] [address] [place] [address] Dr. Blanca Grimm Globulin (S) [Mass/Vol] 3.7 g/dL Normal [facility] Comment on above: Performed By: #### A MY, CMP, LIPA #### [facility] [address] [address] [address] Blanca Grimm Glucose [Mass/Vol] 101 mg/dL Normal 74-106 [facility] Comment on above: Performed By: #### A MY CMP, LIPA #### [facility] [address] [address] [address] Blanca Grimm Potassium [Moles/Vol] 4.2 mmol/L Normal 3.5-5.1 [facility] Comment on above: Performed By: #### A MY, CMP, LIPA #### [facility] [address] [place] [address] Dr. Blanca Grimm Protein [Mass/Vol] 7.6 g/dL Normal 6.4-8.2 [facility] Comment on above: Performed By: #### A MY CMP, LIPA #### [facility] [address] [place] [address] Dr. Blanca Grimm Sodium [Moles/Vol] 138 mmol/L Normal 136-145 [facility] Comment on above: Performed By: #### A MY, CMP, LIPA #### [facility] [address] [place] [address] Dr. Blanca Grimm Urea nitrogen [Mass/Vol] 13.0 mg/dL Normal 7.0-18.0 [facility] Comment on above: Performed By: #### A MY, CMP, LIPA #### [facility] [address] [place] [address] Dr. Blanca Grimm Urea nitrogen/Creatinin e [Mass ratio] 13.8 mg/mg Normal [facility] Comment on above: Performed By: #### A MY, CMP, LIPA #### [facility] [address] [place] [address] Dr. Blanca Grimm XR LSPINE MIN 4 [...] JOYCE PITT Date: 2021-07-22 18:17 Normal [facility] [address] Cervical Spine WOon 11-22 CT Cervical Spine WO [facility] Name: KIM SANTAMARIA [address] [place] [address] Phys: [place] [address] : 1955 Age: 61 Acct: [id number] Loc: ER MRN/Unit No.: [id number] Status: REG ER Exam Date: 11/22/16 Accession Number: [id number] Exam: [id number] CT/CT Cervical Spine WO CT Cervical Spine [...] Date/Time: 11/22/16, 1252 Dictated Date/Time: 11/22/16 1252 Balloon Maker: GARCIA WYATT Printed Date/Time: [ rep prt dt last], [ rep prt tm last] This report was electronically signed in an other vendor system Normal [facility] CT Head WOon 11-22-2016 CT Head WO [facility] EM [facility] Name: KIM SANTAMARIA [facility] Phys: [place] [address] : 1955 Age: 61 Acct: [id number] Loc: ER MRN/Unit No.: [id number] Status: REG ER Exam Date: 11/22/16 Accession Number: [id number] Exam: [id number] CT/CT Head WO CT Head WO EXAM: [...] Date/Time: 11/22/16, 1252 Dictated Date/Time: 11/22/16 1245 Balloon Maker: GARCIA WYATT Printed Date/Time: [ rep prt dt last], [ rep prt tm last] This report was electronically signed in an other vendor system Normal [facility] CT Thoracic Spine WOon 11-22 CT Thoracic Spine WO [facility] Name: KIM SANTAMARIA [address] [place] [address] Phys: [place] [address] : 1955 Age: 61 Acct: [id number] Loc: ER MRN/Unit No.: [id number] Status: DEP ER Exam Date: 11/22/16 Accession Number: [id number] Exam: CT/CT Thoracic Spine WO CT Thoracic [...] Date/Time: 11/22/16, 1455 Dictated Date/Time: 11/22/16 1258 Balloon Maker: GARCIA WYATT Printed Date/Time: [ rep prt dt last], [ rep prt tm last] This report was electronically signed in an other vendor system Normal [facility] Vital Signs Date Time Vital Sign Value Performing Clinician Maisha york 06-25-2022 13:32-0400 Blood Pressure Location Amberly JOSE [facility] [place] 06-25-2022 13:32-0400 Diastolic blood pressure 92 mm[Hg] Amberly JOSE [facility] [place] 06-25-2022 13:32-0400 Heart rate 72 /min Amberly NILL [facility] [place] 06-25-2022 13:32-0400 Respiratory rate 16 /min Amberly NILL [facility] [place] 06-25-2022 13:32-0400 Systolic blood pressure 136 mm[Hg] Amberly NILL [facility] [place] 05-28-2022 13:09-0500 Blood Pressure Location Amberly NILL [facility] [place] 05-28-2022 13:09-0500 Diastolic blood pressure 94 mm[Hg] Amberly NILL [facility] [place] 05-28-2022 13:09-0500 Heart rate 74 /min Amberly NILL [facility] [place] 05-28-2022 13:09-0500 Respiratory rate 16 /min Amberly NILL [facility] [place] 05-28-2022 13:09-0500 Systolic blood pressure 148 mm[Hg] Amberly NILL [facility] [place] 12-04-2021 14:16-0400 Blood Pressure Location Abmerly NILL [facility] [place] 12-04-2021 14:16-0400 Diastolic blood pressure 90 mm[Hg] Amberly NILL [facility] [place] 12-04-2021 14:16-0400 Heart rate 70 /min Amberly NILL [facility] [place] 12-04-2021 14:16-0400 Respiratory rate 16 /min Amberly NILL [facility] [place] 12-04-2021 14:16-0400 Systolic blood pressure 128 mm[Hg] Amberly NILL [facility] [place] Encounters Encounter Date Encounter Type Care Provider Facility Start: 06-25-2022 End: 06-26-2022 [facility] Start: 06-25-2022 End: 06-25-2022 Patient encounter procedure Amberly R CASA [facility] [place] Start: 05-28-2022 End: 05-29-2022 [facility] Start: 05-28-2022 End: 05-28-2022 Patient encounter procedure Amberly JOSE [facility] [place] Start: 05-02-2022 End: 05-03-[address] MARCO OTERO Facility:[facility] Start: 04-23-2022 End: 04-24-[address] MARCO OTERO Facility:[facility] Start: 04-18-2022 End: 04-19-[address] MARCO OTERO Facility:[facility] Start: 01-30-2022 End: 01-31-[address] MARCO OTERO Facility:[facility] Start: 01-22-2022 End: 01-23-[address] MARCO OTERO Facility:[facility] Start: 01-21-2022 End: 01-22-2022 ambulatory [facility] Start: 01-21-2022 End: 01-21-2022 Patient encounter procedure Amberly JOSE [facility] [place] Start: 01-02-2022 Encounter for preprocedural laboratory examination DR AMBERLY JOSE [facility] Start: 01-01-2022 End: 01-02-[address] [...] encounter procedure Amberly JOSE [facility] [place] Start: 12-03-2021 ambulatory Amberly JOSE Facility :[facility] Start: 11-28-2021 ambulatory Amberly JOSE Facility:[facility] Start: 11-26-2021 End: 11-27-[address] MARCO OTERO Facility:[facility] Start: 11-13-2021 End: 11-14-[address] MARCO OTERO Facility:[facility] Start: 07-22-2021 End: 07-23-[address] MARCO OTERO Facility:[facility] Start: 11-22-2016 End: 11-22-2016 Emergency department patient visit QUINTIN WHATLEY Facility:[facility] Procedures Date Procedure Procedure Detail Performing Clinician Start: 01-01-2022 Colonoscopy Amberly JALLOH Start: 01-01-2022 Esophagogastroduodenoscopy Amberly JOSE Start: 03-30-2005 Abdominal hysterectomy Amberly JOSE Bilateral oophorectomy Julio JOSE Immunizations Immunization Date Immunization Notes Care Provider Fa cility 04-08-2021 SARS-CoV-2 (COVID-19 ) mRNA BNT-162b2 vax Amberly NILL [facility] [place] 06-21-2020 SARS-CoV-2 (COVID-19 ) mRNA BNT-162g6 vax Amberly CUELLARL [facility] [place] 05-24-2020 SARS-CoV-2 (COVID-19 ) mRNA BNT-800h0 vax Amberly CUELLARL [facility] NEGATED: Highlighted row has not occurred!05-28-2022 influenza virus vaccine, unspecified formulation Amberly JOSE [facility] [place] Payers Date Payer Category Payer Unknown [id number] 1959 Unknown [id number] 1955 Unknown [id number] 2.16.84 0.1.150473.3.579.2.593 1955 Unknown [id number] 2.16.84 0.1.017957.3.579.2.593 1955 Unknown [id number] 2.16.84 0.1.392408.3.579.2.593 1955 Unknown [id number] 2.16.84 0.1.037939.3.579.2.593 1955 Unknown [id number] 2.16.84 0.1.875354.3.579.2.593 1955 Unknown [id number] 2.16.84 0.1.884092.3.579.2.593 1955 Unknown [id number] 2.16.84 0.1.432280.3.579.2.593 1955 Unknown [id number] 2.16.84 0.1.013648.3.579.2.593 1955 Unknown [id number] 2.16.84 0.1.991136.3.579.2.593 1955 Unknown [id number] 2.16.84 0.1.544707.3.579.2.593 1955 Unknown [id number] 2.16.84 0.1.490731.3.579.2.593 1955 Unknown [id number] 2.16.84 0.1.862053.3.579.2.593 1955 Unknown [id number] 2.16.8 40.1.916180.3.579.2.727 1955 Unknown [id number] 2.16.8 40.1.434608.3.579.2.727 1955 Unknown [id number] 2.16.8 40.1.879561.3.579.2.727 1955 Unknown [id number] 2.16.8 40.1.309396.3.579.2.727 1955 Unknown [id number] 2.16.8 40.1.734863.3.579.2.727 1955 Unknown [id number] 2.16.8 40.1.505237.3.579.2.727 1955 Unknown [id number] 2.16.8 40.1.730300.3.579.2.727 Unknown [id number] Social History Date Type Detail Facility Start: 12-04-2021 End: 06-25-2022 Tobacco smoking status Ex-smoker (finding) [facility] [place] Tobacco smoking status Never [facility] [place] Sex Assigned At Female [facility] [place] Functional Status Date Assessment Result Facility 06-25-2022 Functional Status N/A [facility] 05-28-2022 Functional Status N/A [facility] 12-04-2021 Functional Status N/A [facility] [place] Clinical Note 05-29-2022 Note Date & Type [...] BID, # 90 tab(s), Refills(s) 3, Pharmacy: [id number], 167.6, cm, 05/28/22 13:15:00 EST, Height/Length Dosing, 86.5, kg, 05/28/22 13:15:00 EST, Weight Dosing 2. Hiatal hernia with GERD, (K44.9: Diaphragmatic hernia without obstruction or gangrene)Diaphragmatic hernia without obstruction or gangrene see # 1 Ordered: pantoprazole, 40 mg = 1 tab(s), Oral, BID, # 90 tab(s), Refills(s) 3, Pharmacy: [facility], 167.6, cm, 05/28/22 13:15:00 EST, Height/Length Dosing, 86.5, kg, 05/28/22 13:15:00 EST, Weight Dosing 3. BMI 30.0-30.9,adult (Z68.30: Body mass index [BMI] 30.0-30.9, adult) recommend low fat diet and exercise Follow-up No qualifying data available Problem List/Past Medical History (more content not included)... [facility] Comment on above: Result Comment: Elec [...] good condition. CC: Patient's family physician [facility] Clinical Note 12-04-2021 Note Date & [...] stools GERD (gastroesop (more content not included)... [facility] Comment on above: Result Comment: Elec tronically Signed By: CASA ANAYA, Amberly Dent\Date and Time Signed: 12/04/21 21:16 EDT Evaluation + Plan note 12-04-2021 Radiology Note Date & Type Note Facility 12-04-2021 Evaluation + Plan note Future Scheduled TestsMRI Cholangiogram Pancreatography ([facility]) 12/04/21 General Surgery [facility] course Narrative Note Date & Type Note Facility Hospital course Narrative No data available for this section General Surgery [facility] Discharge instructions Note Date & Type Note Facility Hospital Discharge instructions No data available for this section General Surgery [facility] note Note Date & Type Note Facility Progress note No data available for this section General [facility] Purpose Family History No Family History Records FoundNo Family History Records FoundNo Family History Records Found Advance Directives No Advanced Directives Records FoundNo Advanced Directives Records FoundNo Advanced Directives Records Found Additional Source Comments INFORMATION SOURCE (unrecogn ized section and content) DATE CREATED [facility] DATE CREATED AUTHOR AUTHOR'S ORGANIZ ATION 05/05/2022 [facility] DATE CREATED AUTHOR AUTHOR'S ORGANIZ ATION 06/30/2022 [facility] Care Team (unrecognized sect ion and content) Personnel Name: Marco Otero MD Address: [address] [place] [address] Personnel Name: Marco Otero MD Address: Address: [address] [place] [address] Personnel Name: Marco Otero MD Address: Address: [address] [place] [address] Personnel Name: Marco Otero MD Address: Address: [address] [place] [address] FOR RECORDS PERTAINING TO PATIENTS WHO ARE [...] BE BASED ON THE PRIMARY CLINICAL RECORDS. [facility] [employer] [facility] provides no warranty or guarantee of the accuracy or completeness of information in this document.
[2024-05-04 08:48] LABS: Basophils Absolute Auto 0.1 10^3/uL (0.0-0.1); Basophils Percent Auto 0.6 % (0.2-2.0); Eosinophils Absolute Auto 0.3 10^3/uL (0.0-0.7); Eosinophils Percent Auto 3.8 % (0.9-7.0); Hematocrit 37.1 % (36.0-48.0); Hemoglobin 11.8 g/dL (12.0-16.0); Immature Granulocytes Abs Auto 0.02 10^3/uL (0.00-0.03); Immature Granulocytes Pct Auto 0.3 % (0.0-0.5); Lymphocytes Absolute Auto 2.7 10^3/uL (1.2-3.8); Lymphocytes Percent Auto 34.7 % (20.5-60.0); Mean Corpuscular HGB Conc 31.8 g/dL (29.9-35.2); Mean Corpuscular Hemoglobin 27.8 pg (26.7-34.0); Mean Corpuscular Volume 87.3 fL (81.0-99.0); Monocytes Absolute Auto 0.7 10^3/uL (0.3-0.8); Monocytes Percent Auto 9.2 % (1.7-12.0); Neutrophils Percent Auto 51.4 % (43.0-75.0); Platelet Count 359 10^3/uL (150-450); Red Blood Count 4.25 10^6/uL (4.20-5.40); Red Cell Distribution Width 13.7 % (11.0-15.0); White Blood Count 7.8 10^3/uL (4.0-11.0)
[2024-05-04 09:17] LABS: Estimated Average Glucose 140 mg/dL; Glycohemoglobin A1C 6.5 % (4.5-6.2)
[2024-05-04 09:29] LABS: Alanine Aminotransferase 25 U/L (14-59); Albumin Globulin Ratio 1.1; Albumin Level 3.8 g/dL (3.4-5.0); Alkaline Phosphatase 93 U/L (46-116); Anion Gap 12.7; Aspartate Amino Transferase 17 U/L (15-37); BUN Creatinine Ratio 13.8; Bilirubin Total 0.3 mg/dL (0.2-1.0); Calcium 9.4 mg/dL (8.5-10.1); Carbon Dioxide 30.4 mmol/L (21.0-32.0); Chloride 104 mmol/L (98-107); Estimated GFR (African America >60 (>=60 mL/min/1.73m^2); Estimated GFR (Non-African Ame >60 (>=60 mL/min/1.73m^2); Free T3 2.38 pg/mL (2.18-3.98); Globulin 3.6 g/dL; Glucose 101 mg/dL (74-106); Potassium 4.1 mmol/L (3.5-5.1); Sodium 143 mmol/L (136-145); Thyroid Stimulating Hormone 1.577 uIU/mL (0.358-3.740); Total Protein 7.4 g/dL (6.4-8.2)
== END 2024-05-04 08:22 | disposition home or self-care (01) ==
LOC: LAB 08:23
PROVIDERS: PCP Family Medicine; Visit Provider Family Medicine
DX: F32.1 Major depressive disorder, single episode, moderate (principal); E03.9 Hypothyroidism, unspecified; K21.9 Gastro-esophageal reflux disease without esophagitis; E78.00 Pure hypercholesterolemia, unspecified; E11.9 Type 2 diabetes mellitus without complications; D64.9 Anemia, unspecified
CPT/HCPCS: 36415; 80053; 83036; 83540; 84436; 84443; 84481; 85025

== ENCOUNTER 2024-06-21 09:56 | Outpatient (OUT) | payer MEDICARE, SELFPAY ==
--- OUTSIDE RECORDS SUMMARY | 2024-06-21 10:14 | XMS_ITS | CCD ---
Author Organization [facility] Inform ion [facility] Care Team Providers Care Job Counselor Name Role Phone QUINTIN WHATLEY Unavailable Unavailable [...] Unavailable JESSIE HENRIQUEZ Consulting Unavailable NILL, DR GAMIGN Consulting Unavailable BRENDAY, DR LARA Primary Care [...] Medication Allergies] Propensity to adverse reactions (disorder) [facility] Repository Medications Current Medications Medication Drug [...] BID, # 90 tab(s), Refills(s) 3, Pharmacy: [facility] #[facility], 167.6, cm, 05/28/22 13:15:00 EST, [...] 01-26-2022 Episodic Other aftercare (1 source) Other prison (current) drug therapy; 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 Comment on above: Result Comment: [...] Pure hypercholesterolemia Right upper quadrant pain Normal [facility] Physician Referralon 023 Physician Referral [id number] Normal [facility] NM HEPATOBILIARY SCAN W EFon 05-05-2022 [...] Negative. IMPRESSION: Normal hepatobiliary scan Normal [facility] US SINGLE QUAD RT UPPERon US [...] by: JOYCE INGRAM Date: 2022-04-23 10:51 Normal [facility] H PYLORI ANTIBODY IGGon 03-31 H. PYLORI IGG ABS 0.21 Index Value Normal 0.00-0.79 [facility] Comment on above: Result Comment: Nega tive <0.80 Equivocal 0.80 - 0.89 Positive >0.89 Performed By: #### H PYLLC #### [facility] [address] [place] [address] Dr. Blanca Grimm AMYLASEon 04-18-2022 Amylase [Catalytic activity/Vol] 49 U/L Normal 25-115 [facility] Comment on above: Performed By: #### A MY, CMP, LIPA #### [facility] [address] [address] [address] Blanca Grimm CBC AUTO DIFFon 04-18-2022 BASO # 0.1 103/ul Normal 0.0-0.1 [facility] Comment on above: Performed By: #### A MY, CMP, LIPA #### [facility] [address] [address] [address] Blanca Grimm Basophils/100 WBC (Bld) 0.7 % Normal 0.2-2.0 [facility] Comment on above: Performed By: #### A MY, CMP, LIPA #### [facility] [address] [address] [address] Blanca Grimm EO # 0.3 103/ul Normal 0.0-0.7 [facility] Comment on above: Performed By: #### A MY, CMP, LIPA #### [facility] [address] [place] [address] Dr. Blanca Grimm Eosinophils/100 WBC (Bld) 3.5 % Normal 0.9-7.0 [facility] Comment on above: Performed By: #### A MY, CMP, LIPA #### [facility] [address] [place] [address] Dr. Blanca Grimm Erythrocyte distribution width (RBC) [Ratio] 13.6 % Normal 11.0-15.0 [facility] Comment on above: Performed By: #### A MY, CMP, LIPA #### [facility] [address] [place] [address] Dr. Blanca Grimm Hematocrit (Bld) [Volume fraction] 34.8 % Critically low 36.0-48.0 [facility] Comment on above: Performed By: #### A MY, CMP, LIPA #### [facility] [address] [place] [address] Dr. Blanca Grimm Hemoglobin (Bld) [Mass/Vol] 12.6 g/dL Normal 12.0-16.0 [facility] Comment on above: Performed By: #### A MY, CMP, LIPA #### [facility] [address] [place] [address] Dr. Blanca Grimm IG # 0.04 10e3/ul Critically high 0.00-0.03 [facility] Comment on above: Performed By: #### A MY, CMP, LIPA #### [facility] [address] [place] [address] Dr. Blanca Grimm IG % 0.5 % Normal 0.0-0.5 [facility] Comment on above: Performed By: #### A MY, CMP, LIPA #### [facility] [address] [place] [address] Dr. Blanca Grimm LYMPH # 2.6 103/ul Normal 1.2-3.8 [facility] Comment on above: Performed By: #### A MY, CMP, LIPA #### [facility] [address] [place] [address] Dr. Blanca Grimm Lymphocytes/100 WBC (Bld) 34.2 % Normal 20.5-60.0 [facility] Comment on above: Performed By: #### A MY, CMP, LIPA #### [facility] [address] [place] [address] Dr. Blanca Grimm MANUAL DIFF REQ NO Normal [facility] Comment on above: Performed By: #### A MY, CMP, LIPA #### [facility] [address] [place] [address] Dr. Blanca Grimm MCH (RBC) [Entitic mass] 28.1 pg Normal 26.7-34.0 [facility] Comment on above: Performed By: #### A MY, CMP, LIPA #### [facility] [address] [place] [address] Dr. Blanca Grimm MCHC (RBC) [Mass/Vol] 36.2 g/dL Critically high 29.9-35.2 [facility] Comment on above: Performed By: #### A MY, CMP, LIPA #### [facility] [address] [place] [address] Dr. Blanca Grimm MCV (RBC) [Entitic vol] 77.5 fL Critically low 81.0-99.0 [facility] Comment on above: Performed By: #### A MY, CMP, LIPA #### [facility] [address] [address] [address] Blanca Grimm MONO # 0.7 103/ul Normal 0.3-0.8 [facility] Comment on above: Performed By: #### A MY, CMP, LIPA #### [facility] [address] [address] [address] Blanca Grimm Monocytes/100 WBC (Bld) 9.1 % Normal 1.7-12.0 [facility] Comment on above: Performed By: #### A MY, CMP, LIPA #### [facility] [address] [address] [address] Blanca Grimm NEUT # 3.9 103/ul Normal 1.4-6.5 [facility] Comment on above: Performed By: #### A MY, CMP, LIPA #### [facility] [address] [place] [address] Dr. Blanca Grimm Neutrophils/100 WBC (Bld) 52.0 % Normal 43.0-75.0 [facility] Comment on above: Performed By: #### A MY, CMP, LIPA #### [facility] [address] [place] [address] Dr. Blanca Grimm Platelet mean volume (Bld) [Entitic vol] 9.3 fL Critically low 9.5-13.5 [facility] Comment on above: Performed By: #### A MY, CMP, LIPA #### [facility] [address] [place] [address] Dr. Blanca Grimm PLT 290 103/ul Normal 150-450 [facility] Comment on above: Performed By: #### A MY, CMP, LIPA #### [facility] [address] [place] [address] Dr. Blanca Grimm RBC 4.49 106/ul Normal 4.20-5.40 [facility] Comment on above: Performed By: #### A MY, CMP, LIPA #### [facility] [address] [place] [address] Dr. Blanca Grimm WBC 7.5 103/ul Normal 4.0-11.0 [facility] Comment on above: Performed By: #### A MY, CMP, LIPA #### [facility] [address] [address] [address] Blanca Grimm FREE THYROXINE INDEX T7on FTI 2.57 Normal 1.30-4.50 [facility] Comment on above: Performed By: #### A MY, CMP, LIPA #### [facility] [address] [address] [address] Blanca Grimm T3U 33.0 % Normal 30.0-39.0 [facility] Comment on above: Performed By: #### A MY, CMP, LIPA #### [facility] [address] [place] [address] Dr. Blanca Grimm T4 [Mass/Vol] 7.80 ug/dL Normal 4.80-13.90 [facility] Comment on above: Performed By: #### A MY, CMP, LIPA #### [facility] [address] [place] [address] Dr. Blanca Grimm GLYCOHEMOGLOBIN A1Con 2022 ADA RECOMMENDATION SEE BELOW Normal [facility] Comment on above: Result Comment: ADA RECOMMENDED LIMIT 4.0 - 6.0 ADA THERAPEUTIC TARGET < 7.0 ACTION SUGGESTED > 7.0 Performed By: #### A MY, CMP, LIPA #### [facility] [address] [place] [address] Dr. Blanca Grimm Glucose [Mass/Vol] 128 mg/dL Normal [facility] Comment on above: Performed By: #### A MY, CMP, LIPA #### [facility] [address] [place] [address] Dr. Blanca Grimm HbA1c (Bld) [Mass fraction] 6.1 % Normal 4.5-6.2 [facility] Comment on above: Performed By: #### A MY, CMP, LIPA #### [facility] [address] [place] [address] Dr. Blanca Grimm LIPASEon 04-18-2022 Lipase [Catalytic activity/Vol] 125.0 U/L Normal 73.0-393.0 [facility] Comment on above: Performed By: #### A MY, CMP, LIPA #### [facility] [address] [address] [address] Blanca Grimm PROF 14(COMP METB)on 023 Albumin [Mass/Vol] 4.0 g/dL Normal 3.4-5.0 [facility] Comment on above: Performed By: #### A MY, CMP, LIPA #### [facility] [address] [address] [address] Blanca Grimm Albumin/Globulin [Mass ratio] 1.1 {ratio} Normal [facility] Comment on above: Performed By: #### A MY, CMP, LIPA #### [facility] [address] [place] [address] Dr. Blanca Grimm ALP [Catalytic activity/Vol] 78 U/L Normal 46-116 [facility] Comment on above: Performed By: #### A MY, CMP, LIPA #### [facility] [address] [address] [address] Blanca Grimm ALT [Catalytic activity/Vol] 31 U/L Normal 14-59 [facility] Comment on above: Performed By: #### A MY, CMP, LIPA #### [facility] [address] [place] [address] Dr. Blanca Grimm Anion gap [Moles/Vol] 11.7 mmol/L Normal [facility] Comment on above: Performed By: #### A MY, CMP, LIPA #### [facility] [address] [address] [address] Blanca Grimm AST [Catalytic activity/Vol] 18 U/L Normal 15-37 [facility] Comment on above: Performed By: #### A MY, CMP, LIPA #### [facility] [address] [place] [address] Dr. Blanca Grimm Bilirubin [Mass/Vol] 0.3 mg/dL Normal 0.2-1.0 [facility] Comment on above: Performed By: #### A MY, CMP, LIPA #### [facility] [address] [place] [address] Dr. Blanca Grimm Calcium [Mass/Vol] 9.8 mg/dL Normal 8.5-10.1 [facility] Comment on above: Performed By: #### A MY, CMP, LIPA #### [facility] [address] [address] [address] Blanca Grimm Chloride [Moles/Vol] 103 mmol/L Normal 98-107 [facility] Comment on above: Performed By: #### A MY, CMP, LIPA #### [facility] [address] [address] [address] Blanca Grimm CO2 [Moles/Vol] 29.5 mmol/L Normal 21.0-32.0 [facility] Comment on above: Performed By: #### A MY, CMP, LIPA #### [facility] [address] [place] [address] Dr. Blanca Grimm Creatinine [Mass/Vol] 0.69 mg/dL Normal 0.55-1.02 [facility] Comment on above: Performed By: #### A MY, CMP, LIPA #### [facility] [address] [place] [address] Dr. Blanca Grimm EGFR-AF SOUTH [place]FRICAN >60 Normal >=60 [facility] Comment on above: Performed By: #### A MY, CMP, LIPA #### [facility] [address] [place] [address] Dr. Blanca Grimm EGFR-NON AF [place]FR[place] >60 Normal >=60 [facility] Comment on above: Performed By: #### A MY, CMP, LIPA #### [facility] [address] [place] [address] Dr. Blanca Grimm Globulin (S) [Mass/Vol] 3.6 g/dL Normal [facility] Comment on above: Performed By: #### A MY, CMP, LIPA #### [facility] [address] [place] [address] Dr. Blanca Grimm Glucose [Mass/Vol] 95 mg/dL Normal 74-106 [facility] Comment on above: Performed By: #### A MY, CMP, LIPA #### [facility] [address] [address] [address] Blanca Grimm Potassium [Moles/Vol] 4.2 mmol/L Normal 3.5-5.1 [facility] Comment on above: Performed By: #### A MY, CMP, LIPA #### [facility] [address] [address] [address] Blanca Grimm Protein [Mass/Vol] 7.6 g/dL Normal 6.4-8.2 [facility] Comment on above: Performed By: #### A MY, CMP, LIPA #### [facility] [address] [address] [address] Blanca Grimm Sodium [Moles/Vol] 140 mmol/L Normal 136-145 [facility] Comment on above: Performed By: #### A MY, CMP, LIPA #### [facility] [address] [place] [address] Dr. Blanca Grimm Urea nitrogen [Mass/Vol] 10.0 mg/dL Normal 7.0-18.0 [facility] Comment on above: Performed By: #### A MY, CMP, LIPA #### [facility] [address] [place] [address] Dr. Blanca Grimm Urea nitrogen/Creatinin e [Mass ratio] 14.5 mg/mg Normal [facility] Comment on above: Performed By: #### A MY, CMP, LIPA #### [facility] [address] [place] [address] Dr. Blanca Grimm TSHon 04-18-2022 TSH 3.705 uIU/mL Normal 0.358-3.740 [facility] Comment on above: Performed By: #### A MY, CMP, LIPA #### [facility] [address] [place] [address] Dr. Blanca Grimm XR ABD FLAT UP_PA [...] YOHANNES QUINN Date: 2022-04-18 13:17 Normal [facility] General Surgery Office/Clini c Noteon 02-10-2022 [...] Renal failure syndrome: Brother. Stroke: Mother. Normal [facility] Comment on above: Result Comment: Elec tronically Signed By: CASA ANAYA, Amberly Dent\Date and Time Signed: 02/10/22 16:26 EST MG MAMM SCREEN 3D KARINE CADon 01-30-2022 MG MAMM SCREEN 3D KARINE CAD Patient: KIM SANTAMARIA Exam Date: 01/30/2022 : 1955 Gender:F Ordering : DR MARCO OTERO . Admission #: [id number] Family : Order #: [id number] CLICK HERE TO VIEW EXAM RADIOLOGY REPORT [...] breast cancer at age 58. LOCATION: [facility] BREAST COMPOSITION: Heterogeneously dense,which may obscure [...] MD on 01/30/2022 at 13:43 Normal [facility] INSULINon 01-23-2022 Insulin 11.7 uIU/mL Normal 2.6-24.9 [facility] Comment on above: Performed By: #### A MY, CMP, LIPA #### [facility] [address] [address] [address] Blanca Grimm CBC AUTO DIFFon 01-22-2022 BASO # 0.1 103/ul Normal 0.0-0.1 [facility] Comment on above: Performed By: #### A MY, CMP, LIPA #### [facility] [address] [address] [address] Blanca Grimm Basophils/100 WBC (Bld) 0.8 % Normal 0.2-2.0 [facility] Comment on above: Performed By: #### A MY, CMP, LIPA #### [facility] [address] [place] [address] Dr. Blanca Grimm EO # 0.2 103/ul Normal 0.0-0.7 [facility] Comment on above: Performed By: #### A MY, CMP, LIPA #### [facility] [address] [place] [address] Dr. Blanca Grimm Eosinophils/100 WBC (Bld) 3.5 % Normal 0.9-7.0 [facility] Comment on above: Performed By: #### A MY, CMP, LIPA #### [facility] [address] [place] [address] Dr. Blanca Grimm Erythrocyte distribution width (RBC) [Ratio] 14.3 % Normal 11.0-15.0 [facility] Comment on above: Performed By: #### A MY, CMP, LIPA #### [facility] [address] [place] [address] Dr. Blanca Grimm Hematocrit (Bld) [Volume fraction] 39.7 % Normal 36.0-48.0 [facility] Comment on above: Performed By: #### A MY, CMP, LIPA #### [facility] [address] [place] [address] Dr. Blanca Grimm Hemoglobin (Bld) [Mass/Vol] 12.9 g/dL Normal 12.0-16.0 [facility] Comment on above: Performed By: #### A MY, CMP, LIPA #### [facility] [address] [place] [address] Dr. Blanca Grimm IG # 0.05 10e3/ul Critically high 0.00-0.03 [facility] Comment on above: Performed By: #### A MY, CMP, LIPA #### [facility] [address] [place] [address] Dr. Blanca Grimm IG % 0.8 % Critically high 0.0-0.5 [facility] Comment on above: Performed By: #### A MY, CMP, LIPA #### [facility] [address] [address] [address] Blanca Grimm LYMPH # 2.5 103/ul Normal 1.2-3.8 [facility] Comment on above: Performed By: #### A MY, CMP, LIPA #### [facility] [address] [place] [address] Dr. Blanca Grimm Lymphocytes/100 WBC (Bld) 38.1 % Normal 20.5-60.0 [facility] Comment on above: Performed By: #### A MY, CMP, LIPA #### [facility] [address] [place] [address] Dr. Blanca Grimm MANUAL DIFF REQ NO Normal [facility] Comment on above: Performed By: #### A MY, CMP, LIPA #### [facility] [address] [place] [address] Dr. Blanca Grimm MCH (RBC) [Entitic mass] 27.9 pg Normal 26.7-34.0 [facility] Comment on above: Performed By: #### A MY, CMP, LIPA #### [facility] [address] [place] [address] Dr. Blanca Grimm MCHC (RBC) [Mass/Vol] 32.5 g/dL Normal 29.9-35.2 [facility] Comment on above: Performed By: #### A MY, CMP, LIPA #### [facility] [address] [place] [address] Dr. Balnca Grimm MCV (RBC) [Entitic vol] 85.9 fL Normal 81.0-99.0 [facility] Comment on above: Performed By: #### A MY, CMP, LIPA #### [facility] [address] [place] [address] Dr. Blanca Grimm MONO # 0.5 103/ul Normal 0.3-0.8 [facility] Comment on above: Performed By: #### A MY, CMP, LIPA #### [facility] [address] [place] [address] Dr. Blanca Grimm Monocytes/100 WBC (Bld) 8.0 % Normal 1.7-12.0 [facility] Comment on above: Performed By: #### A MY, CMP, LIPA #### [facility] [address] [address] [address] Blanca Grimm NEUT # 3.2 103/ul Normal 1.4-6.5 [facility] Comment on above: Performed By: #### A MY, CMP, LIPA #### [facility] [address] [place] [address] Dr. Blanca Grimm Neutrophils/100 WBC (Bld) 48.8 % Normal 43.0-75.0 [facility] Comment on above: Performed By: #### A MY, CMP, LIPA #### [facility] [address] [place] [address] Dr. Blanca Grimm Platelet mean volume (Bld) [Entitic vol] 9.9 fL Normal 9.5-13.5 [facility] Comment on above: Performed By: #### A MY, CMP, LIPA #### [facility] [address] [place] [address] Dr. Blanca Grimm PLT 290 103/ul Normal 150-450 [facility] Comment on above: Performed By: #### A MY, CMP, LIPA #### [facility] [address] [place] [address] Dr. Blanca Grimm RBC 4.62 106/ul Normal 4.20-5.40 [facility] Comment on above: Performed By: #### A MY, CMP, LIPA #### [facility] [address] [place] [address] Dr. Blanca Grimm WBC 6.5 103/ul Normal 4.0-11.0 [facility] Comment on above: Performed By: #### A MY, CMP, LIPA #### [facility] [address] [place] [address] Dr. Blanca Grimm FREE THYROXINE INDEX T7on FTI 2.05 Normal 1.30-4.50 [facility] Comment on above: Performed By: #### L IPID, CMP, T7, TSH #### [facility] [address] [place] [address] Dr. Blanca Grimm T3U 33.0 % Normal 30.0-39.0 [facility] Comment on above: Performed By: #### L IPID, CMP, T7, TSH #### [facility] [address] [address] [address] Blanca Grimm T4 [Mass/Vol] 6.20 ug/dL Normal 4.80-13.90 [facility] Comment on above: Performed By: #### L IPID, CMP, T7, TSH #### [facility] [address] [address] [address] Blanca Grimm GLYCOHEMOGLOBIN A1Con 2021 ADA RECOMMENDATION SEE BELOW Normal [facility] Comment on above: Result Comment: ADA RECOMMENDED LIMIT 4.0 - 6.0 ADA THERAPEUTIC TARGET < 7.0 ACTION SUGGESTED > 7.0 Performed By: #### A MY, CMP, LIPA #### [facility] [address] [place] [address] Dr. Blanca Grimm Glucose [Mass/Vol] 143 mg/dL Normal [facility] Comment on above: Performed By: #### A MY, CMP, LIPA #### [facility] [address] [address] [address] Blanca Grimm HbA1c (Bld) [Mass fraction] 6.6 % Critically high 4.5-6.2 [facility] Comment on above: Performed By: #### A MY, CMP, LIPA #### [facility] [address] [place] [address] Dr. Blanca Grimm IRONon 01-22-2022 Iron [Mass/Vol] 64.0 ug/dL Normal 50.0-170.0 [facility] Comment on above: Performed By: #### A MY, CMP, LIPA #### [facility] [address] [place] [address] Dr. Blanca Grimm LIPID PROFILEon 01-22-2022 CHOL-HDL RATIO NORM SEE BELOW Normal [facility] Comment on above: Result Comment: 3.3 - 4.4 LOW RISK 4.4 - 7.1 AVERAGE RISK 7.1 - 11.0 MODERATE RISK >11.0 HIGH RISK Performed By: #### L IPID, CMP, T7, TSH #### [facility] [address] [address] [address] Blanca Grimm Cholesterol [Mass/Vol] 247 mg/dL Critically high <=200 [facility] Comment on above: Performed By: #### L IPID, CMP, T7, TSH #### [facility] [address] [address] [address] Blanca Grimm Cholesterol in HDL [Mass/Vol] 57 mg/dL Normal 40-60 [facility] Comment on above: Performed By: #### L IPID, CMP, T7, TSH #### [facility] [address] [address] [address] Blanca Grimm Cholesterol in LDL [Mass/Vol] 138.0 mg/dL Normal [facility] Comment on above: Performed By: #### L IPID, CMP, T7, TSH #### [facility] [address] [address] [address] Blanca Grimm Cholesterol.total/ Cholesterol in HDL [Mass ratio] 4.3 {ratio} Normal [facility] Comment on above: Performed By: #### L IPID, CMP, T7, TSH #### [facility] [address] [address] [address] Blanca Grimm HDL NORMAL > or = 60 mg/dl - LO W CARDIOVASCULAR RISK <40 mg/dl - HIGH CARDIOVASCULAR RISK Normal [facility] Comment on above: Performed By: #### L IPID, CMP, T7, TSH #### [facility] [address] [address] [address] Blanca Grimm LDL CALC NORMAL SEE BELOW Normal [facility] Comment on above: Result Comment: <100 mg/dl OPTIMAL 100 - 129 mg/dl NEAR OR ABOVE OPTIMAL 130 - 159 mg/dl BORDERLINE HIGH 160 - 189 mg/dl HIGH >190 mg/dl VERY HIGH Performed By: #### L IPID, CMP, T7, TSH #### [facility] [address] [address] [address] Blanca Grimm Triglyceride [Mass/Vol] 260 mg/dL Critically high <=150 [facility] Comment on above: Performed By: #### L IPID, CMP, T7, TSH #### [facility] [address] [address] [address] Blanca Grimm VLDL CALC 52.0 mg/dL Normal [facility] Comment on above: Performed By: #### L IPID, CMP, T7, TSH #### [facility] [address] [place] [address] Dr. Blanca Grimm PROF 14(COMP METB)on 022 Albumin [Mass/Vol] 4.0 g/dL Normal 3.4-5.0 [facility] Comment on above: Performed By: #### L IPID, CMP, T7, TSH #### [facility] [address] [place] [address] Dr. Blanca Grimm Albumin/Globulin [Mass ratio] 1.1 {ratio} Normal [facility] Comment on above: Performed By: #### L IPID, CMP, T7, TSH #### [facility] [address] [address] [address] Blanca Grimm ALP [Catalytic activity/Vol] 84 U/L Normal 46-116 [facility] Comment on above: Performed By: #### L IPID, CMP, T7, TSH #### [facility] [address] [place] [address] Dr. Blanca Grimm ALT [Catalytic activity/Vol] 36 U/L Normal 14-59 [facility] Comment on above: Performed By: #### L IPID, CMP, T7, TSH #### [facility] [address] [address] [address] Blanca Grimm Anion gap [Moles/Vol] 14.2 mmol/L Normal [facility] Comment on above: Performed By: #### L IPID, CMP, T7, TSH #### [facility] [address] [place] [address] Dr. Blanca Grimm AST [Catalytic activity/Vol] 22 U/L Normal 15-37 [facility] Comment on above: Performed By: #### L IPID, CMP, T7, TSH #### [facility] [address] [place] [address] Dr. Blanca Grimm Bilirubin [Mass/Vol] 0.3 mg/dL Normal 0.2-1.0 [facility] Comment on above: Performed By: #### L IPID, CMP, T7, TSH #### [facility] [address] [address] [address] Blanca Grimm Calcium [Mass/Vol] 9.4 mg/dL Normal 8.5-10.1 [facility] Comment on above: Performed By: #### L IPID, CMP, T7, TSH #### [facility] [address] [address] [address] Blanca Grimm Chloride [Moles/Vol] 103 mmol/L Normal 98-107 [facility] Comment on above: Performed By: #### L IPID, CMP, T7, TSH #### [facility] [address] [address] [address] Blanca Grimm CO2 [Moles/Vol] 26.0 mmol/L Normal 21.0-32.0 [facility] Comment on above: Performed By: #### L IPID, CMP, T7, TSH #### [facility] [address] [address] [address] Blanca Grimm Creatinine [Mass/Vol] 0.71 mg/dL Normal 0.55-1.02 [facility] Comment on above: Performed By: #### L IPID, CMP, T7, TSH #### [facility] [address] [address] [address] Blanca Grimm EGFR-AF SOUTH AFRICAN >60 Normal >=60 [facility] Comment on above: Performed By: #### L IPID, CMP, T7, TSH #### [facility] [address] [address] [address] Blanca Grimm EGFR-NON AF SOUTH AFRICAN >60 Normal >=60 [facility] Comment on above: Performed By: #### L IPID, CMP, T7, TSH #### [facility] [address] [address] [address] Blanca Grimm Globulin (S) [Mass/Vol] 3.8 g/dL Normal [facility] Comment on above: Performed By: #### L IPID, CMP, T7, TSH #### [facility] [address] [address] [address] Blanca rGimm Glucose [Mass/Vol] 112 mg/dL Critically high 74-106 T [facility] Comment on above: Performed By: #### L IPID, CMP, T7, TSH #### [facility] [address] [address] [address] Blanca Grimm Potassium [Moles/Vol] 4.2 mmol/L Normal 3.5-5.1 [facility] Comment on above: Performed By: #### L IPID, CMP, T7, TSH #### [facility] [address] [place] [address] Dr. Blanca Grimm Protein [Mass/Vol] 7.8 g/dL Normal 6.4-8.2 [facility] Comment on above: Performed By: #### L IPID, CMP, T7, TSH #### [facility] [address] [place] [address] Dr. Blanca Grimm Sodium [Moles/Vol] 139 mmol/L Normal 136-145 [facility] Comment on above: Performed By: #### L IPID, CMP, T7, TSH #### [facility] [address] [place] [address] Dr. Blanca Grimm Urea nitrogen [Mass/Vol] 10.0 mg/dL Normal 7.0-18.0 [facility] Comment on above: Performed By: #### L IPID, CMP, T7, TSH #### [facility] [address] [place] [address] Dr. Blanca Grimm Urea nitrogen/Creatinin e [Mass ratio] 14.1 mg/mg Normal [facility] Comment on above: Performed By: #### L IPID, CMP, T7, TSH #### [facility] [address] [place] [address] Dr. Blanca Grimm TSHon 01-22-2022 TSH 2.598 uIU/mL Normal 0.358-3.740 [facility] Comment on above: Performed By: #### L IPID, CMP, T7, TSH #### [facility] [address] [address] [address] Blanca Grimm VITAMIN D 25 OHon 01-22-2022 VIT D 25-OH 40.1 ng/mL Normal [facility] Comment on above: Performed By: #### A MY, CMP, LIPA #### [facility] [id number] Blanca Grimm VIT D RANGES SEE BELOW Normal [facility] Comment on above: Result Comment: <20 ng/mL Vit D deficient 20 - <30 ng/mL Vit D insufficient 30 - 100 ng/mL Vit D sufficient >100 ng/mL Potential Toxicity Performed By: #### A MY, CMP, LIPA #### [facility] [address] [address] [address] Blanca Grimm Ambulatory Visit Summaryon 1 [...] Pure hypercholesterolemia Right upper quadrant pain Normal [facility] Outside Colonoscopyon 2021 Outside Colonoscopy [id number]#1.00CD:127 Normal [facility] Pathology Noteon 01-03-2022 Pathology Note [id number]#1.00CD:127 Normal [facility] Reminderson 01-03-2022 Reminders - From: Graciela Zamudio LPN To: GSN - Clinical; Sent: 01/03/2022 08:02:44 EDT Show up: 12/03/2031 07:00:00 EDT Subject: colonoscopy recall Due Date/Time: 01/02/2032 07:00:00 EDT Reminder/Recall Patient is due for screening colonoscopy 01/02/2032. Normal [facility] POINT OF CARE GLUCOSEon Glucose [Mass/Vol] 112 mg/dL Critically high 74-106 [facility] Comment on above: Performed By: #### P OCGLUC #### [facility] [address] [address] [address] Blanca Grimm Lab Reportson 12-31-2021 Lab Reports [id number]#1.00CD:127 Normal [facility] Covid-19 PCR (CVDTBH)on SARS-CoV-2 (COVID-19) RNA ARVIND+probe Ql (Unsp spec) Not detected Normal NOT DETECTED [facility] Comment on above: Result Comment: This test is not yet approved or cleared by the [place] FDA. When there are no FDA-approved or cleared tests available, and other criteria are met, FDA can make tests available under an emergency access mechanism called an Emergency Use Authorization (EUA). The EUA for this test is supported by the [place] of Health and Human Service's (HHS's) declaration [...] By: #### A MY, CMP, LIPA #### [facility] [address] [place] [address] Dr. Blanca Grimm Pre-Certification Formon Pre-Certification Form [id number]#1.00CD:127 Normal [facility] RAD - MRI Reporton 2 RAD - MRI Report [id number]#1.00CD:127 Normal [facility] Pre-Certification Formon Pre-Certification Form [id number]#1.00CD:127 Normal [facility] MRI ABDOMEN WO CONon 022 MRI [...] by: JOYCE PITT Date: 2021-12-17 07:53 Normal [facility] Consent for Procedure/Surger yon 12-05-2021 Consent for Procedure/Surgery [id number]#1.00CD:127 Normal [facility] NM HEPATOBILIARY SCAN W EFon 12-05-2021 [...] by: JOYCE PITT Date: 2021-12-05 09:11 Normal [facility] RAD - Ultrasound Reporton RAD - Ultrasound Report [id number]#1.00CD:127 Normal [facility] Ambulatory Visit Summaryon 0 12-04-2021 Ambulatory [...] Cholelithiasis, No, No, Dilated cbd, acquired Normal [facility] US SINGLE QUAD RT UPPERon US [...] JOYCE INGRAM Date: 2021-11-26 10:28 Normal [facility] AMMONIAon 11-13-2021 Ammonia (P) [Moles/Vol] 16 umol/L Normal 11-32 [facility] Comment on above: Performed By: #### A MM #### [facility] [address] [address] [address] Blanca Grimm AMYLASEon 11-13-2021 Amylase [Catalytic activity/Vol] 42 U/L Normal 25-115 [facility] Comment on above: Performed By: #### A MY, CMP, LIPA #### [facility] [address] [place] [address] Dr. Blanca Grimm CBC AUTO DIFFon 11-13-2021 BASO # 0.1 103/ul Normal 0.0-0.1 [facility] Comment on above: Performed By: #### A MY, CMP, LIPA #### [facility] [address] [place] [address] Dr. Blanca Grimm Basophils/100 WBC (Bld) 0.6 % Normal 0.2-2.0 [facility] Comment on above: Performed By: #### A MY, CMP, LIPA #### [facility] [address] [place] [address] Dr. Blanca Grimm EO # 0.2 103/ul Normal 0.0-0.7 [facility] Comment on above: Performed By: #### A MY, CMP, LIPA #### [facility] [address] [place] [address] Dr. Blanca Grimm Eosinophils/100 WBC (Bld) 2.3 % Normal 0.9-7.0 [facility] Comment on above: Performed By: #### A MY, CMP, LIPA #### [facility] [address] [place] [address] Dr. Blanca Grimm Erythrocyte distribution width (RBC) [Ratio] 13.9 % Normal 11.0-15.0 [facility] Comment on above: Performed By: #### A MY, CMP, LIPA #### [facility] [address] [place] [address] Dr. Blanca Grimm Hematocrit (Bld) [Volume fraction] 37.3 % Normal 36.0-48.0 [facility] Comment on above: Performed By: #### A MY, CMP, LIPA #### [facility] [address] [place] [address] Dr. Blanca Grimm Hemoglobin (Bld) [Mass/Vol] 12.1 g/dL Normal 12.0-16.0 [facility] Comment on above: Performed By: #### A MY, CMP, LIPA #### [facility] [address] [address] [address] Blanca Grimm IG # 0.03 10e3/ul Normal 0.00-0.03 [facility] Comment on above: Performed By: #### A MY, CMP, LIPA #### [facility] [address] [address] [address] Blanca Grimm IG % 0.4 % Normal 0.0-0.5 [facility] Comment on above: Performed By: #### A MY, CMP, LIPA #### [facility] [address] [place] [address] Dr. Blanca Grimm LYMPH # 2.5 103/ul Normal 1.2-3.8 [facility] Comment on above: Performed By: #### A MY, CMP, LIPA #### [facility] [address] [place] [address] Dr. Blanca Grimm Lymphocytes/100 WBC (Bld) 29.0 % Normal 20.5-60.0 [facility] Comment on above: Performed By: #### A MY, CMP, LIPA #### [facility] [address] [place] [address] Dr. Blanca Grimm MANUAL DIFF REQ NO Normal [facility] Comment on above: Performed By: #### A MY, CMP, LIPA #### [facility] [address] [place] [address] Dr. Blanca Grimm MCH (RBC) [Entitic mass] 28.1 pg Normal 26.7-34.0 [facility] Comment on above: Performed By: #### A MY, CMP, LIPA #### [facility] [address] [place] [address] Dr. Blanca Grimm MCHC (RBC) [Mass/Vol] 32.4 g/dL Normal 29.9-35.2 [facility] Comment on above: Performed By: #### A MY, CMP, LIPA #### [facility] [address] [place] [address] Dr. Blanca Grimm MCV (RBC) [Entitic vol] 86.7 fL Normal 81.0-99.0 [facility] Comment on above: Performed By: #### A MY, CMP, LIPA #### [facility] [address] [place] [address] Dr. Blanca Grimm MONO # 0.8 103/ul Normal 0.3-0.8 [facility] Comment on above: Performed By: #### A MY, CMP, LIPA #### [facility] [address] [place] [address] Dr. Blanca Grimm Monocytes/100 WBC (Bld) 9.5 % Normal 1.7-12.0 [facility] Comment on above: Performed By: #### A MY, CMP, LIPA #### [facility] [address] [place] [address] Dr. Blanca Grimm NEUT # 5.0 103/ul Normal 1.4-6.5 [facility] Comment on above: Performed By: #### A MY, CMP, LIPA #### [facility] [address] [place] [address] Dr. Blanca Grimm Neutrophils/100 WBC (Bld) 58.2 % Normal 43.0-75.0 [facility] Comment on above: Performed By: #### A MY, CMP, LIPA #### [facility] [address] [place] [address] Dr. Blanca Grimm Platelet mean volume (Bld) [Entitic vol] 9.8 fL Normal 9.5-13.5 [facility] Comment on above: Performed By: #### A MY, CMP, LIPA #### [facility] [address] [place] [address] Dr. Blanca Grimm PLT 273 103/ul Normal 150-450 [facility] Comment on above: Performed By: #### A MY, CMP, LIPA #### [facility] [address] [place] [address] Dr. Blanca Grimm RBC 4.30 106/ul Normal 4.20-5.40 [facility] Comment on above: Performed By: #### A MY, CMP, LIPA #### [facility] [address] [place] [address] Dr. Blanca Grimm WBC 8.5 103/ul Normal 4.0-11.0 [facility] Comment on above: Performed By: #### A MY, CMP, LIPA #### [facility] [address] [place] [address] Dr. Blanca Grimm LIPASEon 11-13-2021 Lipase [Catalytic activity/Vol] 108.0 U/L Normal 73.0-393.0 [facility] Comment on above: Performed By: #### A MY, CMP, LIPA #### [facility] [address] [address] [address] Blanca Grimm PROF 14(COMP METB)on 022 Albumin [Mass/Vol] 3.9 g/dL Normal 3.4-5.0 [facility] Comment on above: Performed By: #### A MY, CMP, LIPA #### [facility] [address] [place] [address] Dr. Blanca Grimm Albumin/Globulin [Mass ratio] 1.1 {ratio} Normal [facility] Comment on above: Performed By: #### A MY, CMP, LIPA #### [facility] [address] [place] [address] Dr. Blanca Grimm ALP [Catalytic activity/Vol] 94 U/L Normal 46-116 [facility] Comment on above: Performed By: #### A MY, CMP, LIPA #### [facility] [address] [place] [address] Dr. Blanca Grimm ALT [Catalytic activity/Vol] 28 U/L Normal 14-59 [facility] Comment on above: Performed By: #### A MY, CMP, LIPA #### [facility] [address] [place] [address] Dr. Blanca Grimm Anion gap [Moles/Vol] 14.8 mmol/L Normal [facility] Comment on above: Performed By: #### A MY, CMP, LIPA #### [facility] [address] [place] [address] Dr. Blanca Grimm AST [Catalytic activity/Vol] 22 U/L Normal 15-37 [facility] Comment on above: Performed By: #### A MY, CMP, LIPA #### [facility] [address] [address] [address] Blanca Grimm Bilirubin [Mass/Vol] 0.3 mg/dL Normal 0.2-1.0 [facility] Comment on above: Performed By: #### A MY, CMP, LIPA #### [facility] [address] [place] [address] Dr. Blanca Grimm Calcium [Mass/Vol] 9.3 mg/dL Normal 8.5-10.1 [facility] Comment on above: Performed By: #### A MY, CMP, LIPA #### [facility] [address] [place] [address] Dr. Blanca Grimm Chloride [Moles/Vol] 103 mmol/L Normal 98-107 [facility] Comment on above: Performed By: #### A MY, CMP, LIPA #### [facility] [address] [place] [address] Dr. Blanca Grimm CO2 [Moles/Vol] 24.4 mmol/L Normal 21.0-32.0 [facility] Comment on above: Performed By: #### A MY, CMP, LIPA #### [facility] [address] [place] [address] Dr. Blanca Grimm Creatinine [Mass/Vol] 0.94 mg/dL Normal 0.55-1.02 [facility] Comment on above: Performed By: #### A MY, CMP, LIPA #### [facility] [address] [place] [address] Dr. Blanca Grimm EGFR-AF SOU[place]FR[place] >60 Normal >=60 [facility] Comment on above: Performed By: #### A MY, CMP, LIPA #### [facility] [address] [place] [address] Dr. Blanca Grimm EGFR-NON AF S[place]FR[place] =60 Normal >=60 [facility] Comment on above: Performed By: #### A MY, CMP, LIPA #### [facility] [address] [place] [address] Dr. Blanca Grimm Globulin (S) [Mass/Vol] 3.7 g/dL Normal [facility] Comment on above: Performed By: #### A MY, CMP, LIPA #### [facility] [address] [address] [address] Blanca Grimm Glucose [Mass/Vol] 101 mg/dL Normal 74-106 [facility] Comment on above: Performed By: #### A MY CMP, LIPA #### [facility] [address] [address] [address] Blanca Grimm Potassium [Moles/Vol] 4.2 mmol/L Normal 3.5-5.1 [facility] Comment on above: Performed By: #### A MY, CMP, LIPA #### [facility] [address] [place] [address] Dr. Blanca Grimm Protein [Mass/Vol] 7.6 g/dL Normal 6.4-8.2 [facility] Comment on above: Performed By: #### A MY CMP, LIPA #### [facility] [address] [place] [address] Dr. Blanca Grimm Sodium [Moles/Vol] 138 mmol/L Normal 136-145 [facility] Comment on above: Performed By: #### A MY, CMP, LIPA #### [facility] [address] [place] [address] Dr. Blanca Grimm Urea nitrogen [Mass/Vol] 13.0 mg/dL Normal 7.0-18.0 [facility] Comment on above: Performed By: #### A MY, CMP, LIPA #### [facility] [address] [place] [address] Dr. Blanca Grimm Urea nitrogen/Creatinin e [Mass ratio] 13.8 mg/mg Normal [facility] Comment on above: Performed By: #### A MY, CMP, LIPA #### [facility] [address] [place] [address] Dr. Blanca Grimm XR LSPINE MIN 4 [...] JOYCE PITT Date: 2021-07-22 18:17 Normal [facility] CT Cervical Spine WOon 11-22 CT Cervical Spine WO [facility] Name: KIM SANTAMARIA [address] [place] [address] Phys: [place] [address] : 1955 Age: 61 Acct: [id number] Loc: ER MRN/Unit No.: [id number] Status: REG ER Exam Date: 11/22/16 Accession Number: [id number] Exam: [id number] CT/CT Cervical Spine WO CT Cervical Spine [...] Date/Time: 11/22/16, 1252 Dictated Date/Time: 11/22/16 1252 Packaging Line Attendant: GARCIA WYATT Printed Date/Time: [ rep prt dt last], [ rep prt tm last] This report was electronically signed in an other vendor system [facility] CT Head WOon 11-22-2016 CT Head WO [facility] EM [facility] Name: KIM SANTAMARIA [facility] Phys: [place] [address] : 1955 Age: 61 Acct: [id number] Loc: ER MRN/Unit No.: [id number] Status: REG ER Exam Date: 11/22/16 Accession Number: [id number] Exam: [id number] CT/CT Head WO CT Head WO EXAM: [...] Date/Time: 11/22/16, 1252 Dictated Date/Time: 11/22/16 1245 Packaging Line Attendant: GARCIA WYATT Printed Date/Time: [ rep prt dt last], [ rep prt tm last] This report was electronically signed in an other vendor system [facility] CT Thoracic Spine WOon 11-22 CT Thoracic Spine WO [facility] Name: KIM SANTAMARIA [address] [place] [address] Phys: [place] [address] : 1955 Age: 61 Acct: [id number] Loc: ER MRN/Unit No.: [id number] Status: DEP ER Exam Date: 11/22/16 Accession Number: [id number] Exam: CT/CT Thoracic Spine WO CT Thoracic [...] Date/Time: 11/22/16, 1455 Dictated Date/Time: 11/22/16 1258 Packaging Line Attendant: GARCIA WYATT Printed Date/Time: [ rep prt dt last], [ rep prt tm last] This report was electronically signed in an other vendor system [facility] Vital Signs Date Time Vital Sign Value Performing Clinician Maisha york 06-25-2022 13:32-0400 Blood Pressure Location Amberyl JOSE [facility] [place] 06-25-2022 13:32-0400 Diastolic blood pressure 92 mm[Hg] Amberly JOSE [facility] [place] 06-25-2022 13:32-0400 Heart rate 72 /min Amberly NILL [facility] [place] 06-25-2022 13:32-0400 Respiratory rate 16 /min Amberly NILL [facility] [place] 06-25-2022 13:32-0400 Systolic blood pressure 136 mm[Hg] Amberly NILL [facility] [place] 05-28-2022 13:09-0500 Blood Pressure Location Amberly NILL [facility] [place] 05-28-2022 13:09-0500 Diastolic blood pressure 94 mm[Hg] Amberly NILL [facility] [place] 05-28-2022 13:09-0500 Heart rate 74 /min Amberly NILL [facility] [place] 05-28-2022 13:09-0500 Respiratory rate 16 /min Amberly NILL [facility] [place] 05-28-2022 13:09-0500 Systolic blood pressure 148 mm[Hg] Amberly NILL [facility] [place] 12-04-2021 14:16-0400 Blood Pressure Location Amberly NILL [facility] [place] 12-04-2021 14:16-0400 Diastolic blood pressure 90 mm[Hg] Amberly NILL [facility] [place] 12-04-2021 14:16-0400 Heart rate 70 /min Amberly NILL [facility] [place] 12-04-2021 14:16-0400 Respiratory rate 16 /min Amberly NILL [facility] [place] 12-04-2021 14:16-0400 Systolic blood pressure 128 mm[Hg] Amberly NILL [facility] [place] Encounters Encounter Date Encounter Type Care Provider Facility Start: 06-25-2022 End: 06-26-2022 [facility] Start: 06-25-2022 End: 06-25-2022 Patient encounter procedure Amberly R CASA [facility] Start: 05-28-2022 End: 05-29-2022 [facility] Start: 05-28-2022 End: 05-28-2022 Patient encounter procedure [...] Start: 01-21-2022 End: 01-22-2022 [facility] Start: 01-21-2022 End: 01-21-2022 Patient encounter procedure Amberly JOSE [facility] [place] Start: 01-02-2022 Encounter for preprocedural laboratory examination DR AMBERLY JOSE [facility] Start: 01-01-2022 End: 01-02-[address] [...] encounter procedure Amberly JOSE [facility] [place] Start: 12-03-2021 ambulatory Amberly JOSE Facility :[facility] Start: 11-28-2021 ambulatory Amberly JOSE Facility:[facility] Start: 11-26-2021 End: 11-27-[address] MARCO OTERO Facility:[facility] Start: 11-13-2021 End: 11-14-[address] MARCO OTERO Facility:[facility] Start: 07-22-2021 End: 07-23-[address] MARCO OTERO Facility:[facility] Start: 11-22-2016 End: 11-22-2016 Emergency department patient visit QIUNTIN WAHTLEY Facility:[facility] Procedures Date Procedure Procedure Detail Performing Clinician Start: 01-01-2022 Colonoscopy Amberly JALLOH Start: 01-01-2022 Esophagogastroduodenoscopy Amberly JOSE Start: 03-30-2005 Abdominal hysterectomy Amberly JOSE Bilateral oophorectomy Julio JOSE Immunizations Immunization Date Immunization Notes Care Provider Fa cility 04-08-2021 SARS-CoV-2 (COVID-19 ) mRNA BNT-162b2 vax Amberly NILL [facility] 06-21-2020 SARS-CoV-2 (COVID-19 ) mRNA BNT-162g8 vax Amberly CUELLARL [facility] 05-24-2020 SARS-CoV-2 (COVID-19 ) mRNA BNT-089w3 vax Amberly CUELLARL [facility] [place] NEGATED: Highlighted row has not occurred!05-28-2022 influenza virus vaccine, unspecified formulation Amberly JOSE [facility] [place] Payers Date Payer Category Payer Unknown [id number] 1959 Unknown [id number] 1955 Unknown [id number] 2.16.84 0.1.412776.3.579.2.593 1955 Unknown [id number] 2.16.84 0.1.105082.3.579.2.593 1955 Unknown [id number] 2.16.84 0.1.232348.3.579.2.593 1955 Unknown [id number] 2.16.84 0.1.078425.3.579.2.593 1955 Unknown [id number] 2.16.84 0.1.339130.3.579.2.593 1955 Unknown [id number] 2.16.84 0.1.079718.3.579.2.593 1955 Unknown [id number] 2.16.84 0.1.390185.3.579.2.593 1955 Unknown [id number] 2.16.84 0.1.700493.3.579.2.593 1955 Unknown [id number] 2.16.84 0.1.765484.3.579.2.593 1955 Unknown [id number] 2.16.84 0.1.351274.3.579.2.593 1955 Unknown [id number] 2.16.84 0.1.845635.3.579.2.593 1955 Unknown [id number] 2.16.84 0.1.001883.3.579.2.593 1955 Unknown [id number] 2.16.8 40.1.971813.3.579.2.727 1955 Unknown [id number] 2.16.8 40.1.075328.3.579.2.727 1955 Unknown [id number] 2.16.8 40.1.076903.3.579.2.727 1955 Unknown [id number] 2.16.8 40.1.619484.3.579.2.727 1955 Unknown [id number] 2.16.8 40.1.814412.3.579.2.727 1955 Unknown [id number] 2.16.8 40.1.920591.3.579.2.727 1955 Unknown [id number] 2.16.8 40.1.774666.3.579.2.727 Unknown [id number] Social History Date Type Detail Facility Start: 12-04-2021 End: 06-25-2022 Tobacco smoking status Ex-smoker (finding) [facility] Tobacco smoking status Never Gener [facility] [place] Sex Assigned At Female Gen[facility] [place] Functional Status Date Assessment Result Facility 06-25-2022 Functional Status N/A [facility] 05-28-2022 Functional Status N/A [facility] 12-04-2021 Functional Status N/A [facility] Clinical Note 05-29-2022 Note Date & Type [...] BID, # 90 tab(s), Refills(s) 3, Pharmacy: [facility], 167.6, cm, 05/28/22 13:15:00 EST, Height/Length Dosing, 86.5, kg, 05/28/22 13:15:00 EST, Weight Dosing 2. Hiatal hernia with GERD, (K44.9: Diaphragmatic hernia without obstruction or gangrene)Diaphragmatic hernia without obstruction or gangrene see # 1 Ordered: pantoprazole, 40 mg = 1 tab(s), Oral, BID, # 90 tab(s), Refills(s) 3, Pharmacy: [facility], 167.6, cm, 05/28/22 13:15:00 EST, Height/Length Dosing, 86.5, kg, 05/28/22 13:15:00 EST, Weight Dosing 3. BMI 30.0-30.9,adult (Z68.30: Body mass index [BMI] 30.0-30.9, adult) recommend low fat diet and exercise Follow-up No qualifying data available Problem List/Past Medical History (more content not included)... [facility] Comment on above: Result Comment: Elec [...] good condition. CC: Patient's family physician [facility] Clinical Note 12-04-2021 Note Date & [...] stools GERD (gastroesop (more content not included)... [facility] Comment on above: Result Comment: Elec tronically Signed By: CASA ANAYA, Amberly Dent\Date and Time Signed: 12/04/21 21:16 EDT Evaluation + Plan note 12-04-2021 Radiology Note Date & Type Note Facility 12-04-2021 Evaluation + Plan note Future Scheduled TestsMRI Cholangiogram Pancreatography (mrcp) 12/04/21 [facility] Hospital course Narrative Note Date & Type Note Facility Hospital course Narrative No data available for this section [facility] Discharge instructions Note Date & Type Note Facility Hospital Discharge instructions No data available for this section [facility] [place] Progress note Note Date & Type Note Facility Progress note No data available for this section [facility] [place] Summary Purpose Family History No Family History Records FoundNo Family History Records FoundNo Family History Records Found Advance Directives No Advanced Directives Records FoundNo Advanced Directives Records FoundNo Advanced Directives Records Found Additional Source Comments INFORMATION SOURCE (unrecogn ized section and content) DATE CREATED [facility] DATE CREATED AUTHOR AUTHOR'S ORGANIZ ATION 05/05/2022 [facility] DATE CREATED AUTHOR AUTHOR'S ORGANIZ ATION 06/30/2022 [facility] Care Team (unrecognized sect ion and content) Personnel Name: Marco Otero MD Address: [address] [place] [address] Personnel Name: Marco Otero MD Address: Address: [address] [place] [address] Personnel Name: Marco Otero MD Address: Address: [address] [place] [address] Personnel Name: Marco Otero MD Address: Address: [address] [place] [address] FOR RECORDS PERTAINING TO PATIENTS WHO ARE [...] BE BASED ON THE PRIMARY CLINICAL RECORDS. [facility] [employer] [facility]. provides no warranty or guarantee of the accuracy or completeness of information in this document.
== END 2024-06-21 09:57 | disposition home or self-care (01) ==
LOC: RAD 09:57
PROVIDERS: PCP Family Medicine; Visit Provider Family Medicine
DX: E28.39 Other primary ovarian failure (principal)
CPT/HCPCS: 77080

== ENCOUNTER 2024-06-22 16:45 | Outpatient (REF) | payer MEDICARE, SELFPAY ==
[2024-06-22 18:48] LABS: Internal Control Within Normal Limits; Occult Blood Positive
== END 2024-06-22 16:46 | disposition home or self-care (01) ==
LOC: LAB 16:45
PROVIDERS: PCP Family Medicine; Visit Provider Family Medicine
DX: Z12.11 Encounter for screening for malignant neoplasm of colon (principal)
CPT/HCPCS: G0328

== ENCOUNTER 2025-02-22 08:49 | Outpatient (OUT) | payer MEDICARE, SELFPAY ==
--- NOTE | 2025-02-22 08:52 | MM_ITS ---
Patient Name: KIM SANTAMARIA MR#: [id number] : 1955 Exam Date: 02/22/2025 Ordering Doctor: DR MARCO WHITE . RADIOLOGY REPORT PROCEDURE: MM TOMOSYNTHESIS SCREENING BI COMPARISON: MM TOMOSYNTHESIS SCREENING BI, 02/22/2024. MM TOMOSYNTHESIS SCREENING BI, 02/09/2023. MG MAMM SCREEN 3D KARINE CAD, 01/30/2022. MG MAMM KARINE SCRN W CAD DIG, 06/15/2013. INDICATIONS: Screening Calculator Name NCI Breast Cancer Risk Assessment Tool 5 Year Breast Cancer Risk 1.20% Lifetime Breast Cancer Risk 3.90% Personal Breast Cancer No Personal Ovarian Cancer No Treatments None Family Cancers Aunt-maternal with breast cancer at age ~58. LOCATION: [facility] BREAST COMPOSITION: There are scattered areas of fibroglandular density. FINDINGS: DIAGNOSTIC CATEGORY 1--NEGATIVE. RIGHT BREAST: No significant suspicious finding. LEFT BREAST: No significant suspicious finding. RECOMMENDATIONS: ROUTINE MAMMOGRAM AND CLINICAL EVALUATION IN 12 MONTHS. Dictated by: Satish De Anda DO on 02/22/2025 at 10:52 Approved by: Satish De Anda DO on 02/22/2025 at 10:54
--- OUTSIDE RECORDS SUMMARY | 2025-02-22 08:52 | XMS_ITS | Clinical Summary ---
Author Organization [facility] Address [address] [place] [address] Care Team Providers Care Access Spec Name Role Phone Jem Otero MD Primary Care Provider [phone] Allergies No known active allergies Medications MedicationSigDispense QuantityRefillsLast FilledStart DateEnd DateStatus levothyroxine (Synthroid, Levoxyl) 50 MCG tablet Take by mouth Daily before mealsActive liothyronine (Cytomel) 5 MCG tablet Take by mouth DailyActive simvastatin (Zocor) 20 MG tablet Take 20 mg by mouth at bedtimeActive pantoprazole (ProtoNix) 40 MG EC tablet Take 40 mg by mouth in the morning. Take before meals. Do not crush, chew, or split..Active QUEtiapine (SEROquel) 25 MG tablet Take 25 mg by mouth at bedtimeActive metFORMIN, OSM, (Fortamet) 500 MG 24 hr tablet Take 500 mg by mouth in the evening. Take with meals Do not crush, chew, or split.Active Family History Medical ColdiacXiotqxydCqxrRmawvjquFwhybrwzLfugzhnm4FjtmzgVofjcpAqtejyepgmay MotherStrokeMotherRelationNameStatusCommentsBrotherFatherMother Social History Tobacco UseTypesPacks/DayYears UsedDateSmoking Tobacco: FormerCigarettes Smokeless Tobacco: Never Tobacco Cessation:Counseling Given: Not Answered Comments:Quit 90's, smoked for 20 yrs Alcohol UseStandard Drinks/WeekCommentsYes0 (1 standard drink = 0.6 oz pure alcohol)twice a monthCommentsUnknownSex and Gender InformationValueDate RecordedSex Assigned at TrupyCgvnwm52/04/2024 3:03 PM EDTLegal SexFemale 06/11/2022 7:34 PM EDTGender OlljqknnFuefzx44/02/2025 3:03 PM EDTSexual LepsiuqpexxFahriaux10/02/2025 3:03 PM EDT Last Filed Vital Signs Vital SignReadingTime TakenCommentsBlood Pressure--Pulse--Temperature-- Respiratory Rate--Oxygen Saturation--Inhaled Oxygen Concentration--Yivfzg88.4 kg (175 lb)07/04/2024 2:35 PM IBVYjyyhr257.6 cm (5' 6 )07/04/2024 2:35 PM EDTBody Mass Index28.25007/04/2024 2:35 PM EDT Plan of Treatment Health MaintenanceDue DateLast DoneCommentsCT Qoilclvfiowq07/15/1956FIT-DNA 1955FIT1955FOBT1955 9548Amrtpdjayjmbk90/15/1265Qecftibld97/15/1996 Pneumococcal Vaccine: 65+ Years (1 of 1 - PCV)2005COVID-19 Vaccine ( - 2024- season)501/12/2021, 06/21/2020, 05/24/2020Influenza Vaccine (#1)3155Vaqabcdpfoc962Colorectal Cancer Screening 01/02/2032 Insurance Care Teams Team MemberRelationshipSpecialtyStart DateEnd Jem Otero MD [facility]04[facility]24
--- OUTSIDE RECORDS SUMMARY | 2025-02-22 08:52 | XMS_ITS | Clinical Summary ---
Author Organization [facility] Address [id number] [place] [address] Care Team Providers Care Char Filter Operator Helper Name Role Phone Unavailable Primary Care Provider Unavailabl e Social History Tobacco UseTypesPacks/DayYears UsedDateSmoking Tobacco: Never AssessedChildcare AnswerDate CquzyypfRvrbdwmghDhupbvg69/12/2019EmploymentAnswerDate Recorded TsfjatuggsYziqzkj09/12/2019CommentsUnknownSex and Gender Information ValueDate RecordedSex Assigned at BirthNot on fileLegal PwoXvkcsf38/06/2015 11:56 AM EDTGender IdentityNot on fileSexual OrientationNot on file Plan of Treatment Not on file Medical Devices Not on file
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
--- OUTSIDE RECORDS SUMMARY | 2025-02-22 08:56 | XMS_ITS | CCD ---
Author Organization [facility] Care Team Providers Care Merchandiser Seasonal Name Role Phone QUINTIN WHATLEY Unavailable Unavailable Rehl, Brown Unavailable Unavailable Marco Otero Primary Care Physician [phone] BRANDEN, DR LARA Consulting Unavailable HOY, DR LARA Primary Care Unavailable HOY, DR LARA Attending Unavailable HOY, DR LARA Admitting Unavailable WEST, DR JOYCE Laurent Consulting Unavailable HOY, DR LARA Consulting Unavailable HOY, DR LARA Primary Care Unavailable HOY, DR LARA Attending Unavailable HOY, DR LARA Admitting Unavailable BROWNJOYCE Consulting Unavailable HOY, DR LARA Consulting Unavailable [...] DR LARA Admitting Unavailable BROWNJOYCE Consulting Unavailable HOY, DR LARA Consulting Unavailable BRENDAY, DR LARA Primary Care Unavailable BRENDAY, DR LARA Attending Unavailable HOY, DR LARA [...] Admitting Unavailable HOY, DR LARA Consulting Unavailable BRANEDN, DR LARA Primary Care Unavailable BRENDAY, DR LARA Attending Unavailable BRENDAY, DR LARA Admitting Unavailable WEST, DR JOYCE Laurent Consulting Unavailable HOY, DR LARA Consulting Unavailable HOY, DR LARA Primary Care Unavailable HOY, DR LARA Attending Unavailable HOY, DR LARA Admitting Unavailable WEST, DR JOYCE Laurent Consulting Unavailable BRANDEN, DR LARA Primary Care Unavailable NILL, DR GAMING Attending Unavailable NILL, DR GAMING Admitting Unavailable NILL, DR GAMING Consulting Unavailable NILL, Amberly Ya Attending Unavailable NILL, Amberly Ya Attending Unavailable Hoy, Marco Referring Unavailable NILL, Amberly Ya Attending Unavailable Hoy, Marco Referring Unavailable NILL, Amberly Ya Attending Unavailable NILL, Amberly Ya Attending Unavailable NILL, Amberly Ya Attending Unavailable Branden ANAYA, Marco Higgins Primary Care Provider [phone] ELZA DEL RIO Attending Unavailable Allergies Allergy ClassificationReported Allergen(s)Allergy TypeDate of OnsetReaction(s) Facility (1 source)No Known Medication Allergies; Translations: [No Known Medication Allergies]Propensity to adverse reactions (disorder)[facility] Medications Current Medications MedicationDrug Class(es)DatesSig (Normalized)Sig (Original)diclofenac sodium 75 mg delayed release oral tablet (2 sources)Nonsteroidal Anti-inflammatory DrugStart: 97-16-7732mhoi 1 tablet by mouth twice dailydiclofenac sodium 75 mg Oral EC Tab 75 mg = 1 tab(s), Oral, BID, Refills(s) 0 Start Date: 12/04/21 Status: Orderedlevothyroxine sodium 0.05 mg oral tablet (4 sources)l-ThyroxineStart: 38-05-2004vzrs 1 tablet by mouth once daily Synthroid 50 mcg Tab 50 mcg = 1 tab(s), Oral, Daily, Refills(s) 0 Start Date: 11/29/21 Status: Orderedlevothyroxine (Synthroid, Levoxyl) 50 MCG tablet Take by mouth Daily before meals Activeliothyronine sodium 0.005 mg oral tablet (2 sources)l-Triiodothyroninetake 1 tablet by mouth once dailyliothyronine (Cytomel) 5 MCG tablet Take by mouth Daily ActivemetFORMIN hydrochloride 500 mg oral tablet (6 sources)BiguanideStart: 37-03-1214qfih 2 tablets by mouth twice daily metformin 500 mg oral tablet 1,000 mg = 2 tab(s), Oral, BID, Refills(s) 0 Start Date: 11/29/21 Status: Orderedtake 1 tablet by mouth at mealtime, then take 1 tablet by mouth every twenty-four hoursmetFORMIN, OSM, (Fortamet) 500 MG 24 hr tablet Take 500 mg by mouth in the evening. Take with mealsDo not crush, chew, or split. Activepantoprazole 40 mg delayed release oral tablet (8 sources)Proton Pump InhibitorStart: 99-54-5539vvwe 1 tablet by mouth twice dailyProtonix 40 mg Tab-DR 40 mg = 1 tab(s), Oral, BID, # 90 tab(s), Refills(s) 3, Pharmacy: [id number], 167.6, cm, 05/28/22 13:15:00 EST, Height/Length Dosing, 86.5, kg, 05/28/22 13:15:00EST, Weight Dosing Start Date: 05/28/22 Status: OrderedStart: 68-17-8537idiq 1 tablet by mouth once dailyProtonix 40 mg Tab-DR 40 mg = 1 tab(s), Oral, Daily, Refills(s) 0 Start Date: 11/29/21 Status: OrderedQUEtiapine 50 mg oral tablet (6 sources)Atypical AntipsychoticStart: 63-71-3522hlzq 1 tablet by mouth at bedtimequetiapine 50 mg oral tablet 50 mg = 1 tab(s), Oral, Bedtime, Refills(s) 0 Start Date: 12/04/21 Status: OrderedStart: 27-11-9419dndedrpzxq 50 mg oral tablet 25 mg = 0.5 tab(s), Oral, Bedtime, Refills(s) 0 Start Date: 12/04/21 Stat us: Orderedtake 1 tablet by mouth at bedtimeQUEtiapine (SEROquel) 25 MG tablet Take 25 mg by mouth at bedtime Activesimvastatin 20 mg oral tablet (6 sources)HMG-CoA Reductase InhibitorStart: 46-83-8237wkcz 1 tablet by mouth once daily at bedtimesimvastatin 20 mg Tab 20 mg = 1 tab(s), Oral, Once a day (at bedtime), Refills(s) 0 Start Date: 11/29/21 Status: Ordered Problems Active Problems Problem ClassificationProblemDateDocumented DateEpisodic/ChronicAbdominal hernia (5 sources)Diaphragmatic hernia without obstruction or gangrene; Translations: [Diaphragmatic hernia]Onset: 20-40-4218LzmssbwcEoymdwhdi pain (18 sources)Epigastric pain; Translations: [Epigastric pain]Onset: 12-04-2021 EpisodicAnxiety disorders (4 sources)Xgqbmmo36-57-7097NixuvhmLllnyaz tract disease (6 sources)Disorder of biliary tract; Translations: [Other specified diseases of biliary tract]Onset: 44-15-5904GlzvfbwNvffyba tract disease (11 sources)Cholelithiasis without obstruction; Translations: [Calculus of gallbladder without cholecystitis without obstruction]Onset: 99-26-4094Ukopcvip Diabetes mellitus without complication (7 sources)Diabetes mellitus; Translations: [Type 2 diabetes mellitus without complications]Onset: 180601-52-7397TfxeylnZnytsxws mellitus without complication (1 source)Other abnormal glucose; Translations: [OTHER ABNORMAL GLUCOSE]Onset: 20-20-2885ZbxguzqmKtxjvjoln congenital anomalies (1 source)Other specified congenital malformations of intestine; Translations: [OTH SPEC CONGEN MALFORM INTESTINE]Onset: 76-17-1072KtwsajaIgcbdpbal of lipid metabolism (6 sources)Pure hypercholesterolemia; Translations: [Pure hypercholesterolemia, unspecified]Onset: 448886-36-5247FyemfyfXvgljtslvd disorders (9 sources)Gastroesophageal reflux disease; Translations: [Gastro-esophageal reflux disease with esophagitis]Onset: 842967-68-9946VpmudvuArrjoubec and duodenitis (2 sources)Bile-induced svkeivpjl55-28-3291IcnvrgfaEaewlvwsubnl breast conditions (4 sources)Fibrocystic disease of rkzyra60-75-8712IkwpqdfWwgwwkvaror deficiencies (1 source)Vitamin D deficiency, unspecified; Translations: [VITAMIN D DEFICIENCY UNSPECIFIED]Onset: 23-79-6469OgqokjsClzqn disorders of stomach and duodenum (1 source)Nonulcer dyspepsia; Translations: [Functional dyspepsia]Onset: 06-29-7890OcppxozpDayil disorders of stomach and duodenum (4 sources)Nhfaepjacwh45-96-9760MzvckfivZevar gastrointestinal disorders (1 source)Irritable bowel syndrome without diarrhea; Translations: [IRRITABLE BOWEL SYND W/O DIARRHEA]Onset: 42-77-0361AadprdvKrhme gastrointestinal disorders (2 sources)Irritable bowel rzbjxama91-78-1920PwimdmeJnubz gastrointestinal disorders (5 sources)Diarrhea; Translations: [Diarrhea, unspecified]Onset: 12-04-2021 EpisodicOther gastrointestinal disorders (1 source)Swollen abdomen; Translations: [Abdominal distension (gaseous)]Onset: 56-19-7350YgtrdgdpHptpb gastrointestinal disorders (1 source)Altered bowel function; Translations: [Change in bowel habit]Onset: 81-45-4887PoyxmnmvCxguk gastrointestinal disorders (4 sources)Abdominal zeojdbeb49-09-4582FhyrglzzEmnag gastrointestinal disorders (4 sources)Alteration in bowel ijqbrxkiewa14-32-4944LjyiitlmSgomv injuries and conditions due to external causes (2 sources)Unspecified injury of head, initial encounter; Translations: [S09.90XA - Unspecified injury of head, initial encounter]Onset: 07-33-6892Bwxev liver diseases (1 source)Fatty (change of) liver, not elsewhere classified; Translations: [FATTY CHANGE LIVER NEC]Onset: 21-24-1936CmsvqpsSityg nutritional; endocrine; and metabolic disorders (1 source)Body mass index 30+ - -01-9207QjkvlpeWormi nutritional; endocrine; and metabolic disorders (3 sources)Overweight in adulthood with body mass index of 25 or more but less than 0218-44-8246WltxvmupOcxtr skin disorders (2 sources)Dystrophia unguium; Translations: [Nail dystrophy]61-93-2718Zjhgglug Residual codes; unclassified (5 sources)Early satiety; Translations: [Early satiety]Onset: 47-94-3731Jpglnklq Residual codes; unclassified (4 sources)Vabwczes48-88-6564YtiwrclrPouwcthtvpz; intervertebral disc disorders; other back problems (4 sources)Chronic low back jotc97-45-8016WkxxeeywNagcynx disorders (9 sources)Hypothyroidism; Translations: [Hypothyroidism, unspecified]Onset: 729730-77-6276LcvjekoYnwyayteqwso (1 source)GASTR-ESOPH RFLX DS ESPHGTS W/O BLD; Translations: [GASTR-ESOPH RFLX DS ESPHGTS W/O BLD]Onset: 79-51-7999Mavubwuwecej (1 source)CONTACT W/AND (SUSP) EXPOS COVID-19; Translations: [CONTACT W/AND (SUSP) EXPOS COVID-19]Onset: 85-59-2765Mrrokbawhqjp (3 sources)LOW BACK PAIN, UNSPECIFIED; Translations: [LOW BACK PAIN, UNSPECIFIED]Onset: 07-24-2021 Past or Other Problems Problem ClassificationProblemDateDocumented DateEpisodic/ChronicDeficiency and other anemia (1 source)Anemia, unspecified; Translations: [ANEMIA UNSPECIFIED]Onset: 55-43-8489KtmtrjhaNotko aftercare (1 source)Other nursing home (current) drug therapy; Translations: [OTH [employer] INTERN CURRENT DRUG THERAPY]Onset: 69-87-3556GlwiuvpxZywjn aftercare (1 source)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; Translations: [BR[employer] INTERN USE ORAL HYPOGLYCEMIC DX]Onset: 60-84-2034RhfxfhxkXhopj and unspecified benign neoplasm (1 source)Polyp of stomach and duodenum; Translations: [POLYP OF STOMACH AND DUODENUM]Onset: 98-71-3820ZxdloxlfCnrgx gastrointestinal disorders (1 source)Change in bowel habit; Translations: [CHANGE IN BOWEL HABIT]Onset: 52-29-9019FkihoewbHwqwo gastrointestinal disorders (1 source)Abdominal distension (gaseous); Translations: [ABDOMINAL DISTENSION GASEOUS]Onset: 97-22-7335YelypqgtJfffk screening for suspected conditions (not mental disorders or infectious disease) (4 sources)Encounter for screening mammogram for malignant neoplasm of breast; Translations: [ENC SCR MAMMO MALIG NEOPLASM BREAST]Onset: 81-18-4809Izmcoclv Residual codes; unclassified (1 source)Family history of malignant neoplasm of breast; Translations: [FAMILY HX MALIG NEOPLASM OF BREAST]Onset: 04-31-3945FleedybqZnhgihwh codes; unclassified (1 source)Early satiety; Translations: [EARLY SATIETY]Onset: 09-87-4922Ykndrmwq Screening and history of mental health and substance abuse codes (1 source)Personal history of nicotine dependence; Translations: [PERSONAL HISTORY OF NICOTINE DEPEND]Onset: 22-55-0290SdkjavssXlhqmocwxhvv (1 source)LOW BACK PAIN, UNSPECIFIED; Translations: [LOW BACK PAIN, UNSPECIFIED] Onset: 07-22-2021 Results Test NameValueInterpretationReference RangeFacilityAmbulatory Visit Summaryon 97-09-4533Pvjsjfvlkg Visit Summary KATALINA SANTAMARIA :1955 Visit Date:06/25/2022 Ambulatory Visit Instructions Your [...] Insomnia Pure hypercholesterolemia Right upper quadrant pain [facility]/Clinic Noteon 95-96-3503Nzcimdo Surgery Office/Clinic NoteChief Complaint continued complaint of abdominal pain, bloating, [...] she eats smaller meals; no regurgitation; no fevers,pain lasts about 45 minutes, no nighttime symptoms; [...] swallowing difficulties, no hearing loss, no ear infection(s),no nose bleeds. Cardiovascular: normal blood pressure, no [...] Recorded SARS-CoV-2 (COVID-19) mRNA BNT-162b2 vax 05/24/2020 RecordedOhioHealth Doctors HospitalComment on above:Result Comment: Electronically Signed By: CASA ANAYA, Amberly Ya\.br\Date and Time Signed: 06/25/22 16:53 EDTAmbulatory Visit Summaryon 66-53-3707Wnjdkyivaw Visit Summary KATALINA SANTAMARIA :1955 Visit Date:05/28/2022 Ambulatory Visit Instructions Your Care Team Attending Physician - Amberly JOSE MD Primary Care Physician - Marco Otero MD [...] Insomnia Pure hypercholesterolemia Right upper quadrant pain [facility] HospitalPhysician Referralon 05-08-2022 Physician [id number]#1.00CD:127Normal [facility] W EFon 35-74-8955AS HEPATOBILIARY SCAN W EF Begin Addendum #1 [...] Not performed OTHER: Negative. IMPRESSION: Normal hepatobiliary scanKing[facility] [place] SINGLE QUAD RT UPPERon 13-87-6634CI SINGLE QUAD RT UPPEREXAM: US SINGLE QUAD RT UPPER HISTORY: . [...] Electronically authenticated by: JOYCE INGRAM Date: 2022-04-23 10:51[facility] ANTIBODY IGGon 04-19-2022H. PYLORI IGG ABS0.21 Index ValueNormal0.00-0.79TrihealthComment on above:Result Comment: Negative <0.80 Equivocal 0.80 - 0.89 Positive >0.89Performed By: #### HPYLLC #### [facility] [address] [place] [address] Dr. Blanca GrimmAMYLASEon 01-34-1926Zkwndfy [Catalytic activity/Vol]49 U/LNormal 25-115The [facility] HospitalComment on above:Performed By: #### ADAM, CMP, LIPA #### [facility] [address] [place] [address] Dr. Blanca Justice AUTO DIFFon 30-72-3440OVLG #0.1 103/ulNormal0.0-0.1The [facility] HospitalComment on above:Performed By: #### ADAM, CMP, LIPA #### [facility] [address] [place] [address] Dr. Blanca GrimmBasophils/100 WBC (Bld)0.7 %Normal0.2-2.0[facility] Comment on above:Performed By: #### ADAM, CMP, LIPA #### [facility] [address] [place] [address] Dr. Blanca Hendrix #0.3 103/ulNormal0.0-0.7The [facility] HospitalComment on above: Performed By: #### ADAM, CMP, LIPA #### [facility] [address] [place] [address] Dr. Blanca Baileyosinophils/100 WBC (Bld)3.5 %Normal0.9-7.0The [facility] Comment on above:Performed By: #### ADAM, CMP, LIPA #### [facility] [address] [place] [address] Dr. Blanca Baileyrythrocyte distribution width (RBC) [Ratio]13.6 %Hamlkc01.0-15.0 The [facility]own HospitalComment on above:Performed By: #### ADAM, CMP, LIPA #### [facility] [address] [place] [address] Dr. Blanca GrimmHematocrit (Bld) [Volume fraction]34.8 %Critically low36.0-48.0 The [facility]own HospitalComment on above:Performed By: #### ADAM, CMP, LIPA #### [facility] [address] [place] [address] Dr. Blanca GrimmHemoglobin (Bld) [Mass/Vol]12.6 g/pFKiwpht83.0-16.0The [facility] HospitalComment on above:Performed By: #### ADAM, CMP, LIPA #### [facility] [address] [place] [address] Dr. Blanca Harding #0.04 10e3/ulCritically high0.00-0.03The [facility] Comment on above:Performed By: #### ADAM, CMP, LIPA #### [facility] [address] [place] [address] Dr. Blanca Harding %0.5 %Normal0.0-0.5The [facility] HospitalComment on above: Performed By: #### ADAM, CMP, LIPA #### [facility] [address] [place] [address] Dr. Blanca Fontaine #2.6 103/ulNormal1.2-3.8The [facility] HospitalComment on above:Performed By: #### ADAM, CMP, LIPA #### [facility] [address] [place] [address] Dr. Blanca Quinonesmphocytes/100 WBC (Bld)34.2 %Xjyydi86.5-60.0The [facility] HospitalComment on above:Performed By: #### ADAM, CMP, LIPA #### [facility] [address] [place] [address] Dr. Blanca Joyce DIFF REQNONormalThe [facility]own HospitalComment on above: Performed By: #### ADAM, CMP, LIPA #### [facility] [address] [place] [address] Dr. Blanca Ryan (RBC) [Entitic mass]28.1 lkXgwdxp41.7-34.0The [facility] HospitalComment on above:Performed By: #### ADAM, CMP, LIPA #### [facility] [address] [place] [address] Dr. Blanca Ryan (RBC) [Mass/Vol]36.2 g/dLCritically high29.9-35.2The [facility] Hospitalment on above:Performed By: #### ADAM, CMP, LIPA #### [facility] [address] [place] [address] Dr. Blanca Ryan (RBC) [Entitic vol]77.5 fLCritically low81.0-99.0The [facility] HospitalComment on above:Performed By: #### ADAM, CMP, LIPA #### [facility] [address] [place] [address] Dr. Blanca Simms #0.7 103/ulNormal0.3-0.8The [facility] HospitalComment on above:Performed By: #### ADAM, CMP, LIPA #### [facility] [address] [place] [address] Dr. Blanca Liocytes/100 WBC (Bld)9.1 %Normal1.7-12.0[facility] Comment on above:Performed By: #### ADAM, CMP, LIPA #### [facility] [address] [place] [address] Dr. Blanca Hernandez #3.9 103/ulNormal1.4-6.5The [facility] HospitalComment on above:Performed By: #### ADAM, CMP, LIPA #### [facility] [address] [place] [address] Dr. Blanca Skeltonophils/100 WBC (Bld)52.0 %Zrgjua84.0-75.0The [facility] HospitalComment on above:Performed By: #### ADAM, CMP, LIPA #### [facility] [address] [place] [address] Dr. Blanca Lu mean volume (Bld) [Entitic vol]9.3 fLCritically low 9.5-13.5The [facility] HospitalComment on above:Performed By: #### ADAM, CMP, LIPA #### [facility] [address] [place] [address] Dr. Blanca FowlerT290 103/hjOpeapj615-423Aer [facility] HospitalComment on above: Performed By: #### ADAM, CMP, LIPA #### [facility] [address] [place] [address] Dr. Blanca GrimmRBC4.49 106/ulNormal4.20-5.40The [facility] HospitalComment on above:Performed By: #### ADAM, CMP, LIPA #### [facility] [address] [place] [address] Dr. Blanca GrimmWBC7.5 103/ulNormal4.0-11.0The [facility] HospitalComment on above: Performed By: #### ADAM, CMP, LIPA #### [facility] [address] [place] [address] Dr. Blanca Roman THYROXINE INDEX T7on 37-46-9012WTW3.44Bzzdby8.30-4.50The [facility] HospitalComment on above:Performed By: #### ADAM, CMP, LIPA #### [facility] [address] [address] [address] Blanca GrimmT3U33.0 %Vetljn81.0-39.0The [facility] HospitalComment on above: Performed By: #### ADAM, CMP, LIPA #### [facility] [address] [address] [address] Blanca GrimmT4 [Mass/Vol]7.80 ug/dLNormal4.80-13.90The [facility] Comment on above:Performed By: #### ADAM, CMP, LIPA #### [facility] [address] [address] [address] Blanca GrimmGLYCOHEMOGLOBIN A1Con 75-22-7074PSJ RECOMMENDATIONSEE BELOWNormal The [facility]own HospitalComment on above:Result Comment: ADA RECOMMENDED LIMIT 4.0 - 6.0 ADA THERAPEUTIC TARGET < 7.0 ACTION SUGGESTED > 7.0Performed By: #### ADAM, CMP, LIPA #### [facility] [address] [place] [address] Dr. Blanca GrimmGlucose [Mass/Vol]128 mg/dLNormalThe [facility] HospitalComment on above:Performed By: #### ADAM, CMP, LIPA #### [facility] [address] [place] [address] Dr. Blanca GrimmHbA1c (Bld) [Mass fraction]6.1 %Normal4.5-6.2The [facility] HospitalComment on above:Performed By: #### ADAM, CMP, LIPA #### [facility] [address] [address] [address] Blanca GrimmLIPASEon 43-84-5301Akppit [Catalytic activity/Vol]125.0 U/LNormal 73.0-393.0The [facility] HospitalComment on above:Performed By: #### ADAM, CMP, LIPA #### [facility] [address] [place] [address] Dr. Blanca GrimmPROF 14(COMP METB)on 17-26-8765Nppqocf [Mass/Vol]4.0 g/dLNormal 3.4-5.0The [facility] HospitalComment on above:Performed By: #### ADAM, CMP, LIPA #### [facility] [address] [place] [address] Dr. Blanca GrimmAlbumin/Globulin [Mass ratio]1.1 {ratio}NormalThe [facility] HospitalComment on above:Performed By: #### ADAM, CMP, LIPA #### [facility] [address] [place] [address] Dr. Blanca Lezama [Catalytic activity/Vol]78 U/LUgdiwg30-319Phq [facility] HospitalComment on above:Performed By: #### ADAM, CMP, LIPA #### [facility] [address] [place] [address] Dr. Blanca Levi [Catalytic activity/Vol]31 U/GUzwonl71-15Dmb [facility] HospitalComment on above:Performed By: #### ADAM, CMP, LIPA #### [facility] [address] [place] [address] Dr. Blanca Timmons gap [Moles/Vol]11.7 mmol/LNormalThe [facility] Comment on above:Performed By: #### ADAM, CMP, LIPA #### [facility] [address] [place] [address] Dr. Blanca GrimmAST [Catalytic activity/Vol]18 U/TVtycaz35-97Cse [facility] HospitalComment on above:Performed By: #### ADAM, CMP, LIPA #### [facility] [address] [place] [address] Dr. Blanca GrimmBilirubin [Mass/Vol]0.3 mg/dLNormal0.2-1.0The [facility] Comment on above:Performed By: #### ADAM, CMP, LIPA #### [facility] [address] [place] [address] Dr. Blanca GrimmCalcium [Mass/Vol]9.8 mg/dLNormal8.5-10.1[facility] Comment on above:Performed By: #### ADAM, CMP, LIPA #### [facility] [address] [address] [address] Blanca GrimmChloride [Moles/Vol]103 mmol/DGjrrsv29-767Adk [facility] Comment on above:Performed By: #### ADAM, CMP, LIPA #### [facility] [address] [address] [address] Blanca GrimmCO2 [Moles/Vol]29.5 mmol/IUjwrah06.0-32.0The [facility] Comment on above:Performed By: #### ADAM, CMP, LIPA #### [facility] [address] [address] [address] Blanca GrimmCreatinine [Mass/Vol]0.69 mg/dLNormal0.55-1.02The [facility] HospitalComment on above:Performed By: #### ADAM, CMP, LIPA #### [facility] [address] [place] [address] Dr. Rios ChangEGFR-AF MALIAN>60Normal>=60The [facility] HospitalComment on above:Performed By: #### ADAM, CMP, LIPA #### [facility] [address] [place] [address] Dr. Blanca BaileyGFR-NON AF MALIAN>60Normal>=60The [facility] HospitalComment on above:Performed By: #### ADAM, CMP, LIPA #### [facility] [address] [place] [address] Dr. Blanca GrimmGlobulin (S) [Mass/Vol]3.6 g/dLNormalThe [facility] HospitalComment on above:Performed By: #### ADAM, CMP, LIPA #### [facility] [address] [place] [address] Dr. Blanca GrimmGlucose [Mass/Vol]95 mg/iEDflcdj50-344Rte [facility] Comment on above:Performed By: #### ADAM, CMP, LIPA #### [facility] [address] [place] [address] Dr. Blanca GrimmPotassium [Moles/Vol]4.2 mmol/LNormal3.5-5.1The [facility] Comment on above:Performed By: #### ADAM, CMP, LIPA #### [facility] [address] [address] [address] Blanca GrimmProtein [Mass/Vol]7.6 g/dLNormal6.4-8.2[facility] Comment on above:Performed By: #### ADAM, CMP, LIPA #### [facility] [address] [address] [address] Blanca GrimmSodium [Moles/Vol]140 mmol/FJqwryh863-622Pqs [facility] Comment on above:Performed By: #### ADAM, CMP, LIPA #### [facility] [address] [address] [address] Blanca GrimmUrea nitrogen [Mass/Vol]10.0 mg/dLNormal7.0-18.0TrihealthComment on above:Performed By: #### ADAM, CMP, LIPA #### [facility] [address] [place] [address] Dr. Blanca Brand nitrogen/Creatinine [Mass ratio]14.5 mg/mgNormalThe [facility] HospitalComment on above:Performed By: #### ADAM, CMP, LIPA #### [facility] [address] [place] [address] Dr. Blanca Cabrera 18-10-6098YCN5.705 uIU/mLNormal0.358-3.740TrihealthComment on above:Performed By: #### ADAM, CMP, LIPA #### [facility] [address] [place] [address] Dr. Blanca GrimmXR ABD FLAT UP_PA Michele [id number] ABD FLAT UP_PA CHEXAMINATION: XR ABD FLAT UP_PA CH HISTORY: Right [...] Electronically authenticated by: YOHANNES QUINN Date: 2022-04-18 13:17[facility]/Cl[facility] Noteon 23-63-8623[facility] Surgery Office/Clinic NoteChief Complaint EGD and colonoscopy follow up HPI Staff 20 day post operative follow up post colonoscopy and EGD with gastric polypectomy. Continues to experience abdominal pain and bloating however symptoms are less frequent and less severe. Loose stoolsare now more formed. History of Present Illness [...] swallowing difficulties, no hearing loss, no ear infection(s),no nose bleeds. Cardiovascular: normal blood pressure, no [...] Hypertension: Mother. Renal failure syndrome: Brother. Stroke: Mother.OhioHealth Doctors HospitalComment on above:Result Comment: Electronically Signed By: Amberly JOSE MD\Date and Time Signed: 02/10/22 16:26 ESTMG MAMM SCREEN 3D KARINE CADon 28-87-1273PH MAMM SCREEN 3D KARINE CADPatient: KATALINA SANTAMARIA Exam Date: 01/30/2022 : 1955 Gender:F Ordering : DR MARCO OTERO . Admission #: [id number] Family : Order #: [id number] CLICK HERE TO VIEW EXAM RADIOLOGY REPORT [...] breast cancer at age 58. LOCATION: [facility] BREAST COMPOSITION: Heterogeneously dense,which may obscure [...] by: Joyce Pitt MD on 01/30/2022 at 13:43[facility] INSULINon 34-58-9444Qntxuvg50.7 uIU/mLNormal2.6-24.9The [facility] HospitalComment on above:Performed By: #### ADAM, CMP, LIPA #### [facility] [address] [place] [address] Dr. Blanca GrimmMIDDLESB[facility] AUTO DIFFon 30-86-7385OYUG #0.1 103/ulNormal0.0-0.1The [facility] HospitalComment on above:Performed By: #### ADAM, CMP, LIPA #### [facility] [address] [place] [address] Dr. Blanca GrimmBasophils/100 WBC (Bld)0.8 %Normal0.2-2.0[facility] Comment on above:Performed By: #### ADAM, CMP, LIPA #### [facility] [address] [place] [address] Dr. Blanca Hendrix #0.2 103/ulNormal0.0-0.7The [facility] HospitalComment on above: Performed By: #### ADAM, CMP, LIPA #### [facility] [address] [place] [address] Dr. Blanca Baileyosinophils/100 WBC (Bld)3.5 %Normal0.9-7.0[facility] Comment on above:Performed By: #### ADAM, CMP, LIPA #### [facility] [address] [place] [address] Dr. Blanca Baileyrythrocyte distribution width (RBC) [Ratio]14.3 %Ccqeal64.0-15.0 The [facility] HospitalComment on above:Performed By: #### ADAM, CMP, LIPA #### [facility] [address] [place] [address] Dr. Blanca GrimmHematocrit (Bld) [Volume fraction]39.7 %Icoplo11.0-48.0The [facility] HospitalComment on above:Performed By: #### ADAM, CMP, LIPA #### [facility] [address] [place] [address] Dr. Blanca GrimmHemoglobin (Bld) [Mass/Vol]12.9 g/sDHimpik43.0-16.0The [facility] HospitalComment on above:Performed By: #### ADAM, CMP, LIPA #### [facility] [address] [place] [address] Dr. Blanca Harding #0.05 10e3/ulCritically high0.00-0.03[facility] Comment on above:Performed By: #### ADAM, CMP, LIPA #### [facility] [address] [place] [address] Dr. Blanca Harding %0.8 %Critically high0.0-0.5The [facility] HospitalComment on above:Performed By: #### ADAM, CMP, LIPA #### [facility] [address] [place] [address] Dr. Blanca Fontaine #2.5 103/ulNormal1.2-3.8The [facility] HospitalComment on above:Performed By: #### ADAM, CMP, LIPA #### [facility] [address] [place] [address] Dr. Blanca Hsuhocytes/100 WBC (Bld)38.1 %Wbwxmh69.5-60.0The [facility] HospitalComment on above:Performed By: #### ADAM, CMP, LIPA #### [facility] [address] [place] [address] Dr. Blanca Joyce DIFF REQNONormalThe [facility] HospitalComment on above: Performed By: #### ADAM, CMP, LIPA #### [facility] [address] [place] [address] Dr. Blanca Ryan (RBC) [Entitic mass]27.9 nqEysyqp93.7-34.0The [facility] HospitalComment on above:Performed By: #### ADAM, CMP, LIPA #### [facility] [address] [place] [address] Dr. Blanca Ryan (RBC) [Mass/Vol]32.5 g/xCSnaafh18.9-35.2The [facility] HospitalComment on above:Performed By: #### ADAM, CMP, LIPA #### [facility] [address] [place] [address] Dr. Blanca Ryan (RBC) [Entitic vol]85.9 xIKwbmoc42.0-99.0The [facility] HospitalComment on above:Performed By: #### ADAM, CMP, LIPA #### [facility] [address] [place] [address] Dr. Blanca Simms #0.5 103/ulNormal0.3-0.8The [facility] HospitalComment on above:Performed By: #### ADAM, CMP, LIPA #### [facility] [address] [place] [address] Dr. Blanca Liocytes/100 WBC (Bld)8.0 %Normal1.7-12.0[facility] Comment on above:Performed By: #### ADAM, CMP, LIPA #### [facility] [address] [place] [address] Dr. Blanca Hernandez #3.2 103/ulNormal1.4-6.5The [facility] HospitalComment on above:Performed By: #### ADAM, CMP, LIPA #### [facility] [address] [place] [address] Dr. Blanca Skeltonophils/100 WBC (Bld)48.8 %Xmxtsq92.0-75.0The [facility] HospitalComment on above:Performed By: #### ADAM, CMP, LIPA #### [facility] [address] [place] [address] Dr. Blanca Lu mean volume (Bld) [Entitic vol]9.9 fLNormal9.5-13.5The [facility] HospitalComment on above:Performed By: #### ADAM, CMP, LIPA #### [facility] [address] [place] [address] Dr. Blanca FowlerT290 103/vgRsrfzc998-209Tgo [facility] HospitalComment on above: Performed By: #### ADAM, CMP, LIPA #### [facility] [address] [place] [address] Dr. Blanca GrimmRBC4.62 106/ulNormal4.20-5.40The [facility] HospitalComment on above:Performed By: #### ADAM, CMP, LIPA #### [facility] [address] [place] [address] Dr. Blanca GrimmWBC6.5 103/ulNormal4.0-11.0The [facility] HospitalComment on above: Performed By: #### ADAM, CMP, LIPA #### [facility] [address] [place] [address] Dr. Blanca Roman THYROXINE INDEX T7on 64-05-0997ILU0.39Dbcxvd9.30-4.50The [facility] HospitalComment on above:Performed By: #### LIPID, CMP, T7, TSH #### [facility] [address] [address] [address] Blanca GrimmT3U33.0 %Kmbana34.0-39.0The [facility] HospitalComment on above: Performed By: #### LIPID, CMP, T7, TSH #### [facility] [address] [address] [address] Blanca GrimmT4 [Mass/Vol]6.20 ug/dLNormal4.80-13.90[facility] Comment on above:Performed By: #### LIPID, CMP, T7, TSH #### [facility] [address] [address] [address] Blanca GrimmGLYCOHEMOGLOBIN A1Con 44-53-1660SHO RECOMMENDATIONSEE BELOWOhiohealth Arthur G.H. Bing, Md, Cancer CenterComment on above:Result Comment: ADA RECOMMENDED LIMIT 4.0 - 6.0 ADA THERAPEUTIC TARGET < 7.0 ACTION SUGGESTED > 7.0Performed By: #### ADAM, CMP, LIPA #### [facility] [address] [place] [address] Dr. Blanca GrimmGlucose [Mass/Vol]143 mg/dLNoBellevue HospitalComment on above:Performed By: #### ADAM, CMP, LIPA #### [facility] [address] [place] [address] Dr. Blanca GrimmHbA1c (Bld) [Mass fraction]6.6 %Critically high4.5-6.2The [facility] HospitalComment on above:Performed By: #### ADAM, CMP, LIPA #### [facility] [address] [place] [address] Dr. Blanca GrimmIRODaysi 84-96-7487Xbqz [Mass/Vol]64.0 ug/vBRkghqo31.0-170.0The [facility] HospitalComment on above:Performed By: #### ADAM, CMP, LIPA #### [facility] [address] [place] [address] Dr. Blanca GrimmLIPID PROFILEon 36-58-4293FQZY-HDL RATIO NORMSEE BELOWFort Hamilton HospitalComhutzel women's hospital on above:Result Comment: 3.3 - 4.4 LOW RISK 4.4 - 7.1 AVERAGE RISK 7.1 - 11.0 MODERATE RISK >11.0 HIGH RISKPerformed By: #### LIPID, CMP, T7, TSH #### [facility] [address] [place] [address] Dr. Blanca GrimmCholesterol [Mass/Vol]247 mg/dLCritically high<=200The [facility] on above:Performed By: #### LIPID, CMP, T7, TSH #### [facility] [address] [place] [address] Dr. Blanca Walleresterol in HDL [Mass/Vol]57 mg/hBZkbnzj61-14ZwdBucyrus Community Hospital on above:Performed By: #### LIPID, CMP, T7, TSH #### [facility] [address] [place] [address] Dr. Blanca Walleresterol in LDL [Mass/Vol]138.0 mg/dLKnox Community Hospital on above:Performed By: #### LIPID, CMP, T7, TSH #### [facility] [address] [place] [address] Dr. Blanca Coles.total/Cholesterol in HDL [Mass ratio]4.3 {ratio} NormalThe [facility] on above:Performed By: #### LIPID, CMP, T7, TSH #### [facility] [address] [place] [address] Dr. Blanca Lino NORMAL> or = 60 mg/dl - LOW CARDIOVASCULAR RISK <40 mg/dl - HIGH CARDIOVASCULAR RISKKnox Community Hospital on above:Performed By: #### LIPID, CMP, T7, TSH #### [facility] [address] [place] [address] Dr. Blanca Kruse CALC NORMALSEE BELOWFort Hamilton HospitalComhutzel women's hospital on above:Result Comment: <100 mg/dl OPTIMAL 100 - 129 mg/dl NEAR OR ABOVE OPTIMAL 130 - 159 mg/dl BORDERLINE HIGH 160 - 189 mg/dl HIGH >190 mg/dl VERY HIGH Performed By: #### LIPID, CMP, T7, TSH #### [facility] [address] [address] [address] Blanca GrimmTriglyceride [Mass/Vol]260 mg/dLCritically high<=150The [facility] Hospitalment on above:Performed By: #### LIPID, CMP, T7, TSH #### [facility] [address] [address] [address] Blanca GrimmVLDL CALC52.0 mg/dLNormalThe [facility] HospitalComment on above: Performed By: #### LIPID, CMP, T7, TSH #### [facility] [address] [address] [address] Blanca GrimmPRODen 14(COMP METB)on 24-44-7912Qqixfhk [Mass/Vol]4.0 g/dLNormal 3.4-5.0The [facility] HospitalComment on above:Performed By: #### LIPID, CMP, T7, TSH #### [facility] [address] [place] [address] Dr. Blanca GrimmAlbumin/Globulin [Mass ratio]1.1 {ratio}NormalThe [facility] HospitalComment on above:Performed By: #### LIPID, CMP, T7, TSH #### [facility] [address] [place] [address] Dr. Blanca Lezama [Catalytic activity/Vol]84 U/XZqrpyw55-973Kfo [facility] HospitalComment on above:Performed By: #### LIPID, CMP, T7, TSH #### [facility] [address] [place] [address] Dr. Blanca Levi [Catalytic activity/Vol]36 U/YHawmwd72-96Sjj [facility] Hospitalment on above:Performed By: #### LIPID, CMP, T7, TSH #### [facility] [address] [place] [address] Dr. Blanca Timmons gap [Moles/Vol]14.2 mmol/LNormalThe [facility] on above:Performed By: #### LIPID, CMP, T7, TSH #### [facility] [address] [place] [address] Dr. Yilan ChangAST [Catalytic activity/Vol]22 U/INzfgmn94-18Abp [facility] HospitalComment on above:Performed By: #### LIPID, CMP, T7, TSH #### [facility] [address] [address] [address] Blanca GrimmBilirubin [Mass/Vol]0.3 mg/dLNormal0.2-1.0[facility] Comment on above:Performed By: #### LIPID, CMP, T7, TSH #### [facility] [address] [address] [address] Blanca GrimmCalcium [Mass/Vol]9.4 mg/dLNormal8.5-10.1[facility] Comment on above:Performed By: #### LIPID, CMP, T7, TSH #### [facility] [address] [place] [address] Dr. Blanca GrimmChloride [Moles/Vol]103 mmol/EUugjmf61-583Uea [facility] Comment on above:Performed By: #### LIPID, CMP, T7, TSH #### [facility] [address] [place] [address] Dr. Blanca GrimmCO2 [Moles/Vol]26.0 mmol/ELvkgzt11.0-32.0[facility] Comment on above:Performed By: #### LIPID, CMP, T7, TSH #### [facility] [address] [place] [address] Dr. Blanca GrimmCreatinine [Mass/Vol]0.71 mg/dLNormal0.55-1.02The [facility] HospitalComment on above:Performed By: #### LIPID, CMP, T7, TSH #### [facility] [address] [place] [address] Dr. Blanca BaileyGFR-AF MALIAN>60Normal>=60The [facility] HospitalComment on above:Performed By: #### LIPID, CMP, T7, TSH #### [facility] [address] [place] [address] Dr. Blanca BaileyGFR-NON AF MALIAN>60Normal>=60The [facility] HospitalComment on above:Performed By: #### LIPID, CMP, T7, TSH #### [facility] [address] [address] [address] Blanca GrimmGlobulin (S) [Mass/Vol]3.8 g/dLNormElyria Memorial HospitalComment on above:Performed By: #### LIPID, CMP, T7, TSH #### [facility] [address] [address] [address] Blanca GrimmGlucose [Mass/Vol]112 mg/dLCritically grdu09-514Wln [facility] HospitalComment on above:Performed By: #### LIPID, CMP, T7, TSH #### [facility] [address] [address] [address] Blanca GrimmPotassium [Moles/Vol]4.2 mmol/LNormal3.5-5.1[facility] Comment on above:Performed By: #### LIPID, CMP, T7, TSH #### [facility] [address] [place] [address] Dr. Blanca GrimmProtein [Mass/Vol]7.8 g/dLNormal6.4-8.2[facility] Comment on above:Performed By: #### LIPID, CMP, T7, TSH #### [facility] [address] [place] [address] Dr. Blanca GrimmSodium [Moles/Vol]139 mmol/SAoqnnv647-548Jgh [facility] Comment on above:Performed By: #### LIPID, CMP, T7, TSH #### [facility] [address] [place] [address] Dr. Blanca GrimmUrea nitrogen [Mass/Vol]10.0 mg/dLNormal7.0-18.0The [facility] HospitalComment on above:Performed By: #### LIPID, CMP, T7, TSH #### [facility] [address] [place] [address] Dr. Blanca Brand nitrogen/Creatinine [Mass ratio]14.1 mg/mgNoBellevue HospitalComment on above:Performed By: #### LIPID, CMP, T7, TSH #### [facility] [address] [place] [address] Dr. Balnca Cabrera 01-89-7586KEC8.598 uIU/mLNormal0.358-3.740The [facility] HospitalComment on above:Performed By: #### LIPID, CMP, T7, TSH #### [facility] [address] [address] [address] Blanca GrimmVITAMIN D 25 OHon 20-98-4392QWO D 25-OH40.1 ng/mLNormalTrihealthComment on above:Performed By: #### ADAM, CMP, LIPA #### [facility] [address] [address] [address] Blanca Lora [facility] [place]THE [facility] City HospitalComment on above: Result Comment: <20 ng/mL Vit D deficient 20 - <30 ng/mL Vit D insufficient 30 - 100 ng/mL Vit D sufficient >100 ng/mL Potential ToxicityPerformed By: #### ADAM, CMP, LIPA #### [facility] [address] [address] [address] Blanca GrimmAmbulatory Visit Summaryon 52-34-4860Urgsalgbym Visit Summary HINA KATALINA Higgins :1955 Visit Date:01/21/2022 Ambulatory Visit Instructions Your Care Team Attending Physician - CASA ANAYA, Amberly Ya Primary Care Physician - Marco Otero MD This Is Your Medications List Contact prescribing physician if questions or concerns diclofenac (diclofenac sodium 75 mg Oral EC Tab) levothyroxine (Synthroid 50 mcg Tab) metformin (metformin 500 mg oral tablet) pantoprazole (Protonix 40 mg Tab-) quetiapine (quetiapine 50 mg oral tablet) simvastatin (simvastatin 20 mg Tab) Procedures Performed Colonoscopy (01/01/2022), EGD - Esophagogastroduodenoscopy (01/01/2022), Abdominal hysterectomy (2005), Bilateral oophorectomy. Medications What How Much When Instructions Unchanged diclofenac (diclofenac sodium 75 mg Oral EC Tab) 1 Tablets By Mouth 2 times a day Contactprescribing physician if questions or concerns Unchanged levothyroxine [...] Insomnia Pure hypercholesterolemia Right upper quadrant pain [facility] HospitalOutside Colonoscopyon 01-03-2022 Outside [id number]#1.00CD:127[facility] HospitalPathology Noteon 44-82-8537Ndwfpqqjx Note [id number]#1.00CD:127[facility] Doctors HospitalReminderson 91-24-6807Bfzciktmk From: Graciela Zamudio LPN To: GSN - Clinical; Sent: 01/03/2022 08:02:44 EDT Show up: 12/03/2031 07:00:00 EDT Subject: colonoscopy recall Due Date/Time: 01/02/2032 07:00:00 EDT Reminder/Recall Patient is due for screening colonoscopy 01/02/2032.[facility] Doctors HospitalPOINT OF CARE GLUCOSEon 87-28-1055Yhtaype [Mass/Vol]112 mg/dLCritically whrr51-180ZssTrihealthComment on above:Performed By: #### POCGLUC #### [facility] [address] [place] [address] Dr. Blanca GrimmLab Reportson 44-92-0809Prf Reports [id number]#1.00CD:127NoOhioHealth Berger HospitalCovid-19 PCR ([facility]VDWESTBOROUGH [facility])on 67-62-7121SMEE-CoV-2 (COVID-19) RNA ARVIND+probe Ql (Unsp spec)Not detectedNormalNOT DETECTEDThe [facility] HospitalComment on above: Result Comment: This test is not yet approved or cleared by the [place] FDA. When there are no FDA-approved or cleared tests available, and other criteria are met, FDA can make tests available under an emergency access mechanism called an Emergency Use Authorization (EUA). The EUA for this test is supported by the [employer] of Health and Human Service's (HHS's) declaration [...] of clinical signs and symptoms consistent with SARS-CoV-2.Performed By: #### ADAM, CMP, LIPMitch #### [facility] [address] [place] [address] Dr. Blanca GrimmPre-Certification Formon 55-95-1123Rvr-Certification Form [id number]#1.00CD:127NoOhioHealth Berger HospitalRAD - MRI Reporton 06-42-8427ONJ - MRI Report [id number]#1.00CD:127NoOhioHealth Berger HospitalPre-Certification Formon 89-43-3223Shm-Certification Form [id number]#1.00CD:127[facility] Doctors HospitalMRI ABDOMEN WO CONon 10-86-9123BJZ ABDOMEN WO CONEXAMINATION: MRI ABDOMEN WO CON HISTORY: Epigastric pain COMPARISON: No [...] Electronically authenticated by: JOYCE PITT Date: 2021-12-17 07:53[facility] HospitalConsent for Procedure/Surgeryon 66-70-9072Jwytbgx for Procedure/[id number]#1.00CD:127[facility] Doctors HospitalNM HEPATOBILIARY SCAN W EFon 35-07-2261LL HEPATOBILIARY SCAN W EFEXAMINATION: NM HEPATOBILIARY SCAN W EF HISTORY: Right [...] Electronically authenticated by: JOYCE PITT Date: 2021-12-05 09:11[facility] HospitalRAD - Ultrasound Reporton 16-99-2516PEW - Ultrasound Report [id number]#1.00CD:127[facility] Doctors HospitalAmbulatory Visit Summaryon 71-88-4403Ptlxpedfml Visit Summary KATALINA SANTAMARIA :1955 Visit Date:12/04/2021 Ambulatory Visit Instructions Your Diagnosis Epigastric pain Indigestion Bloating Frequent loose stools Dilated cbd, acquired Your Care Team Attending Physician - CASA ANAYA, Amberly Ya Primary Care Physician - Marco Otero MD Referring Physician - Marco Otero MD This [...] specify), Reason: Cholelithiasis, No, No, Dilated cbd, acquiredNormalFisher Brandenburg CenterUS SINGLE QUAD RT UPPERon 95-80-3318YJ SINGLE QUAD RT UPPEREXAM: US SINGLE QUAD RT UPPER HISTORY: . [...] Electronically authenticated by: JOYCE INGRAM Date: 2021-11-26 10:28NormOhioHealthe [facility] HospitalAMMONIAon 26-58-6781Xaeehbr (P) [Moles/Vol]16 umol/ZFxrrwl83-08 The [facility] HospitalComment on above:Performed By: #### AMM #### [facility] [address] [place] [address] Dr. Blanca GrimmAMYLASEon 94-29-0217Mqhvmol [Catalytic activity/Vol]42 U/LNormal 25-115The [facility] HospitalComment on above:Performed By: #### ADAM, CMP, LIPA #### [facility] [address] [place] [address] Dr. Blanca Justice AUTO DIFFon 34-68-2289OSHX #0.1 103/ulNormal0.0-0.1The [facility] HospitalComment on above:Performed By: #### ADAM, CMP, LIPA #### [facility] [address] [place] [address] Dr. Blanca GrimmBasophils/100 WBC (Bld)0.6 %Normal0.2-2.0[facility] Comment on above:Performed By: #### ADAM, CMP, LIPA #### [facility] [address] [place] [address] Dr. Blanca Hendrix #0.2 103/ulNormal0.0-0.7The [facility] HospitalComment on above: Performed By: #### ADAM, CMP, LIPA #### [facility] [address] [place] [address] Dr. Blanca Baileyosinophils/100 WBC (Bld)2.3 %Normal0.9-7.0[facility] Comment on above:Performed By: #### ADAM, CMP, LIPA #### [facility] [address] [place] [address] Dr. Blanca Baileyrythrocyte distribution width (RBC) [Ratio]13.9 %Ypfnsv97.0-15.0 The [facility] HospitalComment on above:Performed By: #### ADAM, CMP, LIPA #### [facility] [address] [place] [address] Dr. Blanca GrimmHematocrit (Bld) [Volume fraction]37.3 %Jrwdin93.0-48.0The [facility] HospitalComment on above:Performed By: #### ADAM, CMP, LIPA #### [facility] [address] [place] [address] Dr. Blanca GrimmHemoglobin (Bld) [Mass/Vol]12.1 g/cSBcqqcg56.0-16.0The [facility] HospitalComment on above:Performed By: #### ADAM, CMP, LIPA #### [facility] [address] [place] [address] Dr. Blanca Harding #0.03 10e3/ulNormal0.00-0.03The [facility] HospitalComment on above:Performed By: #### ADAM, CMP, LIPA #### [facility] [address] [place] [address] Dr. Blanca Harding %0.4 %Normal0.0-0.5The [facility] HospitalComment on above: Performed By: #### ADAM, CMP, LIPA #### [facility] [address] [place] [address] Dr. Blanca Fontaine #2.5 103/ulNormal1.2-3.8The [facility] HospitalComhutzel women's hospital on above:Performed By: #### ADAM, CMP, LIPA #### [facility] [address] [place] [address] Dr. Blanca Hsuhocytes/100 WBC (Bld)29.0 %Ohmrmx02.5-60.0The [facility] HospitalComment on above:Performed By: #### ADAM, CMP, LIPA #### [facility] [address] [place] [address] Dr. Blanca FreemanUAL DIFF REQNONormalThe [facility] HospitalComment on above: Performed By: #### ADAM, CMP, LIPA #### [facility] [address] [place] [address] Dr. Blanca Mireles (RBC) [Entitic mass]28.1 ajKdctkj84.7-34.0The [facility] HospitalComment on above:Performed By: #### ADAM, CMP, LIPA #### [facility] [address] [place] [address] Dr. Blanca Ryan (RBC) [Mass/Vol]32.4 g/bCXjyqkj07.9-35.2The [facility] HospitalComment on above:Performed By: #### ADAM, CMP, LIPA #### [facility] [address] [place] [address] Dr. Blanca Ryan (RBC) [Entitic vol]86.7 zOTazguo26.0-99.0The [facility] HospitalComment on above:Performed By: #### ADAM, CMP, LIPA #### [facility] [address] [place] [address] Dr. Blanca Simms #0.8 103/ulNormal0.3-0.8The [facility] HospitalComment on above:Performed By: #### ADAM, CMP, LIPA #### [facility] [address] [place] [address] Dr. Blanca Liocytes/100 WBC (Bld)9.5 %Normal1.7-12.0[facility] Comment on above:Performed By: #### ADAM, CMP, LIPA #### [facility] [address] [place] [address] Dr. Blanca Hernandez #5.0 103/ulNormal1.4-6.5The [facility] HospitalComment on above:Performed By: #### ADAM, CMP, LIPA #### [facility] [address] [place] [address] Dr. Blanca Fischerutrophils/100 WBC (Bld)58.2 %Enlnyq09.0-75.0The [facility] HospitalComment on above:Performed By: #### ADAM, CMP, LIPA #### [facility] [address] [place] [address] Dr. Blanca Hollowaylet mean volume (Bld) [Entitic vol]9.8 fLNormal9.5-13.5The [facility] on above:Performed By: #### ADAM, CMP, LIPA #### [facility] [address] [place] [address] Dr. Blanca GrimmPLT273 103/tiDmiwlx557-955Qpw [facility] on above: Performed By: #### ADAM, CMP, LIPA #### [facility] [address] [place] [address] Dr. Blanca GrimmRBC4.30 106/ulNormal4.20-5.40The [facility] on above:Performed By: #### ADAM, CMP, LIPA #### [facility] [address] [place] [address] Dr. Blanca GrimmWBC8.5 103/ulNormal4.0-11.0The [facility] on above: Performed By: #### ADAM, CMP, LIPA #### [facility] [address] [place] [address] Dr. Blanca GrimmLIPASEon 98-79-1019Auvdsp [Catalytic activity/Vol]108.0 U/LNormal 73.0-393.0The [facility] on above:Performed By: #### ADAM, CMP, LIPA #### [facility] [address] [place] [address] Dr. Blanca GrimmPROF 14(COMP METB)on 55-39-3965Lkgbxqf [Mass/Vol]3.9 g/dLNormal 3.4-5.0The [facility] on above:Performed By: #### ADAM, CMP, LIPA #### [facility] [address] [place] [address] Dr. Blanca GrimmAlbumin/Globulin [Mass ratio]1.1 {ratio}NormalThe [facility] on above:Performed By: #### ADAM, CMP, LIPA #### [facility] [address] [place] [address] Dr. Blanca GrimmALP [Catalytic activity/Vol]94 U/LHaiipd36-820Vfb [facility] on above:Performed By: #### ADAM, CMP, LIPA #### [facility] [address] [place] [address] Dr. Blanca Levi [Catalytic activity/Vol]28 U/WLbqhna89-82Rkb [facility] on above:Performed By: #### ADAM, CMP, LIPA #### [facility] [address] [place] [address] Dr. Blanca Thapaon gap [Moles/Vol]14.8 mmol/LNormalThe [facility] Comment on above:Performed By: #### ADAM, CMP, LIPA #### [facility] [address] [place] [address] Dr. Blanca GrimmAST [Catalytic activity/Vol]22 U/NAslvfy87-88Gwc [facility]Comment on above:Performed By: #### ADAM, CMP, LIPA #### [facility] [address] [place] [address] Dr. Blanca GrimmBilirubin [Mass/Vol]0.3 mg/dLNormal0.2-1.0[facility] Comment on above:Performed By: #### ADAM, CMP, LIPA #### [facility] [address] [place] [address] Dr. Blanca GrimmCalcium [Mass/Vol]9.3 mg/dLNormal8.5-10.1[facility] Comment on above:Performed By: #### ADAM, CMP, LIPA #### [facility] [address] [place] [address] Dr. Blanca GrimmChloride [Moles/Vol]103 mmol/VXoucbm47-758Upz [facility] Comment on above:Performed By: #### ADAM, CMP, LIPA #### [facility] [address] [place] [address] Dr. Blanca GrimmCO2 [Moles/Vol]24.4 mmol/EWyltxw50.0-32.0[facility] Comment on above:Performed By: #### ADAM, CMP, LIPA #### [facility] [address] [place] [address] Dr. Blanca GrimmCreatinine [Mass/Vol]0.94 mg/dLNormal0.55-1.02[facility]healthComment on above:Performed By: #### ADAM, CMP, LIPA #### [facility] [address] [place] [address] Dr. Blanca BaileyGFR-AF MALIAN>60Normal>=60The [facility] HospitalComment on above:Performed By: #### ADAM, CMP, LIPA #### [facility] [address] [address] [address] Blanca BaileyGFR-NON AF MALIAN=60Normal>=60The [facility] HospitalComment on above:Performed By: #### ADAM, CMP, LIPA #### [facility] [address] [place] [address] Dr. Blanca GrimmGlobulin (S) [Mass/Vol]3.7 g/dLNormalThe [facility] HospitalComment on above:Performed By: #### ADAM, CMP, LIPA #### [facility] [address] [place] [address] Dr. Blanca GrimmGlucose [Mass/Vol]101 mg/vEHmjaqn31-090RvtTrihealth Comment on above:Performed By: #### ADAM, CMP, LIPA #### [facility] [address] [place] [address] Dr. Blanca GrimmPotassium [Moles/Vol]4.2 mmol/LNormal3.5-5.1[facility] Comment on above:Performed By: #### ADAM, CMP, LIPA #### [facility] [address] [place] [address] Dr. Blanca GrimmProtein [Mass/Vol]7.6 g/dLNormal6.4-8.2[facility] Comment on above:Performed By: #### ADAM, CMP, LIPA #### [facility] [address] [place] [address] Dr. Blanca GrimmSodium [Moles/Vol]138 mmol/WWqusqb259-139AujTrihealth Comment on above:Performed By: #### ADAM, CMP, LIPA #### [facility] [address] [address] [address] Blanca GrimmUrea nitrogen [Mass/Vol]13.0 mg/dLNormal7.0-18.0[facility]healthComment on above:Performed By: #### ADAM, CMP, LIPA #### [facility] [address] [place], [place] [address] Dr. Blanca GrimmUrea nitrogen/Creatinine [Mass ratio]13.8 mg/mgNoBellevue HospitalComment on above:Performed By: #### ADAM, CMP, LIPA #### [facility] [address] [place], [place] [address] Dr. Blanca GrimmXR LSPINE MIN 4 VIEWSon 28-73-8810CY LSPINE MIN 4 VIEWS EXAMINATION: XR LSPINE [...] Electronically authenticated by: JOYCE PITT Date: 2021-07-22 18:17[facility] WOon 88-58-4728XS Cervical Spine [facility] Name: KATALINA SANTAMARIA [address] [place] [address] Phys: [place] [address] : 1955 Age: 61 Acct: [id number] Loc: ER MRN/Unit No.: [id number] Status: REG ER Exam Date: 11/22/16 Accession Number: [id number] Exam: [id number] CT/CT Cervical Spine WO CT Cervical Spine [...] use of iterative reconstruction technique. FINDINGS: 7 c ervical segments are seen without fracture or subluxation. No prominent degenerative changes are seen. Disc spaces are preserved. There is mild left C3- C4 facet degenerative proliferative change noted. No associated [...] OSMAN Signed Date/Time: 11/22/16, 1252 Dictated Date/Time: 11/22/161251 Night Nurse: GARCIA WYATT Printed Date/Time: [ rep prt dt last], [ rep prt tm last] This report was electronically signed in an other vendor system [facility] NaplesCT Head WOon [id number] Head [facility] Name: KATALINA SANTAMARIA [address] [place] [address] Phys: [place] [address] : 1955 Age: 61 Acct: [id number] Loc: MRN/Unit No.: [id number] Status: REG ER Exam Date: 11/22/16 Accession Number: [id number] Exam: [id number] CT/CT Head WO CT Head WO EXAM: [...] soft tissue swelling and hematoma noted. Soft tissueair is seen and this would suggest associated [...] Date/Time: 11/22/16, 1252 Dictated Date/Time: 11/22/16 1245 Night Nurse: GARCIA WYATT Printed Date/Time: [ rep prt dt last], [ rep prt tm last] This report was electronically signed in an other ve ndor systemNCH Healthcare System - [facility] NaplesCT Thoracic Spine WOon [id number] Thoracic Spine [facility] Name: KATALINA SANTAMARIA [address] [place] [address] Phys: [place] [address] : 1955 Age: 61 Acct: [id number] Loc: ER MRN/Unit No.: [id number] Status: DEP ER Exam Date: 11/22/16 Accession Number: [id number] Exam: [id number] CT/CT Thoracic Spine WO CT Thoracic Spine [...] Date/Time: 11/22/16, 1455 Dictated Date/Time: 11/22/16 1258 Night Nurse: GARCIA WYATT Printed Date/Time: [ rep prt dt last], [ rep prt tm last] This report was electronically signed in an other vendor systemN[facility] Vital Signs Date TimeVital SignValuePerforming RcxcosxenPkhmfgac33-49-8065 14:35-0400Body buixtr939.6 cmAnthoselvin Rusher DPM Work Phone: [phone] CenterVdphgiyziz61-03-7987 14:35-0400Body mass index (BMI) [Ratio]28.25 kg/i4Tuzamci Rusher DPM Work Phone: [phone] CenterDocelpmsha72-06-3277 14:35-0400Body moptqw02.38 kgAnthony Rusher DPM Work Phone: [facility] CenterJszpxewtgc91-60-9553 13:32-0400Blood Pressure LocationMichael NILL [facility]03-29-2023 13:32-0400Diastolic blood wymvufgo86 mm[Hg]Amberly NILL [facility]03-29-2023 13:32-0400Heart rate 72 /minMichael NILL [facility]03-29-2023 13:32-0400 Respiratory rate16 /minMichael NILL [facility]03-29-2023 13:32-0400Systolic blood yyakwxqb536 mm[Hg]Amberly NILL [facility]03-01-2023 13:09-0500Blood Pressure LocationMichael NILL [facility]03-01-2023 13:09-0500Diastolic blood wfkluubv09 mm[Hg]Amberly NILL [facility] Pmiotmhx36-59-7759 13:09-0500Heart rate 74 /minMichael NILL [facility] Nmmvgsom40-16-3315 13:09-0500 Respiratory rate16 /minMichael NILL [facility] Gihfwnnw14-20-5365 13:09-0500Systolic blood lufsljve322 mm[Hg]Amberly NILL [facility] Unciojbp72-99-1160 14:16-0400Blood Pressure LocationMichael NILL [facility] Wahnkcsb59-69-4669 14:16-0400Diastolic blood upkuwcwz81 mm[Hg]Amberly NILL [facility] Kxhbsvvj60-97-1252 14:16-0400Heart rate 70 /minMichael NILL [facility] Gpgpgiij73-31-1051 14:16-0400 Respiratory rate16 /minMichael NILL [facility] Bhdneoje14-51-7854 14:16-0400Systolic blood uzxdxiay659 mm[Hg]Amberly NILL [facility] [place] Encounters Encounter DateEncounter TypeCare ProviderFacilityStart: 07-04-2024 End: 78-79-7260Xdroho outpatient new 30 minutesAnthcristobal Del Rio DPM Work Phone: NOUZ PODIATRYComment on above:Onychodystrophy (Primary Dx); Diabetes mellitus without complicationStart: 07-04-2024 End: 25-93-6107rcqlhcbxjwHYIMPIP S RUSHERNot AvailableStart: 07-04-2024 End: 63-63-9438Nbgciy flowsheetAnthcristobal Del Rio DPM Work Phone: noms PODIATRYStart: 07-04-2024 End: 56-44-8900Fqrlwh flowsFlora Del Rio DPM Work Phone: noms PODIATRYStart: 06-25-2022 End: 72-77-1191rrllzopystCjnbycx R NILLFacility: BellolgaueStart: 06-25-2022 End: 81-86-8140Bzykdni encounter procedureMichael R NILL General Surgery Nill/Said [place] Start: 05-28-2022 End: 69-57-4149hgzrpytkyjRzlvskh R NILLFacility: AliciaolgaJust Dialtart: 05-28-2022 End: 70-55-9954Labaniz encounter procedureMichael R NILL General Surgery Nill/Said Ramya Start: 05-02-2022 End: 20-58-8041mywdxbolaoHT MARCO HOYFacility:F8Lfxgd: 04-23-2022 End: 72-56-3150uttrbgmgpfZF MARCO HOYFacility:M3Snzev: 04-18-2022 End: 10-07-1471gznslposqvME MARCO HOYFacility:R6Fsxpy: 01-30-2022 End: 15-21-6875xlinrucazrCH MARCO HOYFacility:E5Lrbcr: 01-22-2022 End: 11-30-4576uriaqlotofLS MARCO HOYFacility:K6Myozd: 01-21-2022 End: 09-27-1476nqnttbzzxaQkcymdu R NILLFacility: AliciaKayetart: 01-21-2022 End: 11-09-6865Ewwdmvm encounter procedureMichael R NILL General Surgery Nill/Said [place] Start: 76-03-2738Lmijrfqdt for preprocedural laboratory examinationDR AMBERLY CUELLARGeena [place] HospitalStart: 01-01-2022 End: 15-30-7792wostkbbilfCQ AMBERLY NILLFacility:Y8Ffkhm: 12-30-2021 End: 51-22-9795usjehsjvciHJ AMBERLY NILLFacility:I1Irszz: 12-30-2021 End: 93-96-4364Fpnezrovj for preprocedural laboratory examinationDR AMBERLY NILL Facility:P9Zvbpz: 12-16-2021 End: 25-22-8424hhjahkzrjvNC JOYCE V WESTFacility:S9Tbkpu: 12-05-2021 End: 47-30-2901qmvasigpujRA MARCO HOYFacility:W8Cbaaf: 12-04-2021 End: 41-84-7610pigxlwzyvgUhmzdli R NILLFacility:[facility] CenterueStart: 12-04-2021 End: 97-25-7877Rhkxoku encounter procedureMichael R NILL General Surgery [facility]/Said [place] Start: 78-44-4344qogdyzfehwHjgybmd R NILLFacility:[facility] CenterueStart: 63-18-5268hzrdfwywgyDacwjrs NILLFacility: NorboubacarkStart: 11-26-2021 End: 68-21-9673oxcwkfmfxoLQ MARCO HOYFacility:X5Yddjv: 11-13-2021 End: 96-83-2507nkgnljvuvpCT MARCO HOYFacility:W5Lyhym: 07-22-2021 End: 84-43-8870rbmkjfgaubRO MARCO HOYFacility:E3Grxtk: 11-22-2016 End: 13-44-3120Ksdfjrncq department patient visitGARY OATESFacility:[facility] Procedures DateProcedureProcedure DetailPerforming ClinicianStart: 80-37-1629Rtbarapejgu Elza Del Rio DPM Work Phone: Start: 85-83-1543OjkusbzebqnXtehdfb NILL Start: 43-46-7674KjwbjdetrqbjkurhadbfwjolgvTymbjqn NILL Start: 31-10-3022Zlzivkicr hysterectomyMichael NILL Bilateral oophorectomyMichael NILL Plan of Treatment DateCare ActivityDetailAuthorStart: 62-62-1408Bwnocmxxe for malignant neoplasm of colonNOMS HealthcareStart: 32-85-6171Bvvicsisp vaccinationInfluenza Vaccine (Season Ended)[facility] HealthcareStart: 07-04-2024 End: 16-08-4963Edpsftd encounter wyclgtlde01/07/2025 2:30 PM EDT Office Visit [facility] [address] [place] [phone] Elza Del Rio, DPM [address] [place], [place] [id number] ArrivedDEER PARK HOSPITAL PODIATRYComment on above:ArrivedStart: 2020 Pneumococcal Vaccine: 65+ Years (1 of 1 - PCV)Pneumococcal Vaccine: 65+ Years (1 of 1 - PCV)[facility] HealthcareStart: 93-29-4835Pbqcsqzyb for malignant neoplasm of breastMammogramNOMS HealthcareStart: 99-80-3823Tixcpiaoq for malignant neoplasm of colonNOMS Healthcare Immunizations Immunization DateImmunizationNotesCare EckfsddtWkcrabqd77-65-2678POEM-BrB-8 (COVID-19) mRNA BNT-162b2 vaxMichael NILL General Surgery Npzcsddm01-02-1245ZHUM-QjW-3 (COVID-19) mRNA BNT-162b2 vaxMichael NILL General Surgery Nnfajqwe49-25-7086GLBX-IbJ-0 (COVID-19) mRNA BNT-162b2 vaxMichael NILL General Surgery BellevueNEGATED: Highlighted row has not occurred!05-13-9794tqjwolrbi virus vaccine, unspecified formulationMichael NILL [facility] [place] Payers DatePayer CategoryPayerPolicy [id number] (Managed Care)[employer] [id number] [id number] 2.0.1.313466.3.57[id number] 2.0.1.926054.3.57[id number] 2.0.1.451017.3.57[id number] 2.0.1.018431.3.57[id number] 2.0.1.009958.3.57[id number] 2.0.1.689016.3.579.[id number] 2.840.1.710819.3.57[id number] 2.840.1.337264.3.579.[id number] 2.16.840.1.743933.3.57[id number] 2.16.840.1.092222.3.57[id number] 2.16.840.1.473261.3.579.[id number] 2.16.840.1.273796.3.57[id number] 2.16.840.1.644614.3.579.[id number] 2.16.840.1.877267.3.57[id number] 2..840.1.100780.3.57[id number] 2.16.840.1.754020.3.579.[id number] 2.16.840.1.708167.3.57[id number] 2..840.1.018918.3.579.[id number] 2.840.1.926011.3.57[id number] 2.840.1.815031.3.579.2.3831Ehjlbdocvp282x97643 Social History DateTypeDetailFacilityStart: 12-04-2021 End: 70-16-4001Fskqsql smoking statusEx-smoker (finding)[facility] [place] Tobacco smoking statusNeverGeneral Surgery BellevueSex Assigned At BirthFemale General [facility] [place] Tobacco smoking status NHISTobacco smoking consumption unknownNOMS HealthcareStart: 01-56-2566Fxr assigned at birthFemalHuntsman Mental Health Institute HealthcareStart: 39-69-1219Dwhlfj identityIdentifies as female gender (finding) [facility] HealthcareStart: 49-65-5343Wthydf orientationHeterosexual (finding)[facility] HealthcareHistory of tobacco useCurrent smokerNOMS HealthcareHistory of tobacco useCigarette SmokerNOMS HealthcareStart: 69-00-5040Avrcldy use and exposure Smokeless tobacco non-userNOMS HealthcareStart: 08-46-6978Gikzbdkpw beverage intakeCurrent drinker of alcohol (finding)[facility] HealthcareStart: 07-04-2024 Tobacco CommentQuit 90's, smoked for 20 yrsNOMS HealthcareStart: 07-04-2024 Alcohol Commenttwice a monthNOBarn[facility] Functional Status PlrqTtlsbbtfauQeddhzHcdhrmdc35-67-1891Yxoyyqozbl StatusN/AGeneral Surgery Dolpzkul90-47-2833Xpdlwwbjtl StatusN/AGeneral Surgery Zbimoarj45-35-3330 Functional StatusN/AGeneral Surgery Ramya History of Present illness Narrative 07-04-2024 Note Date & IxbnNcznQrxksdux11-88-5848 History of Present illness Narrative* Elza Del Rio, MURPHY - 07/04/2024 2:30 PM EDT Images from the original note were not included. Subjective Patient ID: Katalina Santamaria is a 69 y.o. female who presents for Fungus (Pt is here today for nail fungus, first noticed this about 6mos, she has clipped the nails and purchased a topical fungus treatment. Not painful /BS: 119 A1C: ?/LV Dr. Otero 06-29-2024/SS: 8.5). HPI This is a new patient who presents to clinic with concern of bilateral nail changes to the 3rd toe.Patient states that approximately 6 months ago she started noticing some discoloration of the toenails. She states that she typically has her nails painted all the time. She tried some hntj-bng-qjgqtqz topical antifungal but has not noted any significant change. Review of Systems Constitutional: Negative for activity change and fatigue. Respiratory: Negative for chest tightness and shortness of breath. Cardiovascular: Negative for chest pain and leg swelling. Musculoskeletal: Negative for arthralgias and joint swelling. Skin: Negative for color change and wound. Neurological: Negative for weakness and numbness. Psychiatric/Behavioral: Negative for agitation and behavioral problems. Hematological: Does not bruise/bleed easily. Allergic/Immunologic: Negative for immunocompromised state. Past medical History Past Medical History: Diagnosis Date Acid reflux Anxiety Depression (CMS/HCC) Diabetes mellitus (CMS/HCC) Hyperlipemia (CMS/HCC) Hypothyroid (CMS/HCC) Medications Current Outpatient Medications: levothyroxine (Synthroid, Levoxyl) 50 MCG tablet, Take by mouth Daily before meals, Disp: , Rfl: liothyronine (Cytomel) 5 MCG tablet, Take by mouth Daily, Disp: , Rfl: metFORMIN, OSM, (Fortamet) 500 MG 24 hr tablet, Take 500 mg by mouth in the evening. Take with meals Do not crush, chew, or split., Disp: , Rfl: pantoprazole (ProtoNix) 40 MG EC tablet, Take 40 mg by mouth in the morning. Take before meals. Do not crush, chew, or split.., Disp: , Rfl: QUEtiapine (SEROquel) 25 MG tablet, Take 25 mg by mouth at bedtime, Disp: , Rfl: simvastatin (Zocor) 20 MG tablet, Take 20 mg by mouth at bedtime, Disp: , Rfl: Allergies Patient has no known allergies. Past Surgical History Past Surgical History: Procedure Laterality Date HYSTERECTOMY Family History Family History Problem Relation Name Age of Onset Hypertension Mother Stroke Mother Cancer Father Diabetes Brother x2 Objective Physical Exam Constitutional: General: She is not in acute distress. HENT: Head: Atraumatic. Cardiovascular: Pulses: Normal pulses. Musculoskeletal: Cervical back: No tenderness. Skin: Capillary Refill: Capillary refill takes less than 2 seconds. Comments: There is some slight thickening of the right 3rd toenail. I do not see any dermatophytic spiking or onycholysis. Mild subungual debris of the distal portion of the left 3rd toenail. Neurological: General: No focal deficit present. Mental Status: She is alert. Psychiatric: Mood and Affect: Mood normal. Behavior: Behavior normal. Assessment/Plan ICD-10-CM 1. Onychodystrophy L60.3 2. Diabetes mellitus without complication E11.9 Patient examined and evaluated. At this time I do not see any obvious changes of the nails to suggest onychomycosis. Patient states that her nails are typically painted and my opinion is that a lot of the nail changes that she is experiencing are a result of the additives in the nail [place]. At this time I recommend continued observation and regular debridement of the toenails. I did discuss taking a specimen of the nail to evaluate for the presence of fungal organisms, however we would not treat with a an oral antifungal medication even if this came back as onychomycosis and therefore I do not see the benefit of taking a sample. Discussed topical treatments as well but disclosed the low eff ectiveness of the medications. Patient elects to treat with continued observation and debridement after discussing risks and benefits. For now we will see her back as needed. This note was created with the assistance of a speech recognition program. While intending to generate a timely document that accurately reflects the content of the visit, no guarantee can be provided that every grammatical or spelling mistake has been or will be identified or corrected. Thank you for your understanding. Elza Del Rio DPM documented in this [facility] 05-29-2022 Note Date & KkwkUqnuRmusensc93-30-4040 NoteChief Complaint consultation for multiple GI complaints HPI Staff 67 year old female presents on consultation from Dr. Otero for abdominal pain, bloating, belching, indigestion, nausea, emesis, early satiety and diarrhea. States she's had reported symptoms for several months. She is eating smaller portions throughout the day which does minimize symptoms. She's beenon Protonix for several months. Took Carafate for [...] small, nonobstructing stones, no choledocholithiasis on MRCP; negativeH pylori; no improvement with Carafate; has been [...] swallowing difficulties, no hearing loss, no ear infection(s),no nose bleeds. Cardiovascular: normal blood pressure, no [...] BID, # 90 tab(s), Refills(s) 3, Pharmacy: [facility], 167.6, cm, 05/28/22 13:15:00 EST, Height/Length Dosing, 86.5, kg, 05/28/22 13:15:00 EST, Weight Dosing 2. Hiatal hernia with GERD, (K44.9: Diaphragmatic hernia without obstruction or gangrene)Diaphragmatic hernia without obstruction or gangrene see # 1 Ordered: pantoprazole, 40 mg = 1 tab(s), Oral, BID, # 90 tab(s), Refills(s) 3, Pharmacy: [facility], 167.6, cm, 05/28/22 13:15:00 EST, Height/Length Dosing, 86.5, kg, 05/28/22 13:15:00 EST, Weight Dosing 3. BMI 30.0-30.9,adult (Z68.30: Body mass index [BMI] 30.0-30.9, adult) recommend low fat diet and exercise Follow-up No qualifying data available Problem List/Past Medical History (more content not included)...[facility]:Result Comment: Electronically Signed By: CASA ANAYA, Amberly Lopez.david\Date and Time Signed: 05/29/22 09:59 EST Clinical Note 01-01-2022 Note Date & IkpjUghjLnxekdvs47-54-1979 NoteOPERATIVE NOTE OPERATION DATE: 01/01/2022 PREOPERATIVE DIAGNOSIS: Epigastric [...] room in good condition. CC: [facility]'s [facility]The [facility] 12-04-2021 Note Date & WkemDeiaRtbzliqx66-35-4374 NoteChief Complaint consultation for cholelithiasis HPI Staff 66 year old female presents on consultation from Dr. Otero for cholelithiasis. Reports long standing history of indigestion and bloating. Denies heartburn or belching. Intermittent nausea, no vomiting.Denies abdominal or epigastric pain. Intermittent sternal pain. [...] pancreatitis; no wt loss; recent GB US withsmall stones, no wall thickening; cbd dilated at [...] swallowing difficulties, no hearing loss, no ear infection(s),no nose bleeds. Cardiovascular: normal blood pressure, no [...] loose stools GERD (gastroesop (more content not included)...[facility] Comment on above:Result Comment: Electronically Signed By: CASA ANAYA, Amberly Dent\Date and Time Signed: 12/04/21 21:16 EDT Evaluation + Plan note 12-04-2021 Note Date & QlynExmzUkingabp55-59-8608 Evaluation + Plan note Future Scheduled Tests Radiology* MRI Cholangiogram Pancreatography (mrcp) 12/04/21 [facility] [place] Evaluation note Note Date & TypeNoteFacilityEvaluation note* Diagnosis Onychodystrophy- Primary Other specified disease of nail Diabetes mellitus without complication Type II or unspecified type diabetes mellitus without mention of complication, not stated as uncontrolled documented in this encounter [facility] Hospital course Narrative Note Date & TypeNoteFacilityHospital course Narrative No data available for this section [facility] [place] [facility] Discharge instructions Note Date & TypeNoteFacilityHospital Discharge instructions No data available for this section [facility] [place] Progress note Note Date & TypeNoteFacilityProgress note No data available for this section [facility] [place] Summary Purpose Family History No Family History Records FoundNo Family History Records FoundNo Family History Records FoundNo Family History Records Found Advance Directives No Advanced Directives Records FoundNo Advanced Directives Records FoundNo Advanced Directives Records FoundNo Advanced Directives Records Found Additional Source Comments INFORMATION SOURCE (unrecogn ized section and content) DATE CREATED AUTHOR 09/22/[address] [facility] DATE CREATED AUTHOR AUTHOR'S ORGANIZ ATION 05/05/2022 [facility] DATE CREATED AUTHOR AUTHOR'S ORGANIZ ATION 06/30/2022 [facility] DATE CREATED AUTHOR AUTHOR'S ORGANIZ ATION 07/05/2024 [facility] EPIC Care Team (unrecognized sect ion and content) Team MemberRelationshipSpecialtyStart DateEnd Date Marco Otero MD [address] [facility] [place] [phone] PCP - Generalmily Medicine07/04/24Team MemberRelationshipSpecialtyStart DateEnd Date Marco Otero MD [address] [place] [id number] PCP - GeneralFamily Medicine07/04/24 Reason for Visit (unrecogniz ed section and content) ReasonCommentsFungusPt is here today for nail fungus, first noticed this about 6mos, she has clipped the nails and purchased a topical fungus treatment. Not painful BS: 119 A1C: ?[facility] Dr. Otero 06-29-2024SS: 8.5 FOR RECORDS PERTAINING TO PATIENTS WHO ARE [...] BE BASED ON THE PRIMARY CLINICAL RECORDS. [facility] [employer] [facility]. provides no warranty or guarantee of the accuracy or completeness of information in this document.
== END 2025-02-22 08:50 | disposition home or self-care (01) ==
LOC: MAMMO 08:49
PROVIDERS: PCP Family Medicine; Visit Provider Family Medicine
DX: Z12.31 Encounter for screening mammogram for malignant neoplasm of breast (principal); Z80.3 Family history of malignant neoplasm of breast
CPT/HCPCS: 77063; 77067